=== PATIENT | female | born 1950 | race Caucasian/White ===

== ENCOUNTER 2017-03-04 13:59 | Outpatient (CLI) | payer OTHER | END 2017-03-04 14:00 | disposition home or self-care (01) | DX: G47.10 Hypersomnia, unspecified (principal); G47.8 Other sleep disorders; R06.83 Snoring ==

== ENCOUNTER 2017-04-06 19:32 | Outpatient (CLI) | payer OTHER | END 2017-04-06 19:33 | disposition home or self-care (01) | LOC: SC 19:32 | PROVIDERS: ATTEND Internal Medicine Pulmonary Disease | DX: G47.61 Periodic limb movement disorder (principal); R09.02 Hypoxemia | CPT/HCPCS: 95810 ==

== ENCOUNTER 2017-05-06 15:54 | Outpatient (CLI) | payer OTHER | END 2017-05-06 15:55 | disposition home or self-care (01) | DX: G47.61 Periodic limb movement disorder (principal); R09.02 Hypoxemia ==

== ENCOUNTER 2017-08-07 15:59 | Outpatient (CLI) | payer OTHER ==
[2017-08-07 13:34] LABS: BASOPHILS % (AUTO) 0.6 %; EOSINOPHILS # (AUTO) 0.1 10^3/uL (0.0-0.7); EOSINOPHILS % (AUTO) 2.1 %; HCT - HEMATOCRIT 39.2 % (37.0-47.0); HGB - HEMOGLOBIN 13.3 g/dL (12.0-16.0); LYMPHOCYTES # (AUTO) 1.5 10^3/uL (1.5-3.5); LYMPHOCYTES % (AUTO) 30.2 %; MEAN CORPUSCULAR HEMOGLOBIN 33.9 pg (27.0-31.0); MEAN CORPUSCULAR HGB CONC 33.9 g/dL (32.0-36.0); MEAN CORPUSCULAR VOLUME 99.9 fL (81.0-99.0); MEAN PLATELET VOLUME 9.1 fL (7.9-10.8); MONOCYTES # (AUTO) 0.4 10^3/uL (0.0-1.0); MONOCYTES % (AUTO) 7.9 %; NEUTROPHILS # (AUTO) 2.9 10^3/uL (1.5-6.6); NEUTROPHILS % (AUTO) 59.2 %; RED BLOOD COUNT 3.92 10^6/uL (4.20-5.40); UNCORRECTED WHITE BLOOD COUNT 4.8 x10^3/uL; WHITE BLOOD COUNT 4.8 x10^3/uL (4.8-10.8)
[2017-08-07 14:01] LABS: BUN - BLOOD UREA NITROGEN 7 mg/dL (6-20); CALCIUM 9.3 mg/dL (8.5-10.3); CARBON DIOXIDE - CO2 26 mmol/L (21-32); CHLORIDE 101 mmol/L (101-111); CREATININE 0.6 mg/dL (0.4-1.0); GFR - MDRD 100 (>89); GLUCOSE 376 mg/dL (70-100); POTASSIUM 4.3 mmol/L (3.5-5.0); SODIUM 133 mmol/L (135-145)
[2017-08-07 14:31] LABS: HEMOGLOBIN A1C 1.43 g/dL
== END 2017-08-07 16:00 | disposition home or self-care (01) ==
LOC: LAB.WCP 15:59
PROVIDERS: ATTEND Physician Assistant Medical
DX: E11.9 Type 2 diabetes mellitus without complications (principal); R09.02 Hypoxemia
CPT/HCPCS: 80048; 82043; 83036; 84443; 85025; 87798

== ENCOUNTER 2017-11-14 16:38 | Outpatient (CLI) | payer OTHER, MEDICARE | END 2017-11-14 16:39 | disposition critical access hospital (66) | LOC: EMS 16:38 | PROVIDERS: ATTEND Surgery | DX: R06.02 Shortness of breath (principal) | CPT/HCPCS: A0425; A0427 ==

== ENCOUNTER 2017-11-14 16:58 | Inpatient (IN) | payer OTHER, MEDICARE ==
--- NOTE | 2017-11-14 17:15 | ED Physician Documentation ---
PD HPI DYSPNEA - Stated complaint Stated Complaint: SOA - Chief complaint Chief Complaint: Resp - History obtained from History obtained from: Patient - History of Present Illness Timing - onset: Other (She says she has a history of asthma and potentially histoplasmosis, has seen a aircraft landing gear inspector in [place]. She also has chronic pedal edema, left greater than right. Today she went out and started to feel short of breath and the ambulance was summoned and noted her to be hypoxic with diminished breath sounds on the right which I guess is pre-existing per the patient. She has had a productive cough and wheezing for the last few days. No fevers.) Review of Systems Ten Systems: 10 systems reviewed and negative Constitutional: denies: Fever, Chills, Fatigue Cardiac: reports: Pedal edema. denies: Chest pain / pressure, Palpitations, Calf pain Respiratory: reports: Dyspnea, Cough GI: denies: Abdominal Pain PD PAST MEDICAL HISTORY - Past Medical History Past Medical History: Yes Cardiovascular: High cholesterol, Other Respiratory: Asthma Endocrine/Autoimmune: Type 2 diabetes GI: GERD, Cirrhosis : Incontinence Psych: Depression Musculoskeletal: Fibromyalgia - Present Medications Home Medications: Ambulatory Orders Medication Instructions Recorded Confirmed Albuterol Sulf [Ventolin Hfa 1 - 2 puffs INH Q4HR PRN 03/21/17 03/21/17 Inhaler] Budesonide/Formoterol Fumarate 2 puffs IH BID 03/21/17 03/21/17 [Symbicort 160-4.5 Mcg Inhaler] Calcium Carbonate 600 mg PO DAILY 03/21/17 03/21/17 DULoxetine [Cymbalta] 30 mg PO DAILY 03/21/17 03/21/17 Empagliflozin [Jardiance] 25 mg PO DAILY 03/21/17 03/21/17 Lactobacillus Acidophilus/Fos 1 each PO DAILY 03/21/17 03/21/17 [Acidophilus Probiotic Tablet] Lysine HCl 500 mg PO DAILY 03/21/17 03/21/17 Melatonin 3 mg PO QPM 03/21/17 03/21/17 Metformin HCl 1,000 mg PO BIDWM 03/21/17 03/21/17 Mometasone Furoate [Nasonex] 2 sprays NS DAILY 03/21/17 03/21/17 Mupirocin 22 gm TP BID 03/21/17 03/21/17 Omeprazole 20 mg PO DAILY 03/21/17 03/21/17 Potassium Chloride 10 meq PO BIDWM 03/21/17 03/21/17 Propranolol [Inderal] 60 mg PO BID 03/21/17 03/21/17 Spironolactone 50 mg PO DAILY 03/21/17 03/21/17 Vitamin B Complex 1 each PO DAILY 03/21/17 03/21/17 Cholecalciferol (Vitamin D3) 2,000 unit PO DAILY 04/22/17 04/22/17 [Vitamin D] Ibuprofen 400 mg PO BID 04/22/17 04/22/17 - Allergies Allergies/Adverse Reactions: Allergies Allergy/AdvReac Type Severity Reaction Status Date / Time cimetidine [From Tagamet] Allergy Unknown Verified 11/14/17 17:05 cimetidine HCl * Allergy Unknown Verified 11/14/17 17:05 [From Tagamet] erythromycin lactobionate * Allergy Unknown Verified 11/14/17 17:05 [From Erythrocin] fluticasone propionate * Allergy Unknown Verified 11/14/17 17:05 [From Flonase] levofloxacin [From Levaquin] Allergy Unknown Verified 11/14/17 17:05 piroxicam [From Feldene] Allergy Unknown Verified 11/14/17 17:05 Sulfa (Sulfonamide Allergy Unknown Verified 11/14/17 17:05 Antibiotics) ibuprofen [From Motrin] AdvReac Unknown Verified 11/14/17 17:05 - Social History Does the pt smoke?: No Smoking Status: Never smoker - Family History Family history: reports: Non contributory PD ED PE NORMAL - Vitals Vital signs reviewed: Yes (Pulse oximetry is low) - General General: Alert and oriented X 3, No acute distress - HEENT HEENT: PERRL, EOMI - Neck Neck: Supple, no meningeal sign, No bony TTP - Cardiac Cardiac: RRR, No murmur - Respiratory Respiratory: Other (Diminished on the right) - Abdomen Abdomen: Soft, Non tender - Back Back: No CVA TTP, No spinal TTP - Extremities Extremities: Other (Asymmetric pedal edema with left being larger than the right but she said it is no different than usual.) - Neuro Neuro: Alert and oriented X 3 - Psych Psych: Normal mood, Normal affect Results - Vitals Vitals: Vital Signs - 24 hr 11/14/17 11/14/1718 16:59 17:08 19:32 Temperature 37.2 C 37.2 C Heart Rate 106 H 91 Respiratory 22 24 Rate Blood Pressure 156/73 H 123/66 O2 Saturation 81 L 93 94 Oxygen O2 Source Nasal cannula Oxygen Flow Rate 3 - EKG (time done) 1736 Rate: Rate (enter#) (91) Rhythm: NSR [place]: Normal Intervals: Normal [place] QRS: Normal Ischemia: Normal ST segments Computer interpretation: Agree with computer - Labs Labs: Laboratory Tests 11/14/17 11/14/17 11/14/17 17:50 17:50 17:50 WBC 5.0 RBC 3.88 L Hgb 13.3 Hct 39.4 MCV 101.4 H MCH 34.1 H MCHC 33.7 RDW 14.5 Plt Count 67 L MPV 8.4 Neut # 3.2 Lymph # 1.4 L [place] # 0.3 Eos # 0.1 Baso # 0.0 Absolute Nucleated RBC 0.00 Nucleated RBC % 0.0 D-Dimer > 1050.0 H Sodium 135 Potassium 3.8 Chloride 99 L Carbon Dioxide 25 Anion Gap 11.0 BUN < 5 L Creatinine 0.5 Estimated GFR (MDRD) 123 Glucose 452 H Calcium 9.0 Total Bilirubin 2.1 H AST 46 H ALT 23 Alkaline Phosphatase 208 H Total Creatine Kinase 66 CK-MB (CK-2) Troponin I Total Protein 7.5 Albumin 2.9 L Globulin 4.6 H Albumin/Globulin Ratio 0.6 L Lipase 44 Urine Color Urine Clarity Urine pH Ur Specific [place] Urine Protein Urine Glucose (UA) Urine Ketones Urine Occult Blood Urine Nitrite Urine Bilirubin Urine Urobilinogen Ur Leukocyte Esterase Ur Microscopic Review 11/14/17 11/14/17 17:50 Unknown WBC RBC Hgb Hct MCV MCH MCHC RDW Plt Count MPV Neut # Lymph # [place] # Eos # Baso # Absolute Nucleated RBC Nucleated RBC % D-Dimer Sodium Potassium Chloride Carbon Dioxide Anion Gap BUN Creatinine Estimated GFR (MDRD) Glucose Calcium Total Bilirubin AST ALT Alkaline Phosphatase Total Creatine Kinase CK-MB (CK-2) 1.4 Troponin I < 0.04 Total Protein Albumin Globulin Albumin/Globulin Ratio Lipase Urine Color YELLOW Urine Clarity CLEAR Urine pH 7.0 Ur Specific [place] <=1.005 Urine Protein NEGATIVE Urine Glucose (UA) >=1000 H Urine Ketones NEGATIVE Urine Occult Blood NEGATIVE Urine Nitrite NEGATIVE Urine Bilirubin NEGATIVE Urine Urobilinogen 0.2 (NORMAL) Ur Leukocyte Esterase NEGATIVE Ur Microscopic Review NOT INDICATED - Rads (name of study) 2v chest Radiology: EMP read contemporaneously (R pleural effusion) CT PA Radiology: EMP read contemporaneously, See rad report (No PE, lg R pleural effusion, Mayrbe multilobar pna) PD MEDICAL DECISION MAKING - ED course Complexity details: reviewed old records (Transthoracic echocardiogram on the chart from November 2015 showing LVEF of 60-65%, stage II diastolic dysfunction , bilateral atrial dilation and borderline pulmonary hypertension with RVSP 36 mmHg. ) ED course: 67-year-old woman with acute dyspnea today, she has a large right pleural effusion of unclear etiology. Her d-dimer was high so this was followed by CT pulmonary angiogram showing no pulmonary embolism. Potential pneumonia versus atelectasis of multiple lobes and a right pleural effusion. She is persistently hypoxic and will be admitted for further evaluation and treatment. She will be cultured up and given Rocephin and doxycycline noting antibiotic allergies. Spoke with Dr. Turner for admission at 7:48 PM. Departure - Departure Disposition: 67 [facility] DC/Xfer Clinical Impression: Pleural effusion, Hypoxemia Pneumonia Qualifiers: Pneumonia type: due to unspecified organism Laterality: unspecified laterality Lung location: unspecified part of lung Qualified Code(s): J18.9 - Pneumonia, unspecified organism Condition: Serious
[2017-11-14 17:32] LABS: BILIRUBIN,URINE NEGATIVE (NEGATIVE); CLARITY,URINE CLEAR (CLEAR); GLUCOSE, URINE (UA) >=1000 mg/dL (NEGATIVE); KETONES,URINE (UA) NEGATIVE (NEGATIVE); LEUKOCYTE ESTERASE, URINE NEGATIVE (NEGATIVE); NITRITE,URINE NEGATIVE (NEGATIVE); OCCULT BLOOD,URINE NEGATIVE (NEGATIVE); PROTEIN,URINE NEGATIVE (NEGATIVE); UROBILINOGEN,URINE 0.2 (NORMAL) E.U./dL (NORMAL)
[2017-11-14] MEDS ORDERED: INSULIN REGULAR HUMAN 100 UNIT/1 ML 10 ML MDV IVP STA (17:45)
--- NOTE | 2017-11-14 17:47 | XRAY Report ---
EXAM: CHEST RADIOGRAPHY EXAM DATE: 11/14/2017 05:30 PM. CLINICAL HISTORY: Dyspnea. COMPARISON: None. TECHNIQUE: 2 views. FINDINGS: Lungs/Pleura: There is a density in the lower right chest consistent with a moderate right pleural ef fusion. No significant left pleural effusion. No consolidative densities seen. Mediastinum: Heart and mediastinal contours are unremarkable. Other: There is a lateral left fourth rib fracture. IMPRESSION: Moderate-sized right pleural effusion. [facility] Referring Provider Line: [phone] SITE ID: [id number]
--- NOTE | 2017-11-14 17:47 | XRAY Preliminary Report ---
Exam: XR CHEST 2 VIEW X-RAY IMPRESSION: Moderate-sized right pleural effusion. [facility] SITE ID: [id number]
[2017-11-14] MEDS ORDERED: IOPAMIDOL-300 100 ML VIAL ONE (17:49)
[2017-11-14 18:09] LABS: BASOPHILS % (AUTO) 0.4 %; EOSINOPHILS # (AUTO) 0.1 10^3/uL (0.0-0.7); HGB - HEMOGLOBIN 13.3 g/dL (12.0-16.0); LYMPHOCYTES # (AUTO) 1.4 10^3/uL (1.5-3.5); LYMPHOCYTES % (AUTO) 28.2 %; MEAN CORPUSCULAR HEMOGLOBIN 34.1 pg (27.0-31.0); MEAN CORPUSCULAR HGB CONC 33.7 g/dL (32.0-36.0); MEAN CORPUSCULAR VOLUME 101.4 fL (81.0-99.0); MEAN PLATELET VOLUME 8.4 fL (7.9-10.8); MONOCYTES # (AUTO) 0.3 10^3/uL (0.0-1.0); MONOCYTES % (AUTO) 6.3 %; NEUTROPHILS # (AUTO) 3.2 10^3/uL (1.5-6.6); NEUTROPHILS % (AUTO) 63.1 %; PLT - PLATELET COUNT 67 10^3/uL (130-450); RED BLOOD COUNT 3.88 10^6/uL (4.20-5.40); RED CELL DISTRIBUTION WIDTH 14.5 % (12.0-15.0)
[2017-11-14 18:19] LABS: TROPONIN I < 0.04 ng/mL (<0.49)
[2017-11-14 18:21] LABS: CREATINE KINASE MB 1.4 ng/mL (0.6-6.3)
[2017-11-14 18:24] LABS: ALBUMIN 2.9 g/dL (3.2-5.5); ALBUMIN/GLOBULIN RATIO 0.6 (1.0-2.2); ALKALINE PHOSPHATASE 208 IU/L (42-121); ALT ALANINE AMINOTRANSFERASE 23 IU/L (10-60); AST ASPARTATE AMINOTRANSFERASE 46 IU/L (10-42); BILIRUBIN,TOTAL 2.1 mg/dL (0.2-1.0); BUN - BLOOD UREA NITROGEN < 5 mg/dL (6-20); CARBON DIOXIDE - CO2 25 mmol/L (21-32); CHLORIDE 99 mmol/L (101-111); CK- CREATINE KINASE 66 IU/L (22-269); CREATININE 0.5 mg/dL (0.4-1.0); GFR - MDRD 123 (>89); GLUCOSE 452 mg/dL (70-100); LIPASE 44 U/L (22-51); SODIUM 135 mmol/L (135-145); TOTAL PROTEIN 7.5 g/dL (6.7-8.2)
[2017-11-14] MEDS ORDERED: IOPAMIDOL-300 100 ML VIAL IVP ONE (19:05)
--- NOTE | 2017-11-14 19:27 | CT Preliminary Report ---
Exam: CT CHEST ANGIO (PE) IMPRESSION: 1. Negative for acute pulmonary embolism. 2. New moderate-sized right pleural effusion. 3. Chronic liver disease and liver fibrosis with splenomegaly. 4. Patchy airspace disease in the medial left upper lobe is similar to previous. Differential diagnos is would include parenchymal postinflammatory scarring or fibrosis versus recurrent infection or mathematician research stefan infection. 5. Opacities of right middle and right lower lobe are most consistent with atelectasis. [facility] SITE ID: [id number]
--- NOTE | 2017-11-14 19:28 | CT Report ---
EXAM: CT ANGIOGRAM CHEST EXAM DATE: 11/14/2017 06:50 PM. CLINICAL HISTORY: Dyspnea. COMPARISON: Chest CT 12/22/2015. TECHNIQUE: Routine helical imaging was performed through the chest in the pulmonary arterial phase. I V Contrast: 80 cc Isovue 300 IV. Reconstructions: Coronal 3-D MIP reconstructions.Sagittal and grant l. In accordance with CT protocol optimization, one or more of the following dose reduction techniques w ere utilized for this exam: automated exposure control, adjustment of mA and/or KV based on patient s ize, or use of iterative reconstructive technique. FINDINGS: Pulmonary Arteries: Diagnostic quality: Adequate through the segmental arteries. Negative for pulmonary embolism to the s egmental level. Subsegmental vessels not well seen. The main pulmonary artery appears upper normal in size but unchanged. Lungs/Pleura: There is a moderate-sized right pleural effusion which is new since the previous examin ation. There is consolidation and volume loss in the right lower lobe. There is a densely calcified g ranuloma in the right lower lobe. There is consolidation and volume loss in the right middle lobe. Th ere is atelectasis in the lingula. There is a small area of consolidation and adjacent nodularity wit hin the medial left upper lobe. Mediastinum: The heart size is within normal limits. There is no pericardial effusion. No mediastinal adenopathy. There are calcified right hilar lymph nodes consistent with old granulomatous disease. Thoracic Aorta: No aneurysm or dissection. Upper Abdomen: There is a lobulated contour to the liver consistent with liver fibrosis. Spleen is en larged. Other: None. IMPRESSION: 1. Negative for acute pulmonary embolism. 2. New moderate-sized right pleural effusion. 3. Chronic liver disease and liver fibrosis with splenomegaly. 4. Patchy airspace disease in the medial left upper lobe is similar to previous. Differential diagnos is would include parenchymal postinflammatory scarring or fibrosis versus recurrent infection or shot coat tender stefan infection. 5. Opacities of right middle and right lower lobe are most consistent with atelectasis. [facility] Referring Provider Line: [phone] SITE ID: [id number]
[2017-11-14] MEDS ORDERED: cefTRIAXone 1 GM in SODIUM CHLORIDE 0.9% MINIBAG 100 ML IV STA (19:41)
[2017-11-14] MEDS ORDERED: DOXYCYCLINE INJ 100 MG in SODIUM CHLORIDE 0.9% MINIBAG 100 ML IV STA (19:42)
[2017-11-14] MEDS ORDERED: HYDROmorphone 1 MG/ML SYRINGE IVP PRN (20:38)
[2017-11-14] MEDS ORDERED: PROCHLORPERAZINE 10 MG/2 ML VIAL IVP PRN (20:38)
[2017-11-14] MEDS ORDERED: ZOLPIDEM 5 MG TABLET PO PRN (20:38)
[2017-11-14] MEDS: INSULIN ASPART 300 UNIT/3 ML PEN SUBQ SCH (22:51)
[2017-11-14] MEDS: PROPRANOLOL 40 MG TABLET PO SCH (22:52)
[2017-11-14] MEDS: SODIUM CHLORIDE FLUSH 0.9% 10 ML SYRINGE IVP SCH (22:54)
[2017-11-15] MEDS: ACETAMINOPHEN 325 MG TABLET PO PRN ×3 (02:20→22:00)
[2017-11-15 05:33] LABS: BASOPHILS # (AUTO) 0.2 10^3/uL (0.0-0.1); BASOPHILS % (AUTO) 3.7 %; EOSINOPHILS # (AUTO) 0.1 10^3/uL (0.0-0.7); EOSINOPHILS % (AUTO) 2.6 %; HGB - HEMOGLOBIN 13.1 g/dL (12.0-16.0); LYMPHOCYTES # (AUTO) 1.4 10^3/uL (1.5-3.5); LYMPHOCYTES % (AUTO) 25.4 %; MEAN CORPUSCULAR HEMOGLOBIN 33.9 pg (27.0-31.0); MEAN CORPUSCULAR HGB CONC 34.5 g/dL (32.0-36.0); MEAN PLATELET VOLUME 8.5 fL (7.9-10.8); MONOCYTES # (AUTO) 0.4 10^3/uL (0.0-1.0); MONOCYTES % (AUTO) 7.2 %; NEUTROPHILS # (AUTO) 3.4 10^3/uL (1.5-6.6); NEUTROPHILS % (AUTO) 61.1 %; PLT - PLATELET COUNT 72 10^3/uL (130-450); RED BLOOD COUNT 3.87 10^6/uL (4.20-5.40); RED CELL DISTRIBUTION WIDTH 13.3 % (12.0-15.0); WHITE BLOOD COUNT 5.6 x10^3/uL (4.8-10.8)
[2017-11-15 05:41] LABS: CALCIUM 8.5 mg/dL (8.5-10.3); CREATININE 0.4 mg/dL (0.4-1.0)
[2017-11-15 05:42] LABS: HB2 TOTAL 14.3 g/dL; HEMOGLOBIN A1C 1.48 g/dL; HEMOGLOBIN A1C % 11.6 % (4.6-6.2)
--- NOTE | 2017-11-15 06:14 | HISTORY & PHYSICAL EXAMINATION ---
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 The patient presents with complaints of shortness of breath that started about 18 hours before presenting to the emergency room. She normally takes an inhaler p.r.n. and had to start use it the previous night. She denied any PND or orthopnea. In the morning, when she was walking outdoors in very windy weather, she thought that her seasonal allergies were acting up, and she developed severe shortness of breath during this walk. With rest, it did not resolve, and therefore she presented to the emergency room. She received inhaler treatment and was started on IV antibiotics for findings on her chest x-ray, and feels significantly better already. She denies any fever. She has a dry cough with no sputum production. There is no angina, new leg edema, palpitations, or syncope. REVIEW OF SYSTEMS HEENT: The patient fell by stumbling as she was entering her house 3 months ago and broke half of her upper left portion of her teeth and is scheduled to see a dentist, but because of this her nutrition has changed to soft food. NECK: Denies trouble. CHEST: She has had prior pneumonias. She is seen by a adjustment supervisor in [place], who told her that she has histoplasmosis and that nothing can be done about it, and gave no treatment, and he saw a right-sided small pleural effusion and started her on diuretics. The patient has 2 nodules of the lungs that are being followed by imaging. CARDIAC: Denies. GASTROINTESTINAL: GERD and history of liver cirrhosis, nonalcoholic. GENITOURINARY: Urinary incontinence. PSYCHIATRIC: Depression. MUSCULOSKELETAL: Fibromyalgia; bilateral leg edema, left greater than right, with prior left schroeder cellulitis. NEUROLOGIC: Denies. FAMILY HISTORY: Positive for coronary artery disease in both parents and a brother. No diabetes in the family. SOCIAL HISTORY: She is a nonsmoker who never smoked, drinks no alcohol, uses no illicit drugs. She lives alone, is a . She has 2 grown children who live in [place]. 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 MEDICATIONS AT HOME 1. Ventolin inhaler. 2. Symbicort inhaler. 3. Cymbalta. 4. Jardiance. 5. Lactobacillus. 6. Calcium. 7. Lysine. 8. Melatonin. 9. Metformin 1000 p.o. b.i.d., but she only takes 1000 every night and forgets the morning dose routinely. 10. Nasonex. 11. Mupirocin. 12. Omeprazole. 13. Potassium. 14. Inderal 60 mg p.o. b.i.d. 15. Spironolactone 50 mg p.o. daily. 16. Vitamin B. 17. Vitamin D. 18. Ibuprofen 400 b.i.d. ALLERGIES 1. CIMETIDINE. 2. ERYTHROMYCIN. 3. FLONASE. 4. LEVAQUIN. 5. FELDENE. 6. SULFA. 7. MOTRIN, ALTHOUGH SHE TAKES MOTRIN. PHYSICAL EXAMINATION GENERAL: White female who is in no distress, supine in bed. VITAL SIGNS: Blood pressure 110/50, heart rate is in the 70s in sinus rhythm. She is HEENT: Reveals the broken teeth of the right/left upper area, moist mucosa. NECK: Shows no thyromegaly or lymphadenopathy. No JVD. She has a positive left-sided carotid bruit. CHEST: Clear with no wheezing or rales. HEART: Sounds have normal S1, S2 and a 2/6 systolic murmur at the lower left sternal border, which radiates up to the base. There is no gallop. ABDOMEN: Soft. Positive bowel sounds. Nontender. No organomegaly. EXTREMITIES: Two plus edema to the knees. Venous stasis changes over a left schroeder area that is approximately 11 cm long x 3 cm wide, where prior cellulitis occurred. NEUROLOGIC: Intact. LABORATORY DATA: Normal electrolytes, normal BUN and creatinine. AST 46, ALT 23, bilirubin 2.1. Troponin not detectable at less than 0.04, BNP 99. Albumin 2.9. Lipase normal. INR was not done. Her D-dimer was greater than 1050. White blood count 5 with a normal differential, hemoglobin 13.3, MCV 101, platelet count low at 67. Urine had no ketones and was basically negative. IMAGING: Chest x-ray: Normal cardiac size. Lateral left 4th rib fractured. Moderate sized right pleural effusion. CTA of the chest: No aortic aneurysm or dissection. No pulmonary embolism. Moderate sized right pleural effusion which is new since a prior CT, and there is right lower lobe consolidation, and consolidation of the medial left upper lobe. The liver has fibrosis. The spleen is enlarged. EKG: Normal sinus rhythm and poor R-wave progression, otherwise within normal limits. IMPRESSION/DIAGNOSES 1. Bilateral community-acquired pneumonia. 2. Right pleural effusion. 3. Asthma. 4. Diabetes, poorly controlled. 5. History of histoplasmosis. 6. History of liver cirrhosis, nonalcoholic. 7. Anemia with high MCV. 8. Heart murmur. 9. Carotid bruit. 10. Thrombocytopenia. PLAN: Begin the patient on antibiotics with IV ceftriaxone and doxycycline, and DuoNeb inhalers. Plan for a thoracentesis as she confirms that the size of the effusion is bigger than what her adjustment supervisor described it to be to her several months ago. I have already ordered for the fluid from the lungs to be sent for cytology, cell count, and for culture. Recheck a BNP and also check a flu antigen for A and B with this finding; however, clinically she does not appear to have the flu. Metformin needs to be held because she received IV dye load; therefore, a sliding scale insulin will be ordered, as well as a diabetic diet. Follow her electrolytes and glucose, and check an A1c. Because of the high MCV, we will order a B12 and folate, and follow her CBC. Obtain an echo to evaluate the murmur. Obtain carotid Doppler regarding the bruit on left. DEEP VENOUS THROMBOSIS PROPHYLAXIS: Lovenox. CODE STATUS: FULL CODE. ATTESTATION: The patient is expected to be discharged or transferred to another facility within 96 hours: Yes. TD: 11/15/2017 07:13 JADIEL
[2017-11-15] MEDS: SODIUM CHLORIDE FLUSH 0.9% 10 ML SYRINGE IVP SCH ×3 (06:51→21:52)
[2017-11-15] MEDS: PANTOPRAZOLE 40 MG TABLET PO SCH (06:51)
[2017-11-15] MEDS: IPRATROPIUM/ALBUTEROL 3 ML NEB INH SCH ×4 (07:07→22:00)
[2017-11-15] MEDS ORDERED: metFORMIN 500 MG TABLET PO SCH (08:00)
[2017-11-15] MEDS ORDERED: ENOXAPARIN 40 MG/0.4 ML SYRINGE SUBQ SCH (09:00)
[2017-11-15] MEDS ORDERED: MOMETASONE FUROATE NAS SCH (09:00)
[2017-11-15] MEDS ORDERED: NON FORMULARY MED (Omeprazole [Omeprazole] 20 MG) PO SCH (09:00)
[2017-11-15] MEDS ORDERED: IBUPROFEN 400 MG PO PRN (09:31)
[2017-11-15] MEDS ORDERED: ALBUTEROL NEB 2.5 MG/3 ML INH PRN (10:12)
[2017-11-15 10:31] LABS: INR 1.3 (0.8-1.2); PT - PROTHROMBIN TIME 14.3 secs (9.9-12.6)
[2017-11-15] MEDS ORDERED: cefTRIAXone 2 GM in SODIUM CHLORIDE 0.9% MINIBAG 100 ML IV SCH (11:00)
[2017-11-15] MEDS ORDERED: AZITHROMYCIN INJ 500 MG in SODIUM CHLORIDE 0.9% 250 ML IV SCH (12:00)
[2017-11-15] MEDS: INSULIN ASPART 300 UNIT/3 ML PEN SUBQ SCH ×3 (12:47→22:02)
[2017-11-15] MEDS: cefTRIAXone 2 GM in SODIUM CHLORIDE 0.9% MINIBAG 100 ML IV SCH (13:10)
[2017-11-15] MEDS: SODIUM CHLORIDE FLUSH 0.9% 10 ML SYRINGE IVP PRN (13:10)
[2017-11-15] MEDS: CALCIUM CARB (OYSTER SHELL) 500 MG TABLET PO SCH (13:10)
[2017-11-15] MEDS: PROPRANOLOL 40 MG TABLET PO SCH ×2 (13:11→21:52)
[2017-11-15] MEDS: DULoxetine 30 MG CAPSULE PO SCH (13:11)
[2017-11-15] MEDS: POTASSIUM CHLORIDE 10 MEQ CAPSULE PO SCH ×2 (13:12→15:59)
[2017-11-15] MEDS: SPIRONOLACTONE 25 MG TABLET PO SCH (13:12)
[2017-11-15 13:20] LABS: CC,BF RBC 1086 /mm^3
[2017-11-15] MEDS: POLYETHYLENE GLYCOL 3350 17 GM PACKET PO SCH (13:24)
[2017-11-15 14:27] LABS: BF COLOR YELLOW; BF SOURCE PLEURAL
[2017-11-15] MEDS: AZITHROMYCIN INJ 500 MG in SODIUM CHLORIDE 0.9% 250 ML IV SCH (14:27)
[2017-11-15] MEDS ORDERED: diphenhydrAMINE 25 MG CAPSULE PO PRN (15:38)
--- NOTE | 2017-11-15 15:56 | PROVIDER PROGRESS NOTE ---
Subjective - Prog Note Date Prog Note Date: 11/15/17 Prog Note Time: 15:53 - Subjective Pt reports feeling: Improved (Pt breathing easier at this time) Current Medications - Current Medications Current Medications: Tylenol, albuterol, azithromycin, calcium carbonate, ceftriaxone, vitamin D3, Benadryl,Cymbalta, glipizide, Dilaudid, NovoLog, melatonin, Protonix, polyethylene glycol,Potassium, Compazine, Inderal, Requip, spironolactone, sodium chloride, Ambien Objective - Vital Signs/Intake & Output Reviewed Vital Signs: Yes Vital Signs: Vital Signs x48h Temp Pulse Pulse Resp BP Pulse Ox 11/15/17 13:40 70 18 11/15/17 08:37 36.8 C 73 18 135/55 H 94 Intake & Output: Intake & Output 11/12/17 11/13/17 11/14/17 11/15/17 23:59 23:59 23:59 23:59 Intake Total 200 340 Balance 200 340 - Objective General Appearance: positive: No acute distress, Alert Eyes Bilateral: positive: Normal inspection, PERRL, EOMI ENT: positive: ENT inspection nml, Pharynx nml, No signs of dehydration Neck: positive: Nml inspection, Thyroid nml, No JVD, Trachea midline. negative : Thyromegaly Respiratory: positive: Chest non-tender, No respiratory distress, Breath sounds nml, Rales, Rhonchi Cardiovascular: positive: Regular rate & rhythm, No murmur, No gallop, Irregularly irregular, Extrasystoles. negative: Tachycardia Abdomen: positive: Non-tender, No organomegaly, Nml bowel sounds, No distention. negative: Tenderness Back: positive: Nml inspection. negative: CVA tenderness (R), CVA tenderness (L ) Skin: positive: Color nml, No rash, Warm, Dry. negative: Cyanosis Extremities: positive: Non-tender, Full ROM, Nml appearance, No pedal edema Neurologic/Psychiatric: positive: Oriented x3, CN's nml (2-12), Motor nml, Sensation nml, Mood/affect nml - Lab Results Fish Bones: 11/15/17 04:38 11/15/17 04:38 Other Labs: Lab Results x24hrs 11/15/17 11/15/17 11/15/17 Range/Units 13:00 10:10 04:38 WBC (4.8-10.8) x10^3/uL RBC (4.20-5.40) 10^6/uL Hgb (12.0-16.0) g/dL Hct (37.0-47.0) % MCV (81.0-99.0) fL MCH (27.0-31.0) pg MCHC (32.0-36.0) g/dL RDW (12.0-15.0) % Plt Count (130-450) 10^3/uL MPV (7.9-10.8) fL Neut # (1.5-6.6) 10^3/uL Lymph # (1.5-3.5) 10^3/uL Hooker # (0.0-1.0) 10^3/uL Eos # (0.0-0.7) 10^3/uL Baso # (0.0-0.1) 10^3/uL Absolute Nucleated RBC x10^3/uL Nucleated RBC % /100WBC PT 14.3 H (9.9-12.6) secs INR 1.3 H (0.8-1.2) APTT 33.7 H (24.9-33.3) secs Sodium 133 L (135-145) mmol/L Potassium 3.8 (3.5-5.0) mmol/L Chloride 103 (101-111) mmol/L Carbon Dioxide 24 (21-32) mmol/L Anion Gap 6.0 (6-13) BUN 5 L (6-20) mg/dL Creatinine 0.4 (0.4-1.0) mg/dL Estimated GFR (MDRD) 160 (>89) Glucose 341 H (70-100) mg/dL Glycated Hemoglobin (4.6-6.2) % Estim Average Glucose (70-100) Calcium 8.5 (8.5-10.3) mg/dL Vitamin B12 (180-914) pg/mL Folate (5.90 - >24.8) ng/mL Urine Color Urine Clarity (CLEAR) Urine pH (5.0-7.5) PH Ur Specific Beverly (1.002-1.030) Urine Protein (NEGATIVE) mg/dL Urine Glucose (UA) (NEGATIVE) mg/dL Urine Ketones (NEGATIVE) mg/dL Urine Occult Blood (NEGATIVE) Urine Nitrite (NEGATIVE) Urine Bilirubin (NEGATIVE) Urine Urobilinogen (NORMAL) E.U./dL Ur Leukocyte Esterase (NEGATIVE) Ur Microscopic Review Fluid Source PLEURAL Fluid Color YELLOW Fluid Clarity CLOUDY Fluid WBC 335 /mm^3 Fluid RBC 1086 /mm^3 Fluid Neutrophils % 2.0 % Fluid Lymphocytes % 41.0 Fluid Monocytes % 4.0 % Fluid Macrophages % 47.0 % Fld Mesothelial Cell % 6.0 % Influenza A (Rapid) (Negative) Influenza B (Rapid) (Negative) Influenza Types A,B Ag 11/15/17 11/15/17 11/15/17 Range/Units 04:38 04:38 04:38 WBC 5.6 (4.8-10.8) x10^3/uL RBC 3.87 L (4.20-5.40) 10^6/uL Hgb 13.1 (12.0-16.0) g/dL Hct 37.9 (37.0-47.0) % MCV 98.0 (81.0-99.0) fL MCH 33.9 H (27.0-31.0) pg MCHC 34.5 (32.0-36.0) g/dL RDW 13.3 (12.0-15.0) % Plt Count 72 L (130-450) 10^3/uL MPV 8.5 (7.9-10.8) fL Neut # 3.4 (1.5-6.6) 10^3/uL Lymph # 1.4 L (1.5-3.5) 10^3/uL Hooker # 0.4 (0.0-1.0) 10^3/uL Eos # 0.1 (0.0-0.7) 10^3/uL Baso # 0.2 H (0.0-0.1) 10^3/uL Absolute Nucleated RBC 0.01 x10^3/uL Nucleated RBC % 0.1 /100WBC PT (9.9-12.6) secs INR (0.8-1.2) APTT (24.9-33.3) secs Sodium (135-145) mmol/L Potassium (3.5-5.0) mmol/L Chloride (101-111) mmol/L Carbon Dioxide (21-32) mmol/L Anion Gap (6-13) BUN (6-20) mg/dL Creatinine (0.4-1.0) mg/dL Estimated GFR (MDRD) (>89) Glucose (70-100) mg/dL Glycated Hemoglobin 11.6 H (4.6-6.2) % Estim Average Glucose 286 H (70-100) Calcium (8.5-10.3) mg/dL Vitamin B12 1049 H (180-914) pg/mL Folate 17.00 (5.90 - >24.8) ng/mL Urine Color Urine Clarity (CLEAR) Urine pH (5.0-7.5) PH Ur Specific Beverly (1.002-1.030) Urine Protein (NEGATIVE) mg/dL Urine Glucose (UA) (NEGATIVE) mg/dL Urine Ketones (NEGATIVE) mg/dL Urine Occult Blood (NEGATIVE) Urine Nitrite (NEGATIVE) Urine Bilirubin (NEGATIVE) Urine Urobilinogen (NORMAL) E.U./dL Ur Leukocyte Esterase (NEGATIVE) Ur Microscopic Review Fluid Source Fluid Color Fluid Clarity Fluid WBC /mm^3 Fluid RBC /mm^3 Fluid Neutrophils % % Fluid Lymphocytes % Fluid Monocytes % % Fluid Macrophages % % Fld Mesothelial Cell % % Influenza A (Rapid) (Negative) Influenza B (Rapid) (Negative) Influenza Types A,B Ag 11/14/17 11/14/17 Range/Units Unknown 23:00 WBC (4.8-10.8) x10^3/uL RBC (4.20-5.40) 10^6/uL Hgb (12.0-16.0) g/dL Hct (37.0-47.0) % MCV (81.0-99.0) fL MCH (27.0-31.0) pg MCHC (32.0-36.0) g/dL RDW (12.0-15.0) % Plt Count (130-450) 10^3/uL MPV (7.9-10.8) fL Neut # (1.5-6.6) 10^3/uL Lymph # (1.5-3.5) 10^3/uL Hooker # (0.0-1.0) 10^3/uL Eos # (0.0-0.7) 10^3/uL Baso # (0.0-0.1) 10^3/uL Absolute Nucleated RBC x10^3/uL Nucleated RBC % /100WBC PT (9.9-12.6) secs INR (0.8-1.2) APTT (24.9-33.3) secs Sodium (135-145) mmol/L Potassium (3.5-5.0) mmol/L Chloride (101-111) mmol/L Carbon Dioxide (21-32) mmol/L Anion Gap (6-13) BUN (6-20) mg/dL Creatinine (0.4-1.0) mg/dL Estimated GFR (MDRD) (>89) Glucose (70-100) mg/dL Glycated Hemoglobin (4.6-6.2) % Estim Average Glucose (70-100) Calcium (8.5-10.3) mg/dL Vitamin B12 (180-914) pg/mL Folate (5.90 - >24.8) ng/mL Urine Color YELLOW Urine Clarity CLEAR (CLEAR) Urine pH 7.0 (5.0-7.5) PH Ur Specific Beverly <=1.005 (1.002-1.030) Urine Protein NEGATIVE (NEGATIVE) mg/dL Urine Glucose (UA) >=1000 H (NEGATIVE) mg/dL Urine Ketones NEGATIVE (NEGATIVE) mg/dL Urine Occult Blood NEGATIVE (NEGATIVE) Urine Nitrite NEGATIVE (NEGATIVE) Urine Bilirubin NEGATIVE (NEGATIVE) Urine Urobilinogen 0.2 (NORMAL) (NORMAL) E.U./dL Ur Leukocyte Esterase NEGATIVE (NEGATIVE) Ur Microscopic Review NOT INDICATED Fluid Source Fluid Color Fluid Clarity Fluid WBC /mm^3 Fluid RBC /mm^3 Fluid Neutrophils % % Fluid Lymphocytes % Fluid Monocytes % % Fluid Macrophages % % Fld Mesothelial Cell % % Influenza A (Rapid) Negative (Negative) Influenza B (Rapid) Negative (Negative) Influenza Types A,B Ag - - Diagnostic Imaging Diagnostic Imaging Results: positive: Final report reviewed Diagnostic Imaging Comments: EXAM: CHEST RADIOGRAPHY EXAM DATE: 11/14/2017 05:30 PM. CLINICAL HISTORY: Dyspnea. COMPARISON: None. TECHNIQUE: 2 views. FINDINGS: Lungs/Pleura: There is a density in the lower right chest consistent with a moderate right pleural effusion. No significant left pleural effusion. No consolidative densities seen. Mediastinum: Heart and mediastinal contours are unremarkable. Other: There is a lateral left fourth rib fracture. IMPRESSION: Moderate-sized right pleural effusion. EXAM: CT ANGIOGRAM CHEST EXAM DATE: 11/14/2017 06:50 PM. CLINICAL HISTORY: Dyspnea. COMPARISON: Chest CT 12/22/2015. TECHNIQUE: Routine helical imaging was performed through the chest in the pulmonary arterial phase. IV Contrast: 80 cc Isovue 300 IV. Reconstructions: Coronal 3-D MIP reconstructions.Sagittal and coronal. In accordance with CT protocol optimization, one or more of the following dose reduction techniques were utilized for this exam: automated exposure control, adjustment of mA and/or KV based on patient size, or use of iterative reconstructive technique. FINDINGS: Pulmonary Arteries: Diagnostic quality: Adequate through the segmental arteries. Negative for pulmonary embolism to the segmental level. Subsegmental vessels not well seen. The main pulmonary artery appears upper normal in size but unchanged. Lungs/Pleura: There is a moderate-sized right pleural effusion which is new since the previous examination. There is consolidation and volume loss in the right lower lobe. There is a densely calcified granuloma in the right lower lobe. There is consolidation and volume loss in the right middle lobe. There is atelectasis in the lingula. There is a small area of consolidation and adjacent nodularity within the medial left upper lobe. Mediastinum: The heart size is within normal limits. There is no pericardial effusion. No mediastinal adenopathy. There are calcified right hilar lymph nodes consistent with old granulomatous disease. Thoracic Aorta: No aneurysm or dissection. Upper Abdomen: There is a lobulated contour to the liver consistent with liver fibrosis. Spleen is enlarged. Other: None. IMPRESSION: 1. Negative for acute pulmonary embolism. 2. New moderate-sized right pleural effusion. 3. Chronic liver disease and liver fibrosis with splenomegaly. 4. Patchy airspace disease in the medial left upper lobe is similar to previous. Differential diagnosis would include parenchymal postinflammatory scarring or fibrosis versus recurrent infection or chronic infection. 5. Opacities of right middle and right lower lobe are most consistent with atelectasis. DATE OF SERVICE: ULTRASOUND-GUIDED THORACENTESIS: 11/15/2017 CLINICAL INDICATION: Right pleural effusion. FINDINGS: Following obtaining informed consent, a suitable site on the patient' s right posterior thorax was selected with ultrasound. The skin was prepped and draped in the usual sterile fashion. The skin and soft tissues were anesthetized with lidocaine. A Rgnn-Q-Aygyaeax catheter was inserted into the right pleural space, and approximately 2100 mL of fluid was removed without difficulty. The patient tolerated the procedure well. No immediate complications. Fluid was submitted to the lab for further evaluation as directed by the clinical service. IMPRESSION: SUCCESSFUL ULTRASOUND-GUIDED RIGHT THORACENTESIS. Assessment/Plan - Problem List (1) Pneumonia Impression: The patient is much more comfortable since we had the pleural effusion drained earlier today. She is breathing easily on 3 L of supplemental oxygen at this time. We will continue with the IV antibiotics, nebulizer treatments and supplemental oxygen. Qualifiers: Pneumonia type: due to unspecified organism Laterality: bilateral Lung location: unspecified part of lung Qualified Code(s): J18.9 - Pneumonia, unspecified organism (2) Pleural effusion Impression: 2100 mL drained today.Will obtain chest x-ray in 2 days to reassess. (3) Diabetes 1.5, managed as type 2 Impression: We will continue the patient on her Lantus and add a sliding scale for coverage (4) Asthma Impression: We will continue with the oxygen and nebulizer treatments as necessary. (5) Hx of cirrhosis Impression: We will continue to monitor- this is not an issue at this time.
--- NOTE | 2017-11-15 16:01 | Ultrasound Report ---
DATE OF SERVICE: ULTRASOUND-GUIDED THORACENTESIS: 11/15/2017 CLINICAL INDICATION: Right pleural effusion. FINDINGS: Following obtaining informed consent, a suitable site on the patient's right posterior thorax was selected with ultrasound. The skin was prepped and draped in the usual sterile fashion. The skin and soft tissues were anesthetized with lidocaine. A Mmzz-Q-Fuyrnxwd catheter was inserted into the right pleural space, and approximately 2100 mL of fluid was removed without difficulty. The patient tolerated the procedure well. No immediate complications. Fluid was submitted to the lab for further evaluation as directed by the clinical service. IMPRESSION: SUCCESSFUL ULTRASOUND-GUIDED RIGHT THORACENTESIS. TD: 11/15/2017 17:00
[2017-11-15] MEDS ORDERED: INSULIN ASPART 300 UNIT/3 ML PEN SUBQ SCH (17:00)
[2017-11-15] MEDS ORDERED: BUFFERED LIDOCAINE 10 ML SYRINGE IU ONE (18:08)
[2017-11-15] MEDS ORDERED: DULoxetine 30 MG CAPSULE PO SCH (21:00)
[2017-11-15] MEDS ORDERED: rOPINIRole 0.25 MG TABLET PO SCH (21:00)
[2017-11-15] MEDS ORDERED: NON FORMULARY MED (Melatonin [Melatonin] 3 MG) PO SCH (21:00)
[2017-11-16] MEDS: PANTOPRAZOLE 40 MG TABLET PO SCH (06:07)
[2017-11-16] MEDS: SODIUM CHLORIDE FLUSH 0.9% 10 ML SYRINGE IVP SCH (06:07)
[2017-11-16] MEDS: IPRATROPIUM/ALBUTEROL 3 ML NEB INH SCH ×2 (07:50→15:00)
[2017-11-16] MEDS ORDERED: glipiZIDE 5 MG TABLET PO SCH (08:00)
[2017-11-16] MEDS ORDERED: PANTOPRAZOLE 40 MG VIAL IVP SCH ×2 (09:00)
[2017-11-16] MEDS ORDERED: CHOLECALCIFEROL 1,000 UNIT TABLET PO SCH (09:00)
[2017-11-16] MEDS ORDERED: NON FORMULARY MED (Vitamin B Complex [Vitamin B Complex] 1 EACH) PO SCH (09:00)
[2017-11-16] MEDS ORDERED: PANTOPRAZOLE 40 MG VIAL IVP ONE (09:00)
[2017-11-16] MEDS ORDERED: FLUTICASONE NASAL SPRAY NAS SCH (09:00)
[2017-11-16] MEDS ORDERED: SODIUM CHLORIDE 0.9% 250 ML IV ONE (09:58)
[2017-11-16] MEDS: cefTRIAXone 2 GM in SODIUM CHLORIDE 0.9% MINIBAG 100 ML IV SCH (09:59)
[2017-11-16] MEDS: SODIUM CHLORIDE FLUSH 0.9% 10 ML SYRINGE IVP PRN (10:05)
[2017-11-16] MEDS: INSULIN ASPART 300 UNIT/3 ML PEN SUBQ SCH ×2 (10:08→11:48)
[2017-11-16] MEDS: POLYETHYLENE GLYCOL 3350 17 GM PACKET PO SCH (10:13)
[2017-11-16] MEDS: POTASSIUM CHLORIDE 10 MEQ CAPSULE PO SCH (10:15)
[2017-11-16] MEDS: DULoxetine 30 MG CAPSULE PO SCH (10:15)
[2017-11-16] MEDS: CALCIUM CARB (OYSTER SHELL) 500 MG TABLET PO SCH (10:16)
[2017-11-16] MEDS: PROPRANOLOL 40 MG TABLET PO SCH (10:16)
[2017-11-16] MEDS: SPIRONOLACTONE 25 MG TABLET PO SCH (10:16)
[2017-11-16] MEDS: ACETAMINOPHEN 325 MG TABLET PO PRN (10:53)
[2017-11-16] MEDS: AZITHROMYCIN INJ 500 MG in SODIUM CHLORIDE 0.9% 250 ML IV SCH (10:58)
--- NOTE | 2017-11-16 11:09 | Discharge Plan ---
Discharge Plan Disposition: 01 Home, Self Care Condition: Fair Prescriptions: Azithromycin [Zithromax] 250 mg PO 1-2XD #6 tablet Diet: Regular Activity Restrictions: Wt Bearing as Tolerated Shower Restrictions: No Driving Restrictions: No Weight Bearing: Full Weight No Smoking: If you smoke, Please STOP! Call for help. Follow-up with: Skye Randolph PA-C [Primary Care Provider] -
[2017-11-16 16:02] VITALS: BP 129/89
--- NOTE | 2017-11-16 16:07 | DISCHARGE SUMMARY ---
Discharge Summary Admit Date: 11/14/17 Discharge Date: 11/16/17 Discharging Provider: Caitlyn Snow DO Primary Care Provider: Debora Randolph Code Status: Attempt Resuscitation Condition at Discharge: Fair Discharge Disposition: Home, Self Care - DIAGNOSES Admission Diagnoses: 1. Bilateral community-acquired pneumonia 2. Right pleural effusion 3. Asthma 4. Diabetes, poorly controlled 5. history of histoplasmosis, cirrhosis, and a murmur. Discharge Diagnoses with Status of Each Condition: 1. Bilateral community-acquired pneumonia- Patient is discharged home on azithromycin. She is breathing much easier since her pleurocentesis. 2. Right pleural effusion - 2.1 L removed during a pleurocentesis. Patient will follow up with her primary care provider and a acquisitions assistant. 3. Asthma - Controlled. 4. Diabetes, poorly controlled- Patient did well on a sliding scale and is sent home on her previous home medication regimen. 5. history of histoplasmosis, cirrhosis, and a murmur- Will monitor. - HPI History of Present Illness: Ms. 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 The patient presented with complaints of shortness of breath that started about a teens prior 18 hours prior to presenting to the emergency department. She normally takes an inhaler as needed and had started to use that the previous night. She denies any paroxysmal next nocturnal dyspnea or orthopnea. In the morning when she was walking outdoors and very windy weather she thought her seasonal allergies were acting up and she developed short severe shortness of breath during the walk. After resting the shortness of breath did not resolve and she decided to come to the emergency room. She received inhaler treatment and was started on IV antibiotics for findings on her chest x-ray and feels significantly better almost immediately. She denies any fevers but she does admit to a dry cough without sputum production. There is no angina, new leg edema, palpitations, or syncopal episodes. - HOSPITAL COURSE Hospital Course: The patient was admitted to medical surgical bed and placed on IV antibiotics for her bilateral pneumonia.A Pleurocentesis was performed which removed 2.1 L of fluid and the patient immediately felt better. The next day she requested to be discharged home and was discharged home on oral azithromycin. - ALLERGIES Allergies/Adverse Reactions: Allergies Allergy/AdvReac Type Severity Reaction Status Date / Time cimetidine [From Tagamet] Allergy Unknown Verified 11/14/17 17:05 cimetidine HCl * Allergy Unknown Verified 11/14/17 17:05 [From Tagamet] erythromycin lactobionate * Allergy Unknown Verified 11/14/17 17:05 [From Erythrocin] fluticasone propionate * Allergy Unknown Verified 11/14/17 17:05 [From Flonase] levofloxacin [From Levaquin] Allergy Unknown Verified 11/14/17 17:05 piroxicam [From Feldene] Allergy Unknown Verified 11/14/17 17:05 Sulfa (Sulfonamide Allergy Unknown Verified 11/14/17 17:05 Antibiotics) egg AdvReac Nausea Verified 11/15/17 10:53 ibuprofen [From Motrin] AdvReac Unknown Verified 11/14/17 17:05 - MEDICATIONS Home Medications: Ambulatory Orders Medication Instructions Recorded Confirmed Albuterol Sulf [Ventolin Hfa 2 puffs INH Q4HR PRN 03/21/17 11/15/17 Inhaler] Calcium Carbonate 600 mg PO DAILY 03/21/17 11/15/17 DULoxetine [Cymbalta] 30 mg PO DAILY 03/21/17 11/15/17 Lactobacillus Acidophilus/Fos 1 each PO DAILY 03/21/17 11/15/17 [Acidophilus Probiotic Tablet] Lysine HCl 500 mg PO DAILY 03/21/17 11/15/17 Melatonin 3 mg PO QPM 03/21/17 11/15/17 Metformin HCl 1,000 mg PO BIDWM 03/21/17 11/15/17 Omeprazole 20 mg PO QDAC 03/21/17 11/15/17 Potassium Chloride 10 meq PO DAILYWM 03/21/17 11/15/17 Propranolol [Inderal] 60 mg PO BID 03/21/17 11/15/17 Spironolactone 50 mg PO BID 03/21/17 11/15/17 Vitamin B Complex 1 each PO DAILY 03/21/17 11/15/17 Cholecalciferol (Vitamin D3) 2,000 unit PO DAILY 04/22/17 11/15/17 [Vitamin D3] DULoxetine [Cymbalta] 60 mg PO QPM 11/15/17 11/15/17 Diclofenac Sodium [Voltaren] 2 - 4 gm TOP QID PRN 11/15/17 11/15/17 Fluticasone [Flonase] 2 sprays JAZMÍN DAILY 11/15/17 11/15/17 Insulin NPH Hum/Reg Insulin Hm 10 unit SUBQ BIDWM 11/15/17 11/15/17 [Humulin 70/30 Kwikpen] Ropinirole HCl 0.25 mg PO QPM 11/15/17 11/15/17 glipiZIDE [Glipizide] 5 mg PO DAILYWM 11/15/17 11/15/17 Azithromycin [Zithromax] 250 mg PO 1-2XD #6 tablet 11/16/17 - PHYSICAL EXAM AT DISCHARGE General Appearance: positive: No acute distress, Alert Eyes Bilateral: positive: Normal inspection, PERRL, EOMI, No lid inflammation, Conjunctivae nml ENT: positive: ENT inspection nml, Pharynx nml, No signs of dehydration. negative: Purulent nasal drainage, Oral lesions Neck: positive: Nml inspection, Thyroid nml, No JVD, Trachea midline. negative : Thyromegaly Respiratory: positive: Chest non-tender, No respiratory distress, Breath sounds nml. negative: Wheezes, Rales, Rhonchi Cardiovascular: positive: Regular rate & rhythm, No murmur, No gallop Peripheral Pulses: positive: 1+ Abdomen: positive: Non-tender, No organomegaly, Nml bowel sounds, No distention. negative: Tenderness Back: positive: Nml inspection. negative: CVA tenderness (R), CVA tenderness (L ) Skin: positive: Color nml, No rash, Warm, Dry. negative: Cyanosis Extremities: positive: Non-tender, Full ROM, Nml appearance, No pedal edema Neurologic/Psychiatric: positive: Oriented x3, CN's nml (2-12), Motor nml, Sensation nml, Mood/affect nml - LABS Result Diagrams: 11/15/17 04:38 11/15/17 04:38 - FOLLOW UP Follow Up: The patient will follow up with her primary care provider, Debora Randolph, and will follow up with a local acquisitions assistant. - TIME SPENT Time Spent in Discharge (Minutes): 45
--- NOTE | 2017-11-19 11:23 | Ultrasound Report ---
CAROTID DUPLEX: 11/15/2017 CLINICAL INDICATION: Left-sided bruit. TECHNIQUE: Real-time sonographic vascular imaging was performed by the graphic design intern through the carotid arteries utilizing both color-flow and Doppler spectral analysis. Multiple inside outside sales representative static images were saved for review. RIGHT Vessel PSV cm/sec EDV cm/sec ICA/CCA RSV Ratio Degree of Stenosis Plaque Estimate % RCCA Prox 113 -- -- RCCA Dist 115 16 -- RECA 101 -- -- RT BULB 90 15 0.78 GABE Prox 64 12 0.55 GABE Mid 83 19 0.72 GABE Dist 115 27 1.00 RVA 81 -- -- RVA flow direction: Antegrade LEFT Vessel PSV cm/sec EDV cm/sec ICA/CCA RSV Ratio Degree of Stenosis Plaque Estimate % LCCA Prox 94 -- LCCA Dist 95 17 LECA 134 -- LFT BULB 85 17 0.89 LICA Prox 107 13 1.12 LICA Mid 106 16 1.11 LICA Dist 111 2 1.16 LVA 78 -- LVA flow direction: Antegrade Velocity criteria are extrapolated from diameter data as defined by the Society of Radiologists in Ultrasound Consensus Conference Radiology 2003; 229; 340-346. Degree of Stenosis % ICA PSV cm/sec ICA/CCA RSV Ratio ICA EDV cm/sec Plaque Estimate % Normal < 125 < 40 < 2.0 None <50 < 125 <40 < 2.0 < 50 50-69 125-130 40-100 2.0-4.0 >/=50 >/=70 but less than near occlusion > 230 > 100 > 4.0 >/=50 Near occlusion High, low or undetectable Variable Variable Visible Total occlusion Undetectable Not applicable Not applicable No detectable lumen FINDINGS RIGHT: There is minimal plaquing in the right carotid bifurcation, without evidence of a focal hemodynamically significant stenosis. LEFT: There is minimal plaquing in the left carotid bifurcation, without evidence of a significant stenosis. The vertebral arteries demonstrate antegrade flow bilaterally. IMPRESSION: MINIMAL PLAQUING BILATERALLY, WITHOUT EVIDENCE OF A FOCAL HEMODYNAMICALLY SIGNIFICANT CAROTID STENOSIS. TD: 11/15/2017 16:06 MTDD
== END 2017-11-16 15:53 | disposition home or self-care (01) | DRG 186 ==
LOC: EDUNIT# → ED 16:58 → MS2 20:38
PROVIDERS: ADMIT Internal Medicine; ATTEND Hospitalist
PROC: 0W993ZZ Drainage of Right Pleural Cavity, Percutaneous Approach (ICD-10-PCS; principal; 2017-11-15)
DX: J90 Pleural effusion, not elsewhere classified (principal); J18.9 Pneumonia, unspecified organism; B39.2 Pulmonary histoplasmosis capsulati, unspecified; J45.909 Unspecified asthma, uncomplicated; E11.65 Type 2 diabetes mellitus with hyperglycemia; R01.1 Cardiac murmur, unspecified; R09.89 Other specified symptoms and signs involving the circulatory and respiratory systems; K21.9 Gastro-esophageal reflux disease without esophagitis; M79.7 Fibromyalgia; F32.9 Major depressive disorder, single episode, unspecified; K74.0 Hepatic fibrosis; R60.0 Localized edema; R32 Unspecified urinary incontinence; D53.9 Nutritional anemia, unspecified; D69.6 Thrombocytopenia, unspecified; Z87.01 Personal history of pneumonia (recurrent); Z79.899 Other long term (current) drug therapy; Z79.51 Long term (current) use of inhaled steroids; Z79.84 Long term (current) use of oral hypoglycemic drugs
CPT/HCPCS: 32555; 36415; 71046; 71275; 80048; 80053; 81001; 81003; 82550; 82553; 82607; 82746; 83036; 83605; 83690; 83735; 83880; 84484; 85025; 85379; 85610; 85730; 87040; 87070; 87205; 87275; 87276; 88108; 88305; 89051; 93005; 93306; 93880; 94640; 96365; 96367; 99284; 99285

== ENCOUNTER 2017-12-05 08:47 | Outpatient (CLI) | payer OTHER | END 2017-12-05 08:48 | disposition critical access hospital (66) | LOC: EMS 08:47 | PROVIDERS: ATTEND Surgery | DX: R53.1 Weakness (principal); R50.9 Fever, unspecified; M54.5 Low back pain; R30.9 Painful micturition, unspecified | CPT/HCPCS: A0425; A0427 ==

== ENCOUNTER 2017-12-05 09:08 | Inpatient (IN) | payer MEDICARE ==
[2017-12-05] MEDS ORDERED: SODIUM CHLORIDE 0.9% 1,000 ML IV ONE (09:27)
[2017-12-05] MEDS ORDERED: ACETAMINOPHEN 325 MG TABLET PO STA (09:27)
--- NOTE | 2017-12-05 09:30 | ED Physician Documentation ---
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, 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 - Present Medications Home Medications: Ambulatory Orders Medication Instructions Recorded Confirmed Albuterol Sulf [Ventolin Hfa 2 puffs INH Q4HR PRN 03/21/17 12/05/17 Inhaler] Calcium Carbonate 600 mg PO DAILY 03/21/17 12/05/17 DULoxetine [Cymbalta] 30 mg PO DAILY 03/21/17 12/05/17 Lactobacillus Acidophilus/Fos 1 each PO DAILY 03/21/17 12/05/17 [Acidophilus Probiotic Tablet] Lysine HCl 500 mg PO DAILY 03/21/17 12/05/17 Melatonin 3 mg PO QPM 03/21/17 12/05/17 Metformin HCl 1,000 mg PO BIDWM 03/21/17 12/05/17 Omeprazole 20 mg PO QDAC 03/21/17 12/05/17 Potassium Chloride 10 meq PO DAILYWM 03/21/17 12/05/17 Propranolol [Inderal] 60 mg PO BID 03/21/17 12/05/17 Spironolactone 50 mg PO BID 03/21/17 12/05/17 Vitamin B Complex 1 each PO DAILY 03/21/17 12/05/17 Cholecalciferol (Vitamin D3) 2,000 unit PO DAILY 04/22/17 12/05/17 [Vitamin D3] DULoxetine [Cymbalta] 60 mg PO QPM 11/15/17 12/05/17 Diclofenac Sodium [Voltaren] 2 - 4 gm TOP QID PRN 11/15/17 12/05/17 Fluticasone [Flonase] 2 sprays JAZMÍN DAILY 11/15/17 12/05/17 Insulin NPH Hum/Reg Insulin Hm 10 unit SUBQ BIDWM 11/15/17 12/05/17 [Humulin 70/30 Kwikpen] Ropinirole HCl 0.25 mg PO QPM 11/15/17 12/05/17 glipiZIDE [Glipizide] 5 mg PO DAILYWM 11/15/17 12/05/17 Furosemide [Lasix] 40 mg DAILY 12/05/17 12/05/17 - Allergies Allergies/Adverse Reactions: Allergies Allergy/AdvReac Type Severity Reaction Status Date / Time cimetidine [From Tagamet] Allergy Unknown Verified 12/05/17 09:18 cimetidine HCl * Allergy Unknown Verified 12/05/17 09:18 [From Tagamet] erythromycin lactobionate * Allergy Unknown Verified 12/05/17 09:18 [From Erythrocin] fluticasone propionate * Allergy Unknown Verified 12/05/17 09:18 [From Flonase] levofloxacin [From Levaquin] Allergy Unknown Verified 12/05/17 09:18 piroxicam [From Feldene] Allergy Unknown Verified 12/05/17 09:18 Sulfa (Sulfonamide Allergy Unknown Verified 12/05/17 09:18 Antibiotics) egg AdvReac Nausea Verified 12/05/17 09:18 ibuprofen [From Motrin] AdvReac Unknown Verified 12/05/17 09:18 - Social History Does the pt smoke?: No Smoking Status: Never smoker Does the pt drink ETOH?: No Does the pt have substance abuse?: No PD ED PE NORMAL - Vitals Vital signs reviewed: Yes (hypoxic, rpt temp = febrile) - General General: Alert and oriented X 3 - HEENT HEENT: No: Moist mucous membranes (very dry) - Neck Neck: Supple, no meningeal sign - Cardiac Cardiac: RRR - Respiratory Respiratory: No respiratory distress, Clear bilaterally - Abdomen Abdomen: Soft, Non tender - Derm Derm: No: Other (chroncic erythematous scaly skin to pretib region LLE) - Extremities Extremities: Other (leticia LE edema, non tender) - Neuro Neuro: Alert and oriented X 3 Results - Vitals Vitals: Vital Signs - 24 hr 12/05/17 12/05/17 12/05/17 09:09 09:20 10:00 Temperature 37 C 38.5 C H Heart Rate 81 78 Respiratory 20 20 Rate Blood Pressure 126/46 L 129/63 O2 Saturation 90 L 93 12/05/17 12/05/17 12/05/17 10:30 10:45 12:55 Temperature 38 C H 37.9 C H Heart Rate 74 80 Respiratory 20 20 Rate Blood Pressure 108/58 L 127/65 O2 Saturation 93 93 12/05/17 12/05/17 14:00 15:04 Temperature Heart Rate 76 71 Respiratory 20 16 Rate Blood Pressure 110/46 L 116/57 L O2 Saturation 93 Oxygen O2 Source Nasal cannula - EKG (time done) 1448 Rate: Rate (enter#) (71) Rhythm: NSR Intervals: Normal IA QRS: Normal Ischemia: Normal ST segments - Labs Labs: Laboratory Tests 12/05/17 12/05/17 12/05/17 09:48 09:48 09:48 WBC 8.2 RBC 3.94 L Hgb 13.5 Hct 38.9 MCV 98.7 MCH 34.2 H MCHC 34.7 RDW 14.3 Plt Count 68 L MPV 8.8 Neut # 6.0 Lymph # 1.5 [place] # 0.6 Eos # 0.0 Baso # 0.0 Absolute Nucleated RBC 0.01 Nucleated RBC % 0.1 D-Dimer 575.6 H Sodium 132 L Potassium 4.5 Chloride 98 L Carbon Dioxide 21 Anion Gap 13.0 BUN 13 Creatinine 0.7 Estimated GFR (MDRD) 84 L Glucose 229 H Lactic Acid Calcium 9.6 Total Bilirubin 2.8 H AST 48 H ALT 24 Alkaline Phosphatase 159 H Troponin I B-Natriuretic Peptide Total Protein 7.9 Albumin 3.1 L Globulin 4.8 H Albumin/Globulin Ratio 0.6 L Lipase 17 L Urine Color Urine Clarity Urine pH Ur Specific [place] Urine Protein Urine Glucose (UA) Urine Ketones Urine Occult Blood Urine Nitrite Urine Bilirubin Urine Urobilinogen Ur Leukocyte Esterase Urine RBC Urine WBC Ur Squamous Epith Cells Urine Bacteria Ur Microscopic Review Urine Culture Comments 12/05/17 12/05/17 12/05/17 09:48 09:48 09:48 WBC RBC Hgb Hct MCV MCH MCHC RDW Plt Count MPV Neut # Lymph # [place] # Eos # Baso # Absolute Nucleated RBC Nucleated RBC % D-Dimer Sodium Potassium Chloride Carbon Dioxide Anion Gap BUN Creatinine Estimated GFR (MDRD) Glucose Lactic Acid 2.1 Calcium Total Bilirubin AST ALT Alkaline Phosphatase Troponin I < 0.04 B-Natriuretic Peptide 226 H Total Protein Albumin Globulin Albumin/Globulin Ratio Lipase Urine Color Urine Clarity Urine pH Ur Specific [place] Urine Protein Urine Glucose (UA) Urine Ketones Urine Occult Blood Urine Nitrite Urine Bilirubin Urine Urobilinogen Ur Leukocyte Esterase Urine RBC Urine WBC Ur Squamous Epith Cells Urine Bacteria Ur Microscopic Review Urine Culture Comments 12/05/17 11:10 WBC RBC Hgb Hct MCV MCH MCHC RDW Plt Count MPV Neut # Lymph # [place] # Eos # Baso # Absolute Nucleated RBC Nucleated RBC % D-Dimer Sodium Potassium Chloride Carbon Dioxide Anion Gap BUN Creatinine Estimated GFR (MDRD) Glucose Lactic Acid Calcium Total Bilirubin AST ALT Alkaline Phosphatase Troponin I B-Natriuretic Peptide Total Protein Albumin Globulin Albumin/Globulin Ratio Lipase Urine Color DARK YELLOW Urine Clarity HAZY Urine pH 7.0 Ur Specific [place] 1.020 Urine Protein TRACE Urine Glucose (UA) 500 H Urine Ketones TRACE Urine Occult Blood LARGE H Urine Nitrite NEGATIVE Urine Bilirubin NEGATIVE Urine Urobilinogen 2 H Ur Leukocyte Esterase NEGATIVE Urine RBC TNTC H Urine WBC 0-3 Ur Squamous Epith Cells RARE Squamous Urine Bacteria Rare Ur Microscopic Review INDICATED Urine Culture Comments NOT INDICATED - Rads (name of study) CXR Radiology: See rad report (NACPD) CTPA Radiology: See rad report (no PE prior infiltrates improved, effusion improved, RML nodule rec fup imaging 12 m, cirrhotic liver) ruq sono Radiology: See rad report (nl CBD no retained stone etc) PD MEDICAL DECISION MAKING - ED course ED course: fever hypoxia and near syncope elev lactate but no fever and nl WBC UA + blood but not infection CXR prior pna and effsion improved CTPA neg for PE elev bili but imaging just shows cirrhosis and pt is s/p kojo leg erythema is chronic per pt still hypoxic, temp still about 100.4 after apap etiology unclear despite fairly extensive wup in ED perhaps she has a new developing pna and is too dry for it to show on imaging - but usually CT would identify that in any case feel she can't go home with fever and elevated lactate of unclear etiology, and new hypoxia of unclear etiology will admit spoke to hospitalist at 250 PM and she agrees to admit - observation Departure - Departure Disposition: ED Place in Observation Clinical Impression: Hypoxia, Near syncope Fever Qualifiers: Fever type: unspecified Qualified Code(s): R50.9 - Fever, unspecified Condition: Fair Comments: There is a nodule in your right lung that needs follow up imaging in 12 months - your PMD can order this
[2017-12-05 09:56] LABS: BASOPHILS % (AUTO) 0.3 %; HGB - HEMOGLOBIN 13.5 g/dL (12.0-16.0); LYMPHOCYTES # (AUTO) 1.5 10^3/uL (1.5-3.5); LYMPHOCYTES % (AUTO) 18.3 %; MEAN CORPUSCULAR HEMOGLOBIN 34.2 pg (27.0-31.0); MEAN CORPUSCULAR HGB CONC 34.7 g/dL (32.0-36.0); MEAN CORPUSCULAR VOLUME 98.7 fL (81.0-99.0); MEAN PLATELET VOLUME 8.8 fL (7.9-10.8); MONOCYTES # (AUTO) 0.6 10^3/uL (0.0-1.0); MONOCYTES % (AUTO) 7.8 %; NEUTROPHILS % (AUTO) 73.6 %; PLT - PLATELET COUNT 68 10^3/uL (130-450); RED BLOOD COUNT 3.94 10^6/uL (4.20-5.40); RED CELL DISTRIBUTION WIDTH 14.3 % (12.0-15.0); WHITE BLOOD COUNT 8.2 x10^3/uL (4.8-10.8)
[2017-12-05 10:09] LABS: ALBUMIN 3.1 g/dL (3.2-5.5); ALBUMIN/GLOBULIN RATIO 0.6 (1.0-2.2); BILIRUBIN,TOTAL 2.8 mg/dL (0.2-1.0); CALCIUM 9.6 mg/dL (8.5-10.3); CREATININE 0.7 mg/dL (0.4-1.0); TOTAL PROTEIN 7.9 g/dL (6.7-8.2)
--- NOTE | 2017-12-05 10:21 | XRAY Report ---
EXAM: CHEST RADIOGRAPHY EXAM DATE: 12/05/2017 09:58 AM. CLINICAL HISTORY: Fever hypoxia. COMPARISON: Chest x-ray 11/14/2017. TECHNIQUE: 1 view. FINDINGS: Lungs/Pleura: No focal consolidation evident. No pleural effusion. No pneumothorax. 1.4 cm densely ca lcified right lower lobe granuloma, projecting over right upper quadrant. Mediastinum: Atherosclerotic aortic calcifications. Other: None. IMPRESSION: No consolidation evident. [facility] Referring Provider Line: [phone] SITE ID: [id number]
[2017-12-05 11:29] LABS: GLUCOSE, URINE (UA) 500 mg/dL (NEGATIVE); KETONES,URINE (UA) TRACE mg/dL (NEGATIVE); LEUKOCYTE ESTERASE, URINE NEGATIVE (NEGATIVE); NITRITE,URINE NEGATIVE (NEGATIVE); OCCULT BLOOD,URINE LARGE (NEGATIVE); PROTEIN,URINE TRACE mg/dL (NEGATIVE); UROBILINOGEN,URINE 2 E.U./dL (NORMAL)
[2017-12-05 11:32] LABS: CLARITY,URINE HAZY (CLEAR)
[2017-12-05 11:38] LABS: BILIRUBIN,URINE NEGATIVE (NEGATIVE); ICTOTEST,URINE NEGATIVE
[2017-12-05] MEDS ORDERED: IOPAMIDOL-300 100 ML VIAL ONE (11:38)
[2017-12-05 11:41] LABS: BACTERIA,URINE Rare /HPF (None Seen); RBC,URINE TNTC /HPF (0-5); SQUAMOUS EPITHELIAL CELL,UR RARE Squamous (<= Few)
[2017-12-05] MEDS ORDERED: IOPAMIDOL-300 100 ML VIAL IVP ONE (12:17)
--- NOTE | 2017-12-05 12:36 | CT Report ---
EXAM: CT ANGIOGRAM CHEST EXAM DATE: 12/05/2017 11:59 AM. CLINICAL HISTORY: Near syncope and hypoxia elevated d dimer after inpatient stay. COMPARISON: 12/22/2015, 11/14/2017. TECHNIQUE: Routine helical imaging was performed through the chest in the pulmonary arterial phase. I V Contrast: 80 cc Isovue 300. Reconstructions: Coronal 3-D MIP reconstructions.Sagittal and coronal. In accordance with CT protocol optimization, one or more of the following dose reduction techniques w ere utilized for this exam: automated exposure control, adjustment of mA and/or KV based on patient s ize, or use of iterative reconstructive technique. FINDINGS: Pulmonary Arteries: Diagnostic quality: Adequate through the segmental arteries. No evidence for acute or chronic pulmona ry emboli. RV/LV is within normal limits. There is no interventricular septal bowing. There is no reflux of cont rast material in the IVC. Lungs/Pleura: 4 mm nodule right middle lobe series 5 image 74. There was infiltrate on prior CTs in t his region. Area of chronic scarring, bronchiectasis last upper lobe apical segment medially similar. Improved at electasis right middle lobe mild residual. Marked improvement right lower lobe atelectasis. Chronic l eft lingular atelectasis or scarring similar. Bibasilar atelectasis. Calcified granulomas. Trace righ t effusion Mediastinum: Normal. No cardiac enlargement or adenopathy. Thoracic Aorta: Unremarkable. Upper Abdomen: Cirrhotic appearing liver with calcification. Enlarged spleen with calcifications Other: None. IMPRESSION: 1. No pulmonary emboli. 2. Improved right middle lobe, right lower lobe areas of infiltrate or atelectasis. Trace right effus ion improved 3. 4 mm right middle lobe nodule can be followed up in 12 months per Fleischner recommendations. Not well seen previously due to infiltrate. 4. Cirrhotic appearing liver with splenomegaly [facility] Referring Provider Line: [phone] SITE ID: [id number]
[2017-12-05] MEDS ORDERED: ONDANSETRON 4 MG/2 ML VIAL IVP PRN (16:16)
[2017-12-05] MEDS ORDERED: ACETAMINOPHEN 325 MG TABLET PO PRN (16:16)
[2017-12-05] MEDS ORDERED: ALBUTEROL NEB 2.5 MG/3 ML INH PRN (16:26)
--- NOTE | 2017-12-05 16:35 | HISTORY & PHYSICAL EXAMINATION ---
Chief Complaint - Chief Complaint Chief Complaint: fever and shortness of breath History of Present Illness - Admitted From Admitted From:: ER - History Obtained From History obtained from: pt and family - History of Present Illness HPI Comment/Other: Ms. Dee is a 67-year-old female with a PMH significant for chronic LLE cellulitis, DM2, cardiac Murmur, Asthma, Pneumonia, Shortness of breath, GERD, Cirrhosis, urinary incontinence and frequency, chronic sinusitis, depression, osteoarthritis, fibromyalgia, chronic back pain, rosacea, who present ER for evaluation and treatment of fever and shortness of breath. Pt report at this morning when she was out for a walk, she became shortness of breath. She feel very weak. She report she had urinary incontinence with foul smelling. In ER she was found to be febrile and hypoxic as well. Pt denies chest pain, headache , abdominal pain, cough. No nausea, vomiting, diarrhea. CTA of chest reveal no PE, improved pneumonia from the last discharge. US of abdomen reveals cirrhotic appearance of the liver, no evidence of biliary obstruction. Pt' left LLE with chronic cellulitis became erythema, warm, tenderness. Pt is admitted for evaluation of fever and LLE acute on chronic cellulitis. 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, Oophrectomy - Family & Social History Living arrangement: At home Living Situation: With family - Substance History Use: Uses substance without health or social issues: NONE Abuse: Recurrent use of substance despite neg consequences: NONE Dependence: Experiences withdrawal or developed tolerances: NONE - POLST Patient has POLST: Yes POLST Status: DNR Meds/Allgy - Home Medications Home Medications: Ambulatory Orders Medication Instructions Recorded Confirmed Albuterol Sulf [Ventolin Hfa 2 puffs INH Q4HR PRN 03/21/17 12/05/17 Inhaler] Calcium Carbonate 600 mg PO DAILY 03/21/17 12/05/17 DULoxetine [Cymbalta] 30 mg PO DAILY 03/21/17 12/05/17 Lactobacillus Acidophilus/Fos 1 each PO DAILY 03/21/17 12/05/17 [Acidophilus Probiotic Tablet] Lysine HCl 500 mg PO DAILY 03/21/17 12/05/17 Melatonin 3 mg PO QPM 03/21/17 12/05/17 Metformin HCl 1,000 mg PO BIDWM 03/21/17 12/05/17 Omeprazole 20 mg PO QDAC 03/21/17 12/05/17 Potassium Chloride 10 meq PO DAILYWM 03/21/17 12/05/17 Propranolol [Inderal] 60 mg PO BID 03/21/17 12/05/17 Spironolactone 50 mg PO BID 03/21/17 12/05/17 Vitamin B Complex 1 each PO DAILY 03/21/17 12/05/17 Cholecalciferol (Vitamin D3) 2,000 unit PO DAILY 04/22/17 12/05/17 [Vitamin D3] DULoxetine [Cymbalta] 60 mg PO QPM 11/15/17 12/05/17 Diclofenac Sodium [Voltaren] 2 - 4 gm TOP QID PRN 11/15/17 12/05/17 Fluticasone [Flonase] 2 sprays JAZMÍN DAILY 11/15/17 12/05/17 Insulin NPH Hum/Reg Insulin Hm 10 unit SUBQ BIDWM 11/15/17 12/05/17 [Humulin 70/30 Kwikpen] Ropinirole HCl 0.25 mg PO QPM 11/15/17 12/05/17 glipiZIDE [Glipizide] 5 mg PO DAILYWM 11/15/17 12/05/17 Furosemide [Lasix] 40 mg DAILY 12/05/17 12/05/17 - Allergies Allergies/Adverse Reactions: Allergies Allergy/AdvReac Type Severity Reaction Status Date / Time cimetidine [From Tagamet] Allergy Unknown Verified 12/05/17 09:18 cimetidine HCl * Allergy Unknown Verified 12/05/17 09:18 [From Tagamet] erythromycin lactobionate * Allergy Unknown Verified 12/05/17 09:18 [From Erythrocin] fluticasone propionate * Allergy Unknown Verified 12/05/17 09:18 [From Flonase] levofloxacin [From Levaquin] Allergy Unknown Verified 12/05/17 09:18 piroxicam [From Feldene] Allergy Unknown Verified 12/05/17 09:18 Sulfa (Sulfonamide Allergy Unknown Verified 12/05/17 09:18 Antibiotics) egg AdvReac Nausea Verified 12/05/17 09:18 ibuprofen [From Motrin] AdvReac Unknown Verified 12/05/17 09:18 Review of Systems - Constitutional Constitutional: reports: Fatigue, Fever, Chills, Weakness. denies: Malaise, Poor appetite, Diaphoresis, Night sweats - Eyes Eyes: denies: Pain, Irritation, Amaurosis, Blurred vision, Spots in vision, Field loss, Vision loss, Dipolpia - Ears, Nose & Throat Ears, Nose & Throat: denies: Ear pain, Hearing loss, Hearing aids, Tinnitus, Vertigo, Nasal pain, Nasal discharge, Nosebleeds, Nasal congestion, Sore throat , Mouth lesions, Bleeding gums - Cardiovascular Cariovascular: denies: Irregular heart rate, Palpitations, Chest pain, Edema, Lightheadedness, Syncope, Exertional dyspnea, Decr. exercise tolerance - Respiratory Respiratory: denies: Cough, Sputum production, Wheezing, Snoring, Hemoptysis, Orthopnea, SOB at rest, SOB with exertion - Gastrointestinal Gastrointestinal: denies: Abdominal pain, Abdominal distention, Constipation, Diarrhea, Change in bowel habits, Rectal bleeding, Black stools, Bloody stools, Nausea, Vomiting, Bile emesis, Akhil blood emesis, Coffee grounds emesis - Genitourinary Genitourinary: reports: Frequency, Incontinence. denies: Dysuria, Urgency, Hematuria, Flank pain, Nocturia, Urethral discharge - Musculoskeletal Musculoskeletal: denies: Muscle pain, Back pain, Muscle aches, Stiffness, Limited range of motion, Muscle weakness, Gout, Joint pain - Integumentary Integumentary: reports: Rash. denies: Pruritis, Lesions, Dryness, Lumps, Acne, Pigment changes, Nail changes - Neurological Neurological: reports: General weakness. denies: Focal weakness, Headache, Dizziness, Numbness, Memory problems, Pre-existing deficit, Abnormal gait, Seizures, Incoordination, Slurred speech - Psychiatric Psychiatric: denies: Depression, Anxiety, Suicidal, Delusions, Hallucinations, Homicidal - Endocrine Endocrine: denies: Polyuria, Polydypsia, Polyphagia, Intolerance to cold - Hematologic/Lymphatic Hematologic/Lymphatic: reports: Recurrent infections. denies: Anemia, Bruising , Petechiae, Blood clots, Lymphadenopathy, Bleeding tendencies Exam - Vital Signs Reviewed Vital Signs: Yes Vital Signs: Vital Signs x48h Temp Pulse Resp BP Pulse Ox 12/05/17 15:04 71 16 116/57 L 93 12/05/17 14:00 76 20 110/46 L 12/05/17 12:55 37.9 C H 12/05/17 10:45 38 C H 80 20 127/65 93 12/05/17 10:30 74 20 108/58 L 93 12/05/17 10:00 78 20 129/63 93 12/05/17 09:20 38.5 C H 12/05/17 09:09 37 C 81 20 126/46 L 90 L - Physical Exam General Appearance: positive: No acute distress, Alert. negative: Lethargic Eyes Bilateral: positive: Normal inspection, PERRL, No lid inflammation, Conjunctivae nml ENT: positive: ENT inspection nml, Pharynx nml, No signs of dehydration. negative: Purulent nasal drainage, Pharyngeal erythema, Oral lesions Neck: positive: Nml inspection, Thyroid nml, No JVD, Trachea midline. negative : Thyromegaly, Lymphadenopathy (R), Lymphadenopathy (L), Stiff neck, Kernig's sign, Brudzinski's sign, Carotid bruit, Swelling/bruising, Tracheal deviation Respiratory: positive: Chest non-tender, No respiratory distress, Breath sounds nml. negative: Wheezes, Rales, Rhonchi Cardiovascular: positive: Regular rate & rhythm, Systolic murmur. negative: Irregularly irregular, Extrasystoles, Tachycardia, Bradycardia, JVD present Peripheral Pulses: positive: 2+ Abdomen: positive: Non-tender, No organomegaly, Nml bowel sounds, No distention. negative: Tenderness, Guarding, Rebound Back: positive: Nml inspection. negative: CVA tenderness (R), CVA tenderness (L ) Skin: positive: Color nml, No rash, Warm, Dry. negative: Cyanosis, Diaphoresis , Pallor Extremities: positive: Non-tender, Full ROM, Nml appearance. negative: Calf tenderness, Joint swelling, Manoj's sign/cords Neurologic/Psychiatric: positive: Oriented x3, Sensation nml, Mood/affect nml. negative: Sensory loss, Facial droop, Slurred/abnml speech, Depressed mood/ affect Conclusion/Plan - Problem List (1) Fever Conclusion/Plan: pt has fever 38.5 at ER. The infection appear from her leg, acute on chronic LLE cellulitis antibiotics: Zosyn and Vanco follow up blood culture Gentle IVF tele and vital monitor Qualifiers: Fever type: unspecified Qualified Code(s): R50.9 - Fever, unspecified (2) Cellulitis Conclusion/Plan: acute on chronic LLE cellulitis check US for R/O DVT start on Zosyn and Vancomycin follow up blood culture (3) Hyperglycemia Conclusion/Plan: not well controlled DM. Pt state her PCP just start her insulin to 12 units bid resume home regime insulin Slide scale ACHS hypoglycemia (4) DM2 (diabetes mellitus, type 2) Conclusion/Plan: not well controlled DM. Pt state her PCP just start her insulin to 12 units bid will check A1C resume home regime insulin Slide scale ACHS hypoglycemia (5) Hx of cirrhosis Conclusion/Plan: support, caution to IVF daily lab monitor vital monitor (6) Pleural effusion Conclusion/Plan: pt state she had hx of pleural effusion on last admission. But CTA on ER this time it is clear, no pleural effusion. closely monitor, vital monitor (7) Asthma Conclusion/Plan: hx of Asthma, stable resume home meds vital monitor (8) Pneumonia Conclusion/Plan: hx of Pneumonia, Discharge recent from pneumonia. CTA reveal improved vital monitor Qualifiers: Pneumonia type: due to unspecified organism Laterality: bilateral Lung location: unspecified part of lung Qualified Code(s): J18.9 - Pneumonia, unspecified organism (9) Thrombocytopenia Conclusion/Plan: It appear from pt's hx of Cirrhosis, today it is 68 hold blood thinner. support daily lab monitor (10) DVT prophylaxis Conclusion/Plan: SCD now (11) Do not intubate, cardiopulmonary resuscitation (CPR)-only code status Conclusion/Plan: pt clearly request DNR - Lab Results Fish Bones: 12/06/17 04:25 12/06/17 04:25 Core Measures - Anticipated LOS I expect patient to be DC'd or transferred within 96 hours.: Yes - DVT/VTE - Prophylaxis VTE/DVT Device ordered at admit?: Yes VTE/DVT Prophylaxis med ordered at admit?: No Not Ordered - Medical Reason: Contraindicated - Stroke - Rehab Assessment Rehab services assessment to be ordered?: No - AMI - Statin at Admit Aspirin Prescribed on Admit: No
[2017-12-05] MEDS ORDERED: SODIUM CHLORIDE 0.9% 1,000 ML IV SCH (17:00)
[2017-12-05] MEDS: INSULIN ASPART 300 UNIT/3 ML PEN SUBQ SCH ×2 (17:00→20:43)
[2017-12-05 17:10] LABS: HB2 TOTAL 13.3 g/dL; HEMOGLOBIN A1C 1.31 g/dL; HEMOGLOBIN A1C % 11.2 % (4.6-6.2)
[2017-12-05] MEDS ORDERED: PIPERACILLIN/TAZOBACTAM 3.375 GM in SODIUM CHLORIDE 0.9% MINIBAG 100 ML IV SCH (18:00)
--- NOTE | 2017-12-05 18:17 | Ultrasound Report ---
RIGHT UPPER QUADRANT ULTRASOUND: 12/05/2017 CLINICAL INDICATION: Fever, elevated bilirubin. TECHNIQUE: Real-time scanning was performed with customer contact representative static images obtained. FINDINGS: The liver measures 14 cm. Hepatic echogenicity is heterogeneous, with a nodular contour, compatible with cirrhosis. There is an 8 mm echogenic focus in the left lobe, likely representing a tiny hemangioma. Calcifications of old granulomatous disease are incidentally noted. No intrahepatic biliary dilatation is appreciated. The common bile duct measures 4 mm. The patient is status post cholecystectomy. The right kidney measures 12.9 cm, and demonstrates no hydronephrosis. No free fluid is present. IMPRESSION: CIRRHOTIC APPEARANCE OF THE LIVER. NO EVIDENCE OF BILIARY OBSTRUCTION. CHANGES OF CHOLECYSTECTOMY. TD: 12/05/2017 18:15
[2017-12-05] MEDS ORDERED: VANCOMYCIN 1.5 GM/NS 500 ML 1.5 GM/500 ML BAG IV SCH (19:00)
[2017-12-05] MEDS: PROPRANOLOL 40 MG TABLET PO SCH (20:38)
[2017-12-05] MEDS: DULoxetine 30 MG CAPSULE PO SCH (20:38)
[2017-12-05] MEDS: SPIRONOLACTONE 25 MG TABLET PO SCH (20:43)
[2017-12-05] MEDS: SODIUM CHLORIDE FLUSH 0.9% 10 ML SYRINGE IVP SCH (20:44)
[2017-12-05] MEDS: rOPINIRole 0.25 MG TABLET PO SCH (20:44)
[2017-12-05] MEDS: Melatonin [Melatonin] 3 MG PO SCH (20:47)
--- NOTE | 2017-12-05 21:06 | Ultrasound Report ---
EXAM: LEFT LOWER EXTREMITY VENOUS ULTRASOUND EXAM DATE: 12/05/2017 08:36 PM. CLINICAL HISTORY: Left leg swelling. COMPARISON: None. TECHNIQUE: Real-time sonographic vascular imaging was performed by the frame welder cargo utility trailers through the lower extremity utilizing both color-flow and Doppler spectral analysis. Multiple account development representative static lorie ges were saved for review. FINDINGS: Common Femoral Vein (CFV): Normal. CFV-GSV Junction: Normal. Profunda Femoral Vein (PFV): Normal. Femoral Vein (FV) Prox: Normal. Femoral Vein (FV) Mid: Normal. Femoral Vein (FV) Dist: Normal. Popliteal Vein: Normal. Posterior Tibial Veins: Limited visualization. Peroneal Veins: Limited visualization. Other: Subcutaneous edema in the lower leg. IMPRESSION: No evidence for deep venous thrombosis. [facility] Referring Provider Line: [phone] SITE ID: [id number]
[2017-12-06] MEDS: PIPERACILLIN/TAZOBACTAM 3.375 GM in SODIUM CHLORIDE 0.9% MINIBAG 100 ML IV SCH ×4 (01:24→21:33)
[2017-12-06 04:45] LABS: BASOPHILS % (AUTO) 0.6 %; EOSINOPHILS # (AUTO) 0.1 10^3/uL (0.0-0.7); EOSINOPHILS % (AUTO) 2.3 %; HGB - HEMOGLOBIN 12.6 g/dL (12.0-16.0); LYMPHOCYTES # (AUTO) 1.6 10^3/uL (1.5-3.5); LYMPHOCYTES % (AUTO) 32.7 %; MEAN CORPUSCULAR HEMOGLOBIN 34.3 pg (27.0-31.0); MEAN CORPUSCULAR HGB CONC 34.3 g/dL (32.0-36.0); MEAN CORPUSCULAR VOLUME 100.1 fL (81.0-99.0); MEAN PLATELET VOLUME 8.8 fL (7.9-10.8); MONOCYTES # (AUTO) 0.6 10^3/uL (0.0-1.0); MONOCYTES % (AUTO) 12.1 %; NEUTROPHILS # (AUTO) 2.6 10^3/uL (1.5-6.6); NEUTROPHILS % (AUTO) 52.3 %; PLT - PLATELET COUNT 54 10^3/uL (130-450); RED BLOOD COUNT 3.66 10^6/uL (4.20-5.40); RED CELL DISTRIBUTION WIDTH 14.8 % (12.0-15.0)
[2017-12-06 05:15] LABS: ALBUMIN 2.6 g/dL (3.2-5.5); ALBUMIN/GLOBULIN RATIO 0.6 (1.0-2.2); BILIRUBIN,TOTAL 2.1 mg/dL (0.2-1.0); CALCIUM 8.8 mg/dL (8.5-10.3); CREATININE 0.6 mg/dL (0.4-1.0); MAGNESIUM 1.6 mg/dL (1.7-2.8); TOTAL PROTEIN 6.7 g/dL (6.7-8.2)
[2017-12-06] MEDS: SODIUM CHLORIDE FLUSH 0.9% 10 ML SYRINGE IVP SCH ×3 (06:16→21:43)
[2017-12-06] MEDS: PANTOPRAZOLE 40 MG TABLET PO SCH (06:16)
[2017-12-06] MEDS ORDERED: MAGNESIUM OXIDE 400 MG TABLET PO SCH (08:00)
[2017-12-06] MEDS ORDERED: SACCHAROMYCES BOULARDII 250 MG CAPSULE PO SCH (08:00)
[2017-12-06] MEDS ORDERED: INSULIN 70/30 HUMAN 100 UNIT/1 ML 10 ML MDV SUBQ SCH (08:00)
[2017-12-06] MEDS: POTASSIUM CHLORIDE 10 MEQ CAPSULE PO SCH (08:26)
[2017-12-06] MEDS: glipiZIDE 5 MG TABLET PO SCH (08:26)
[2017-12-06] MEDS: INSULIN ASPART 300 UNIT/3 ML PEN SUBQ SCH ×4 (08:36→21:43)
[2017-12-06] MEDS: INSULIN 70/30 HUMAN 100 UNIT/1 ML 10 ML MDV SUBQ SCH ×2 (08:38→17:46)
[2017-12-06] MEDS ORDERED: ENOXAPARIN 40 MG/0.4 ML SYRINGE SUBQ SCH (09:00)
[2017-12-06] MEDS ORDERED: FLUTICASONE NASAL SPRAY NAS SCH (09:00)
[2017-12-06] MEDS ORDERED: CALCIUM CARB (OYSTER SHELL) 500 MG TABLET PO SCH ×2 (09:00→10:29)
[2017-12-06] MEDS: VANCOMYCIN 1.5 GM/NS 500 ML 1.5 GM/500 ML BAG IV SCH ×2 (09:35→21:50)
[2017-12-06] MEDS: SPIRONOLACTONE 25 MG TABLET PO SCH ×2 (09:40→21:42)
[2017-12-06] MEDS: FUROSEMIDE 20 MG TABLET PO SCH (09:41)
[2017-12-06] MEDS: CHOLECALCIFEROL 1,000 UNIT TABLET PO SCH (09:41)
[2017-12-06] MEDS: POLYETHYLENE GLYCOL 3350 17 GM PACKET PO SCH (09:42)
[2017-12-06] MEDS: DULoxetine 30 MG CAPSULE PO SCH ×2 (09:42→21:38)
[2017-12-06] MEDS: PROPRANOLOL 40 MG TABLET PO SCH ×2 (09:45→21:38)
[2017-12-06] MEDS: CALCIUM CARB (OYSTER SHELL) 500 MG TABLET PO SCH (12:16)
[2017-12-06] MEDS: SODIUM CHLORIDE FLUSH 0.9% 10 ML SYRINGE IVP PRN (14:32)
--- NOTE | 2017-12-06 16:12 | PROVIDER PROGRESS NOTE ---
Subjective - Prog Note Date Prog Note Date: 12/06/17 - Subjective Pt reports feeling: Improved Subjective: pt state she has dramatically improved, she feel much better. No fever, chill, chest pain, shortness of breath, headache. Current Medications - Current Medications Current Medications: Active Medications Acetaminophen (Tylenol) 650 mg PO Q4HR PRN PRN Reason: Pain 1 to 4 Last Admin: 12/06/17 01:29 Dose: 325 mg Albuterol () 2.5 mg INH Q4H PRN PRN Reason: Shortness of Air/Wheezing Calcium Carbonate/Glycine (Oysco-500) 500 mg PO DAILY [facility] Last Admin: 12/06/17 12:16 Dose: 500 mg Cholecalciferol (Vitamin D3) 2,000 unit PO DAILY [facility] Last Admin: 12/06/17 09:41 Dose: 2,000 unit Duloxetine HCl (Cymbalta) 30 mg PO DAILY [facility] Last Admin: 12/06/17 09:42 Dose: 30 mg Duloxetine HCl (Cymbalta) 60 mg PO QPM [facility] Last Admin: 12/05/17 20:38 Dose: 60 mg Furosemide (Lasix) 40 mg PO DAILY [facility] Last Admin: 12/06/17 09:41 Dose: 40 mg Glipizide (Glucotrol) 5 mg PO DAILYWM [facility] Last Admin: 12/06/17 08:26 Dose: 5 mg Piperacillin Sod/Tazobactam (Sod 3.375 gm/ Sodium Chloride) 100 mls @ 200 mls/ hr IV Q6H [facility] Last Infusion: 12/06/17 14:32 Dose: Infused Vancomycin/Sodium Chloride (Vanco/Sod Chloride 0.9%) 1.5 gm in 500 mls @ 250 mls/hr IV BID [facility] Last Infusion: 12/06/17 12:25 Dose: Infused Insulin Aspart (Novolog) 2 - 10 unit SUBQ 0800,1200,1700,2100 JASWANT PRN Reason: Protocol Last Admin: 12/06/17 12:17 Dose: 2 unit Insulin Human Isoph/Insulin Regular (Novolin) 12 unit SUBQ BIDWM [facility] Last Admin: 12/06/17 08:38 Dose: 12 unit Ondansetron HCl (Zofran Inj) 4 mg IVP Q6HR PRN PRN Reason: Nausea / Vomiting Pantoprazole Sodium (Protonix) 40 mg PO QDAC [facility] Last Admin: 12/06/17 06:16 Dose: 40 mg Melatonin [Melatonin (] 3 Mg) 1 each PO QPM [facility] Last Admin: 12/05/17 20:47 Dose: Not Given Vitamin B Complex 1 each PO DAILY [facility] Last Admin: 12/06/17 10:53 Dose: Not Given Polyethylene Glycol (Miralax) 17 gm PO DAILY [facility] Last Admin: 12/06/17 09:42 Dose: 17 gm Potassium Chloride (Micro-K) 10 meq PO DAILYWM [facility] Last Admin: 12/06/17 08:26 Dose: 10 meq Propranolol HCl (Inderal) 60 mg PO BID [facility] Last Admin: 12/06/17 09:45 Dose: Not Given Ropinirole HCl (Requip) 0.25 mg PO QPM [facility] Last Admin: 12/05/17 20:44 Dose: 0.25 mg Saccharomyces Boulardii (Florastor) 250 mg PO DAILYWM [facility] Sodium Chloride (Normal Saline Flush 0.9%) 10 ml IVP PRN PRN PRN Reason: NEEDED PER PROVIDER ORDERS Sodium Chloride (Normal Saline Flush 0.9%) 10 ml IVP Q8HR [facility] Last Admin: 12/06/17 12:24 Dose: 10 ml Spironolactone (Aldactone) 50 mg PO BID [facility] Last Admin: 12/06/17 09:40 Dose: 50 mg Albuterol Sulf [Ventolin Hfa Inhaler] 2 puffs INH Q4HR PRN 03/21/17 Calcium Carbonate 600 mg PO DAILY 03/21/17 DULoxetine [Cymbalta] 30 mg PO DAILY 03/21/17 Lactobacillus Acidophilus/Fos [Acidophilus Probiotic Tablet] 1 each PO DAILY Lysine HCl 500 mg PO DAILY 03/21/17 Melatonin 3 mg PO QPM 03/21/17 Metformin HCl 1,000 mg PO BIDWM 03/21/17 Omeprazole 20 mg PO QDAC 03/21/17 Potassium Chloride 10 meq PO DAILYWM 03/21/17 Propranolol [Inderal] 60 mg PO BID 03/21/17 Spironolactone 50 mg PO BID 03/21/17 Vitamin B Complex 1 each PO DAILY 03/21/17 Cholecalciferol (Vitamin D3) [Vitamin D3] 2,000 unit PO DAILY 04/22/17 DULoxetine [Cymbalta] 60 mg PO QPM 11/15/17 Diclofenac Sodium [Voltaren] 2 - 4 gm TOP QID PRN 11/15/17 Fluticasone [Flonase] 2 sprays JAZMÍN DAILY 11/15/17 Insulin NPH Hum/Reg Insulin Hm [Humulin 70/30 Kwikpen] 10 unit SUBQ BIDWM Ropinirole HCl 0.25 mg PO QPM 11/15/17 glipiZIDE [Glipizide] 5 mg PO DAILYWM 11/15/17 Furosemide [Lasix] 40 mg DAILY 12/05/17 Objective - Vital Signs/Intake & Output Reviewed Vital Signs: Yes Vital Signs: Vital Signs x48h Temp Pulse Resp BP Pulse Ox 12/06/17 12:03 37.1 C 64 22 114/94 H 93 12/06/17 10:42 68 22 116/45 L 95 Intake & Output: Intake & Output 12/03/17 12/04/17 12/05/17 12/06/17 23:59 23:59 23:59 23:59 Intake Total 207.093 2563.417 Output Total 600 1700 Balance 11.071 685.417 - Objective General Appearance: positive: No acute distress, Alert. negative: Lethargic Eyes Bilateral: positive: Normal inspection, PERRL, No lid inflammation, Conjunctivae nml ENT: positive: ENT inspection nml, Pharynx nml, No signs of dehydration. negative: Purulent nasal drainage, Pharyngeal erythema, Oral lesions Neck: positive: Nml inspection, Thyroid nml, No JVD, Trachea midline. negative : Thyromegaly, Lymphadenopathy (R), Lymphadenopathy (L), Stiff neck, Carotid bruit, Swelling/bruising, Tracheal deviation Respiratory: positive: Chest non-tender, No respiratory distress, Breath sounds nml. negative: Wheezes, Rales, Rhonchi Cardiovascular: positive: Regular rate & rhythm, Systolic murmur, Diastolic murmur. negative: Irregularly irregular, Extrasystoles, Tachycardia, Bradycardia Peripheral Pulses: 2+ Radial (R), 2+ Radial (L), 2+ Dorsalis pedis (R), 2+ Dorsalis pedis (L) Abdomen: positive: Non-tender, No organomegaly, Nml bowel sounds, No distention. negative: Tenderness, Guarding, Rebound Back: positive: Nml inspection. negative: CVA tenderness (R), CVA tenderness (L ) Skin: positive: Color nml, Warm, Dry, Skin rash. negative: Cyanosis, Diaphoresis, Pallor Extremities: positive: Non-tender, Full ROM, Nml appearance. negative: Calf tenderness, Joint swelling, Manoj's sign/cords Neurologic/Psychiatric: positive: Oriented x3, Sensation nml, Mood/affect nml. negative: Sensory loss, Facial droop, Slurred/abnml speech, Depressed mood/ affect - Lab Results Fish Bones: 12/06/17 04:25 12/06/17 04:25 Other Labs: Lab Results x24hrs 12/06/17 12/06/17 12/05/17 Range/Units 04:25 04:25 20:00 WBC 5.0 (4.8-10.8) x10^3/uL RBC 3.66 L (4.20-5.40) 10^6/uL Hgb 12.6 (12.0-16.0) g/dL Hct 36.7 L (37.0-47.0) % MCV 100.1 H (81.0-99.0) fL MCH 34.3 H (27.0-31.0) pg MCHC 34.3 (32.0-36.0) g/dL RDW 14.8 (12.0-15.0) % Plt Count 54 L (130-450) 10^3/uL MPV 8.8 (7.9-10.8) fL Neut # 2.6 (1.5-6.6) 10^3/uL Lymph # 1.6 (1.5-3.5) 10^3/uL Walker # 0.6 (0.0-1.0) 10^3/uL Eos # 0.1 (0.0-0.7) 10^3/uL Baso # 0.0 (0.0-0.1) 10^3/uL Absolute Nucleated RBC 0.00 x10^3/uL Nucleated RBC % 0.1 /100WBC Sodium 137 (135-145) mmol/L Potassium 4.0 (3.5-5.0) mmol/L Chloride 107 (101-111) mmol/L Carbon Dioxide 24 (21-32) mmol/L Anion Gap 6.0 (6-13) BUN 11 (6-20) mg/dL Creatinine 0.6 (0.4-1.0) mg/dL Estimated GFR (MDRD) 100 (>89) Glucose 256 H (70-100) mg/dL Glycated Hemoglobin (4.6-6.2) % Estim Average Glucose (70-100) Calcium 8.8 (8.5-10.3) mg/dL Magnesium 1.6 L (1.7-2.8) mg/dL Total Bilirubin 2.1 H (0.2-1.0) mg/dL AST 40 (10-42) IU/L ALT 22 (10-60) IU/L Alkaline Phosphatase 118 (42-121) IU/L Total Protein 6.7 (6.7-8.2) g/dL Albumin 2.6 L (3.2-5.5) g/dL Globulin 4.1 (2.1-4.2) g/dL Albumin/Globulin Ratio 0.6 L (1.0-2.2) Influenza A (Rapid) Negative (Negative) Influenza B (Rapid) Negative (Negative) Influenza Types A,B Ag - 12/05/17 Range/Units 16:41 WBC (4.8-10.8) x10^3/uL RBC (4.20-5.40) 10^6/uL Hgb (12.0-16.0) g/dL Hct (37.0-47.0) % MCV (81.0-99.0) fL MCH (27.0-31.0) pg MCHC (32.0-36.0) g/dL RDW (12.0-15.0) % Plt Count (130-450) 10^3/uL MPV (7.9-10.8) fL Neut # (1.5-6.6) 10^3/uL Lymph # (1.5-3.5) 10^3/uL Walker # (0.0-1.0) 10^3/uL Eos # (0.0-0.7) 10^3/uL Baso # (0.0-0.1) 10^3/uL Absolute Nucleated RBC x10^3/uL Nucleated RBC % /100WBC Sodium (135-145) mmol/L Potassium (3.5-5.0) mmol/L Chloride (101-111) mmol/L Carbon Dioxide (21-32) mmol/L Anion Gap (6-13) BUN (6-20) mg/dL Creatinine (0.4-1.0) mg/dL Estimated GFR (MDRD) (>89) Glucose (70-100) mg/dL Glycated Hemoglobin 11.2 H (4.6-6.2) % Estim Average Glucose 275 H (70-100) Calcium (8.5-10.3) mg/dL Magnesium (1.7-2.8) mg/dL Total Bilirubin (0.2-1.0) mg/dL AST (10-42) IU/L ALT (10-60) IU/L Alkaline Phosphatase (42-121) IU/L Total Protein (6.7-8.2) g/dL Albumin (3.2-5.5) g/dL Globulin (2.1-4.2) g/dL Albumin/Globulin Ratio (1.0-2.2) Influenza A (Rapid) (Negative) Influenza B (Rapid) (Negative) Influenza Types A,B Ag Assessment/Plan - Problem List (1) Fever Impression: (1) Fever Conclusion/Plan: resolved pt has fever 38.5 at ER. The infection appear from her leg, acute on chronic LLE cellulitis antibiotics: Zosyn and Vanco follow up blood culture Gentle IVF tele and vital monitor Qualifiers: Fever type: unspecified Qualified Code(s): R50.9 - Fever, unspecified (2) Cellulitis Conclusion/Plan: much improved. there is almost no erythema around, significantly reduced tenderness continue antibiotics follow up blood culture no DVT on lower extremity acute on chronic LLE cellulitis check US for R/O DVT start on Zosyn and Vancomycin follow up blood culture (3) Hyperglycemia Conclusion/Plan: A1C is 11.2. pt is not well controlled DM2 increase insulin to 12 unit bid from 10 unit bid slide scale to moderate and high hypoglycemia not well controlled DM. Pt state her PCP just start her insulin to 12 units bid resume home regime insulin Slide scale ACHS hypoglycemia (4) DM2 (diabetes mellitus, type 2) Conclusion/Plan: A1C is 11.2. pt is not well controlled DM2 increase insulin slide scale hypoglycemia not well controlled DM. Pt state her PCP just start her insulin to 12 units bid will check A1C resume home regime insulin Slide scale ACHS hypoglycemia (5) Hx of cirrhosis Conclusion/Plan: support, caution to IVF daily lab monitor vital monitor (6) Pleural effusion Conclusion/Plan: pt state she had hx of pleural effusion on last admission. But CTA on ER this time it is clear, no pleural effusion. closely monitor, vital monitor (7) Asthma Conclusion/Plan: hx of Asthma, stable resume home meds vital monitor (8) Pneumonia Conclusion/Plan: hx of Pneumonia, Discharge recent from pneumonia. CTA reveal improved vital monitor (9) Thrombocytopenia Conclusion/Plan: It appear from pt's hx of Cirrhosis, today it is 68 hold blood thinner. support daily lab monitor Qualifiers: Fever type: unspecified Qualified Code(s): R50.9 - Fever, unspecified (8) Pneumonia Qualifiers: Pneumonia type: due to unspecified organism Laterality: bilateral Lung location: unspecified part of lung Qualified Code(s): J18.9 - Pneumonia, unspecified organism
[2017-12-06] MEDS ORDERED: PNEUMOCOCCAL 13-VALENT CONJ 0.5 ML SYRINGE IM ONE (17:37)
[2017-12-06] MEDS ORDERED: MIN OIL/DIMETHICON/COCONUT OIL 92 GM TUBE TOP PRN (17:37)
[2017-12-06] MEDS: rOPINIRole 0.25 MG TABLET PO SCH (21:41)
[2017-12-06] MEDS: Melatonin [Melatonin] 3 MG PO SCH (21:44)
[2017-12-07] MEDS: PIPERACILLIN/TAZOBACTAM 3.375 GM in SODIUM CHLORIDE 0.9% MINIBAG 100 ML IV SCH ×4 (02:42→20:19)
[2017-12-07 05:07] LABS: BASOPHILS % (AUTO) 0.5 %; EOSINOPHILS # (AUTO) 0.2 10^3/uL (0.0-0.7); EOSINOPHILS % (AUTO) 4.1 %; HGB - HEMOGLOBIN 12.8 g/dL (12.0-16.0); LYMPHOCYTES # (AUTO) 1.5 10^3/uL (1.5-3.5); LYMPHOCYTES % (AUTO) 31.1 %; MEAN CORPUSCULAR HEMOGLOBIN 34.1 pg (27.0-31.0); MEAN CORPUSCULAR VOLUME 100.3 fL (81.0-99.0); MEAN PLATELET VOLUME 9.3 fL (7.9-10.8); MONOCYTES # (AUTO) 0.5 10^3/uL (0.0-1.0); MONOCYTES % (AUTO) 9.2 %; NEUTROPHILS # (AUTO) 2.7 10^3/uL (1.5-6.6); NEUTROPHILS % (AUTO) 55.1 %; PLT - PLATELET COUNT 57 10^3/uL (130-450); RED BLOOD COUNT 3.75 10^6/uL (4.20-5.40); RED CELL DISTRIBUTION WIDTH 14.7 % (12.0-15.0); WHITE BLOOD COUNT 4.9 x10^3/uL (4.8-10.8)
[2017-12-07 05:50] LABS: ALBUMIN 2.7 g/dL (3.2-5.5); ALBUMIN/GLOBULIN RATIO 0.7 (1.0-2.2); BILIRUBIN,TOTAL 1.6 mg/dL (0.2-1.0); CREATININE 0.6 mg/dL (0.4-1.0); TOTAL PROTEIN 6.8 g/dL (6.7-8.2)
[2017-12-07] MEDS: SODIUM CHLORIDE FLUSH 0.9% 10 ML SYRINGE IVP SCH ×3 (06:03→21:06)
[2017-12-07] MEDS: PANTOPRAZOLE 40 MG TABLET PO SCH (06:03)
[2017-12-07] MEDS: SACCHAROMYCES BOULARDII 250 MG CAPSULE PO SCH (08:04)
[2017-12-07] MEDS: POTASSIUM CHLORIDE 10 MEQ CAPSULE PO SCH (08:04)
[2017-12-07] MEDS: glipiZIDE 5 MG TABLET PO SCH (08:04)
[2017-12-07] MEDS: INSULIN 70/30 HUMAN 100 UNIT/1 ML 10 ML MDV SUBQ SCH (08:26)
[2017-12-07] MEDS: INSULIN ASPART 300 UNIT/3 ML PEN SUBQ SCH ×6 (08:26→21:02)
[2017-12-07] MEDS: SODIUM CHLORIDE FLUSH 0.9% 10 ML SYRINGE IVP PRN ×2 (08:53→14:44)
[2017-12-07 08:59] LABS: VANCOMYCIN,TROUGH 16.6 ug/mL (5.0-15.0)
[2017-12-07] MEDS: VANCOMYCIN 1.5 GM/NS 500 ML 1.5 GM/500 ML BAG IV SCH ×2 (09:40→21:05)
[2017-12-07] MEDS: POLYETHYLENE GLYCOL 3350 17 GM PACKET PO SCH (09:50)
[2017-12-07] MEDS: CHOLECALCIFEROL 1,000 UNIT TABLET PO SCH (09:51)
[2017-12-07] MEDS: SPIRONOLACTONE 25 MG TABLET PO SCH ×2 (09:53→20:27)
[2017-12-07] MEDS: FUROSEMIDE 20 MG TABLET PO SCH (09:53)
[2017-12-07] MEDS: PROPRANOLOL 40 MG TABLET PO SCH ×2 (09:53→20:28)
[2017-12-07] MEDS: CALCIUM CARB (OYSTER SHELL) 500 MG TABLET PO SCH (09:59)
[2017-12-07] MEDS: DULoxetine 30 MG CAPSULE PO SCH ×2 (12:26→20:28)
--- NOTE | 2017-12-07 13:40 | PROVIDER PROGRESS NOTE ---
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 Patient was encouraged to stay so further blood sugar control can be achieved, continued IV antibiotics and monitor labs. She denies SOB, chest pain , N/N or a new cough. She notes no pain from LLE and believes it is improving. Current Medications - Current Medications Current Medications: Active Medications Acetaminophen (Tylenol) 650 mg PO Q4HR PRN PRN Reason: Pain 1 to 4 Last Admin: 12/06/17 01:29 Dose: 325 mg Albuterol () 2.5 mg INH Q4H PRN PRN Reason: Shortness of Air/Wheezing Calcium Carbonate/Glycine (Oysco-500) 500 mg PO DAILY [facility] Last Admin: 12/07/17 09:59 Dose: 500 mg Cholecalciferol (Vitamin D3) 2,000 unit PO DAILY [facility] Last Admin: 12/07/17 09:51 Dose: 2,000 unit Duloxetine HCl (Cymbalta) 30 mg PO DAILY [facility] Last Admin: 12/07/17 12:26 Dose: 30 mg Duloxetine HCl (Cymbalta) 60 mg PO QPM [facility] Last Admin: 12/06/17 21:38 Dose: 60 mg Furosemide (Lasix) 40 mg PO DAILY [facility] Last Admin: 12/07/17 09:53 Dose: 40 mg Piperacillin Sod/Tazobactam (Sod 3.375 gm/ Sodium Chloride) 100 mls @ 200 mls/ hr IV Q6H [facility] Last Infusion: 12/07/17 08:53 Dose: Infused Vancomycin/Sodium Chloride (Vanco/Sod Chloride 0.9%) 1.5 gm in 500 mls @ 250 mls/hr IV BID [facility] Last Infusion: 12/07/17 11:40 Dose: Infused Insulin Aspart (Novolog) 2 - 10 unit SUBQ 0800,1200,1700,2100 JASWANT PRN Reason: Protocol Last Admin: 12/07/17 12:28 Dose: 4 unit Insulin Aspart (Novolog) 5 unit SUBQ TIDWM [facility] Insulin Glargine (Lantus Solostar) 16 unit SUBQ BID [facility] Mineral Oil (Cavilon) 1 applic TOP PRN PRN PRN Reason: Skin Care Last Admin: 12/06/17 18:38 Dose: 2 applic Ondansetron HCl (Zofran Inj) 4 mg IVP Q6HR PRN PRN Reason: Nausea / Vomiting Pantoprazole Sodium (Protonix) 40 mg PO QDAC [facility] Last Admin: 12/07/17 06:03 Dose: 40 mg Melatonin [Melatonin (] 3 Mg) 1 each PO QPM [facility] Last Admin: 12/06/17 21:44 Dose: Not Given Vitamin B Complex 1 each PO DAILY [facility] Last Admin: 12/07/17 09:58 Dose: 1 each Polyethylene Glycol (Miralax) 17 gm PO DAILY [facility] Last Admin: 12/07/17 09:50 Dose: 17 gm Potassium Chloride (Micro-K) 10 meq PO DAILYWM [facility] Last Admin: 12/07/17 08:04 Dose: 10 meq Propranolol HCl (Inderal) 60 mg PO BID [facility] Last Admin: 12/07/17 09:53 Dose: 60 mg Ropinirole HCl (Requip) 0.25 mg PO QPM [facility] Last Admin: 12/06/17 21:41 Dose: 0.25 mg Saccharomyces Boulardii (Florastor) 250 mg PO DAILYWM [facility] Last Admin: 12/07/17 08:04 Dose: 250 mg Sodium Chloride (Normal Saline Flush 0.9%) 10 ml IVP PRN PRN PRN Reason: NEEDED PER PROVIDER ORDERS Last Admin: 12/07/17 08:53 Dose: 10 ml Sodium Chloride (Normal Saline Flush 0.9%) 10 ml IVP Q8HR [facility] Last Admin: 12/07/17 06:03 Dose: 10 ml Spironolactone (Aldactone) 50 mg PO BID [facility] Last Admin: 12/07/17 09:53 Dose: 50 mg Albuterol Sulf [Ventolin Hfa Inhaler] 2 puffs INH Q4HR PRN 03/21/17 Calcium Carbonate 600 mg PO DAILY 03/21/17 DULoxetine [Cymbalta] 30 mg PO DAILY 03/21/17 Lactobacillus Acidophilus/Fos [Acidophilus Probiotic Tablet] 1 each PO DAILY Lysine HCl 500 mg PO DAILY 03/21/17 Melatonin 3 mg PO QPM 03/21/17 Metformin HCl 1,000 mg PO BIDWM 03/21/17 Omeprazole 20 mg PO QDAC 03/21/17 Potassium Chloride 10 meq PO DAILYWM 03/21/17 Propranolol [Inderal] 60 mg PO BID 03/21/17 Spironolactone 50 mg PO BID 03/21/17 Vitamin B Complex 1 each PO DAILY 03/21/17 Cholecalciferol (Vitamin D3) [Vitamin D3] 2,000 unit PO DAILY 04/22/17 DULoxetine [Cymbalta] 60 mg PO QPM 11/15/17 Diclofenac Sodium [Voltaren] 2 - 4 gm TOP QID PRN 11/15/17 Fluticasone [Flonase] 2 sprays JAZMÍN DAILY 11/15/17 Insulin NPH Hum/Reg Insulin Hm [Humulin 70/30 Kwikpen] 10 unit SUBQ BIDWM Ropinirole HCl 0.25 mg PO QPM 11/15/17 glipiZIDE [Glipizide] 5 mg PO DAILYWM 11/15/17 Furosemide [Lasix] 40 mg DAILY 12/05/17 Objective - Vital Signs/Intake & Output Reviewed Vital Signs: Yes Vital Signs: Vital Signs x48h Temp Pulse Resp BP Pulse Ox 12/07/17 12:00 36.9 C 16 123/54 L 97 12/07/17 08:00 36.7 C 64 20 129/61 96 Intake & Output: Intake & Output 12/04/17 12/05/17 12/06/17 12/07/17 23:59 23:59 23:59 23:59 Intake Total 635.928 0501.417 2040 Output Total 600 2100 Balance 11.071 0763.038 3518 - Objective General Appearance: positive: No acute distress, Alert Eyes Bilateral: positive: Normal inspection, PERRL ENT: positive: ENT inspection nml, Pharynx nml, Dry mucous membranes Neck: positive: Nml inspection, Thyroid nml, No JVD Respiratory: positive: Chest non-tender, No respiratory distress, Breath sounds nml Cardiovascular: positive: Regular rate & rhythm, No gallop, Systolic murmur, Decreased pulse(s) Peripheral Pulses: 1+ Dorsalis pedis (R), 1+ Dorsalis pedis (L), 2+ Radial (R), 2+ Radial (L) Abdomen: positive: Non-tender, No organomegaly, Nml bowel sounds, No distention Back: positive: Nml inspection Skin: positive: No rash, Warm, Dry Extremities: positive: Non-tender, Full ROM, Nml appearance, Pedal edema (LLE greater than RLE-chronic. Improved cellulitis.) Neurologic/Psychiatric: positive: Oriented x3, CN's nml (2-12), Motor nml, Sensation nml, Depressed mood/affect, Other (tearful.) Reflexes: Bicep (R): 2+, Bicep (L): 2+ - Lab Results Fish Bones: 12/07/17 04:03 12/07/17 04:03 Other Labs: Lab Results x24hrs 12/07/17 12/07/17 12/07/17 Range/Units 08:40 04:03 04:03 WBC 4.9 (4.8-10.8) x10^3/uL RBC 3.75 L (4.20-5.40) 10^6/uL Hgb 12.8 (12.0-16.0) g/dL Hct 37.6 (37.0-47.0) % MCV 100.3 H (81.0-99.0) fL MCH 34.1 H (27.0-31.0) pg MCHC 34.0 (32.0-36.0) g/dL RDW 14.7 (12.0-15.0) % Plt Count 57 L (130-450) 10^3/uL MPV 9.3 (7.9-10.8) fL Neut # 2.7 (1.5-6.6) 10^3/uL Lymph # 1.5 (1.5-3.5) 10^3/uL Larue # 0.5 (0.0-1.0) 10^3/uL Eos # 0.2 (0.0-0.7) 10^3/uL Baso # 0.0 (0.0-0.1) 10^3/uL Absolute Nucleated RBC 0.01 x10^3/uL Nucleated RBC % 0.2 /100WBC Sodium 140 (135-145) mmol/L Potassium 3.9 (3.5-5.0) mmol/L Chloride 105 (101-111) mmol/L Carbon Dioxide 25 (21-32) mmol/L Anion Gap 10.0 (6-13) BUN 7 (6-20) mg/dL Creatinine 0.6 (0.4-1.0) mg/dL Estimated GFR (MDRD) 100 (>89) Glucose 163 H (70-100) mg/dL Calcium 9.0 (8.5-10.3) mg/dL Total Bilirubin 1.6 H (0.2-1.0) mg/dL AST 49 H (10-42) IU/L ALT 22 (10-60) IU/L Alkaline Phosphatase 116 (42-121) IU/L Total Protein 6.8 (6.7-8.2) g/dL Albumin 2.7 L (3.2-5.5) g/dL Globulin 4.1 (2.1-4.2) g/dL Albumin/Globulin Ratio 0.7 L (1.0-2.2) Last Dose Date 12/07/17 Last Dose Time 01:02 Vancomycin Trough 16.6 H (5.0-15.0) ug/mL - Diagnostic Imaging Diagnostic Imaging Results: positive: Final report reviewed Assessment/Plan - Problem List (1) Cellulitis Impression: Patient presented with LLE cellulitis and treated with IV antibiotics. A complicating factor are uncontrolled blood sugars. Plan: Continue with IV antibiotics, then transition to PO at the time of discharge. Qualifiers: Site of cellulitis of extremity: lower extremity Laterality: left (2) DM2 (diabetes mellitus, type 2) Impression: Patient had an unfortunate HgA1C of >11. Early AM sugar today was 163. Patient 's metformin was held, but not Glipizide and patient remained on 70/30. Due to uncontrolled DM, diabetes medical management has changed to D/C all PO agents, add Lantus, and add scheduled aspart meal insulin with SSI. Plan: Continue to monitor blood sugars, keep things simple for long-term blood sugar control. Nutrition/diabetes education will be ordered. 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 Temp max on this admission was 38.5 C, which has been normal since then. Plan: Continue to monitor vital signs and watch for signs of infections. Qualifiers: Fever type: unspecified Qualified Code(s): R50.9 - Fever, unspecified (4) Hyperglycemia Impression: As stated earlier, HgA1C was over 11, and blood sugars remain elevated at 229, 256, and 163 this AM. Patient has had unfortunate recurrent infections, likely from uncontrolled blood sugars. Plan: Make adjustments to diabetes medications including adding Lantus scheduled. (5) Hx of cirrhosis Impression: Patient has a known history of this and LFTs were AST-49, ALT-22, and a biliruben is 1.6 down from 2.1. Patient does not exhibit signs of jaundice. Plan: Avoid hepatotoxins and plan to discontinue oral diabetic agents given this fact. Patient updated.
[2017-12-07] MEDS: NYSTATIN POWDER 15 GM TOP SCH ×2 (18:40→20:31)
[2017-12-07] MEDS: rOPINIRole 0.25 MG TABLET PO SCH (20:28)
[2017-12-07] MEDS: Melatonin [Melatonin] 3 MG PO SCH (20:29)
[2017-12-07] MEDS ORDERED: INSULIN GLARGINE 300 UNIT/3 ML PEN SUBQ SCH (21:00)
[2017-12-08] MEDS: PIPERACILLIN/TAZOBACTAM 3.375 GM in SODIUM CHLORIDE 0.9% MINIBAG 100 ML IV SCH ×2 (02:31→09:01)
[2017-12-08 04:30] LABS: BASOPHILS % (AUTO) 0.4 %; EOSINOPHILS # (AUTO) 0.2 10^3/uL (0.0-0.7); EOSINOPHILS % (AUTO) 4.2 %; HGB - HEMOGLOBIN 13.2 g/dL (12.0-16.0); LYMPHOCYTES # (AUTO) 1.7 10^3/uL (1.5-3.5); LYMPHOCYTES % (AUTO) 35.1 %; MEAN CORPUSCULAR HEMOGLOBIN 34.1 pg (27.0-31.0); MEAN CORPUSCULAR HGB CONC 34.3 g/dL (32.0-36.0); MEAN CORPUSCULAR VOLUME 99.6 fL (81.0-99.0); MEAN PLATELET VOLUME 8.6 fL (7.9-10.8); MONOCYTES # (AUTO) 0.4 10^3/uL (0.0-1.0); MONOCYTES % (AUTO) 8.4 %; NEUTROPHILS # (AUTO) 2.6 10^3/uL (1.5-6.6); NEUTROPHILS % (AUTO) 51.9 %; PLT - PLATELET COUNT 63 10^3/uL (130-450); RED BLOOD COUNT 3.87 10^6/uL (4.20-5.40); RED CELL DISTRIBUTION WIDTH 14.7 % (12.0-15.0); WHITE BLOOD COUNT 4.9 x10^3/uL (4.8-10.8)
[2017-12-08 04:52] LABS: ALBUMIN 2.5 g/dL (3.2-5.5); ALBUMIN/GLOBULIN RATIO 0.6 (1.0-2.2); BILIRUBIN,TOTAL 1.7 mg/dL (0.2-1.0); CALCIUM 9.2 mg/dL (8.5-10.3); CREATININE 0.5 mg/dL (0.4-1.0); TOTAL PROTEIN 6.9 g/dL (6.7-8.2)
[2017-12-08] MEDS: PANTOPRAZOLE 40 MG TABLET PO SCH (06:38)
[2017-12-08] MEDS: SODIUM CHLORIDE FLUSH 0.9% 10 ML SYRINGE IVP SCH ×2 (06:39→09:03)
--- NOTE | 2017-12-08 08:24 | Discharge Plan ---
Discharge Plan Disposition: Home, Self Care Condition: Good Prescriptions: Blood Sugar Diagnostic [Glucometer Strips] 1 each QID #3 strip Blood-Glucose Meter [Glucometer] 1 each QID #3 each Clindamycin HCl [Clindamycin 300MG CAP] 600 mg PO BID 10 Days #40 capsule Insulin Aspart [NovoLOG] 5 unit SUBQ TIDWM #1 pen Insulin Aspart [NovoLOG] 2 - 10 unit SUBQ 0800,1200,1700,2100 #1 pen Insulin Glargine [Lantus Solostar] 16 unit SUBQ BID #1 pen Insulin Glargine [Lantus Solostar] 18 unit SUBQ BID #1 pen Nystatin [Nystop] 1 applic TOP BID #1 bottle Pen Needle, Diabetic [Insulin Pen Needle] 1 each QID #1 dis.needle Diet: Diabetic Activity Restrictions: No Restrictions Shower Restrictions: No Driving Restrictions: No Weight Bearing: Full Weight Instruction Topics: Insulin Aspart injection, Insulin Glargine injection Additional Instructions or Follow Up instructions: There is a nodule in your right lung that needs follow up imaging in 12 months - your PCP can order this. Take all of your antibiotics for cellulitis. Keep track of your blood sugars, as this will help you be less susceptible to infection. A diabetic nurse educator would be ideal for you to be in contact with. She will give you tips on meal choices, and the best ways to manage your blood sugars. All of your oral diabetic medications have been discontinued as these were not helping you likely due to your liver cirrhosis. I have continued your Nystatin powder to help with the skin irritation that was noticed yesterday. Take all other medications as prescribed. No Smoking: If you smoke, Please STOP! Call for help. Follow-up with: Skye Randolph PA-C [Primary Care Provider] -
[2017-12-08] MEDS ORDERED: INSULIN GLARGINE 300 UNIT/3 ML PEN SUBQ SCH (08:28)
--- NOTE | 2017-12-08 08:28 | DISCHARGE SUMMARY ---
Discharge Summary Admit Date: 12/05/17 Discharge Date: 12/08/17 Discharging Provider: Debora Saba Primary Care Provider: Mariana Randolph Condition at Discharge: Good Discharge Disposition: 01 Home, Self Care - DIAGNOSES Admission Diagnoses: Fever (R50.9) Cellulitis (L03.90) DM2 (diabetes mellitus, type 2) (E11.9) Heart failure, unspecified (I50.9) Anxiety disorder, unspecified (F41.9) Discharge Diagnoses with Status of Each Condition: Cellulitis (L03.90) improved, continue antibiotics. DM2 (diabetes mellitus, type 2) (E11.9) chronic, medication changes at discharge. Hyperglycemia (R73.9) ongoing, stable. History of cirrhosis (Z87.19) chronic, stable, adjustments to home medications were made. Fever (R50.9) resolved. - HPI History of Present Illness: Barbi Dee is an obese 67-year-old white female with a past medical history of chronic LLE cellulitis, DM2, cardiac Murmur, Asthma, Pneumonia, Shortness of breath, GERD, liver Cirrhosis, urinary incontinence, urinary frequency, chronic sinusitis, depression, osteoarthritis, fibromyalgia, chronic back pain, and rosacea. She presented to the ED with a primary complaint of fevers and shortness of breath. Patient reports while she was out for a walk this morning , she became short of breath. She also felt very weak. She admits to recent foul smelling urine with urinary incontinence. Once in the ED she was found to be hypoxic and febrile. Patient denies chest pain, headache, abdominal pain, cough, nausea, vomiting, or diarrhea. A chest CTA was completed which was negative for PE, improved pneumonia from the last discharge, although a 4mm nodule was noted in the right middle lobe. An abdominal ultrasound showed a cirrhotic appearance of the liver, no evidence of biliary obstruction. Patient' s LLE has chronic edema appeared with increased redness, warm, and was tender. Patient will be admitted for evaluation of fever and LLE acute on chronic cellulitis. - HOSPITAL COURSE Hospital Course: The following problems/diagnoses were prevalent during this hospital stay: (1) Cellulitis- Patient presented with LLE cellulitis and treated with IV antibiotics. A complicating factor are uncontrolled blood sugars. Patient was continued on IV antibiotics, then transition to PO at the time of discharge. (2) DM2 (diabetes mellitus, type 2)- Patient had an unfortunate HgA1C of >11. Early AM sugar today was 163. Patient's metformin was held, but not Glipizide and patient remained on 70/30. Due to uncontrolled DM, diabetes medical management has changed to D/C all PO agents, add Lantus, and add scheduled aspart meal insulin with SSI. Patient's blood sugars were monitored and measures were taken to keep things simple for long-term blood sugar control. Nutrition/diabetes education will be ordered as this will help patient at home. (3) Fever- Patient notes that a family friend is a nurse who checked her temperature at home which was 103 F. Temp max on this admission was 38.5 C, which has been normal since then. Patient's vital signs were monitored and she was watched for signs of worsening infection. (4) Hyperglycemia- As stated earlier, HgA1C was over 11, and blood sugars remain elevated at 229, 256, and 163 this AM. Patient has had unfortunate recurrent infections, likely from uncontrolled blood sugars. Adjustments were made to get optimal control of blood sugars, including the addition of Lantus scheduled. (5) Hx of cirrhosis- Patient has a known history of this and LFTs were AST-49, ALT-22, and a biliruben is 1.6 down from 2.1. Patient does not exhibit signs of jaundice. Avoidance of hepatotoxins and all oral diabetic agents were discontinued given this fact. Patient updated. Disposition: Patient was discharged in stable condition, free of pain and not dependent of oxygen. She was informed of her RUL nodule that was found on CT scan while in the ED. Also informed to follow up in 12 months with a chest CT. 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 - ALLERGIES Allergies/Adverse Reactions: Allergies Allergy/AdvReac Type Severity Reaction Status Date / Time cimetidine [From Tagamet] Allergy Unknown Verified 12/05/17 09:18 cimetidine HCl * Allergy Unknown Verified 12/05/17 09:18 [From Tagamet] erythromycin lactobionate * Allergy Unknown Verified 12/05/17 09:18 [From Erythrocin] fluticasone propionate * Allergy Unknown Verified 12/05/17 09:18 [From Flonase] levofloxacin [From Levaquin] Allergy Unknown Verified 12/05/17 09:18 piroxicam [From Feldene] Allergy Unknown Verified 12/05/17 09:18 Sulfa (Sulfonamide Allergy Unknown Verified 12/05/17 09:18 Antibiotics) egg AdvReac Nausea Verified 12/05/17 09:18 ibuprofen [From Motrin] AdvReac Unknown Verified 12/05/17 09:18 - MEDICATIONS Home Medications: Ambulatory Orders Medication Instructions Recorded Confirmed Albuterol Sulf [Ventolin Hfa 2 puffs INH Q4HR PRN 03/21/17 12/05/17 Inhaler] Calcium Carbonate 600 mg PO DAILY 03/21/17 12/05/17 DULoxetine [Cymbalta] 30 mg PO DAILY 03/21/17 12/05/17 Lactobacillus Acidophilus/Fos 1 each PO DAILY 03/21/17 12/05/17 [Acidophilus Probiotic Tablet] Lysine HCl 500 mg PO DAILY 03/21/17 12/05/17 Melatonin 3 mg PO QPM 03/21/17 12/05/17 Omeprazole 20 mg PO QDAC 03/21/17 12/05/17 Potassium Chloride 10 meq PO DAILYWM 03/21/17 12/05/17 Propranolol [Inderal] 60 mg PO BID 03/21/17 12/05/17 Spironolactone 50 mg PO BID 03/21/17 12/05/17 Vitamin B Complex 1 each PO DAILY 03/21/17 12/05/17 Cholecalciferol (Vitamin D3) 2,000 unit PO DAILY 04/22/17 12/05/17 [Vitamin D3] DULoxetine [Cymbalta] 60 mg PO QPM 11/15/17 12/05/17 Diclofenac Sodium [Voltaren] 2 - 4 gm TOP QID PRN 11/15/17 12/05/17 Fluticasone [Flonase] 2 sprays JAZMÍN DAILY 11/15/17 12/05/17 Ropinirole HCl 0.25 mg PO QPM 11/15/17 12/05/17 Furosemide [Lasix] 40 mg DAILY 12/05/17 12/05/17 Blood Sugar Diagnostic [Glucometer 1 each QID #3 strip 12/08/17 Strips] Blood-Glucose Meter [Glucometer] 1 each QID #3 each 12/08/17 Clindamycin HCl [Clindamycin 300MG 600 mg PO BID 10 Days #40 capsule 12/08/17 CAP] Insulin Aspart [NovoLOG] 2 - 10 unit SUBQ 12/08/17 0800,1200,1700,2100 #1 pen Insulin Aspart [NovoLOG] 5 unit SUBQ TIDWM #1 pen 12/08/17 Insulin Glargine [Lantus Solostar] 16 unit SUBQ BID #1 pen 12/08/17 Insulin Glargine [Lantus Solostar] 18 unit SUBQ BID #1 pen 12/08/17 Nystatin [Nystop] 1 applic TOP BID #1 bottle 12/08/17 Pen Needle, Diabetic [Insulin Pen 1 each MC QID #1 dis.needle 12/08/17 Needle] - PHYSICAL EXAM AT DISCHARGE General Appearance: positive: No acute distress, Alert Eyes Bilateral: positive: Normal inspection, PERRL ENT: positive: ENT inspection nml, Pharynx nml, No signs of dehydration Neck: positive: Nml inspection, Thyroid nml, No JVD Respiratory: positive: Chest non-tender, No respiratory distress, Breath sounds nml Cardiovascular: positive: Regular rate & rhythm, Systolic murmur, Decreased pulse(s) Peripheral Pulses: positive: 1+ Abdomen: positive: Non-tender, No organomegaly, Nml bowel sounds, No distention , Other (rounded, soft) Back: positive: Nml inspection Skin: positive: No rash, Warm, Dry Extremities: positive: Non-tender, Full ROM, Nml appearance, Pedal edema (LLE greater than RLE.) Neurologic/Psychiatric: positive: Oriented x3, CN's nml (2-12), Motor nml, Sensation nml, Depressed mood/affect Reflexes: Bicep (R): 3+, Bicep (L): 3+ - LABS Result Diagrams: 12/08/17 04:05 12/08/17 04:05 - DIAGNOSTIC IMAGING Diagnostic Imaging Results: Final report reviewed Diagnostic Imaging Results Comments: Chest CTA: EXAM DATE: 12/05/2017 11:59 AM. CLINICAL HISTORY: Near syncope and hypoxia elevated d dimer after inpatient stay. COMPARISON: 12/22/2015, 11/14/2017. TECHNIQUE: Routine helical imaging was performed through the chest in the pulmonary arterial phase. IV Contrast: 80 cc Isovue 300. Reconstructions: Coronal 3-D MIP reconstructions.Sagittal and coronal. In accordance with CT protocol optimization, one or more of the following dose reduction techniques were utilized for this exam: automated exposure control, adjustment of mA and/or KV based on patient size, or use of iterative reconstructive technique. FINDINGS: Pulmonary Arteries: Diagnostic quality: Adequate through the segmental arteries. No evidence for acute or chronic pulmonary emboli. RV/LV is within normal limits. There is no interventricular septal bowing. There is no reflux of contrast material in the IVC. Lungs/Pleura: 4 mm nodule right middle lobe series 5 image 74. There was infiltrate on prior CTs in this region. Area of chronic scarring, bronchiectasis last upper lobe apical segment medially similar. Improved atelectasis right middle lobe mild residual. Marked improvement right lower lobe atelectasis. Chronic left lingular atelectasis or scarring similar. Bibasilar atelectasis. Calcified granulomas. Trace right effusion Mediastinum: Normal. No cardiac enlargement or adenopathy. Thoracic Aorta: Unremarkable. Upper Abdomen: Cirrhotic appearing liver with calcification. Enlarged spleen with calcifications Other: None. IMPRESSION: 1. No pulmonary emboli. 2. Improved right middle lobe, right lower lobe areas of infiltrate or atelectasis. Trace right effusion improved 3. 4 mm right middle lobe nodule can be followed up in 12 months per Fleischner recommendations. Not well seen previously due to infiltrate. 4. Cirrhotic appearing liver with splenomegaly EXAM: [id number] US/ABDLTD RIGHT UPPER QUADRANT ULTRASOUND: 12/05/2017 CLINICAL INDICATION: Fever, elevated bilirubin. TECHNIQUE: Real-time scanning was performed with workforce services representative static images obtained. FINDINGS: The liver measures 14 cm. Hepatic echogenicity is heterogeneous, with a nodular contour, compatible with cirrhosis. There is an 8 mm echogenic focus in the left lobe, likely representing a tiny hemangioma. Calcifications of old granulomatous disease are incidentally noted. No intrahepatic biliary dilatation is appreciated. The common bile duct measures 4 mm. The patient is status post cholecystectomy. The right kidney measures 12.9 cm, and demonstrates no hydronephrosis. No free fluid is present. IMPRESSION: CIRRHOTIC APPEARANCE OF THE LIVER. NO EVIDENCE OF BILIARY OBSTRUCTION. CHANGES OF CHOLECYSTECTOMY. EXAM: LEFT LOWER EXTREMITY VENOUS ULTRASOUND EXAM DATE: 12/05/2017 08:36 PM. CLINICAL HISTORY: Left leg swelling. COMPARISON: None. TECHNIQUE: Real-time sonographic vascular imaging was performed by the concrete form setter and finisher through the lower extremity utilizing both color-flow and Doppler spectral analysis. Multiple workforce services representative static images were saved for review. FINDINGS: Common Femoral Vein (CFV): Normal. CFV-GSV Junction: Normal. Profunda Femoral Vein (PFV): Normal. Femoral Vein (FV) Prox: Normal. Femoral Vein (FV) Mid: Normal. Femoral Vein (FV) Dist: Normal. Popliteal Vein: Normal. Posterior Tibial Veins: Limited visualization. Peroneal Veins: Limited visualization. Other: Subcutaneous edema in the lower leg. IMPRESSION: No evidence for deep venous thrombosis. EXAM: [id number] XR/[id number] EXAM: CHEST RADIOGRAPHY EXAM DATE: 12/05/2017 09:58 AM. CLINICAL HISTORY: Fever hypoxia. COMPARISON: Chest x-ray 11/14/2017. TECHNIQUE: 1 view. FINDINGS: Lungs/Pleura: No focal consolidation evident. No pleural effusion. No pneumothorax. 1.4 cm densely calcified right lower lobe granuloma, projecting over right upper quadrant. Mediastinum: Atherosclerotic aortic calcifications. Other: None. IMPRESSION: No consolidation evident. - FOLLOW UP Follow Up: Disposition: Home, Self Care Condition: Good Prescriptions: Blood Sugar Diagnostic [Glucometer Strips] 1 each QID #3 strip Blood-Glucose Meter [Glucometer] 1 each QID #3 each Clindamycin HCl [Clindamycin 300MG CAP] 600 mg PO BID 10 Days #40 capsule Insulin Aspart [NovoLOG] 5 unit SUBQ TIDWM #1 pen Insulin Aspart [NovoLOG] 2 - 10 unit SUBQ 0800,1200,1700,2100 #1 pen Insulin Glargine [Lantus Solostar] 16 unit SUBQ BID #1 pen Insulin Glargine [Lantus Solostar] 18 unit SUBQ BID #1 pen Nystatin [Nystop] 1 applic TOP BID #1 bottle Pen Needle, Diabetic [Insulin Pen Needle] 1 each QID #1 dis.needle Diet: Diabetic Activity Restrictions: No Restrictions Shower Restrictions: No Driving Restrictions: No Weight Bearing: Full Weight Instruction Topics: Insulin Aspart injection, Insulin Glargine injection Additional Instructions or Follow Up instructions: There is a nodule in your right lung that needs follow up imaging in 12 months - your PCP can order this. Take all of your antibiotics for cellulitis. Keep track of your blood sugars, as this will help you be less susceptible to infection. A diabetic nurse educator would be ideal for you to be in contact with. She will give you tips on meal choices, and the best ways to manage your blood sugars. All of your oral diabetic medications have been discontinued as these were not helping you likely due to your liver cirrhosis. I have continued your Nystatin powder to help with the skin irritation that was noticed yesterday. Take all other medications as prescribed. - TIME SPENT Time Spent in Discharge (Minutes): 45
[2017-12-08] MEDS: INSULIN ASPART 300 UNIT/3 ML PEN SUBQ SCH ×4 (08:52→12:11)
[2017-12-08] MEDS ORDERED: VANCOMYCIN INJ 1 GM, VANCOMYCIN INJ 500 MG in SODIUM CHLORIDE 0.9% 500 ML IV SCH (09:00)
[2017-12-08] MEDS: FUROSEMIDE 20 MG TABLET PO SCH (09:00)
[2017-12-08] MEDS: CALCIUM CARB (OYSTER SHELL) 500 MG TABLET PO SCH (09:00)
[2017-12-08] MEDS: PROPRANOLOL 40 MG TABLET PO SCH (09:00)
[2017-12-08] MEDS: SACCHAROMYCES BOULARDII 250 MG CAPSULE PO SCH (09:00)
[2017-12-08] MEDS: CHOLECALCIFEROL 1,000 UNIT TABLET PO SCH (09:00)
[2017-12-08] MEDS: SPIRONOLACTONE 25 MG TABLET PO SCH (09:01)
[2017-12-08] MEDS: POTASSIUM CHLORIDE 10 MEQ CAPSULE PO SCH (09:01)
[2017-12-08] MEDS: DULoxetine 30 MG CAPSULE PO SCH (09:07)
[2017-12-08] MEDS: NYSTATIN POWDER 15 GM TOP SCH (09:10)
[2017-12-08] MEDS: POLYETHYLENE GLYCOL 3350 17 GM PACKET PO SCH (09:18)
[2017-12-08 12:02] VITALS: BP 120/69
== END 2017-12-08 12:30 | disposition home or self-care (01) | DRG 603 ==
LOC: EDUNIT# → ED 09:08 → ICU 16:16
PROVIDERS: ADMIT Nurse Practitioner Gerontology; ATTEND Nurse Practitioner
DX: R09.02 Hypoxemia (principal); R55 Syncope and collapse; R50.9 Fever, unspecified; L03.116 Cellulitis of left lower limb; R30.0 Dysuria; R31.9 Hematuria, unspecified; E11.65 Type 2 diabetes mellitus with hyperglycemia; K74.60 Unspecified cirrhosis of liver; R91.1 Solitary pulmonary nodule; E11.9 Type 2 diabetes mellitus without complications; D69.6 Thrombocytopenia, unspecified; F32.9 Major depressive disorder, single episode, unspecified; E66.9 Obesity, unspecified; Z68.36 Body mass index [BMI] 36.0-36.9, adult; K21.9 Gastro-esophageal reflux disease without esophagitis; R32 Unspecified urinary incontinence; R35.0 Frequency of micturition; J45.909 Unspecified asthma, uncomplicated; J32.9 Chronic sinusitis, unspecified; L71.9 Rosacea, unspecified; M19.90 Unspecified osteoarthritis, unspecified site; M79.7 Fibromyalgia; G89.29 Other chronic pain; M54.9 Dorsalgia, unspecified; R01.1 Cardiac murmur, unspecified; Z66 Do not resuscitate; R60.9 Edema, unspecified; Z79.51 Long term (current) use of inhaled steroids; Z79.4 Long term (current) use of insulin; Z79.899 Other long term (current) drug therapy; Z87.01 Personal history of pneumonia (recurrent); Z90.49 Acquired absence of other specified parts of digestive tract
CPT/HCPCS: 36415; 71045; 71275; 76705; 80053; 81001; 81003; 83036; 83605; 83690; 83735; 83880; 84484; 85025; 85379; 87040; 87086; 87150; 87275; 87276; 90670; 93005; 96360; 96361; 99284

== ENCOUNTER 2018-02-24 08:00 | Outpatient (CLI) | payer MEDICARE, OTHER ==
[2018-02-24 13:23] LABS: BASOPHILS % (AUTO) 0.2 %; HGB - HEMOGLOBIN 13.7 g/dL (12.0-16.0); LYMPHOCYTES # (AUTO) 0.5 10^3/uL (1.5-3.5); LYMPHOCYTES % (AUTO) 4.6 %; MEAN CORPUSCULAR HEMOGLOBIN 33.7 pg (27.0-31.0); MEAN CORPUSCULAR HGB CONC 34.1 g/dL (32.0-36.0); MEAN CORPUSCULAR VOLUME 98.7 fL (81.0-99.0); MEAN PLATELET VOLUME 9.5 fL (7.9-10.8); MONOCYTES # (AUTO) 0.3 10^3/uL (0.0-1.0); MONOCYTES % (AUTO) 2.5 %; NEUTROPHILS # (AUTO) 11.1 10^3/uL (1.5-6.6); NEUTROPHILS % (AUTO) 92.7 %; PLT - PLATELET COUNT 76 10^3/uL (130-450); RED BLOOD COUNT 4.06 10^6/uL (4.20-5.40); RED CELL DISTRIBUTION WIDTH 15.1 % (12.0-15.0); WHITE BLOOD COUNT 11.9 x10^3/uL (4.8-10.8)
[2018-02-24 13:26] LABS: ALBUMIN 2.9 g/dL (3.2-5.5); ALBUMIN/GLOBULIN RATIO 0.7 (1.0-2.2); BILIRUBIN,TOTAL 3.8 mg/dL (0.2-1.0); CALCIUM 9.2 mg/dL (8.5-10.3); CREATININE 1.3 mg/dL (0.4-1.0)
== END 2018-02-24 08:01 | disposition home or self-care (01) ==
LOC: LAB.WCP 08:00
PROVIDERS: ATTEND Family Medicine
DX: R50.9 Fever, unspecified (principal); I95.9 Hypotension, unspecified; L03.116 Cellulitis of left lower limb
CPT/HCPCS: 36415; 80053; 85025; 87040

== ENCOUNTER 2018-02-24 12:53 | Outpatient (CLI) | payer OTHER | END 2018-02-24 12:54 | disposition critical access hospital (66) | LOC: EMS 12:53 | PROVIDERS: ATTEND Surgery | DX: R53.1 Weakness (principal); R42 Dizziness and giddiness; L03.116 Cellulitis of left lower limb; R03.1 Nonspecific low blood-pressure reading | CPT/HCPCS: A0425; A0427 ==

== ENCOUNTER 2018-02-24 13:16 | Inpatient (IN) | payer OTHER, MEDICARE ==
[2018-02-24] MEDS ORDERED: SODIUM CHLORIDE 0.9% 1,000 ML IV ONE ×4 (13:24→14:18)
--- NOTE | 2018-02-24 13:30 | ED Physician Documentation ---
History of Present Illness - Stated complaint Stated Complaint: LOW BP - Chief complaint Chief Complaint: General - History obtained from History obtained from: Patient, Family, EMS - History of Present Illness Timing: How many days ago (2-3) Pain level max: 0 Pain level now: 0 Improved by: remaining still Worsened by: standing up - Additonal information Additional information: Patient is a 67-year-old female, diabetic with a history of cardiomyopathy who presented to her doctor's office today with a complaint of not feeling well and lightheadedness. Found to be hypotensive. Was given IV fluids there but blood pressure did not improve much. They are concerned she was septic as she also had a left lower extremity cellulitis that is been ongoing for the past 8 years , but seems to be worsening again. She was sent here for evaluation. The patient has had no nausea or vomiting. Thinks he may have had fevers but is unsure. No coughing. No diarrhea. No abdominal pain. No headache. No altered mental status. Review of Systems Ten Systems: 10 systems reviewed and negative Constitutional: reports: Fever, Chills Ears: denies: Ear pain Nose: reports: Epistaxis (intermittent nose bleeds since sinus surgery 3 years ago). denies: Rhinorrhea / runny nose, Congestion Throat: reports: Sore throat (mild) Cardiac: denies: Chest pain / pressure, Palpitations Respiratory: denies: Cough, Wheezing GI: denies: Abdominal Pain, Nausea, Vomiting, Diarrhea Skin: denies: Rash Musculoskeletal: denies: Neck pain, Back pain Neurologic: denies: Focal weakness, Numbness, Headache PD PAST MEDICAL HISTORY - Past Medical History Cardiovascular: Murmur Respiratory: Asthma, Pneumonia, Shortness of breath, Other Neuro: None Endocrine/Autoimmune: Type 2 diabetes GI: GERD, Cirrhosis : Incontinence, Frequency HEENT: Chronic sinusitis Psych: Depression Musculoskeletal: Osteoarthritis, Fibromyalgia, Chronic back pain Derm: Rosacea, Other - Past Surgical History Past Surgical History: Yes General: 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: Hysterectomy, Oophrectomy - Present Medications Home Medications: Ambulatory Orders Medication Instructions Recorded Confirmed Albuterol Sulf [Ventolin Hfa 2 puffs INH Q4HR PRN 03/21/17 02/24/18 Inhaler] Calcium Carbonate [Calcium] 600 mg PO DAILY 03/21/17 02/24/18 DULoxetine [Cymbalta] 30 mg PO DAILY 03/21/17 02/24/18 Lactobacillus Acidophilus/Fos 1 each PO DAILY 03/21/17 02/24/18 [Acidophilus Probiotic Tablet] Lysine HCl 500 mg PO BID 03/21/17 02/24/18 Melatonin 3 mg PO QPM 03/21/17 02/24/18 Omeprazole 20 mg PO QDAC 03/21/17 02/24/18 Potassium Chloride 10 meq PO DAILYWM 03/21/17 02/24/18 Propranolol [Inderal] 60 mg PO BID 03/21/17 02/24/18 Spironolactone 50 mg PO BID 03/21/17 02/24/18 Vitamin B Complex 1 each PO DAILY 03/21/17 02/24/18 Cholecalciferol (Vitamin D3) 2,000 unit PO DAILY 04/22/17 02/24/18 [Vitamin D3] DULoxetine [Cymbalta] 60 mg PO QPM 11/15/17 02/24/18 Diclofenac Sodium [Voltaren] 2 - 4 gm TOP QID PRN 11/15/17 02/24/18 Fluticasone [Flonase] 2 sprays JAZMÍN DAILY 11/15/17 02/24/18 Ropinirole HCl 0.25 mg PO QPM 11/15/17 02/24/18 Furosemide [Lasix] 40 mg PO DAILY 12/05/17 02/24/18 Blood Sugar Diagnostic [Glucometer 1 each MC QID #3 strip 12/08/17 02/24/18 Strips] Blood-Glucose Meter [Glucometer] 1 each MC QID #3 each 12/08/17 02/24/18 Nystatin [Nystop] 1 applic TOP BID #1 bottle 12/08/17 02/24/18 Pen Needle, Diabetic [Insulin Pen 1 each MC QID #1 dis.needle 12/08/17 02/24/18 Needle] Glipizide 5 mg PO DAILY 02/24/18 02/24/18 Insulin NPH Hum/Reg Insulin Hm 10 units SUBQ BIDAC 02/24/18 02/24/18 [Humulin 70/30 Kwikpen] - Allergies Allergies/Adverse Reactions: Allergies Allergy/AdvReac Type Severity Reaction Status Date / Time cimetidine [From [facility]] Allergy Unknown Verified 12/05/17 09:18 cimetidine HCl * Allergy Unknown Verified 12/05/17 09:18 [From Tagamet] erythromycin lactobionate * Allergy Unknown Verified 12/05/17 09:18 [From Erythrocin] fluticasone propionate * Allergy Unknown Verified 12/05/17 09:18 [From Flonase] levofloxacin [From Levaquin] Allergy Unknown Verified 12/05/17 09:18 piroxicam [From Feldene] Allergy Unknown Verified 12/05/17 09:18 Sulfa (Sulfonamide Allergy Unknown Verified 12/05/17 09:18 Antibiotics) egg AdvReac Nausea Verified 12/05/17 09:18 ibuprofen [From Motrin] AdvReac Unknown Verified 12/05/17 09:18 - Social History Does the pt smoke?: No Smoking Status: Never smoker Does the pt drink ETOH?: No Does the pt have substance abuse?: No - POLST Patient has POLST: Yes POLST Status: DNR PD ED PE NORMAL - Vitals Vital signs reviewed: Yes - General General: Alert and oriented X 3, No acute distress - HEENT HEENT: Ears normal, Moist mucous membranes, Pharynx benign (mild dried blood in the posterior oropharynx) - Neck Neck: Supple, no meningeal sign - Cardiac Cardiac: RRR, Strong equal pulses - Respiratory Respiratory: No respiratory distress, Clear bilaterally - Abdomen Abdomen: Soft, Non tender, Non distended - Derm Derm: Warm and dry - Extremities Extremities: Other (LLE - swelling, erythema, warmth to the L leg from the knee to the toes.) - Neuro Neuro: Alert and oriented X 3 - Psych Psych: Normal mood, Normal affect Results - Vitals Vitals: Vital Signs - 24 hr 02/24/18 02/24/18 02/24/18 13:20 14:20 14:28 Temperature 36.8 C Heart Rate 75 73 73 Respiratory 14 22 Rate Blood Pressure 105/89 H 79/64 L 95/41 L O2 Saturation 93 94 02/24/18 02/24/18 02/24/18 14:46 15:00 15:30 Temperature Heart Rate 74 73 73 Respiratory Rate Blood Pressure 87/44 L 82/39 L 76/40 L O2 Saturation 02/24/18 16:00 Temperature Heart Rate 74 Respiratory Rate Blood Pressure 73/48 L O2 Saturation Oxygen O2 Source Room air - EKG (time done) 1333 Rate: Rate (enter#) (75) Rhythm: NSR [place]: Normal Intervals: Normal [place] QRS: Normal Ischemia: Normal ST segments - Labs Labs: Laboratory Tests 02/24/18 02/24/18 02/24/18 13:35 13:35 13:35 WBC 13.9 H RBC 3.69 L Hgb 12.4 Hct 36.7 L MCV 99.2 H MCH 33.7 H MCHC 33.9 RDW 15.4 H Plt Count 66 L MPV 8.8 Neut # 12.9 H Lymph # 0.6 L [place] # 0.4 Eos # 0.0 Baso # 0.0 Absolute Nucleated RBC 0.00 Nucleated RBC % 0.0 Sodium 132 L Potassium 4.2 Chloride 101 Carbon Dioxide 20 L Anion Gap 11.0 BUN 16 Creatinine 1.4 H Estimated GFR (MDRD) 38 L Glucose 209 H Lactic Acid Calcium 8.5 Magnesium Total Bilirubin 3.6 H AST 50 H ALT 20 Alkaline Phosphatase 114 Troponin I < 0.04 Total Protein 6.1 L Albumin 2.6 L Globulin 3.5 Albumin/Globulin Ratio 0.7 L Lipase 24 Urine Color Urine Clarity Urine pH Ur Specific [place] Urine Protein Urine Glucose (UA) Urine Ketones Urine Occult Blood Urine Nitrite Urine Bilirubin Urine Urobilinogen Ur Leukocyte Esterase Urine RBC Urine WBC Ur Squamous Epith Cells Amorphous Sediment Urine Bacteria Ur Microscopic Review Urine Culture Comments 02/24/18 02/24/18 02/24/18 13:35 13:35 14:31 WBC RBC Hgb Hct MCV MCH MCHC RDW Plt Count MPV Neut # Lymph # [place] # Eos # Baso # Absolute Nucleated RBC Nucleated RBC % Sodium Potassium Chloride Carbon Dioxide Anion Gap BUN Creatinine Estimated GFR (MDRD) Glucose Lactic Acid 5.3 H* Calcium Magnesium 1.2 L Total Bilirubin AST ALT Alkaline Phosphatase Troponin I Total Protein Albumin Globulin Albumin/Globulin Ratio Lipase Urine Color DARK YELLOW Urine Clarity CLEAR Urine pH 5.5 Ur Specific [place] >=1.030 H Urine Protein 30 H Urine Glucose (UA) 100 H Urine Ketones TRACE Urine Occult Blood MODERATE H Urine Nitrite POSITIVE H Urine Bilirubin NEGATIVE Urine Urobilinogen 2 H Ur Leukocyte Esterase NEGATIVE Urine RBC 0-5 Urine WBC 0-3 Ur Squamous Epith Cells FEW Squamous Amorphous Sediment Few Urine Bacteria Many H Ur Microscopic Review INDICATED Urine Culture Comments INDICATED - Rads (name of study) cxr Radiology: Prelim report reviewed, EMP read contemporaneously, See rad report ( There is cardiomegaly. There is diminished vascular clarity and likely small effusions. Findings could represent lung edema secondary to heart failure. 2. No evidence of lobar infiltrate or pneumothorax. ) post cvl cxr Radiology: Prelim report reviewed, EMP read contemporaneously, See rad report ( Right IJ line to the low SVC. No visible pneumothorax or other interval change. ) Procedures - Central Line Central Line Preparation: Consent Obtained, Time out completed, Ultrasound used , Sterile prep and drape Central line location: Right IJ Central line type: Triple lumen Central line aftercare: Chlorhexidine disc placed, Secured, Placement confirmed , No pneumothorax, No complications, Bundle checklist complete, Pt tolerated well PD MEDICAL DECISION MAKING - ED course Complexity details: reviewed old records, reviewed results, re-evaluated patient , considered differential, d/w patient, d/w family, d/w enterprise resource planning consultant ED course: Patient is a 67-year-old female who presents to the emergency department with severe sepsis. Lactate greater than 5. Persistent hypotension despite 4 L of fluid. Central line was placed and Levophed started. Blood cultures obtained and Vanco and Zosyn given. Presumably the sepsis is related to the urine infection as well as the cellulitis of the left lower extremity. I discussed the case with Dr. Levi, hospitalist who accepts to the ICU. This document was made in part using voice recognition software. While efforts are made to proofread this document, sound alike and grammatical errors may occur. - Critical Care Time(min): 60 Time Includes: Direct patient care, Review records, Reassess patient, Document care, Coordinate care, Medical consult Data interpretation: See progress note Procedures included in critical care time: See progress note Procedures excluded from critical care time: Central IV Departure - Departure Disposition: 67 [facility] DC/Xfer Clinical Impression: Sepsis Qualifiers: Sepsis type: sepsis due to unspecified organism Qualified Code(s): A41.9 - Sepsis, unspecified organism Cellulitis Qualifiers: Site of cellulitis: extremity Site of cellulitis of extremity: lower extremity Laterality: left Qualified Code(s): L03.116 - Cellulitis of left lower limb UTI (urinary tract infection) Qualifiers: Urinary tract infection type: acute cystitis Hematuria presence: without hematuria Qualified Code(s): N30.00 - Acute cystitis without hematuria Condition: Serious Discharge Date/Time: 02/24/18 18:34
[2018-02-24 13:42] LABS: BASOPHILS % (AUTO) 0.1 %; HGB - HEMOGLOBIN 12.4 g/dL (12.0-16.0); LYMPHOCYTES # (AUTO) 0.6 10^3/uL (1.5-3.5); LYMPHOCYTES % (AUTO) 4.2 %; MEAN CORPUSCULAR HEMOGLOBIN 33.7 pg (27.0-31.0); MEAN CORPUSCULAR HGB CONC 33.9 g/dL (32.0-36.0); MEAN CORPUSCULAR VOLUME 99.2 fL (81.0-99.0); MEAN PLATELET VOLUME 8.8 fL (7.9-10.8); MONOCYTES # (AUTO) 0.4 10^3/uL (0.0-1.0); MONOCYTES % (AUTO) 2.7 %; NEUTROPHILS # (AUTO) 12.9 10^3/uL (1.5-6.6); PLT - PLATELET COUNT 66 10^3/uL (130-450); RED BLOOD COUNT 3.69 10^6/uL (4.20-5.40); RED CELL DISTRIBUTION WIDTH 15.4 % (12.0-15.0); WHITE BLOOD COUNT 13.9 x10^3/uL (4.8-10.8)
[2018-02-24 14:10] LABS: ALBUMIN 2.6 g/dL (3.2-5.5); ALBUMIN/GLOBULIN RATIO 0.7 (1.0-2.2); BILIRUBIN,TOTAL 3.6 mg/dL (0.2-1.0); CALCIUM 8.5 mg/dL (8.5-10.3); CREATININE 1.4 mg/dL (0.4-1.0); TOTAL PROTEIN 6.1 g/dL (6.7-8.2)
[2018-02-24] MEDS ORDERED: VANCOMYCIN INJ 2 GM in SODIUM CHLORIDE 0.9% 500 ML IV STA (14:14)
[2018-02-24] MEDS ORDERED: PIPERACILLIN/TAZOBACTAM 4.5 GM in SODIUM CHLORIDE 0.9% MINIBAG 100 ML IV STA (14:14)
--- NOTE | 2018-02-24 14:31 | XRAY Report ---
EXAM: CHEST RADIOGRAPHY EXAM DATE: 02/24/2018 02:15 PM. CLINICAL HISTORY: Hypotension COMPARISON: 12/05/2017. TECHNIQUE: 1 view. FINDINGS: Lungs/Pleura: Lung volumes are somewhat low. No evidence of lobar consolidation. There is diminished vascular clarity. Costophrenic sulcus blunting is suspicious for small effusions. Stable calcified no dule within the lower right chest. Mediastinum: There is mild cardiomegaly. There is mild thoracic aortic calcification. Other: None. IMPRESSION: 1. There is cardiomegaly. There is diminished vascular clarity and likely small effusions. Findings c ould represent lung edema secondary to heart failure. 2. No evidence of lobar infiltrate or pneumothorax. [facility] Referring Provider Line: [phone] SITE ID: [id number]
[2018-02-24 14:50] LABS: GLUCOSE, URINE (UA) 100 mg/dL (NEGATIVE); KETONES,URINE (UA) TRACE mg/dL (NEGATIVE); LEUKOCYTE ESTERASE, URINE NEGATIVE (NEGATIVE); NITRITE,URINE POSITIVE (NEGATIVE); OCCULT BLOOD,URINE MODERATE (NEGATIVE); PH,URINE 5.5 PH (5.0-7.5); PROTEIN,URINE 30 mg/dL (NEGATIVE); UROBILINOGEN,URINE 2 E.U./dL (NORMAL)
[2018-02-24 14:51] LABS: CLARITY,URINE CLEAR (CLEAR)
[2018-02-24 14:56] LABS: BILIRUBIN,URINE NEGATIVE (NEGATIVE); ICTOTEST,URINE NEGATIVE
[2018-02-24 15:01] LABS: AMORPHOUS SEDIMENT,UR Few /LPF; BACTERIA,URINE Many /HPF (None Seen); RBC,URINE 0-5 /HPF (0-5); SQUAMOUS EPITHELIAL CELL,UR FEW Squamous (<= Few)
--- NOTE | 2018-02-24 16:31 | XRAY Preliminary Report ---
Exam: XR CHEST 1 VIEW X-RAY IMPRESSION: Right IJ line to the low SVC. No visible pneumothorax or other interval change. [facility] SITE ID: [id number]
--- NOTE | 2018-02-24 16:31 | XRAY Report ---
EXAM: CHEST RADIOGRAPHY EXAM DATE: 02/24/2018 04:02 PM. CLINICAL HISTORY: Central line placement. COMPARISON: Today at 1407. TECHNIQUE: 1 view. FINDINGS: Lungs/Pleura: Stable right base calcified granuloma, otherwise no focal opacities evident. Stable bob nting of the right costophrenic angle. No pneumothorax. Mediastinum: Large heart with venous congestion. Other: Right IJ line to the low SVC. IMPRESSION: Right IJ line to the low SVC. No visible pneumothorax or other interval change. [facility] Referring Provider Line: [phone] SITE ID: [id number]
[2018-02-24] MEDS ORDERED: PROCHLORPERAZINE 10 MG/2 ML VIAL IVP PRN (16:44)
[2018-02-24] MEDS ORDERED: ALBUTEROL NEB 2.5 MG/3 ML INH PRN (16:54)
[2018-02-24] MEDS: LACTATED RINGERS 1,000 ML IV SCH (18:18)
[2018-02-24] MEDS: INSULIN ASPART 300 UNIT/3 ML PEN SUBQ SCH ×2 (18:18→21:49)
[2018-02-24] MEDS ORDERED: INSULIN ASPART 300 UNIT/3 ML PEN SUBQ ONE (18:25)
[2018-02-24] MEDS: SODIUM CHLORIDE FLUSH 0.9% 10 ML SYRINGE IVP SCH ×2 (18:28→21:44)
--- NOTE | 2018-02-24 20:29 | ADVANCE CARE PLANNING NOTE ---
Advance Care Planning - Date/Time Date: 02/24/18 Time: 19:45 - Purpose of encounter Text: Met to confirm her wishes regarding Code Status. - Parties in attendance Parties in attendance: The patient and two female family members (daughters) and myself met in the patient's room. - Decisional capacity Decisional capacity of: The patient has full capacity to make decisions - Subjective/Patient's story Subjective/Patient's story: The patient has had recurrent cellulitis since a minor trauma to her left anterior schroeder 8 years ago. It has "never completely healed". She is admitted now with septic shock from leg cellulitis, presumably. We discussed how aggressive to be with her treatment. - Objective/Medical story Objective/Medical Story: The patient is an IDDM with obesity and recurrent leg cellulitis. The leg is cared for by her PCP. She has never seen a specialist, such as a surgeon, plastic surgeon or manager multicultural. When she was seen in the [facility] clinic here 8 years ago, they had "nothing to offer her". The leg has a 2 mm open, weeping wound at the mid anterior schroeder, and the left leg is warm, red, swollen from her knee to her toes and is very tender. She has required 5L of saline to treat a BP of 60/30. She is still hypotensive, BP is 80. She will be treated for shock, with iv fluids and pressor agents if needed. She will be fully cultured and started on broad-spectrum antibiotics. Her old Living Will, scanned into her electronic record, states that she wants no heroic measures such as resuscitation or Life Support. I explained to her and the daughters what CPR and ventilator support mean. She then decided and verbalized that she does want to be a Full Code, and wants to rescind the old request. She will sign a new POLST today. - Goals of Care Goals of care determinations: She wants to get better and return to her usual life, and she would prefer if she had the leg cellulitis treated once and for all. - Plan Plan: Medical management as planned above for treating her septic shock, presumably from the cellulitis source, more aggressive management of the skin and leg and rescind the old Living Will and sign a new POLST indicating she is a Full Attempt at Resuscitation. - Code Status Code Status: Attempt Resuscitation - Time Spent on Advance Care Planning Time spent on advance care plannin min
[2018-02-24] MEDS ORDERED: VANCOMYCIN PER PHARMACY 0.1 GM in SODIUM CHLORIDE 0.9% 250 ML IV SCH (21:00)
[2018-02-24] MEDS ORDERED: PIPERACILLIN/TAZOBACTAM 4.5 GM in SODIUM CHLORIDE 0.9% MINIBAG 100 ML IV SCH (21:00)
[2018-02-24] MEDS ORDERED: NYSTATIN POWDER 15 GM TOP SCH (21:00)
[2018-02-24] MEDS ORDERED: PROPRANOLOL 40 MG TABLET PO SCH (21:00)
[2018-02-24] MEDS ORDERED: IBUPROFEN 600 MG TABLET PO PRN (21:29)
[2018-02-24] MEDS ORDERED: TEMAZEPAM 15 MG CAPSULE PO PRN (21:30)
[2018-02-24] MEDS: DULoxetine 30 MG CAPSULE PO SCH (21:43)
[2018-02-24] MEDS: MAGNESIUM SULFATE 2 GRAM 2 GM/50 ML BAG IV SCH ×2 (21:43→23:22)
[2018-02-24] MEDS: PANTOPRAZOLE 40 MG VIAL IVP SCH (21:44)
[2018-02-24] MEDS: PIPERACILLIN/TAZOBACTAM 4.5 GM in SODIUM CHLORIDE 0.9% MINIBAG 100 ML IV SCH (21:45)
[2018-02-24] MEDS: rOPINIRole 0.25 MG TABLET PO SCH (22:08)
[2018-02-25] MEDS: LACTATED RINGERS 1,000 ML IV SCH ×3 (04:00→22:44)
[2018-02-25 04:37] LABS: BASOPHILS # (AUTO) 0.1 10^3/uL (0.0-0.1); BASOPHILS % (AUTO) 0.5 %; HGB - HEMOGLOBIN 12.8 g/dL (12.0-16.0); LYMPHOCYTES # (AUTO) 1.3 10^3/uL (1.5-3.5); LYMPHOCYTES % (AUTO) 4.9 %; MEAN CORPUSCULAR HEMOGLOBIN 32.4 pg (27.0-31.0); MEAN CORPUSCULAR HGB CONC 32.5 g/dL (32.0-36.0); MEAN CORPUSCULAR VOLUME 99.8 fL (81.0-99.0); MEAN PLATELET VOLUME 8.8 fL (7.9-10.8); MONOCYTES # (AUTO) 0.9 10^3/uL (0.0-1.0); MONOCYTES % (AUTO) 3.2 %; NEUTROPHILS % (AUTO) 91.4 %; PLT - PLATELET COUNT 94 10^3/uL (130-450); RED BLOOD COUNT 3.94 10^6/uL (4.20-5.40); RED CELL DISTRIBUTION WIDTH 15.5 % (12.0-15.0); WHITE BLOOD COUNT 27.4 x10^3/uL (4.8-10.8)
[2018-02-25] MEDS: PIPERACILLIN/TAZOBACTAM 4.5 GM in SODIUM CHLORIDE 0.9% MINIBAG 100 ML IV SCH ×2 (04:40→12:56)
[2018-02-25 04:48] LABS: CALCIUM 8.2 mg/dL (8.5-10.3)
[2018-02-25 05:07] LABS: HEMOGLOBIN A1C 1.29 g/dL; HEMOGLOBIN A1C % 10.6 % (4.6-6.2)
[2018-02-25 06:31] LABS: PLATELET ESTIMATE, MANUAL DECREASED (<130,000) (NORMAL); PLATELET MORPHOLOGY NORMAL APPEARANCE (NORMAL); RBC MORPHOLOGY (MULTIPLE) NORMAL APPEARANCE (NORMAL)
[2018-02-25] MEDS ORDERED: MAGNESIUM SULFATE 2 GRAM 50 ML IV SCH (07:00)
[2018-02-25] MEDS ORDERED: NON FORMULARY MED (Omeprazole [Omeprazole] 20 MG) PO SCH (07:00)
[2018-02-25 08:02] LABS: ALBUMIN 2.8 g/dL (3.2-5.5); PHOSPHORUS 2.8 mg/dL (2.5-4.6)
[2018-02-25] MEDS: INSULIN ASPART 300 UNIT/3 ML PEN SUBQ SCH ×5 (08:24→21:03)
[2018-02-25] MEDS: PANTOPRAZOLE 40 MG VIAL IVP SCH ×2 (08:38→21:03)
[2018-02-25] MEDS: SODIUM CHLORIDE FLUSH 0.9% 10 ML SYRINGE IVP PRN ×8 (08:38→21:03)
[2018-02-25] MEDS: SODIUM CHLORIDE FLUSH 0.9% 10 ML SYRINGE IVP SCH ×3 (08:39→21:03)
[2018-02-25] MEDS ORDERED: SODIUM CHLORIDE 0.9% 0 ML IV ONE (08:46)
[2018-02-25] MEDS: DULoxetine 30 MG CAPSULE PO SCH ×2 (08:55→21:03)
[2018-02-25] MEDS: POTASSIUM CHLORIDE 10 MEQ CAPSULE PO SCH (08:55)
[2018-02-25] MEDS: glipiZIDE 5 MG TABLET PO SCH (08:55)
[2018-02-25] MEDS: ACETAMINOPHEN 325 MG TABLET PO PRN ×2 (08:56→21:08)
[2018-02-25] MEDS ORDERED: FLUTICASONE NASAL SPRAY NAS SCH (09:00)
[2018-02-25] MEDS ORDERED: NON FORMULARY MED (Cholecalciferol (Vitamin D3) [Vitamin D3] 2,000 UNIT) PO SCH (09:00)
[2018-02-25] MEDS ORDERED: VANCOMYCIN INJ 1 GM, VANCOMYCIN INJ 500 MG in SODIUM CHLORIDE 0.9% 500 ML IV SCH (09:00)
[2018-02-25] MEDS ORDERED: NON FORMULARY MED (Vitamin B Complex [Vitamin B Complex] 1 EACH) PO SCH (09:00)
[2018-02-25] MEDS ORDERED: NON FORMULARY MED (Calcium Carbonate [Calcium] 600 MG) PO SCH (09:00)
--- NOTE | 2018-02-25 10:37 | HISTORY & PHYSICAL EXAMINATION ---
DATE OF SERVICE: 02/24/2018 Physician: Roslyn Wells MD HISTORY OF PRESENT ILLNESS: This is a 67-year-old, white female with history of diabetes on insulin, obesity, recurrent cellulitis of her left leg ever since a trauma to that leg 8 years ago. The patient awoke this morning with new redness and worsening swelling than her usual and worsening tenderness than the usual pain she has from the left knee down to her toes, and she presented to her doctor, where she was found to have a blood pressure of 60/30 and was started on fluids, and then sent to the emergency room here. Her blood pressure was still critically low here and she received 4 liters of saline which improved her systolic blood pressure to the 80 and 90 mmHg range. She received a right-sided IJ central venous catheter in the ER, and has been given a dose of Zosyn and vancomycin after blood cultures were done and she is now being admitted to the ICU for septic shock and management of her infection. PAST MEDICAL HISTORY: Obesity, diabetes on insulin, recurrent cellulitis of the left leg, history of nosebleeds since sinus surgery 3 years ago, history of chronic swelling of both legs, cholecystectomy, hysterectomy, oophorectomy, GERD, depression, fibromyalgia, chronic back pain, asthma, urinary incontinence. ALLERGIES 1. CIMETIDINE. 2. ERYTHROMYCIN. 3. FLONASE. 4. LEVAQUIN. 5. FELDENE. 6. SULFA ANTIBIOTICS. 7. EGGS. 8. MOTRIN. MEDICATIONS 1. Ventolin inhaler. 2. Calcium 600 mg daily. 3. Cymbalta 30 mg daily. 4. Acidophilus tablets 1 daily. 5. Lysine 500 mg b.i.d. 6. Melatonin 3 mg every night. 7. Omeprazole 20 mg daily. 8. Potassium chloride 10 mEq daily. 9. Inderal 60 mg p.o. b.i.d. p.r.n. unknown reason. 10. Vitamin B complex. 11. Vitamin D complex. 12. Cymbalta 60 mg every p.m. 13. Voltaren p.r.n. pain. 14. Flonase p.r.n. 15. Requip 0.25 mg p.o. every evening. 16. Lasix 40 mg p.o. daily. 17. Nystatin topically p.r.n. 18. Glipizide 5 mg p.o. daily. 19. Humulin insulin NPH, regular, 70/30 ten units subcutaneous b.i.d. REVIEW OF SYSTEMS: The patient did report fever and chills and a mild sore throat. She denied any cough, wheezing, sputum production, abdominal pain, nausea, vomiting or diarrhea. A comprehensive review of systems was performed, and the pertinent positives and negatives are listed here. FAMILY HISTORY: No inherited diseases. SOCIAL HISTORY: She never smoked, uses no alcohol or illicit drug use. PHYSICAL EXAMINATION GENERAL: Obese, white female supine in bed. She is in no distress, and she is mentating and speaking normally. VITAL SIGNS: Blood pressure 78/50, heart rate 80s-90s in sinus rhythm. HEENT: Reveals dry oral mucosa and poor dentition. NECK: No JVD in a supine position. No carotid bruits. There is a right IJ line taped in place. CHEST: Clear. HEART: Heart sounds normal. No audible murmur. ABDOMEN: Obese. Positive bowel sounds. I cannot rule out organomegaly. There is no ascites or fluid wave. EXTREMITIES: Show that the right lower extremity has trace edema from the knee down, and is warm and pink. The left leg is swollen with 3+ edema from the knee down, with redness from the knee down and tenderness. In the mid schroeder, there is a 1 to 2 mm open wound draining clear serous fluid. NEUROLOGIC: Grossly intact. LABORATORIES: Sodium 132, potassium 4.2, BUN 16, creatinine 1.4, glucose 209, lactic acid 5.3, magnesium 1.2, AST 50, ALT 20, lipase 24. White blood count 13.9 with a left shift, hemoglobin 12.4, platelet count low at 66. No INR was done. Urinalysis shows a pH of 5.5 , specific gravity of greater than 1.03 with high proteins, high glucose, trace ketones, moderate occult blood, positive nitrites, few squamous cells and many bacteria. CHEST X-RAY: Mild cardiomegaly, mild thoracic aortic calcification, small bilateral pleural effusions and no evidence of lobar infiltrate or pneumothorax after the CVP line was put in. ELECTROCARDIOGRAM: Sinus rhythm at a rate of 75 and within normal limits. IMPRESSION/DIAGNOSES 1. Septic shock with hypotension, elevated lactic acid level. 2. Cellulitis in a diabetic, recurrent of the left leg. 3. Urinary tract infection. 4. Diabetes, on insulin. PLAN: Admit the patient to the ICU on telemetry. I will have a discussion with the patient about her code wishes, as there is an old living will in the chart indicating no heroic measures or resuscitation. However, she is voicing that she does want aggressive measures, including possible CPR. This will be charted under a separate advanced care plan note. Fully culture the patient including the wound that is draining. Begin empiric IV antibiotics quickly and she has already received Zosyn and vancomycin in the emergency room, these will be continued and are chosen based on her antibiotic allergies plus coverage planned for gram-positive cocci from the wound, possibly gram-negative in a diabetic and suspected gram-negatives in a UTI. Continue with IV fluid resuscitation. Pressor agents may be needed if she continues to have a mean arterial pressure under 70. Cycle troponins to ensure that she has not had an TN causing the hypertension or secondary to hyperperfusion of her coronary arteries and myocardium. Follow lactic acid levels per septic shock protocol. Obtain an echo to evaluate LV and RV contractility, given the low blood pressure and the leg edema. Continue with a diabetic diet, sliding scale insulin coverage, and glucose checks. Hold her diuretics such as Lasix and spironolactone, and any other agents that could add to hypotension. These can be restarted as she improves and blood pressure rises. CODE STATUS: FULL CODE. DEEP VENOUS THROMBOSIS PROPHYLAXIS: Foot pumps. ATTESTATION: The patient is expected to be discharged or transferred to another facility within 96 hours: Yes. TD: 02/25/2018 10:37 JADIEL
[2018-02-25] MEDS ORDERED: MIN OIL/DIMETHICON/COCONUT OIL 92 GM TUBE TOP PRN (11:15)
[2018-02-25] MEDS: SACCHAROMYCES BOULARDII 250 MG CAPSULE PO SCH (13:17)
[2018-02-25] MEDS ORDERED: VANCOMYCIN INJ 1.5 GM in SODIUM CHLORIDE 0.9% 500 ML IV SCH (15:00)
[2018-02-25] MEDS ORDERED: AMPICILLIN/SULBACTAM 3 GM in SODIUM CHLORIDE 0.9% MINIBAG 100 ML IV SCH (15:00)
[2018-02-25] MEDS: INSULIN GLARGINE 300 UNIT/3 ML PEN SUBQ SCH ×2 (16:13→21:26)
--- NOTE | 2018-02-25 17:47 | PROVIDER PROGRESS NOTE ---
Assessment/Plan - Problem List (1) Septic shock Assessment/Plan: Patient presented with septic shock and is currently on norepinephrine 10 mics Source of patient's septic shock appears to be group A strep bacteremia which appears to be from left lower extremity cellulitis. The patient has received adequate fluid resuscitation and is on norepinephrine blood pressures seem to have stabilized but patient still requiring nor epi Lactic acid is slowly improving from 5.3 down to 2.9. WBC is worsened this morning from 13.9 up to 27.4. Patient is afebrile Patient's cellulitis persists but has not increased Patient is lethargic Plan: Continue broad-spectrum IV antibiotics with vancomycin and Zosyn until we get culture sensitivities IV fluids Wean pressors Monitor closely in the intensive care unit Trend lactate and CBC (2) Bacteremia due to Streptococcus Assessment/Plan: Patient's initial blood cultures growing beta-hemolytic strep group A which is likely source of septic shock. The likely source of the infection is left lower extremity cellulitis. Plan: Patient be continued on broad-spectrum IV antibiotics with vancomycin and Zosyn until susceptibilities return Continue IV fluids Repeat blood cultures Echocardiogram (3) Cellulitis Qualifiers: Site of cellulitis: extremity Site of cellulitis of extremity: lower extremity Laterality: left Qualified Code(s): L03.116 - Cellulitis of left lower limb Assessment/Plan: Patient has patient has recurrence of colitis of the left lower extremity. This time patient presents with septic shock and bacteremia with beta hemolytic group A strep. Likely source is the left lower extremity cellulitis. The patient has erythema, swelling, warmth of the left lower extremity. The cellulitis does not appear to have changed significantly over the last 24 hours. Plan: Continue IV antibiotics with vancomycin and Zosyn Continue IV fluids Continue to treat septic shock Continue to monitor left lower extremity for worsening cellulitis and need for possible CT of the left lower extremity (4) BARON (acute kidney injury) Assessment/Plan: Patient presented with acute kidney injury with creatinine that was elevated to 1.4. This is likely secondary to septic shock. Patient's creatinine seems to be improving with IV fluids and pressors. 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 Patient will be placed on sliding scale insulin and Lantus 12 units along with diabetic diet and blood glucose checks before meals at bedtime. Patient's hemoglobin A1c is 10.6 - Current Meds Current Meds: Current Medications Generic Name Dose Route Start Last Admin Trade Name Freq PRN Reason Stop Dose Admin Acetaminophen 650 mg 02/24/18 16:44 02/25/18 08:56 Tylenol PO 650 mg Q4HR PRN Administration Pain or Fever > 38C (100.4F) Duloxetine HCl 30 mg 02/25/18 09:00 02/25/18 08:55 Cymbalta PO 30 mg DAILY JASWANT Administration Duloxetine HCl 60 mg 02/24/18 21:00 02/24/18 21:43 Cymbalta PO 60 mg QPM JASWANT Administration Glipizide 5 mg 02/25/18 09:00 02/25/18 08:55 Glucotrol PO 5 mg DAILY JASWANT Administration Lactated Ringer's 1,000 mls @ 100 mls/hr 02/24/18 17:00 02/25/18 17:00 Lr IV 100 mls/hr .Q10H JASWANT Infusion Norepinephrine Bitartrate 8 mg 250 mls @ 15 mls/hr 02/25/18 17:00 02/25/18 17 :00 / Dextrose IV 8 mcg/min .[id number] JASWANT 15 mls/hr Protocol Titration 8 MCG/MIN Insulin Glargine 12 unit 02/25/18 16:00 02/25/18 16:13 Lantus Solostar SUBQ 12 unit QPM JASWANT Administration Mineral Oil 1 applic 02/25/18 11:15 02/25/18 12:55 Cavilon TOP 1 applic PRN PRN Administration Skin Care Pantoprazole Sodium 40 mg 02/24/18 21:00 02/25/18 08:38 Protonix IVP 40 mg BID JASWANT Administration Potassium Chloride 10 meq 02/25/18 08:00 02/25/18 08:55 Micro-K PO 10 meq DAILYWM JASWANT Administration Ropinirole HCl 0.25 mg 02/24/18 21:00 02/24/18 22:08 Requip PO 0.25 mg QPM JASWANT Administration Saccharomyces Boulardii 250 mg 02/25/18 13:00 02/25/18 13:17 Florastor PO 250 mg BIDWM JASWANT Administration Sodium Chloride 10 ml 02/24/18 17:00 02/25/18 08:39 Normal Saline Flush 0.9% IVP 20 ml 0100,0900,1700 JASWANT Administration Sodium Chloride 10 ml 02/24/18 16:44 02/25/18 16:12 Normal Saline Flush 0.9% IVP 10 ml PRN PRN Administration NEEDED PER PROVIDER ORDERS Temazepam 15 mg 02/24/18 21:30 02/25/18 00:34 Restoril PO 15 mg QPM PRN Administration Insomnia - Lab Result Fish Bone Diagrams: 02/25/18 04:26 02/25/18 04:26 - Diagnostic Imaging Results Diagnostic Imaging Results: Final report reviewed - Additional Planning Condition/Complexity: Critical My Orders: My Active Orders 02/25/18 11:15 Min Oil/Dimeth/Coconut Oil Crm [Cavilon] 1 applic TOP PRN PRN 02/25/18 13:00 Saccharomyces Boulardii [Florastor] 250 mg PO BIDWM 02/25/18 16:00 Insulin Glargine [Lantus Solostar] 12 unit SUBQ QPM 02/25/18 17:00 Dextrose 5% [D5w] 242 ml NORepinephrine [Levophed] 8 mg IV 8 mcg/min Insulin Aspart [NovoLOG] 2 - 10 unit SUBQ 0800,1200,1700,2100 02/25/18 20:00 Ampicillin/Sulbactam [Unasyn] 3 gm Sodium Chloride 0.9% Minibag [Normal Saline 0.9% Minibag] 100 ml IV Q6H 02/26/18 05:00 CBC W/O DIFF (HEMOGRAM) [HEME] DAILYLAB CMP, RFLX TO IONIZED CA IF [CHEM] DAILYLAB LACTIC ACID, VENOUS [CHEM] DAILYLAB MAGNESIUM [CHEM] DAILYLAB PHOSPHORUS [CHEM] DAILYLAB 02/27/18 05:00 CBC W/O DIFF (HEMOGRAM) [HEME] DAILYLAB CMP, RFLX TO IONIZED CA IF [CHEM] DAILYLAB MAGNESIUM [CHEM] DAILYLAB PHOSPHORUS [CHEM] DAILYLAB 02/28/18 05:00 CBC W/O DIFF (HEMOGRAM) [HEME] DAILYLAB CMP, RFLX TO IONIZED CA IF [CHEM] DAILYLAB MAGNESIUM [CHEM] DAILYLAB PHOSPHORUS [CHEM] DAILYLAB Plan Discussed with:: Patient, Family Time Spent: Greater than 60 minutes Subjective - Subjective Patient Reports: Other (patient is very drowsy. She denies pain in her left leg. She denies any fevers or chills.) Nursing Reports: No Complaints Objective Vital Signs: Vital Signs - 24 hr 02/24/18 02/24/18 02/24/18 17:51 18:10 18:15 Temperature 36.9 C Heart Rate [ 81 84 86 Monitoring electrodes] Respiratory 30 H 29 H Rate Blood Pressure 78/40 L 128/54 L 126/58 L [Left Brachial artery] O2 Saturation 96 99 02/24/18 02/24/18 02/24/18 18:31 18:53 19:00 Temperature Heart Rate [ 85 88 87 Monitoring electrodes] Respiratory 16 18 20 Rate Blood Pressure 112/59 L 110/45 L 105/45 L [Left Brachial artery] O2 Saturation 97 95 99 02/24/18 02/24/18 02/24/18 20:00 21:00 22:00 Temperature 36.6 C Heart Rate [ 76 78 82 Monitoring electrodes] Respiratory 24 25 H 21 Rate Blood Pressure 89/59 L 97/49 L 100/36 L [Left Brachial artery] O2 Saturation 97 98 97 02/24/18 02/24/18 02/24/18 23:00 23:26 23:30 Temperature Heart Rate [ 81 96 82 Monitoring electrodes] Respiratory 30 H 32 H 31 H Rate Blood Pressure 96/37 L 68/43 L 75/37 L [Left Brachial artery] O2 Saturation 97 96 96 02/24/18 02/24/18 02/24/18 23:35 23:40 23:45 Temperature Heart Rate [ 82 82 81 Monitoring electrodes] Respiratory 30 H 25 H 25 H Rate Blood Pressure 99/35 L 81/38 L 69/55 L [Left Brachial artery] O2 Saturation 95 96 95 02/24/18 02/24/18 02/25/18 23:50 23:55 00:00 Temperature 36.6 C Heart Rate [ 82 81 82 Monitoring electrodes] Respiratory 28 H 32 H 21 Rate Blood Pressure 85/35 L 104/44 L 132/50 H [Left Brachial artery] O2 Saturation 95 95 95 02/25/18 02/25/18 02/25/18 00:05 00:10 00:15 Temperature Heart Rate [ 80 84 86 Monitoring electrodes] Respiratory 23 25 H 28 H Rate Blood Pressure 154/113 H 121/44 L 128/42 L [Left Brachial artery] O2 Saturation 96 95 94 02/25/18 02/25/18 02/25/18 00:30 00:45 01:00 Temperature Heart Rate [ 83 84 88 Monitoring electrodes] Respiratory 30 H 25 H 34 H Rate Blood Pressure 114/58 L 99/57 L 110/50 L [Left Brachial artery] O2 Saturation 96 95 95 02/25/18 02/25/18 02/25/18 01:15 01:21 01:30 Temperature Heart Rate [ 89 87 85 Monitoring electrodes] Respiratory 34 H 31 H 36 H Rate Blood Pressure 77/65 L 116/72 133/47 H [Left Brachial artery] O2 Saturation 95 94 94 02/25/18 02/25/18 02/25/18 01:45 02:00 03:00 Temperature Heart Rate [ 82 86 84 Monitoring electrodes] Respiratory 34 H 33 H 28 H Rate Blood Pressure 118/94 H 141/54 H 149/44 H [Left Brachial artery] O2 Saturation 95 94 90 L 02/25/18 02/25/18 02/25/18 04:00 05:00 06:00 Temperature 36.6 C 36.6 C Heart Rate [ 82 83 86 Monitoring electrodes] Respiratory 32 H 30 H 32 H Rate Blood Pressure 142/52 H 142/52 H 145/50 H [Left Brachial artery] O2 Saturation 93 94 94 02/25/18 02/25/18 02/25/18 07:00 08:17 09:00 Temperature 37.4 C Heart Rate [ 85 83 88 Monitoring electrodes] Respiratory 31 H 29 H 25 H Rate Blood Pressure 156/55 H 149/55 H 123/42 L [Left Brachial artery] O2 Saturation 94 93 99 02/25/18 02/25/18 02/25/18 10:00 11:00 12:00 Temperature 36.6 C Heart Rate [ 86 85 84 Monitoring electrodes] Respiratory 30 H 27 H 24 Rate Blood Pressure 123/42 L 130/46 L 126/59 L [Left Brachial artery] O2 Saturation 94 95 94 02/25/18 02/25/18 02/25/18 13:00 14:00 15:00 Temperature Heart Rate [ 83 80 80 Monitoring electrodes] Respiratory 24 25 H 26 H Rate Blood Pressure 139/45 H 154/49 H 153/48 H [Left Brachial artery] O2 Saturation 95 95 94 02/25/18 02/25/18 02/25/18 16:00 16:32 17:31 Temperature Heart Rate [ 86 90 82 Monitoring electrodes] Respiratory 27 H 29 H 26 H Rate Blood Pressure 130/47 L 116/35 L 124/52 L [Left Brachial artery] O2 Saturation 94 95 96 Oxygen O2 Source Nasal cannula I&O (Last 24 Hrs): Intake and Output Totals x24h 02/23/18 02/24/18 02/25/18 23:59 23:59 23:59 Intake Total 2286.604 9466.729 Output Total 138 3957 Balance 1853.742 2371.729 General: Moderate distress (Tachypnic and ill appearing), Other (Very drowsy) HEENT: Atraumatic, PERRLA, EOMI, Other (Dry mucus membranes) Neck: Supple, No JVD, No thyromegaly, +2 carotid pulse wo bruit, No LAD Lymphatic: no adenopathy Neuro: Alert, Non Focal, CN 2-12 Grossly Intact, Oriented Times 3 Cardiovascular: Regular rate, Normal S1, Normal S2, No murmurs Respiratory: Chest non-tender, Breath sounds nml, Other (tachypnic) Abdomen: Normal bowel sounds, Soft, No tenderness, No hepatospenomegaly Extremities: Other (Left lower extremity is red, swollen, warm and tender with erythema all the way up to above her knee) Comments/Notes: As above - Results Results: Laboratory Results WBC 27.4 x10^3/uL (4.8-10.8) H 02/25/18 04:26 RBC 3.94 10^6/uL (4.20-5.40) L 02/25/18 04:26 Hgb 12.8 g/dL (12.0-16.0) 02/25/18 04:26 Hct 39.3 % (37.0-47.0) 02/25/18 04:26 MCV 99.8 fL (81.0-99.0) H 02/25/18 04:26 MCH 32.4 pg (27.0-31.0) H 02/25/18 04:26 MCHC 32.5 g/dL (32.0-36.0) 02/25/18 04:26 RDW 15.5 % (12.0-15.0) H 02/25/18 04:26 Plt Count 94 10^3/uL (130-450) L 02/25/18 04:26 MPV 8.8 fL (7.9-10.8) 02/25/18 04:26 Neut # 25.0 10^3/uL (1.5-6.6) H 02/25/18 04:26 Lymph # 1.3 10^3/uL (1.5-3.5) L 02/25/18 04:26 [place] # 0.9 10^3/uL (0.0-1.0) 02/25/18 04:26 Eos # 0.0 10^3/uL (0.0-0.7) 02/25/18 04:26 Baso # 0.1 10^3/uL (0.0-0.1) 02/25/18 04:26 Absolute Nucleated RBC 0.01 x10^3/uL 02/25/18 04: Nucleated RBC % 0.0 /100WBC 02/25/18 04:26 Manual Slide Review Indicated 02/25/18 04:26 Platelet Estimate DECREASED (<130,000) (NORMAL) 02/25/18 04:26 Platelet Morphology NORMAL APPEARANCE (NORMAL) 02/25/18 04:26 RBC Morph Micro Appear NORMAL APPEARANCE (NORMAL) 02/25/18 04:26 Sodium 134 mmol/L (135-145) L 02/25/18 04:26 Potassium 4.6 mmol/L (3.5-5.0) 02/25/18 04:26 Chloride 104 mmol/L (101-111) 02/25/18 04:26 Carbon Dioxide 18 mmol/L (21-32) L 02/25/18 04:26 Anion Gap 12.0 (6-13) 02/25/18 04:26 BUN 22 mg/dL (6-20) H 02/25/18 04:26 Creatinine 1.0 mg/dL (0.4-1.0) 02/25/18 04:26 Estimated GFR (MDRD) 55 (>89) L 02/25/18 04:26 Glucose 240 mg/dL (70-100) H 02/25/18 04:26 POC Whole Bld Glucose 239 mg/dL (70 - 100) H 02/25/18 16:52 Glycated Hemoglobin 10.6 % (4.6-6.2) H 02/25/18 04:26 Estim Average Glucose 258 (70-100) H 02/25/18 04:26 Lactic Acid 2.9 mmol/L (0.5-2.2) H 02/25/18 13:11 Calcium 8.2 mg/dL (8.5-10.3) L 02/25/18 04:26 Phosphorus 2.8 mg/dL (2.5-4.6) 02/25/18 04:26 Magnesium 2.1 mg/dL (1.7-2.8) 02/25/18 04:26 Total Bilirubin 3.6 mg/dL (0.2-1.0) H 02/24/18 13:35 AST 50 IU/L (10-42) H 02/24/18 13:35 ALT 20 IU/L (10-60) 02/24/18 13:35 Alkaline Phosphatase 114 IU/L (42-121) 02/24/18 13:35 Troponin I < 0.04 ng/mL (<0.49) 02/25/18 04:26 Total Protein 6.1 g/dL (6.7-8.2) L 02/24/18 13:35 Albumin 2.8 g/dL (3.2-5.5) L 02/25/18 04:26 Globulin 3.5 g/dL (2.1-4.2) 02/24/18 13:35 Albumin/Globulin Ratio 0.7 (1.0-2.2) L 02/24/18 13:35 Lipase 24 U/L (22-51) 02/24/18 13:35 Urine Color DARK YELLOW 02/24/18 14:31 Urine Clarity CLEAR (CLEAR) 02/24/18 14:31 Urine pH 5.5 PH (5.0-7.5) 02/24/18 14:31 Ur Specific Fif[place] >=1.030 (1.002-1.030) H 02/24/18 14:31 Urine Protein 30 mg/dL (NEGATIVE) H 02/24/18 14:31 Urine Glucose (UA) 100 mg/dL (NEGATIVE) H 02/24/18 14:31 Urine Ketones TRACE mg/dL (NEGATIVE) 02/24/18 14:31 Urine Occult Blood MODERATE (NEGATIVE) H 02/24/18 14:31 Urine Nitrite POSITIVE (NEGATIVE) H 02/24/18 14:31 Urine Bilirubin NEGATIVE (NEGATIVE) 02/24/18 14:31 Urine Urobilinogen 2 E.U./dL (NORMAL) H 02/24/18 14:31 Ur Leukocyte Esterase NEGATIVE (NEGATIVE) 02/24/18 14:31 Urine RBC 0-5 /HPF (0-5) 02/24/18 14:31 Urine WBC 0-3 /HPF (0-5) 02/24/18 14:31 Ur Squamous Epith Cells FEW Squamous (<= Few) 02/24/18 14:31 Amorphous Sediment Few /LPF 02/24/18 14:31 Urine Bacteria Many /HPF (None Seen) H 02/24/18 14:31 Ur Microscopic Review INDICATED 02/24/18 14:31 Urine Culture Comments INDICATED 02/24/18 14:31 - Procedures Procedures: Procedures DRAINAGE OF RIGHT PLEURAL CAVITY, PERCUTANEOUS APPROACH (11/14/17)
[2018-02-25] MEDS ORDERED: SODIUM CHLORIDE 0.9% 500 ML IV PRN (18:17)
[2018-02-25] MEDS: AMPICILLIN/SULBACTAM 3 GM in SODIUM CHLORIDE 0.9% MINIBAG 100 ML IV SCH (20:02)
[2018-02-25] MEDS: rOPINIRole 0.25 MG TABLET PO SCH (21:03)
[2018-02-26] MEDS: SODIUM CHLORIDE FLUSH 0.9% 10 ML SYRINGE IVP PRN ×5 (01:23→15:38)
[2018-02-26] MEDS: SODIUM CHLORIDE FLUSH 0.9% 10 ML SYRINGE IVP SCH ×5 (01:23→20:59)
[2018-02-26] MEDS: METOPROLOL 5 MG/5 ML VIAL IVP PRN (01:24)
[2018-02-26] MEDS: ENOXAPARIN 40 MG/0.4 ML SYRINGE SUBQ SCH ×2 (01:24→08:08)
[2018-02-26 01:28] LABS: CALCIUM 8.4 mg/dL (8.5-10.3); CREATININE 0.7 mg/dL (0.4-1.0)
[2018-02-26] MEDS: AMPICILLIN/SULBACTAM 3 GM in SODIUM CHLORIDE 0.9% MINIBAG 100 ML IV SCH ×4 (01:59→20:10)
[2018-02-26] MEDS: POTASSIUM CHLOR 20 MEQ/100 ML 20 MEQ/100 ML BAG IV SCH ×2 (03:13→04:23)
--- NOTE | 2018-02-26 03:29 | PROVIDER PROGRESS NOTE ---
Supervisor Braiding Note - Supervisor Braiding Note Supervisor Braiding Note: 02/26/2018 2:30 AM I was asked to see the patient by her our and because of new-onset atrial fibrillation. The patient has no history of previous suture from. She denies any chest pain, palpitations, shortness of breath. She is upset. She says that she is upset and not happy because of a conversation she does have with her sister. In reviewing her medical record through [facility] the following was verified. She had an echo 07/15/2007 for a murmur found on incidental exam. Ejection fraction was 70-75% without regional wall motion abnormality. She had mild concentric left ventricular hypertrophy, mild left atrial enlargement, grade 1 diastolic dysfunction. All this was compatible with hypertensive heart disease. She did not have valvular heart disease. In 08/03/2009 a followup echo was done. She now had grade 2 diastolic dysfunction but no change from previous echo. She develop severe sinus infection and is going to have sinus surgery in 2016. A preoperative EKG showed worsening atrial enlargement. And as such an echocardiogram done 12/06/2015. That echo showed her to have severely dilated bilateral atria. Her ejection fraction was 60-65%. And she was developing pulmonary hypertension. Cardiology evaluation done to [facility] cardiology showed a have sinus rhythm. The worsening left atrial size. The television camera operator was wondering about obstructive sleep apnea in this woman who is obese. And he noted that she was at risk for developing A. fib. She underwent a stress test January 2016. The stress test showed reversible small defect in the mid anterior wall muscle at be breast artifact. No angiogram is recommended. She underwent an uneventful sinus surgery. It was not until February 2017 that she was eventually seen for a sleep study. The sleep study done March 2017. She had severe restless leg syndrome but did not have sleep apnea. Her apnea hypotony index was 0.7. She did have some nighttime hypoxia were oxygen could be used. Selected Entries 02/26/18 01:30 Temperature 37.2 C Selected Entries 02/26/18 02/26/18 02:00 02:15 Heart Rate [ 115 H 117 H Monitoring electrodes] Respiratory 28 H 28 H Rate Blood Pressure 133/76 H 139/62 H [Left Brachial artery] she is asleep, snoring when I walk in. wakens easily. EKG shows afib with a rate of 106. Again, denies cp, sob. neck without JVD lungs clear, no increased respiratory effort. comfortable abd benign feet without edema. A/P new onset afib in woman with dilated left atrium hx. This is expected especially in context of this admission for sepsis. In ICU. ON levophed. She is relatively asymptomatic. PE is low on my differential without change in oxygen requirement and no chest pain. Check troponin. EKG already checked. Check for electrolyte change Check lactic acid and CBC to make sure sepsis is not worsening. Treat with lopressor IV prn. She was on propranolol in the outpt setting for tremors (started 2011) and has not been on it here. Although DVT prophylaxis was considered on admit ordered, none started. Start lovenox. ECHO already ordered for this am to see if has valve changed of endocarditis. greater than 30 minutes spent in evaluating change in status and treatment.
[2018-02-26 05:52] LABS: HGB - HEMOGLOBIN 12.4 g/dL (12.0-16.0); MEAN CORPUSCULAR HGB CONC 32.5 g/dL (32.0-36.0); MEAN CORPUSCULAR VOLUME 98.6 fL (81.0-99.0); MEAN PLATELET VOLUME 8.8 fL (7.9-10.8); RED BLOOD COUNT 3.86 10^6/uL (4.20-5.40); RED CELL DISTRIBUTION WIDTH 15.7 % (12.0-15.0); WHITE BLOOD COUNT 19.6 x10^3/uL (4.8-10.8)
[2018-02-26 06:06] LABS: ALBUMIN 2.4 g/dL (3.2-5.5); ALBUMIN/GLOBULIN RATIO 0.6 (1.0-2.2); ALKALINE PHOSPHATASE 97 IU/L (42-121); ALT ALANINE AMINOTRANSFERASE 19 IU/L (10-60); AST ASPARTATE AMINOTRANSFERASE 36 IU/L (10-42); BILIRUBIN,TOTAL 2.7 mg/dL (0.2-1.0); BUN - BLOOD UREA NITROGEN 12 mg/dL (6-20); CALCIUM 8.5 mg/dL (8.5-10.3); CARBON DIOXIDE - CO2 24 mmol/L (21-32); CHLORIDE 109 mmol/L (101-111); CREATININE 0.6 mg/dL (0.4-1.0); GFR - MDRD 100 (>89); GLUCOSE 183 mg/dL (70-100); PHOSPHORUS 1.5 mg/dL (2.5-4.6); SODIUM 138 mmol/L (135-145); TOTAL PROTEIN 6.1 g/dL (6.7-8.2)
[2018-02-26] MEDS ORDERED: POTASSIUM PHOSPHATE 21 MMOL in SODIUM CHLORIDE 0.9% 250 ML IV ONE (06:38)
[2018-02-26] MEDS: ACETAMINOPHEN 325 MG TABLET PO PRN ×2 (08:19→15:38)
[2018-02-26] MEDS: LACTATED RINGERS 1,000 ML IV SCH ×4 (08:22→22:53)
[2018-02-26] MEDS: INSULIN ASPART 300 UNIT/3 ML PEN SUBQ SCH ×4 (08:23→21:05)
[2018-02-26] MEDS: glipiZIDE 5 MG TABLET PO SCH (08:54)
[2018-02-26] MEDS: POTASSIUM CHLORIDE 10 MEQ CAPSULE PO SCH (08:54)
[2018-02-26] MEDS: DULoxetine 30 MG CAPSULE PO SCH ×2 (08:54→20:59)
[2018-02-26] MEDS: PANTOPRAZOLE 40 MG VIAL IVP SCH ×2 (08:54→20:58)
[2018-02-26] MEDS: SACCHAROMYCES BOULARDII 250 MG CAPSULE PO SCH ×2 (08:54→16:59)
[2018-02-26] MEDS ORDERED: SODIUM CHLORIDE 0.9% 1,000 ML IV ONE (09:23)
[2018-02-26] MEDS ORDERED: POTASSIUM PHOSPHATE 21 MMOL in SODIUM CHLORIDE 0.9% 250 ML IV SCH (10:00)
--- NOTE | 2018-02-26 16:42 | PROVIDER PROGRESS NOTE ---
Assessment/Plan - Problem List (1) Septic shock Assessment/Plan: Patient presented with septic shock and is currently on norepinephrine 8 mics Source of patient's septic shock appears to be group A strep bacteremia which appears to be from left lower extremity cellulitis. The patient has received adequate fluid resuscitation and is on norepinephrine blood pressures seem to have stabilized but patient still requiring nor epi Lactic acid improved to normal. WBC is improving down to 19.6 Patient is afebrile Patient's cellulitis persists but has not increased Patient more alert Plan: Change IV abx to Unasyn to cover group a strep and staph aureus grown on blood cx and wound cx IV fluids Wean pressors Monitor closely in the intensive care unit CBC (2) Bacteremia due to Streptococcus Assessment/Plan: Patient's initial blood cultures growing beta-hemolytic strep group A which is likely source of septic shock. The likely source of the infection is left lower extremity cellulitis. Plan: IV unasyn Continue IV fluids Repeat blood cultures pending Echocardiogram shows no vegetation (3) Cellulitis Qualifiers: Site of cellulitis: extremity Site of cellulitis of extremity: lower extremity Laterality: left Qualified Code(s): L03.116 - Cellulitis of left lower limb Assessment/Plan: Patient has patient has recurrence of colitis of the left lower extremity. This time patient presents with septic shock and bacteremia with beta hemolytic group A strep. Likely source is the left lower extremity cellulitis. The patient has erythema, swelling, warmth of the left lower extremity. The cellulitis does not appear to have changed significantly over the last 24 hours. Plan: Placed on IV unasyn for cx growing strep and staph Continue IV fluids Continue to treat septic shock Continue to monitor left lower extremity for worsening cellulitis and need for possible CT of the left lower extremity (4) Atrial Fibrillation: Assessment/Plan: New onset last night patients HR has been in the 120s-130s overnight Placed on IV BB prn This am patient given IVF and went back to NSR on tele and confirmed by EKG Echo unchanged from previous with normal EF, LVH and no wall motion abnormalities TSH and trop negative CHADS2 score of 2 will consider anticoagulation prior to discharge will need follow up with cardiology (5) BARON (acute kidney injury) Assessment/Plan: Resolved (6) DM2 (diabetes mellitus, type 2) Qualifiers: 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 Patient placed on sliding scale insulin and Lantus 12 unit along with glipizide , diabetic diet and blood glucose checks before meals at bedtime. Patient's hemoglobin A1c is 10.6 BG elevated will continue to titrate lantus - Current Meds Current Meds: Current Medications Generic Name Dose Route Start Last Admin Trade Name Freq PRN Reason Stop Dose Admin Acetaminophen 650 mg 02/24/18 16:44 02/26/18 15:38 Tylenol PO 650 mg Q4HR PRN Administration Pain or Fever > 38C (100.4F) Duloxetine HCl 30 mg 02/25/18 09:00 02/26/18 08:54 Cymbalta PO 30 mg DAILY JASWANT Administration Duloxetine HCl 60 mg 02/24/18 21:00 02/25/18 21:03 Cymbalta PO 60 mg QPM JASWANT Administration Enoxaparin Sodium 40 mg 02/26/18 01:00 02/26/18 08:08 Lovenox SUBQ Not Given DAILY JASWANT Glipizide 5 mg 02/25/18 09:00 02/26/18 08:54 Glucotrol PO 5 mg DAILY JASWANT Administration Heparin Sodium (Beef Lung) 30 - 50 unit 02/25/18 18:17 02/26/18 15:39 IVP 30 unit PRN PRN Administration Central Line Protocol (<24 hr) Ampicillin Sodium/Sulbactam 100 mls @ 200 mls/hr 02/25/18 20:00 02/26/18 15: 21 Sodium 3 gm/ Sodium Chloride IV Infused Q6H JASWANT Infusion Norepinephrine Bitartrate 8 mg 250 mls @ 15 mls/hr 02/25/18 17:00 02/26/18 15 :31 / Dextrose IV 4 mcg/min .[id number] JASWANT 7.5 mls/hr Protocol Titration 8 MCG/MIN Lactated Ringer's 1,000 mls @ 150 mls/hr 02/26/18 09:23 02/26/18 15:44 Lr IV 150 mls/hr .Q6H40M JASWANT Administration Insulin Aspart 2 - 10 unit 02/25/18 17:00 02/26/18 12:06 Novolog SUBQ 6 unit 0800,1200,1700,2100 JASWANT Administration Protocol Insulin Glargine 12 unit 02/25/18 16:00 02/25/18 21:26 Lantus Solostar SUBQ Not Given QPM JASWANT Metoprolol Tartrate 5 mg 02/26/18 00:56 02/26/18 01:24 Lopressor Inj IVP 5 mg Q6H PRN Administration HR>100 for more than 5 min Mineral Oil 1 applic 02/25/18 11:15 02/25/18 12:55 Cavilon TOP 1 applic PRN PRN Administration Skin Care Pantoprazole Sodium 40 mg 02/24/18 21:00 02/26/18 08:54 Protonix IVP 40 mg BID JASWANT Administration (Melatonin [ 1 each 02/25/18 21:00 02/25/18 21:05 Melatonin] 3 Mg) Tab PO Not Given QPM JASWANT Potassium Chloride 10 meq 02/25/18 08:00 02/26/18 08:54 Micro-K PO 10 meq DAILYWM JASWANT Administration Ropinirole HCl 0.25 mg 02/24/18 21:00 02/25/18 21:03 Requip PO 0.25 mg QPM JASWANT Administration Saccharomyces Boulardii 250 mg 02/25/18 13:00 02/26/18 08:54 Florastor PO 250 mg BIDWM JASWANT Administration Sodium Chloride 10 ml 02/24/18 17:00 02/26/18 08:21 Normal Saline Flush 0.9% IVP 10 ml 0100,0900,1700 JASWANT Administration Sodium Chloride 10 ml 02/24/18 16:44 02/26/18 15:38 Normal Saline Flush 0.9% IVP 10 ml PRN PRN Administration NEEDED PER PROVIDER ORDERS Temazepam 15 mg 02/24/18 21:30 02/25/18 00:34 Restoril PO 15 mg QPM PRN Administration Insomnia - Lab Result Fish Bone Diagrams: 02/26/18 05:50 02/26/18 05:50 - EKG Results EKG Interpreted Independently: Yes EKG Findings: Atrial fibrillation now NSR - Diagnostic Imaging Results Diagnostic Imaging Results: Final report reviewed - Additional Planning Condition/Complexity: Critical My Orders: My Active Orders 02/25/18 16:00 Insulin Glargine [Lantus Solostar] 12 unit SUBQ QPM 02/25/18 17:00 Dextrose 5% [D5w] 242 ml NORepinephrine [Levophed] 8 mg IV 8 mcg/min Insulin Aspart [NovoLOG] 2 - 10 unit SUBQ 0800,1200,1700,2100 02/25/18 18:00 CULTURE, BLOOD #1 [RM] Routine 02/25/18 18:16 CULTURE, BLOOD #2 [RM] Routine 02/25/18 18:17 Heparin Flush 30 - 50 unit IVP PRN PRN Sodium Chloride 0.9% [Normal Saline 0.9%] 500 ml IV 20 mls/hr 02/25/18 20:00 Ampicillin/Sulbactam [Unasyn] 3 gm Sodium Chloride 0.9% Minibag [Normal Saline 0.9% Minibag] 100 ml IV Q6H 02/26/18 08:00 Echo Transthoracic Complete [ECHO] Routine 02/26/18 09:23 Lactated Ringers [Lr] 1,000 ml IV 150 mls/hr 02/27/18 05:00 CBC W/O DIFF (HEMOGRAM) [HEME] DAILYLAB CMP, RFLX TO IONIZED CA IF [CHEM] DAILYLAB MAGNESIUM [CHEM] DAILYLAB PHOSPHORUS [CHEM] DAILYLAB 02/28/18 05:00 CBC W/O DIFF (HEMOGRAM) [HEME] DAILYLAB CMP, RFLX TO IONIZED CA IF [CHEM] DAILYLAB MAGNESIUM [CHEM] DAILYLAB PHOSPHORUS [CHEM] DAILYLAB Plan Discussed with:: Patient, Family Time Spent: Greater than 60 minutes Subjective - Subjective Patient Reports: Other (Patient feels better as she is more alert. She is fatigued. Swelling in her Left lower extremity is worse. She denies any fevers or chills.) Nursing Reports: No Complaints Objective Vital Signs: Vital Signs - 24 hr 02/25/18 02/25/18 02/25/18 16:00 16:32 17:31 Temperature Heart Rate Heart Rate [ 86 90 82 Monitoring electrodes] Respiratory 27 H 29 H 26 H Rate Blood Pressure Blood Pressure 130/47 L 116/35 L 124/52 L [Left Brachial artery] O2 Saturation 94 95 96 02/25/18 02/25/18 02/25/18 18:00 19:00 20:00 Temperature 37.2 C Heart Rate Heart Rate [ 86 88 86 Monitoring electrodes] Respiratory 28 H 29 H 29 H Rate Blood Pressure Blood Pressure 108/42 L 139/55 H 146/66 H [Left Brachial artery] O2 Saturation 95 94 93 02/25/18 02/25/18 02/25/18 21:00 22:00 23:11 Temperature Heart Rate Heart Rate [ 91 94 96 Monitoring electrodes] Respiratory 31 H 32 H 21 Rate Blood Pressure Blood Pressure 138/49 H 130/55 L 129/57 L [Left Brachial artery] O2 Saturation 93 94 94 02/26/18 02/26/18 02/26/18 00:00 01:00 01:24 Temperature Heart Rate Heart Rate [ 131 H 121 H Monitoring electrodes] Respiratory 22 30 H Rate Blood Pressure 137/70 H Blood Pressure 103/80 137/70 H [Left Brachial artery] O2 Saturation 94 94 02/26/18 02/26/18 02/26/18 01:30 01:35 01:45 Temperature 37.2 C Heart Rate Heart Rate [ 119 H 111 H 113 H Monitoring electrodes] Respiratory 26 H 28 H 28 H Rate Blood Pressure Blood Pressure 132/63 H 128/63 134/67 H [Left Brachial artery] O2 Saturation 94 94 02/26/18 02/26/18 02/26/18 01:46 01:54 02:00 Temperature Heart Rate 113 H Heart Rate [ 115 H Monitoring electrodes] Respiratory 28 H 28 H Rate Blood Pressure 128/63 Blood Pressure 133/76 H [Left Brachial artery] O2 Saturation 94 02/26/18 02/26/18 02/26/18 02:15 02:55 03:00 Temperature Heart Rate Heart Rate [ 117 H 114 H 114 H Monitoring electrodes] Respiratory 28 H 26 H 26 H Rate Blood Pressure Blood Pressure 139/62 H 144/70 H 134/64 H [Left Brachial artery] O2 Saturation 93 94 93 02/26/18 02/26/18 02/26/18 03:15 03:50 04:00 Temperature 36.9 C Heart Rate Heart Rate [ 119 H 122 H 119 H Monitoring electrodes] Respiratory 26 H 27 H 26 H Rate Blood Pressure Blood Pressure 133/61 H 139/40 H 112/49 L [Left Brachial artery] O2 Saturation 94 93 93 02/26/18 02/26/18 02/26/18 05:00 06:00 07:01 Temperature 37.0 C Heart Rate Heart Rate [ 118 H 121 H 124 H Monitoring electrodes] Respiratory 27 H 26 H 25 H Rate Blood Pressure Blood Pressure 110/55 L 94/68 87/46 L [Left Brachial artery] O2 Saturation 95 92 93 02/26/18 02/26/18 02/26/18 07:09 08:00 09:00 Temperature 36.7 C Heart Rate Heart Rate [ 96 110 H 142 H Monitoring electrodes] Respiratory 28 H 31 H 21 Rate Blood Pressure Blood Pressure 125/60 127/80 123/63 [Left Brachial artery] O2 Saturation 95 95 96 02/26/18 02/26/18 02/26/18 10:00 10:09 10:30 Temperature Heart Rate 91 Heart Rate [ 90 95 92 Monitoring electrodes] Respiratory 23 25 H 24 Rate Blood Pressure Blood Pressure 135/59 H 115/52 L 91/73 [Left Brachial artery] O2 Saturation 94 94 96 02/26/18 02/26/18 02/26/18 10:50 11:00 11:15 Temperature Heart Rate Heart Rate [ 88 86 84 Monitoring electrodes] Respiratory 25 H 27 H 28 H Rate Blood Pressure Blood Pressure 116/51 L 136/54 H 125/51 L [Left Brachial artery] O2 Saturation 95 96 96 02/26/18 02/26/18 02/26/18 11:30 11:50 12:00 Temperature 37.0 C Heart Rate Heart Rate [ 86 86 86 Monitoring electrodes] Respiratory 18 26 H 31 H Rate Blood Pressure Blood Pressure 87/75 L 132/46 H 133/64 H [Left Brachial artery] O2 Saturation 96 96 96 02/26/18 02/26/18 02/26/18 12:15 12:30 12:45 Temperature Heart Rate Heart Rate [ 87 88 92 Monitoring electrodes] Respiratory 24 23 23 Rate Blood Pressure Blood Pressure 132/46 H 132/48 H 137/49 H [Left Brachial artery] O2 Saturation 96 97 95 02/26/18 02/26/18 02/26/18 13:00 13:15 13:30 Temperature 36.7 C Heart Rate Heart Rate [ 91 90 91 Monitoring electrodes] Respiratory 25 H 29 H 31 H Rate Blood Pressure Blood Pressure 125/48 L 130/56 L 123/53 L [Left Brachial artery] O2 Saturation 96 96 97 02/26/18 02/26/18 02/26/18 13:40 14:00 14:15 Temperature Heart Rate Heart Rate [ 100 90 90 Monitoring electrodes] Respiratory 20 20 Rate Blood Pressure Blood Pressure 135/60 H 143/64 H 134/51 H [Left Brachial artery] O2 Saturation 96 96 02/26/18 02/26/18 02/26/18 14:30 14:53 15:00 Temperature Heart Rate Heart Rate [ 89 88 90 Monitoring electrodes] Respiratory 16 26 H 24 Rate Blood Pressure Blood Pressure 100/58 L 121/57 L 126/44 L [Left Brachial artery] O2 Saturation 97 98 97 02/26/18 02/26/18 15:15 15:30 Temperature Heart Rate Heart Rate [ 87 88 Monitoring electrodes] Respiratory 20 19 Rate Blood Pressure Blood Pressure 115/51 L 125/48 L [Left Brachial artery] O2 Saturation 97 97 Oxygen O2 Source Nasal cannula I&O (Last 24 Hrs): Intake and Output Totals x24h 02/24/18 02/25/18 02/26/18 23:59 23:59 23:59 Intake Total 8082.026 9335.520 5337.909 Output Total 138 5242 3105 Balance 5904.296 2457.520 2232.909 General: Alert, Oriented x3, Cooperative, Mild distress (tachypnic) HEENT: Atraumatic, PERRLA, EOMI, Other (Dry mucus membranes) Neck: Supple, No JVD, No thyromegaly, +2 carotid pulse wo bruit, No LAD Lymphatic: no adenopathy Neuro: Alert, Non Focal, CN 2-12 Grossly Intact, Oriented Times 3 Cardiovascular: Other (Irregular, tachycardic, murmur) Respiratory: Chest non-tender, No respiratory distress, Breath sounds nml Abdomen: Normal bowel sounds, Soft, No tenderness, No hepatospenomegaly Extremities: Other (Left lower extremity, warm, swollen, red, tender up to the knee.) Comments/Notes: Left lower extremity cellulitis - Results Results: Laboratory Results WBC 19.6 x10^3/uL (4.8-10.8) H 02/26/18 05:50 RBC 3.86 10^6/uL (4.20-5.40) L 02/26/18 05:50 Hgb 12.4 g/dL (12.0-16.0) 02/26/18 05:50 Hct 38.0 % (37.0-47.0) 02/26/18 05:50 MCV 98.6 fL (81.0-99.0) 02/26/18 05:50 MCH 32.0 pg (27.0-31.0) H 02/26/18 05:50 MCHC 32.5 g/dL (32.0-36.0) 02/26/18 05:50 RDW 15.7 % (12.0-15.0) H 02/26/18 05:50 Plt Count 80 10^3/uL (130-450) L 02/26/18 05:50 MPV 8.8 fL (7.9-10.8) 02/26/18 05:50 Neut # 25.0 10^3/uL (1.5-6.6) H 02/25/18 04:26 Lymph # 1.3 10^3/uL (1.5-3.5) L 02/25/18 04:26 [place] # 0.9 10^3/uL (0.0-1.0) 02/25/18 04:26 Eos # 0.0 10^3/uL (0.0-0.7) 02/25/18 04:26 Baso # 0.1 10^3/uL (0.0-0.1) 02/25/18 04:26 Absolute Nucleated RBC 0.01 x10^3/uL 02/25/18 04:26 Nucleated RBC % 0.0 /100WBC 02/25/18 04:26 Manual Slide Review Indicated 02/25/18 04:26 Platelet Estimate DECREASED (<130,000) (NORMAL) 02/25/18 04:26 Platelet Morphology NORMAL APPEARANCE (NORMAL) 02/25/18 04:26 RBC Morph Micro Appear NORMAL APPEARANCE (NORMAL) 02/25/18 04:26 Sodium 138 mmol/L (135-145) 02/26/18 05:50 Potassium 4.2 mmol/L (3.5-5.0) 02/26/18 05:50 Chloride 109 mmol/L (101-111) 02/26/18 05:50 Carbon Dioxide 24 mmol/L (21-32) 02/26/18 05:50 Anion Gap 5.0 (6-13) L 02/26/18 05:50 BUN 12 mg/dL (6-20) 02/26/18 05:50 Creatinine 0.6 mg/dL (0.4-1.0) 02/26/18 05:50 Estimated GFR (MDRD) 100 (>89) 02/26/18 05:50 Glucose 183 mg/dL (70-100) H 02/26/18 05:50 POC Whole Bld Glucose 255 mg/dL (70 - 100) H 02/26/18 11:28 Glycated Hemoglobin 10.6 % (4.6-6.2) H 02/25/18 04:26 Estim Average Glucose 258 (70-100) H 02/25/18 04:26 Lactic Acid 1.8 mmol/L (0.5-2.2) 02/26/18 05:50 Calcium 8.5 mg/dL (8.5-10.3) 02/26/18 05:50 Ionized Calcium NO 02/26/18 05:50 Phosphorus 1.5 mg/dL (2.5-4.6) L 02/26/18 05:50 Magnesium 2.0 mg/dL (1.7-2.8) 02/26/18 05:50 Total Bilirubin 2.7 mg/dL (0.2-1.0) H 02/26/18 05:50 AST 36 IU/L (10-42) 02/26/18 05:50 ALT 19 IU/L (10-60) 02/26/18 05:50 Alkaline Phosphatase 97 IU/L (42-121) 02/26/18 05:50 Troponin I < 0.04 ng/mL (<0.49) 02/26/18 01:10 Total Protein 6.1 g/dL (6.7-8.2) L 02/26/18 05:50 Albumin 2.4 g/dL (3.2-5.5) L 02/26/18 05:50 Globulin 3.7 g/dL (2.1-4.2) 02/26/18 05:50 Albumin/Globulin Ratio 0.6 (1.0-2.2) L 02/26/18 05:50 Lipase 24 U/L (22-51) 02/24/18 13:35 TSH 4.97 uIU/mL (0.34-5.60) 02/26/18 05:50 Urine Color DARK YELLOW 02/24/18 14:31 Urine Clarity CLEAR (CLEAR) 02/24/18 14:31 Urine pH 5.5 PH (5.0-7.5) 02/24/18 14:31 Ur Specific [place] >=1.030 (1.002-1.030) H 02/24/18 14:31 Urine Protein 30 mg/dL (NEGATIVE) H 02/24/18 14:31 Urine Glucose (UA) 100 mg/dL (NEGATIVE) H 02/24/18 14:31 Urine Ketones TRACE mg/dL (NEGATIVE) 02/24/18 14:31 Urine Occult Blood MODERATE (NEGATIVE) H 02/24/18 14:31 Urine Nitrite POSITIVE (NEGATIVE) H 02/24/18 14:31 Urine Bilirubin NEGATIVE (NEGATIVE) 02/24/18 14:31 Urine Urobilinogen 2 E.U./dL (NORMAL) H 02/24/18 14:31 Ur Leukocyte Esterase NEGATIVE (NEGATIVE) 02/24/18 14:31 Urine RBC 0-5 /HPF (0-5) 02/24/18 14:31 Urine WBC 0-3 /HPF (0-5) 02/24/18 14:31 Ur Squamous Epith Cells FEW Squamous (<= Few) 02/24/18 14:31 Amorphous Sediment Few /LPF 02/24/18 14:31 Urine Bacteria Many /HPF (None Seen) H 02/24/18 14:31 Ur Microscopic Review INDICATED 02/24/18 14:31 Urine Culture Comments INDICATED 02/24/18 14:31 - Procedures Procedures: Procedures DRAINAGE OF RIGHT PLEURAL CAVITY, PERCUTANEOUS APPROACH (11/14/17)
[2018-02-26] MEDS: rOPINIRole 0.25 MG TABLET PO SCH (20:59)
[2018-02-26] MEDS: INSULIN GLARGINE 300 UNIT/3 ML PEN SUBQ SCH (21:05)
[2018-02-27] MEDS: AMPICILLIN/SULBACTAM 3 GM in SODIUM CHLORIDE 0.9% MINIBAG 100 ML IV SCH ×4 (01:46→20:22)
--- NOTE | 2018-02-27 03:05 | Ultrasound Preliminary Report ---
Exam: US DUPLEX EXT VEINS LEFT IMPRESSION: No left leg DVT seen. [facility] SITE ID: [id number]
--- NOTE | 2018-02-27 03:06 | Ultrasound Report ---
EXAM: LEFT LOWER EXTREMITY VENOUS ULTRASOUND EXAM DATE: 02/27/2018 02:44 AM. CLINICAL HISTORY: Swelling and pain. COMPARISON: 12/05/2017. TECHNIQUE: Real-time sonographic vascular imaging was performed by the filling operator through the lower extremity utilizing both color-flow and Doppler spectral analysis. Multiple customer engagement representative static lorie ges were saved for review. FINDINGS: Common Femoral Vein (CFV): Normal. CFV-GSV Junction: Normal. Profunda Femoral Vein (PFV): Normal. Femoral Vein (FV) Prox: Normal. Femoral Vein (FV) Mid: Normal. Femoral Vein (FV) Dist: Not well-visualized but no definite thrombus. Popliteal Vein: Normal. Posterior Tibial Veins: Not well visualized but no definite thrombus. Peroneal Veins: Normal. Other: Subcutaneous edema. IMPRESSION: No left leg DVT seen. [facility] Referring Provider Line: [phone] SITE ID: [id number]
[2018-02-27] MEDS: SODIUM CHLORIDE FLUSH 0.9% 10 ML SYRINGE IVP PRN ×2 (04:20→11:27)
[2018-02-27 04:37] LABS: HGB - HEMOGLOBIN 11.2 g/dL (12.0-16.0); MEAN CORPUSCULAR HEMOGLOBIN 32.6 pg (27.0-31.0); MEAN CORPUSCULAR HGB CONC 33.2 g/dL (32.0-36.0); MEAN CORPUSCULAR VOLUME 98.2 fL (81.0-99.0); MEAN PLATELET VOLUME 8.7 fL (7.9-10.8); RED BLOOD COUNT 3.43 10^6/uL (4.20-5.40); RED CELL DISTRIBUTION WIDTH 16.1 % (12.0-15.0); WHITE BLOOD COUNT 10.7 x10^3/uL (4.8-10.8)
[2018-02-27 04:54] LABS: ALBUMIN 2.1 g/dL (3.2-5.5); ALBUMIN/GLOBULIN RATIO 0.6 (1.0-2.2); ALKALINE PHOSPHATASE 94 IU/L (42-121); ALT ALANINE AMINOTRANSFERASE 18 IU/L (10-60); AST ASPARTATE AMINOTRANSFERASE 33 IU/L (10-42); BILIRUBIN,TOTAL 1.9 mg/dL (0.2-1.0); BUN - BLOOD UREA NITROGEN 8 mg/dL (6-20); CARBON DIOXIDE - CO2 23 mmol/L (21-32); CHLORIDE 105 mmol/L (101-111); CREATININE 0.5 mg/dL (0.4-1.0); GFR - MDRD 123 (>89); GLUCOSE 101 mg/dL (70-100); MAGNESIUM 1.5 mg/dL (1.7-2.8); PHOSPHORUS 2.5 mg/dL (2.5-4.6); SODIUM 135 mmol/L (135-145); TOTAL PROTEIN 5.7 g/dL (6.7-8.2)
[2018-02-27 05:08] LABS: VBG PH 7.404 (7.31-7.41)
[2018-02-27] MEDS ORDERED: MAGNESIUM SULFATE 2 GRAM 2 GM/50 ML BAG IV ONE (05:16)
[2018-02-27] MEDS: LACTATED RINGERS 1,000 ML IV SCH ×3 (06:03→20:23)
[2018-02-27] MEDS: ACETAMINOPHEN 325 MG TABLET PO PRN (06:04)
[2018-02-27] MEDS: METOPROLOL 5 MG/5 ML VIAL IVP PRN (07:35)
[2018-02-27] MEDS: INSULIN ASPART 300 UNIT/3 ML PEN SUBQ SCH ×5 (08:31→21:10)
[2018-02-27] MEDS: glipiZIDE 5 MG TABLET PO SCH (08:38)
[2018-02-27] MEDS: POTASSIUM CHLORIDE 10 MEQ CAPSULE PO SCH (08:38)
[2018-02-27] MEDS: PANTOPRAZOLE 40 MG VIAL IVP SCH ×2 (08:39→21:11)
[2018-02-27] MEDS: DULoxetine 30 MG CAPSULE PO SCH ×2 (08:39→21:11)
[2018-02-27] MEDS: SACCHAROMYCES BOULARDII 250 MG CAPSULE PO SCH ×2 (08:40→16:06)
[2018-02-27] MEDS: SODIUM CHLORIDE FLUSH 0.9% 10 ML SYRINGE IVP SCH ×2 (08:40→16:07)
[2018-02-27] MEDS: ENOXAPARIN 40 MG/0.4 ML SYRINGE SUBQ SCH (08:40)
[2018-02-27] MEDS ORDERED: METOPROLOL 5 MG/5 ML VIAL IVP STA ×3 (11:07→14:08)
[2018-02-27] MEDS: METOPROLOL SUCCINATE 25 MG TABLET PO SCH (11:25)
[2018-02-27] MEDS ORDERED: DIGOXIN 500 MCG/2 ML AMP IVP STA (15:51)
--- NOTE | 2018-02-27 17:02 | PROVIDER PROGRESS NOTE ---
Assessment/Plan - Problem List (1) Septic shock Assessment/Plan: Patient presented with septic shock Source of patient's septic shock appears to be group A strep bacteremia which appears to be from left lower extremity cellulitis. Lactic acid improved to normal. Patient off levphed since last night and maintaining her BP WBC is improving down to 10.7 this am Patient is afebrile Patient's cellulitis improving Continue IV Unasyn to cover group a strep and staph aureus grown on blood cx and wound cx Resolved (2) Bacteremia due to Streptococcus Assessment/Plan: Patient's initial blood cultures growing beta-hemolytic strep group A which is likely source of septic shock. The likely source of the infection is left lower extremity cellulitis. Plan: IV unasyn patients cx show patient is susceptible to cipro but patient had allergy in past to levaquin which she states was upset stomach. 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 This time patient presents with septic shock and bacteremia with beta hemolytic group A strep. Likely source is the left lower extremity cellulitis. The patient has erythema, swelling, warmth of the left lower extremity. The cellulitis does not appear to have changed significantly over the last 24 hours. Plan: IV unasyn patients cx show patient is susceptible to cipro but patient had allergy in past to levaquin which she states was upset stomach. Since cipro has the same bioavailability PO and IV would like to switch patient to PO cipro tomorrow and monitor for side effects if none then she could take PO cipro for 14 days to complete treatment for bacteremia Continue IV fluids Cellulitis is improving (4) Atrial Fibrillation with RVR: Assessment/Plan: HR in 120-130s Started Po metoprolol this am Needed several doses of IV lopressor during day and BP becoming low normal therefore will load with digoxin Tele Echo unchanged from previous with normal EF, LVH and no wall motion abnormalities TSH and trop negative CHADS2 score of 2 will consider anticoagulation prior to discharge will need follow up with cardiology (5) BARON (acute kidney injury) Assessment/Plan: Resolved (6) DM2 (diabetes mellitus, type 2) Qualifiers: Diabetes mellitus snf insulin use: unspecified terminal makeup operator insulin use status 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 Patient placed on sliding scale insulin and Lantus 12 unit along with glipizide , diabetic diet and blood glucose checks before meals at bedtime. Patient's hemoglobin A1c is 10.6 BG improved today (7) Hypomagnesemia Assessment/Plan: Mg is 1.5 replace - Current Meds Current Meds: Current Medications Generic Name Dose Route Start Last Admin Trade Name Freq PRN Reason Stop Dose Admin Acetaminophen 650 mg 02/24/18 16:44 02/27/18 06:04 Tylenol PO 650 mg Q4HR PRN Administration Pain or Fever > 38C (100.4F) Duloxetine HCl 30 mg 02/25/18 09:00 02/27/18 08:39 Cymbalta PO 30 mg DAILY JASWANT Administration Duloxetine HCl 60 mg 02/24/18 21:00 02/26/18 20:59 Cymbalta PO 60 mg QPM JASWANT Administration Enoxaparin Sodium 40 mg 02/26/18 01:00 02/27/18 08:40 Lovenox SUBQ 40 mg DAILY JASWANT Administration Glipizide 5 mg 02/25/18 09:00 02/27/18 08:38 Glucotrol PO 5 mg DAILY JASWANT Administration Heparin Sodium (Beef Lung) 30 - 50 unit 02/25/18 18:17 02/27/18 04:20 IVP 50 unit PRN PRN Administration Central Line Protocol (<24 hr) Ampicillin Sodium/Sulbactam 100 mls @ 200 mls/hr 02/25/18 20:00 02/27/18 14: 04 Sodium 3 gm/ Sodium Chloride IV Infused Q6H JASWANT Infusion Lactated Ringer's 1,000 mls @ 150 mls/hr 02/26/18 09:23 02/27/18 13:35 Lr IV 150 mls/hr .Q6H40M JASWANT Administration Insulin Aspart 2 - 10 unit 02/25/18 17:00 02/27/18 12:13 Novolog SUBQ Not Given 0800,1200,1700,2100 [facility] Protocol Insulin Glargine 12 unit 02/25/18 16:00 02/26/18 21:05 Lantus Solostar SUBQ 12 unit QPM JASWANT Administration Metoprolol Succinate 25 mg 02/27/18 12:00 02/27/18 11:25 Toprol Xl PO 25 mg DAILY JASWANT Administration Metoprolol Tartrate 5 mg 02/26/18 00:56 02/27/18 07:35 Lopressor Inj IVP 5 mg Q6H PRN Administration HR>100 for more than 5 min Mineral Oil 1 applic 02/25/18 11:15 02/25/18 12:55 Cavilon TOP 1 applic PRN PRN Administration Skin Care Pantoprazole Sodium 40 mg 02/24/18 21:00 02/27/18 08:39 Protonix IVP 40 mg BID JASWANT Administration (Melatonin [ 1 each 02/25/18 21:00 02/26/18 22:07 Melatonin] 3 Mg) Tab PO Not Given QPM JASWANT Potassium Chloride 10 meq 02/25/18 08:00 02/27/18 08:38 Micro-K PO 10 meq DAILYWM JASWANT Administration Ropinirole HCl 0.25 mg 02/24/18 21:00 02/26/18 20:59 Requip PO 0.25 mg QPM JASWANT Administration Saccharomyces Boulardii 250 mg 02/25/18 13:00 02/27/18 16:06 Florastor PO 250 mg BIDWM JASWANT Administration Sodium Chloride 10 ml 02/24/18 17:00 02/27/18 16:07 Normal Saline Flush 0.9% IVP 30 ml 0100,0900,1700 JASWANT Administration Sodium Chloride 10 ml 02/24/18 16:44 02/27/18 11:27 Normal Saline Flush 0.9% IVP 10 ml PRN PRN Administration NEEDED PER PROVIDER ORDERS Temazepam 15 mg 02/24/18 21:30 02/25/18 00:34 Restoril PO 15 mg QPM PRN Administration Insomnia - Lab Result Lab results reviewed: Yes Fish Bone Diagrams: 02/27/18 04:21 02/27/18 04:21 - Additional Planning Condition/Complexity: Improved My Orders: My Active Orders 02/27/18 12:00 Metoprolol Succinate [Toprol Xl] 25 mg PO DAILY 02/27/18 22:00 Digoxin Inj [Lanoxin Inj] 250 mcg IVP Q6H 02/28/18 05:00 CBC W/O DIFF (HEMOGRAM) [HEME] DAILYLAB CMP, RFLX TO IONIZED CA IF [CHEM] DAILYLAB DIGOXIN [CHEM] DAILYLAB MAGNESIUM [CHEM] DAILYLAB PHOSPHORUS [CHEM] DAILYLAB 02/28/18 08:00 Digoxin [Lanoxin] 125 mcg PO DAILY 03/01/18 05:00 CBC W/O DIFF (HEMOGRAM) [HEME] DAILYLAB CMP, RFLX TO IONIZED CA IF [CHEM] DAILYLAB DIGOXIN [CHEM] DAILYLAB MAGNESIUM [CHEM] DAILYLAB PHOSPHORUS [CHEM] DAILYLAB 03/02/18 05:00 DIGOXIN [CHEM] DAILYLAB Plan Discussed with:: Patient, Family Time Spent: 31-60 minutes Subjective - Subjective Patient Reports: Feeling Better, Resting Comfortably, Other (Redness and swelling of leg is better. She has been in A fib with rvr all day but is not symptomatic from it.) Nursing Reports: No Complaints Objective Vital Signs: Vital Signs - 24 hr 02/26/18 02/26/18 02/26/18 16:45 17:00 17:15 Temperature Heart Rate Heart Rate [ 92 92 Monitoring electrodes] Respiratory 22 23 25 H Rate Blood Pressure Blood Pressure 120/52 L 114/42 L 115/48 L [Left Brachial artery] Blood Pressure [Right Brachial artery] O2 Saturation 95 94 94 02/26/18 02/26/18 02/26/18 17:30 17:46 18:00 Temperature Heart Rate Heart Rate [ 96 97 98 Monitoring electrodes] Respiratory 27 H 29 H 22 Rate Blood Pressure Blood Pressure [Left Brachial artery] Blood Pressure 108/45 L 109/50 L 112/46 L [Right Brachial artery] O2 Saturation 93 89 L 95 02/26/18 02/26/18 02/26/18 18:30 19:00 20:00 Temperature Heart Rate Heart Rate [ 97 95 99 Monitoring electrodes] Respiratory 30 H 28 H 23 Rate Blood Pressure Blood Pressure [Left Brachial artery] Blood Pressure 111/48 L 107/51 L 125/50 L [Right Brachial artery] O2 Saturation 96 95 96 02/26/18 02/26/18 02/26/18 21:30 22:00 23:00 Temperature 36.8 C Heart Rate Heart Rate [ 97 92 95 Monitoring electrodes] Respiratory 20 28 H 28 H Rate Blood Pressure Blood Pressure [Left Brachial artery] Blood Pressure 117/56 L 126/45 L 113/50 L [Right Brachial artery] O2 Saturation 97 96 97 02/27/18 02/27/18 02/27/18 00:00 01:00 02:00 Temperature 36.2 C L Heart Rate Heart Rate [ 95 99 93 Monitoring electrodes] Respiratory 28 H 30 H 29 H Rate Blood Pressure Blood Pressure [Left Brachial artery] Blood Pressure 115/50 L 110/50 L 108/84 H [Right Brachial artery] O2 Saturation 97 95 92 02/27/18 02/27/18 02/27/18 03:00 04:00 04:37 Temperature 36.2 C L Heart Rate Heart Rate [ 94 97 98 Monitoring electrodes] Respiratory 30 H 30 H 25 H Rate Blood Pressure Blood Pressure [Left Brachial artery] Blood Pressure 101/43 L 103/36 L 109/50 L [Right Brachial artery] O2 Saturation 94 94 95 02/27/18 02/27/18 02/27/18 05:00 06:16 06:59 Temperature Heart Rate Heart Rate [ 100 97 95 Monitoring electrodes] Respiratory 30 H 31 H 29 H Rate Blood Pressure Blood Pressure 102/55 L [Left Brachial artery] Blood Pressure 124/45 L 111/57 L [Right Brachial artery] O2 Saturation 94 95 93 02/27/18 02/27/18 02/27/18 07:30 07:35 08:05 Temperature 37.1 C Heart Rate Heart Rate [ 143 H Monitoring electrodes] Respiratory 22 Rate Blood Pressure 118/53 L 104/69 Blood Pressure 118/53 L [Left Brachial artery] Blood Pressure [Right Brachial artery] O2 Saturation 95 02/27/18 02/27/18 02/27/18 08:56 10:00 11:00 Temperature Heart Rate Heart Rate [ 140 H 125 H 139 H Monitoring electrodes] Respiratory 21 29 H 20 Rate Blood Pressure Blood Pressure 104/69 132/109 H 122/89 H [Left Brachial artery] Blood Pressure [Right Brachial artery] O2 Saturation 96 96 96 02/27/18 02/27/18 02/27/18 11:25 11:33 12:00 Temperature 36.9 C Heart Rate Heart Rate [ 115 H 123 H Monitoring electrodes] Respiratory 22 Rate Blood Pressure 122/89 H Blood Pressure 104/42 L [Left Brachial artery] Blood Pressure [Right Brachial artery] O2 Saturation 93 02/27/18 02/27/18 02/27/18 12:42 13:00 14:00 Temperature Heart Rate Heart Rate [ 125 H 118 H Monitoring electrodes] Respiratory 25 H 25 H Rate Blood Pressure 104/42 L Blood Pressure 110/77 99/57 L [Left Brachial artery] Blood Pressure [Right Brachial artery] O2 Saturation 93 94 02/27/18 02/27/18 02/27/18 14:16 15:00 15:06 Temperature Heart Rate Heart Rate [ 120 H Monitoring electrodes] Respiratory Rate Blood Pressure 99/57 L Blood Pressure 74/65 L 82/55 L [Left Brachial artery] Blood Pressure [Right Brachial artery] O2 Saturation 02/27/18 02/27/18 16:00 16:03 Temperature Heart Rate 125 H Heart Rate [ 124 H Monitoring electrodes] Respiratory 22 Rate Blood Pressure Blood Pressure 101/64 [Left Brachial artery] Blood Pressure [Right Brachial artery] O2 Saturation 96 Oxygen O2 Source Nasal cannula I&O (Last 24 Hrs): Intake and Output Totals x24h 02/25/18 02/26/18 02/27/18 23:59 23:59 23:59 Intake Total 8235.520 7098.219 3710 Output Total 5242 4000 3425 Balance 2993.520 3098.219 285 General: Alert, Oriented x3, Cooperative, No acute distress HEENT: Atraumatic, PERRLA, EOMI, Mucous membr. moist/pink Neck: Supple, No JVD, No thyromegaly, +2 carotid pulse wo bruit, No LAD Lymphatic: no adenopathy Neuro: Alert, Non Focal, CN 2-12 Grossly Intact, Oriented Times 3 Cardiovascular: Other (Irregular and tachycardic) Respiratory: Chest non-tender, No respiratory distress, Breath sounds nml Abdomen: Normal bowel sounds, Soft, No tenderness, No hepatospenomegaly, No masses Extremities: No clubbing, No cyanosis, Other (Left Lower extremity with erythema , and swelling both are improving today) Comments/Notes: Left lower extremity erythema is improving - Results Results: Laboratory Results WBC 10.7 x10^3/uL (4.8-10.8) 02/27/18 04:21 RBC 3.43 10^6/uL (4.20-5.40) L 02/27/18 04:21 Hgb 11.2 g/dL (12.0-16.0) L 02/27/18 04:21 Hct 33.7 % (37.0-47.0) L 02/27/18 04:21 MCV 98.2 fL (81.0-99.0) 02/27/18 04:21 MCH 32.6 pg (27.0-31.0) H 02/27/18 04:21 MCHC 33.2 g/dL (32.0-36.0) 02/27/18 04:21 RDW 16.1 % (12.0-15.0) H 02/27/18 04:21 Plt Count 59 10^3/uL (130-450) L 02/27/18 04:21 MPV 8.7 fL (7.9-10.8) 02/27/18 04:21 Neut # 25.0 10^3/uL (1.5-6.6) H 02/25/18 04:26 Lymph # 1.3 10^3/uL (1.5-3.5) L 02/25/18 04:26 [place] # 0.9 10^3/uL (0.0-1.0) 02/25/18 04:26 Eos # 0.0 10^3/uL (0.0-0.7) 02/25/18 04:26 Baso # 0.1 10^3/uL (0.0-0.1) 02/25/18 04:26 Absolute Nucleated RBC 0.01 x10^3/uL 02/25/18 04: Nucleated RBC % 0.0 /100WBC 02/25/18 04:26 Manual Slide Review Indicated 02/25/18 04:26 Platelet Estimate DECREASED (<130,000) (NORMAL) 02/25/18 04: Platelet Morphology NORMAL APPEARANCE (NORMAL) 02/25/18 04: RBC Morph Micro Appear NORMAL APPEARANCE (NORMAL) 02/25/18 04: VBG pH 7.404 (7.31-7.41) 02/27/18 04:21 Ionized Calcium 1.13 mmol/L (1.15-1.33) L 02/27/18 04:21 Sodium 135 mmol/L (135-145) 02/27/18 04:21 Potassium 3.5 mmol/L (3.5-5.0) 02/27/18 04:21 Chloride 105 mmol/L (101-111) 02/27/18 04:21 Carbon Dioxide 23 mmol/L (21-32) 02/27/18 04:21 Anion Gap 7.0 (6-13) 02/27/18 04:21 BUN 8 mg/dL (6-20) 02/27/18 04:21 Creatinine 0.5 mg/dL (0.4-1.0) 02/27/18 04:21 Estimated GFR (MDRD) 123 (>89) 02/27/18 04:21 Glucose 101 mg/dL (70-100) H 02/27/18 04:21 POC Whole Bld Glucose 151 mg/dL (70 - 100) H 02/27/18 16:33 Glycated Hemoglobin 10.6 % (4.6-6.2) H 02/25/18 04:26 Estim Average Glucose 258 (70-100) H 02/25/18 04:26 Lactic Acid 1.8 mmol/L (0.5-2.2) 02/26/18 05:50 Calcium 8.0 mg/dL (8.5-10.3) L 02/27/18 04:21 Ionized Calcium YES 02/27/18 04:21 Phosphorus 2.5 mg/dL (2.5-4.6) 02/27/18 04:21 Magnesium 1.5 mg/dL (1.7-2.8) L 02/27/18 04:21 Total Bilirubin 1.9 mg/dL (0.2-1.0) H 02/27/18 04:21 AST 33 IU/L (10-42) 02/27/18 04:21 ALT 18 IU/L (10-60) 02/27/18 04:21 Alkaline Phosphatase 94 IU/L (42-121) 02/27/18 04:21 Troponin I < 0.04 ng/mL (<0.49) 02/26/18 01:10 Total Protein 5.7 g/dL (6.7-8.2) L 02/27/18 04:21 Albumin 2.1 g/dL (3.2-5.5) L 02/27/18 04:21 Globulin 3.6 g/dL (2.1-4.2) 02/27/18 04:21 Albumin/Globulin Ratio 0.6 (1.0-2.2) L 02/27/18 04:21 Lipase 24 U/L (22-51) 02/24/18 13:35 TSH 4.97 uIU/mL (0.34-5.60) 02/26/18 05:50 Urine Color DARK YELLOW 02/24/18 14:31 Urine Clarity CLEAR (CLEAR) 02/24/18 14:31 Urine pH 5.5 PH (5.0-7.5) 02/24/18 14:31 Ur Specific [place] >=1.030 (1.002-1.030) H 02/24/18 14:31 Urine Protein 30 mg/dL (NEGATIVE) H 02/24/18 14:31 Urine Glucose (UA) 100 mg/dL (NEGATIVE) H 02/24/18 14:31 Urine Ketones TRACE mg/dL (NEGATIVE) 02/24/18 14:31 Urine Occult Blood MODERATE (NEGATIVE) H 02/24/18 14:31 Urine Nitrite POSITIVE (NEGATIVE) H 02/24/18 14:31 Urine Bilirubin NEGATIVE (NEGATIVE) 02/24/18 14:31 Urine Urobilinogen 2 E.U./dL (NORMAL) H 02/24/18 14:31 Ur Leukocyte Esterase NEGATIVE (NEGATIVE) 02/24/18 14:31 Urine RBC 0-5 /HPF (0-5) 02/24/18 14:31 Urine WBC 0-3 /HPF (0-5) 02/24/18 14:31 Ur Squamous Epith Cells FEW Squamous (<= Few) 02/24/18 14:31 Amorphous Sediment Few /LPF 02/24/18 14:31 Urine Bacteria Many /HPF (None Seen) H 02/24/18 14:31 Ur Microscopic Review INDICATED 02/24/18 14:31 Urine Culture Comments INDICATED 02/24/18 14:31 - Procedures Procedures: Procedures DRAINAGE OF RIGHT PLEURAL CAVITY, PERCUTANEOUS APPROACH (11/14/17)
[2018-02-27] MEDS: INSULIN GLARGINE 300 UNIT/3 ML PEN SUBQ SCH (21:09)
[2018-02-27] MEDS: rOPINIRole 0.25 MG TABLET PO SCH (21:11)
[2018-02-27] MEDS: DIGOXIN 500 MCG/2 ML AMP IVP SCH (22:30)
[2018-02-28] MEDS: AMPICILLIN/SULBACTAM 3 GM in SODIUM CHLORIDE 0.9% MINIBAG 100 ML IV SCH (02:31)
[2018-02-28] MEDS: SODIUM CHLORIDE FLUSH 0.9% 10 ML SYRINGE IVP SCH ×3 (02:37→15:58)
[2018-02-28] MEDS: LACTATED RINGERS 1,000 ML IV SCH (04:10)
[2018-02-28] MEDS: DIGOXIN 500 MCG/2 ML AMP IVP SCH (05:15)
[2018-02-28] MEDS: SODIUM CHLORIDE FLUSH 0.9% 10 ML SYRINGE IVP PRN ×2 (05:27→07:56)
[2018-02-28 05:58] LABS: HGB - HEMOGLOBIN 12.3 g/dL (12.0-16.0); MEAN CORPUSCULAR HEMOGLOBIN 32.7 pg (27.0-31.0); MEAN CORPUSCULAR HGB CONC 33.1 g/dL (32.0-36.0); MEAN CORPUSCULAR VOLUME 98.9 fL (81.0-99.0); MEAN PLATELET VOLUME 8.8 fL (7.9-10.8); RED BLOOD COUNT 3.75 10^6/uL (4.20-5.40); RED CELL DISTRIBUTION WIDTH 15.8 % (12.0-15.0); WHITE BLOOD COUNT 8.6 x10^3/uL (4.8-10.8)
[2018-02-28 06:05] LABS: ALBUMIN 2.3 g/dL (3.2-5.5); ALBUMIN/GLOBULIN RATIO 0.6 (1.0-2.2); ALKALINE PHOSPHATASE 111 IU/L (42-121); ALT ALANINE AMINOTRANSFERASE 19 IU/L (10-60); AST ASPARTATE AMINOTRANSFERASE 37 IU/L (10-42); BILIRUBIN,TOTAL 2.3 mg/dL (0.2-1.0); BUN - BLOOD UREA NITROGEN 7 mg/dL (6-20); CARBON DIOXIDE - CO2 26 mmol/L (21-32); CHLORIDE 104 mmol/L (101-111); CREATININE 0.6 mg/dL (0.4-1.0); GFR - MDRD 100 (>89); GLUCOSE 103 mg/dL (70-100); MAGNESIUM 1.8 mg/dL (1.7-2.8); PHOSPHORUS 2.8 mg/dL (2.5-4.6); SODIUM 136 mmol/L (135-145); TOTAL PROTEIN 6.2 g/dL (6.7-8.2)
[2018-02-28 06:24] LABS: VBG PH 7.376 (7.31-7.41)
[2018-02-28 08:29] LABS: DIGOXIN 1.1 ng/mL
[2018-02-28] MEDS: CIPROFLOXACIN 250 MG TABLET PO SCH ×3 (08:49→20:52)
[2018-02-28] MEDS: WARFARIN 5 MG TABLET PO SCH (08:50)
[2018-02-28] MEDS: DIGOXIN 125 MCG TABLET PO SCH ×2 (08:50→14:09)
[2018-02-28] MEDS: DULoxetine 30 MG CAPSULE PO SCH ×2 (08:50→20:52)
[2018-02-28] MEDS: POTASSIUM CHLORIDE 10 MEQ CAPSULE PO SCH (08:50)
[2018-02-28] MEDS: glipiZIDE 5 MG TABLET PO SCH (08:51)
[2018-02-28] MEDS: ENOXAPARIN 40 MG/0.4 ML SYRINGE SUBQ SCH (08:51)
[2018-02-28] MEDS: METOPROLOL SUCCINATE 25 MG TABLET PO SCH (08:51)
[2018-02-28] MEDS ORDERED: PETROLATUM WHITE 5 GM PACKET TOP PRN (08:52)
[2018-02-28] MEDS: INSULIN ASPART 300 UNIT/3 ML PEN SUBQ SCH ×4 (08:55→20:56)
[2018-02-28] MEDS: SACCHAROMYCES BOULARDII 250 MG CAPSULE PO SCH ×2 (08:55→17:54)
[2018-02-28] MEDS: ACETAMINOPHEN 325 MG TABLET PO PRN ×2 (09:58→20:49)
[2018-02-28] MEDS ORDERED: FUROSEMIDE 40 MG/4 ML VIAL IVP STA (15:06)
--- NOTE | 2018-02-28 15:28 | PROVIDER PROGRESS NOTE ---
Assessment/Plan - Problem List (1) Septic shock Assessment/Plan: Patient presented with septic shock Source of patient's septic shock appears to be group A strep bacteremia which appears to be from left lower extremity cellulitis. Lactic acid improved to normal. Patient off levphed since last night and maintaining her BP WBC resolved Patient is afebrile Patient's cellulitis improving Change IV Unasyn to cipro PO which covers group a strep and staph aureus grown on blood cx and wound cx Resolved (2) Bacteremia due to Streptococcus Assessment/Plan: Patient's initial blood cultures growing beta-hemolytic strep group A which is likely source of septic shock. The likely source of the infection is left lower extremity cellulitis. Plan: Pateint was on IV unasyn but cx showed patient is susceptible to cipro but patient had allergy in past to levaquin which she states was upset stomach. 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 This time patient presents with septic shock and bacteremia with beta hemolytic group A strep. Likely source is the left lower extremity cellulitis. The patient has erythema, swelling, warmth of the left lower extremity. Cellulitis is improving Plan: Pateint was on IV unasyn but cx showed patient is susceptible to cipro but patient had allergy in past to levaquin which she states was upset stomach. Since cipro has the same bioavailability PO and IV will switch patient to PO cipro today and monitor for side effects if none then she could take PO cipro for 14 days to complete treatment for bacteremia Stop IVFs Cellulitis is improving (4) Atrial Fibrillation with RVR: Assessment/Plan: HR controlled this morning after a fib RVR most of the day yesterday Back in sinus rhythm On PO metoprolol and digoxin Tele Echo unchanged from previous with normal EF, LVH and no wall motion abnormalities TSH and trop negative CHADS2 score of 2 will start patient on coumadin today (5) BARON (acute kidney injury) Assessment/Plan: Resolved (6) DM2 (diabetes mellitus, type 2) Qualifiers: Diabetes mellitus longterm insulin use: unspecified inclusion intern insulin use status 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 Patient placed on sliding scale insulin and Lantus 12 unit along with glipizide , diabetic diet and blood glucose checks before meals at bedtime. Patient's hemoglobin A1c is 10.6 BG stable (7) Hypoxia Assessment/Plan: Patient remains hypoxic Unable to wean off O2 Possible secondary to fluid overload vs pneumonia vs atlectasis Plan: CXR IV lasix Stop IVFs IS - Current Meds Current Meds: Current Medications Generic Name Dose Route Start Last Admin Trade Name Freq PRN Reason Stop Dose Admin Acetaminophen 650 mg 02/24/18 16:44 02/28/18 09:58 Tylenol PO 650 mg Q4HR PRN Administration Pain or Fever > 38C (100.4F) Ciprofloxacin 750 mg 02/28/18 08:00 02/28/18 14:09 Cipro PO Not Given BID JASWANT Digoxin 125 mcg 02/28/18 08:00 02/28/18 14:09 Lanoxin PO Not Given DAILY JASWANT Duloxetine HCl 30 mg 02/25/18 09:00 02/28/18 08:50 Cymbalta PO 30 mg DAILY JASWANT Administration Duloxetine HCl 60 mg 02/24/18 21:00 02/27/18 21:11 Cymbalta PO 60 mg QPM JASWANT Administration Enoxaparin Sodium 40 mg 02/26/18 01:00 02/28/18 08:51 Lovenox SUBQ 40 mg DAILY JASWANT Administration Glipizide 5 mg 02/25/18 09:00 02/28/18 08:51 Glucotrol PO 5 mg DAILY JASWANT Administration Heparin Sodium (Beef Lung) 30 - 50 unit 02/25/18 18:17 02/28/18 05:29 IVP 50 unit PRN PRN Administration Central Line Protocol (<24 hr) Insulin Aspart 2 - 10 unit 02/25/18 17:00 02/28/18 12:51 Novolog SUBQ Not Given 0800,1200,1700,2100 JASWANT Protocol Insulin Glargine 12 unit 02/25/18 16:00 05/03/18 21:09 Lantus Solostar SUBQ 12 unit QPM JASWANT Administration Metoprolol Succinate 25 mg 02/27/18 12:00 02/28/18 08:51 Toprol Xl PO 25 mg DAILY JASWANT Administration Metoprolol Tartrate 5 mg 02/26/18 00:56 02/27/18 07:35 Lopressor Inj IVP 5 mg Q6H PRN Administration HR>100 for more than 5 min Mineral Oil 1 applic 02/25/18 11:15 02/25/18 12:55 Cavilon TOP 1 applic PRN PRN Administration Skin Care (Melatonin [ 1 each 02/25/18 21:00 02/27/18 22:31 Melatonin] 3 Mg) Tab PO Not Given QPM JASWANT Petrolatum 5 gm 02/28/18 08:52 02/28/18 10:25 Vaseline TOP 5 gm PRN PRN Administration Dry Lips Potassium Chloride 10 meq 02/25/18 08:00 02/28/18 08:50 Micro-K PO 10 meq DAILYWM JASWANT Administration Ropinirole HCl 0.25 mg 02/24/18 21:00 02/27/18 21:11 Requip PO 0.25 mg QPM JASWANT Administration Saccharomyces Boulardii 250 mg 02/25/18 13:00 02/28/18 08:55 Florastor PO 250 mg BIDWM JASWANT Administration Sodium Chloride 10 ml 02/24/18 17:00 02/28/18 13:11 Normal Saline Flush 0.9% IVP 10 ml 0100,0900,1700 JASWANT Administration Sodium Chloride 10 ml 02/24/18 16:44 02/28/18 07:56 Normal Saline Flush 0.9% IVP 30 ml PRN PRN Administration NEEDED PER PROVIDER ORDERS Temazepam 15 mg 02/24/18 21:30 02/25/18 00:34 Restoril PO 15 mg QPM PRN Administration Insomnia Warfarin Sodium 5 mg 02/28/18 08:00 02/28/18 08:50 Coumadin PO 5 mg DAILY JASWANT Administration - Lab Result Lab results reviewed: Yes Fish Bone Diagrams: 02/28/18 05:25 02/28/18 05:25 - Diagnostic Imaging Results Diagnostic Imaging Results: Final report reviewed - Additional Planning Condition/Complexity: Improved My Orders: My Active Orders 02/28/18 07:49 Vital Signs [RC] Q4HR 02/28/18 07:55 Telemetry (24 Hour) [RC] Q4HR 02/28/18 08:00 Ciprofloxacin [Cipro] 750 mg PO BID Digoxin [Lanoxin] 125 mcg PO DAILY Warfarin [Coumadin] 5 mg PO DAILY 02/28/18 08:52 Petrolatum White [Vaseline] 5 gm TOP PRN PRN 02/28/18 12:42 Incentive Spirometry - RT [RC] .TID 02/28/18 13:00 Chest 1 View X-Ray [XR] Routine 02/28/18 15:06 FUROSEMIDE INJ 40mg VIAL [LASIX INJ 40 mg VIAL] 40 mg IVP ONCE STA 03/01/18 05:00 CBC W/O DIFF (HEMOGRAM) [HEME] DAILYLAB CMP, RFLX TO IONIZED CA IF [CHEM] DAILYLAB DIGOXIN [CHEM] DAILYLAB MAGNESIUM [CHEM] DAILYLAB PHOSPHORUS [CHEM] DAILYLAB 03/01/18 07:00 Pantoprazole [Protonix] 40 mg PO QDAC 03/02/18 05:00 DIGOXIN [CHEM] DAILYLAB Plan Discussed with:: Patient Time Spent: 31-60 minutes Subjective - Subjective Patient Reports: Feeling Better, Shortness of Breath (Mild), Other (Left lower extremity cellulitis is improving, she feels stronger and was able to ambulate without assistance.) Nursing Reports: No Complaints Objective Vital Signs: Vital Signs - 24 hr 02/27/18 02/27/18 02/27/18 16:00 16:03 17:00 Temperature Heart Rate 125 H Heart Rate [ 124 H 109 H Monitoring electrodes] Respiratory 22 21 Rate Blood Pressure 101/64 120/102 H [Left Brachial artery] O2 Saturation 96 94 02/27/18 02/27/18 02/27/18 18:00 19:00 20:00 Temperature 37 C Heart Rate Heart Rate [ 83 85 86 Monitoring electrodes] Respiratory 24 25 H 20 Rate Blood Pressure 107/53 L 107/53 L 117/41 L [Left Brachial artery] O2 Saturation 97 96 99 02/27/18 02/27/18 02/27/18 21:00 22:00 22:30 Temperature Heart Rate 87 Heart Rate [ 85 87 Monitoring electrodes] Respiratory 19 23 Rate Blood Pressure 98/69 95/58 L [Left Brachial artery] O2 Saturation 96 97 02/27/18 02/28/18 02/28/18 23:00 00:00 01:00 Temperature 36.7 C Heart Rate Heart Rate [ 85 83 86 Monitoring electrodes] Respiratory 24 28 H 24 Rate Blood Pressure 118/41 L 97/35 L 73/58 L [Left Brachial artery] O2 Saturation 96 95 90 L 02/28/18 02/28/18 02/28/18 02:00 03:00 04:00 Temperature Heart Rate Heart Rate [ 87 85 86 Monitoring electrodes] Respiratory 27 H 28 H 29 H Rate Blood Pressure 92/43 L 104/43 L 116/45 L [Left Brachial artery] O2 Saturation 93 95 96 02/28/18 02/28/18 02/28/18 05:00 05:15 06:00 Temperature Heart Rate 88 Heart Rate [ 87 87 Monitoring electrodes] Respiratory 28 H 19 Rate Blood Pressure 129/68 128/38 L [Left Brachial artery] O2 Saturation 95 89 L 02/28/18 02/28/18 02/28/18 07:00 07:51 11:46 Temperature Heart Rate 83 Heart Rate [ 84 84 Monitoring electrodes] Respiratory 27 H 22 24 Rate Blood Pressure 109/55 L 136/49 H [Left Brachial artery] O2 Saturation 98 97 02/28/18 12:00 Temperature 36.7 C Heart Rate Heart Rate [ 82 Monitoring electrodes] Respiratory 24 Rate Blood Pressure 124/56 L [Left Brachial artery] O2 Saturation 96 Oxygen O2 Source Nasal cannula I&O (Last 24 Hrs): Intake and Output Totals x24h 02/26/18 02/27/18 02/28/18 23:59 23:59 23:59 Intake Total 7098.219 5702.5 2239.5 Output Total 4000 3425 350 Balance 3098.219 2277.5 1889.5 General: Alert, Oriented x3, Cooperative, No acute distress HEENT: Atraumatic, PERRLA, EOMI, Mucous membr. moist/pink Neck: Supple, No JVD, No thyromegaly, +2 carotid pulse wo bruit, No LAD Lymphatic: no adenopathy Neuro: Alert, Non Focal, CN 2-12 Grossly Intact, Oriented Times 3 Cardiovascular: Regular rate, Normal S1, Normal S2 Respiratory: Chest non-tender, Rales (Bilateral bases) Abdomen: Normal bowel sounds, Soft, No tenderness, No hepatospenomegaly Extremities: No clubbing, No cyanosis, Normal pulses, Other (Erythema, swelling , warmth and tenderness, swelling and erythema is improved) Skin: No breakdown Comments/Notes: Cellulitis as above improving - Results Results: Laboratory Results WBC 8.6 x10^3/uL (4.8-10.8) 02/28/18 05:25 RBC 3.75 10^6/uL (4.20-5.40) L 02/28/18 05:25 Hgb 12.3 g/dL (12.0-16.0) 02/28/18 05:25 Hct 37.1 % (37.0-47.0) 02/28/18 05:25 MCV 98.9 fL (81.0-99.0) 02/28/18 05:25 MCH 32.7 pg (27.0-31.0) H 02/28/18 05:25 MCHC 33.1 g/dL (32.0-36.0) 02/28/18 05:25 RDW 15.8 % (12.0-15.0) H 02/28/18 05:25 Plt Count 71 10^3/uL (130-450) L 02/28/18 05:25 MPV 8.8 fL (7.9-10.8) 02/28/18 05:25 Neut # 25.0 10^3/uL (1.5-6.6) H 02/25/18 04:26 Lymph # 1.3 10^3/uL (1.5-3.5) L 02/25/18 04:26 [place] # 0.9 10^3/uL (0.0-1.0) 02/25/18 04:26 Eos # 0.0 10^3/uL (0.0-0.7) 02/25/18 04:26 Baso # 0.1 10^3/uL (0.0-0.1) 02/25/18 04:26 Absolute Nucleated RBC 0.01 x10^3/uL 02/25/18 04:26 Nucleated RBC % 0.0 /100WBC 02/25/18 04:26 Manual Slide Review Indicated 02/25/18 04:26 Platelet Estimate DECREASED (<130,000) (NORMAL) 02/25/18 04:26 Platelet Morphology NORMAL APPEARANCE (NORMAL) 02/25/18 04:26 RBC Morph Micro Appear NORMAL APPEARANCE (NORMAL) 02/25/18 04:26 VBG pH 7.376 (7.31-7.41) 02/28/18 05:25 Ionized Calcium 1.11 mmol/L (1.15-1.33) L 02/28/18 05:25 Sodium 136 mmol/L (135-145) 02/28/18 05:25 Potassium 3.7 mmol/L (3.5-5.0) 02/28/18 05:25 Chloride 104 mmol/L (101-111) 02/28/18 05:25 Carbon Dioxide 26 mmol/L (21-32) 02/28/18 05:25 Anion Gap 6.0 (6-13) 02/28/18 05:25 BUN 7 mg/dL (6-20) 02/28/18 05:25 Creatinine 0.6 mg/dL (0.4-1.0) 02/28/18 05:25 Estimated GFR (MDRD) 100 (>89) 02/28/18 05:25 Glucose 103 mg/dL (70-100) H 02/28/18 05:25 POC Whole Bld Glucose 136 mg/dL (70 - 100) H 02/28/18 11:48 Glycated Hemoglobin 10.6 % (4.6-6.2) H 02/25/18 04:26 Estim Average Glucose 258 (70-100) H 02/25/18 04:26 Lactic Acid 1.8 mmol/L (0.5-2.2) 02/26/18 05:50 Calcium 8.0 mg/dL (8.5-10.3) L 02/28/18 05:25 Ionized Calcium YES 02/28/18 05:25 Phosphorus 2.8 mg/dL (2.5-4.6) 02/28/18 05:25 Magnesium 1.8 mg/dL (1.7-2.8) 02/28/18 05:25 Total Bilirubin 2.3 mg/dL (0.2-1.0) H 02/28/18 05:25 AST 37 IU/L (10-42) 02/28/18 05:25 ALT 19 IU/L (10-60) 02/28/18 05:25 Alkaline Phosphatase 111 IU/L (42-121) 02/28/18 05:25 Troponin I < 0.04 ng/mL (<0.49) 02/26/18 01:10 Total Protein 6.2 g/dL (6.7-8.2) L 02/28/18 05:25 Albumin 2.3 g/dL (3.2-5.5) L 02/28/18 05:25 Globulin 3.9 g/dL (2.1-4.2) 02/28/18 05:25 Albumin/Globulin Ratio 0.6 (1.0-2.2) L 02/28/18 05:25 Lipase 24 U/L (22-51) 02/24/18 13:35 TSH 4.97 uIU/mL (0.34-5.60) 02/26/18 05:50 Urine Color DARK YELLOW 02/24/18 14:31 Urine Clarity CLEAR (CLEAR) 02/24/18 14:31 Urine pH 5.5 PH (5.0-7.5) 02/24/18 14:31 Ur Specific [place] >=1.030 (1.002-1.030) H 02/24/18 14:31 Urine Protein 30 mg/dL (NEGATIVE) H 02/24/18 14:31 Urine Glucose (UA) 100 mg/dL (NEGATIVE) H 02/24/18 14:31 Urine Ketones TRACE mg/dL (NEGATIVE) 02/24/18 14:31 Urine Occult Blood MODERATE (NEGATIVE) H 02/24/18 14:31 Urine Nitrite POSITIVE (NEGATIVE) H 02/24/18 14:31 Urine Bilirubin NEGATIVE (NEGATIVE) 02/24/18 14:31 Urine Urobilinogen 2 E.U./dL (NORMAL) H 02/24/18 14:31 Ur Leukocyte Esterase NEGATIVE (NEGATIVE) 02/24/18 14:31 Urine RBC 0-5 /HPF (0-5) 02/24/18 14:31 Urine WBC 0-3 /HPF (0-5) 02/24/18 14:31 Ur Squamous Epith Cells FEW Squamous (<= Few) 02/24/18 14:31 Amorphous Sediment Few /LPF 02/24/18 14:31 Urine Bacteria Many /HPF (None Seen) H 02/24/18 14:31 Ur Microscopic Review INDICATED 02/24/18 14:31 Urine Culture Comments INDICATED 02/24/18 14:31 Last Dose Date 02-28-18 02/28/18 07:50 Last Dose Time 05:15 02/28/18 07:50 Digoxin 1.1 ng/mL 02/28/18 07:50 - Procedures Procedures: Procedures DRAINAGE OF RIGHT PLEURAL CAVITY, PERCUTANEOUS APPROACH (11/14/17) ABX Reporting Has patient been on IV antibiotics over the past 48 hours?: Yes
--- NOTE | 2018-02-28 17:40 | XRAY Report ---
FRONTAL CHEST: 02/28/2018 CLINICAL INDICATION: Hypoxia. COMPARISON: 02/24/2018 FINDINGS: Frontal view of the chest demonstrates interval development of a large right effusion, with associated compressive atelectasis. The left lung remains clear. No pneumothorax is seen. IMPRESSION: LARGE RIGHT EFFUSION, NEW FROM PREVIOUS. TD: 02/28/2018 17:39
[2018-02-28] MEDS: rOPINIRole 0.25 MG TABLET PO SCH (20:51)
[2018-02-28] MEDS: INSULIN GLARGINE 300 UNIT/3 ML PEN SUBQ SCH (20:54)
[2018-03-01 05:21] LABS: INR 1.3 (0.8-1.2); PT - PROTHROMBIN TIME 14.5 secs (9.9-12.6)
[2018-03-01 05:23] LABS: BASOPHILS % (AUTO) 0.7 %; EOSINOPHILS % (AUTO) 3.8 %; HGB - HEMOGLOBIN 11.8 g/dL (12.0-16.0); LYMPHOCYTES % (AUTO) 21.8 %; MEAN CORPUSCULAR HEMOGLOBIN 32.7 pg (27.0-31.0); MEAN CORPUSCULAR HGB CONC 32.9 g/dL (32.0-36.0); MEAN CORPUSCULAR VOLUME 99.2 fL (81.0-99.0); MEAN PLATELET VOLUME 9.4 fL (7.9-10.8); MONOCYTES % (AUTO) 13.5 %; NEUTROPHILS % (AUTO) 60.2 %; PLT - PLATELET COUNT 61 10^3/uL (130-450); RED BLOOD COUNT 3.62 10^6/uL (4.20-5.40); RED CELL DISTRIBUTION WIDTH 16.1 % (12.0-15.0); WHITE BLOOD COUNT 6.3 x10^3/uL (4.8-10.8)
[2018-03-01 05:24] LABS: ALBUMIN 2.2 g/dL (3.2-5.5); ALBUMIN/GLOBULIN RATIO 0.5 (1.0-2.2); ALKALINE PHOSPHATASE 113 IU/L (42-121); ALT ALANINE AMINOTRANSFERASE 17 IU/L (10-60); AST ASPARTATE AMINOTRANSFERASE 34 IU/L (10-42); BILIRUBIN,TOTAL 1.7 mg/dL (0.2-1.0); BUN - BLOOD UREA NITROGEN 6 mg/dL (6-20); CALCIUM 8.3 mg/dL (8.5-10.3); CARBON DIOXIDE - CO2 26 mmol/L (21-32); CHLORIDE 105 mmol/L (101-111); CREATININE 0.5 mg/dL (0.4-1.0); GFR - MDRD 123 (>89); GLUCOSE 157 mg/dL (70-100); SODIUM 137 mmol/L (135-145); TOTAL PROTEIN 6.3 g/dL (6.7-8.2)
[2018-03-01 05:26] LABS: ABNORMAL LYMPHS % (MANUAL) 0 %
[2018-03-01 05:30] LABS: DIGOXIN 0.5 ng/mL; MAGNESIUM 1.6 mg/dL (1.7-2.8); PHOSPHORUS 2.9 mg/dL (2.5-4.6)
[2018-03-01 05:48] LABS: VBG PH 7.402 (7.31-7.41)
[2018-03-01 05:52] LABS: BAND NEUTROPHILS % (MANUAL) 4 %; EOSINOPHILS # (MANUAL) 0.1 10^3/uL (0-0.7); LYMPHOCYTES # (MANUAL) 0.9 10^3/uL (1.5-3.5); LYMPHOCYTES % (MANUAL) 6 %; MONOCYTES # (MANUAL) 0.9 10^3/uL (0.0-1.0); NEUTROPHILS # (MANUAL) 4.3 10^3/uL (1.5-6.6); NEUTROPHILS % (MANUAL) 65 %
[2018-03-01 05:53] LABS: DIFFERENTIAL COMMENT MANUAL DIFFERENTIAL; PLATELET ESTIMATE, MANUAL DECREASED (<130,000) (NORMAL); PLATELET MORPHOLOGY NORMAL APPEARANCE (NORMAL); RBC MORPHOLOGY (MULTIPLE) 1+ POLYCHROMASIA (NORMAL)
[2018-03-01] MEDS: PANTOPRAZOLE 40 MG TABLET PO SCH (06:53)
[2018-03-01] MEDS: SODIUM CHLORIDE FLUSH 0.9% 10 ML SYRINGE IVP SCH ×3 (06:54→17:04)
[2018-03-01] MEDS: INSULIN ASPART 300 UNIT/3 ML PEN SUBQ SCH ×4 (07:58→21:06)
[2018-03-01] MEDS ORDERED: FUROSEMIDE 40 MG/4 ML VIAL IVP STA (08:01)
[2018-03-01] MEDS: SACCHAROMYCES BOULARDII 250 MG CAPSULE PO SCH ×2 (08:30→17:05)
[2018-03-01] MEDS: POTASSIUM CHLORIDE 10 MEQ CAPSULE PO SCH (08:30)
[2018-03-01] MEDS: glipiZIDE 5 MG TABLET PO SCH (08:31)
[2018-03-01] MEDS: DIGOXIN 125 MCG TABLET PO SCH (08:31)
[2018-03-01] MEDS: CIPROFLOXACIN 250 MG TABLET PO SCH ×2 (08:31→21:00)
[2018-03-01] MEDS: DULoxetine 30 MG CAPSULE PO SCH ×2 (08:31→21:02)
[2018-03-01] MEDS: METOPROLOL SUCCINATE 25 MG TABLET PO SCH (08:32)
[2018-03-01] MEDS: WARFARIN 5 MG TABLET PO SCH (08:32)
--- NOTE | 2018-03-01 19:08 | PROVIDER PROGRESS NOTE ---
Assessment/Plan - Problem List (1) Pleural effusion, right Assessment/Plan: We were unable to wean the patient off of oxygen Therefore a chest x-ray was ordered yesterday which revealed a right pleural effusion. Patient states that she has had right pleural effusion in the past and underwent a thoracentesis. The patient did undergo cytology on the pleural fluid in October 2017 which revealed mixed inflammatory cells with histocyte predominance but was negative for malignant cells. The patient had 2100 mL was removed at that time. The patient appears to have reaccumulation of the right pleural effusion This may be secondary to fluid overload as the patient presented with septic shock and was given large amount of fluid resuscitation For now the patient will be given IV Lasix We will repeat the x-ray tomorrow morning If the patient has persistence of large right pleural effusion then we will need to consider a repeat thoracentesis for therapeutic purposes Currently the patient remains hypoxic requiring 2 L of oxygen The cause of the pleural effusion does not appear to be infectious likely it is from fluid overload but may also have to do with the patient's cirrhosis (2) Septic shock Assessment/Plan: Resolved (3) Bacteremia due to Streptococcus Assessment/Plan: Patient's initial blood cultures growing beta-hemolytic strep group A which is likely source of septic shock. The likely source of the infection is left lower extremity cellulitis. Plan: Pateint was on IV unasyn but cx showed patient is susceptible to cipro but patient had allergy in past to levaquin which she states was upset stomach. 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 This time patient presents with septic shock and bacteremia with beta hemolytic group A strep. Likely source is the left lower extremity cellulitis. The patient has erythema, swelling, warmth of the left lower extremity. Cellulitis is improving Plan: Pateint was on IV unasyn but cx showed patient is susceptible to cipro but patient had allergy in past to levaquin which she states was upset stomach. Since cipro has the same bioavailability PO and IV will switched patient to PO cipro she is tolerating well and will continue PO cipro for 14 days to complete treatment for bacteremia Cellulitis is improving slowly will likely need wound care at discharge (5) Atrial Fibrillation with RVR: Assessment/Plan: HR controlled this morning after a fib RVR most of the day yesterday Back in sinus rhythm On PO metoprolol and digoxin Tele Echo unchanged from previous with normal EF, LVH and no wall motion abnormalities TSH and trop negative CHADS2 score of 2 will started patient on coumadin Monitor INR (6) BARON (acute kidney injury) Assessment/Plan: Resolved (7) DM2 (diabetes mellitus, type 2) Qualifiers: Diabetes mellitus alf insulin use: unspecified alf insulin use status 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 Patient placed on sliding scale insulin and Lantus 12 unit along with glipizide , diabetic diet and blood glucose checks before meals at bedtime. Patient's hemoglobin A1c is 10.6 BG stable - Current Meds Current Meds: Current Medications Generic Name Dose Route Start Last Admin Trade Name Freq PRN Reason Stop Dose Admin Acetaminophen 650 mg 02/24/18 16:44 02/28/18 20:49 Tylenol PO 650 mg Q4HR PRN Administration Pain or Fever > 38C (100.4F) Ciprofloxacin 750 mg 02/28/18 08:00 03/01/18 08:31 Cipro PO 750 mg BID JASWANT Administration Digoxin 125 mcg 02/28/18 08:00 03/01/18 08:31 Lanoxin PO 125 mcg DAILY JASWANT Administration Duloxetine HCl 30 mg 02/25/18 09:00 03/01/18 08:31 Cymbalta PO 30 mg DAILY JASWANT Administration Duloxetine HCl 60 mg 02/24/18 21:00 02/28/18 20:52 Cymbalta PO 60 mg QPM JASWANT Administration Glipizide 5 mg 02/25/18 09:00 03/01/18 08:31 Glucotrol PO 5 mg DAILY JASWANT Administration Heparin Sodium (Beef Lung) 30 - 50 unit 02/25/18 18:17 02/28/18 05:29 IVP 50 unit PRN PRN Administration Central Line Protocol (<24 hr) Insulin Aspart 2 - 10 unit 02/25/18 17:00 03/01/18 17:03 Novolog SUBQ 2 unit 0800,1200,1700,2100 JASWANT Administration Protocol Insulin Glargine 12 unit 02/25/18 16:00 02/28/18 20:54 Lantus Solostar SUBQ 12 unit QPM JASWANT Administration Metoprolol Succinate 25 mg 02/27/18 12:00 03/01/18 08:32 Toprol Xl PO 25 mg DAILY JASWANT Administration Metoprolol Tartrate 5 mg 02/26/18 00:56 02/27/18 07:35 Lopressor Inj IVP 5 mg Q6H PRN Administration HR>100 for more than 5 min Mineral Oil 1 applic 02/25/18 11:15 02/25/18 12:55 Cavilon TOP 1 applic PRN PRN Administration Skin Care Pantoprazole Sodium 40 mg 03/01/18 07:00 03/01/18 06:53 Protonix PO 40 mg QDAC JASWANT Administration (Melatonin [ 1 each 02/25/18 21:00 02/28/18 21:58 Melatonin] 3 Mg) Tab PO Not Given QPM JASWANT Petrolatum 5 gm 02/28/18 08:52 02/28/18 10:25 Vaseline TOP 5 gm PRN PRN Administration Dry Lips Potassium Chloride 10 meq 02/25/18 08:00 03/01/18 08:30 Micro-K PO 10 meq DAILYWM JASWANT Administration Ropinirole HCl 0.25 mg 02/24/18 21:00 02/28/18 20:51 Requip PO 0.25 mg QPM JASWANT Administration Saccharomyces Boulardii 250 mg 02/25/18 13:00 03/01/18 17:05 Florastor PO 250 mg BIDWM JASWANT Administration Sodium Chloride 10 ml 02/24/18 17:00 03/01/18 17:04 Normal Saline Flush 0.9% IVP 10 ml 0100,0900,1700 JASWANT Administration Sodium Chloride 10 ml 02/24/18 16:44 02/28/18 07:56 Normal Saline Flush 0.9% IVP 30 ml PRN PRN Administration NEEDED PER PROVIDER ORDERS Temazepam 15 mg 02/24/18 21:30 02/25/18 00:34 Restoril PO 15 mg QPM PRN Administration Insomnia Warfarin Sodium 5 mg 02/28/18 08:00 03/01/18 08:32 Coumadin PO 5 mg DAILY JASWANT Administration - Lab Result Lab results reviewed: Yes Fish Bone Diagrams: 03/01/18 04:35 03/01/18 04:35 - Diagnostic Imaging Results Diagnostic Imaging Results: Final report reviewed - Additional Planning Condition/Complexity: Guarded My Orders: My Active Orders 03/01/18 07:00 Pantoprazole [Protonix] 40 mg PO QDAC 03/01/18 19:04 Fluid Restriction [RC] ONCE 03/02/18 05:00 CBC - COMP BLD CT W/AUTO DIFF [HEME] DAILYLAB CMP, RFLX TO IONIZED CA IF [CHEM] DAILYLAB DIGOXIN [CHEM] DAILYLAB MAGNESIUM [CHEM] DAILYLAB PHOSPHORUS [CHEM] DAILYLAB 03/02/18 09:00 Chest 1 View X-Ray [XR] DAILY Plan Discussed with:: Patient, Family Time Spent: 31-60 minutes Subjective - Subjective Patient Reports: Fatigue, Shortness of Breath (With minimal exertion), Other ( Patient still weak but able to ambulate with little assistance. She continues to have swelling in her left lower extremity. With erythema.) Nursing Reports: No Complaints Objective Vital Signs: Vital Signs - 24 hr 02/28/18 03/01/18 03/01/18 23:49 05:00 09:00 Temperature 36.9 C 36.9 C 37.2 C Heart Rate [ 90 67 97 Monitoring electrodes] Respiratory 24 20 21 Rate Blood Pressure 144/74 H 131/43 H 129/65 [Left Brachial artery] O2 Saturation 92 93 95 03/01/18 03/01/18 15:37 18:00 Temperature 37.2 C 37.1 C Heart Rate [ 97 86 Monitoring electrodes] Respiratory 26 H 26 H Rate Blood Pressure 125/50 L 143/62 H [Left Brachial artery] O2 Saturation 92 95 Oxygen O2 Source Nasal cannula I&O (Last 24 Hrs): Intake and Output Totals x24h 02/27/18 02/28/18 03/01/18 23:59 23:59 23:59 Intake Total 5702.5 2729.5 1800 Output Total 3425 3325 4075 Balance 2277.5 -595.5 -2275 General: Alert, Oriented x3, Cooperative, Mild distress (respiratory) HEENT: Atraumatic, PERRLA, EOMI, Mucous membr. moist/pink Neck: Supple, No JVD, No thyromegaly, +2 carotid pulse wo bruit, No LAD Lymphatic: no adenopathy Neuro: Alert, Non Focal, CN 2-12 Grossly Intact, Oriented Times 3 Cardiovascular: No murmurs, Other (Irregularly, irregular) Respiratory: Chest non-tender, Rales (Bilaterally long term up the lung) Abdomen: Normal bowel sounds, Soft, No tenderness, No hepatospenomegaly Extremities: No clubbing, No cyanosis, Other (Left lower extremity with erythema , swelling, tenderness and warmth consistent with cellulitis mildly improved) Comments/Notes: Cellulitis as above mildly improved - Results Results: Laboratory Results WBC 6.3 x10^3/uL (4.8-10.8) 03/01/18 04:35 RBC 3.62 10^6/uL (4.20-5.40) L 03/01/18 04:35 Hgb 11.8 g/dL (12.0-16.0) L 03/01/18 04:35 Hct 35.9 % (37.0-47.0) L 03/01/18 04:35 MCV 99.2 fL (81.0-99.0) H 03/01/18 04:35 MCH 32.7 pg (27.0-31.0) H 03/01/18 04:35 MCHC 32.9 g/dL (32.0-36.0) 03/01/18 04:35 RDW 16.1 % (12.0-15.0) H 03/01/18 04:35 Plt Count 61 10^3/uL (130-450) L 03/01/18 04:35 MPV 9.4 fL (7.9-10.8) 03/01/18 04:35 Neut # Not Reportable 03/01/18 04:35 Lymph # Not Reportable 03/01/18 04:35 Clay # Not Reportable 03/01/18 04:35 Eos # Not Reportable 03/01/18 04:35 Baso # Not Reportable 03/01/18 04:35 Absolute Nucleated RBC Not Reportable 03/01/18 04:35 Total Counted 100 03/01/18 04:35 Band Neuts % (Manual) 4 % (0-10) 03/01/18 04:35 Reactive Lymphs % (Man) 9 % 03/01/18 04:35 Abnorm Lymph % (Manual) 0 % 03/01/18 04:35 Nucleated RBC % Not Reportable 03/01/18 04:35 Neutrophils # (Manual) 4.3 10^3/uL (1.5-6.6) 03/01/18 04:35 Lymphocytes # (Manual) 0.9 10^3/uL (1.5-3.5) L 03/01/18 04:35 Monocytes # (Manual) 0.9 10^3/uL (0.0-1.0) 03/01/18 04:35 Eosinophils # (Manual) 0.1 10^3/uL (0-0.7) 03/01/18 04:35 Basophils # (Manual) 0.0 10^3/uL (0-0.1) 03/01/18 04:35 Differential Comment MANUAL DIFFERENTIAL 03/01/18 04:35 Manual Slide Review Indicated 02/25/18 04:26 Platelet Estimate DECREASED (<130,000) (NORMAL) 03/01/18 04:35 Platelet Morphology NORMAL APPEARANCE (NORMAL) 03/01/18 04:35 RBC Morph Micro Appear 1+ POLYCHROMASIA (NORMAL) 03/01/18 04:35 PT 14.5 secs (9.9-12.6) H 03/01/18 04:35 INR 1.3 (0.8-1.2) H 03/01/18 04:35 VBG pH 7.402 (7.31-7.41) 03/01/18 04:35 Ionized Calcium 1.11 mmol/L (1.15-1.33) L 03/01/18 04:35 Sodium 137 mmol/L (135-145) 03/01/18 04:35 Potassium 3.5 mmol/L (3.5-5.0) 03/01/18 04:35 Chloride 105 mmol/L (101-111) 03/01/18 04:35 Carbon Dioxide 26 mmol/L (21-32) 03/01/18 04:35 Anion Gap 6.0 (6-13) 03/01/18 04:35 BUN 6 mg/dL (6-20) 03/01/18 04:35 Creatinine 0.5 mg/dL (0.4-1.0) 03/01/18 04:35 Estimated GFR (MDRD) 123 (>89) 03/01/18 04:35 Glucose 157 mg/dL (70-100) H 03/01/18 04:35 POC Whole Bld Glucose 150 mg/dL (70 - 100) H 03/01/18 16:43 Glycated Hemoglobin 10.6 % (4.6-6.2) H 02/25/18 04:26 Estim Average Glucose 258 (70-100) H 02/25/18 04:26 Lactic Acid 1.8 mmol/L (0.5-2.2) 02/26/18 05:50 Calcium 8.3 mg/dL (8.5-10.3) L 03/01/18 04:35 Ionized Calcium YES 03/01/18 04:35 Phosphorus 2.9 mg/dL (2.5-4.6) 03/01/18 04:35 Magnesium 1.6 mg/dL (1.7-2.8) L 03/01/18 04:35 Total Bilirubin 1.7 mg/dL (0.2-1.0) H 03/01/18 04:35 AST 34 IU/L (10-42) 03/01/18 04:35 ALT 17 IU/L (10-60) 03/01/18 04:35 Alkaline Phosphatase 113 IU/L (42-121) 03/01/18 04:35 Troponin I < 0.04 ng/mL (<0.49) 02/26/18 01:10 Total Protein 6.3 g/dL (6.7-8.2) L 03/01/18 04:35 Albumin 2.2 g/dL (3.2-5.5) L 03/01/18 04:35 Globulin 4.1 g/dL (2.1-4.2) 03/01/18 04:35 Albumin/Globulin Ratio 0.5 (1.0-2.2) L 03/01/18 04:35 Lipase 24 U/L (22-51) 02/24/18 13:35 TSH 4.97 uIU/mL (0.34-5.60) 02/26/18 05:50 Urine Color DARK YELLOW 02/24/18 14:31 Urine Clarity CLEAR (CLEAR) 02/24/18 14:31 Urine pH 5.5 PH (5.0-7.5) 02/24/18 14:31 Ur Specific [place] >=1.030 (1.002-1.030) H 02/24/18 14:31 Urine Protein 30 mg/dL (NEGATIVE) H 02/24/18 14:31 Urine Glucose (UA) 100 mg/dL (NEGATIVE) H 02/24/18 14:31 Urine Ketones TRACE mg/dL (NEGATIVE) 02/24/18 14:31 Urine Occult Blood MODERATE (NEGATIVE) H 02/24/18 14:31 Urine Nitrite POSITIVE (NEGATIVE) H 02/24/18 14:31 Urine Bilirubin NEGATIVE (NEGATIVE) 02/24/18 14:31 Urine Urobilinogen 2 E.U./dL (NORMAL) H 02/24/18 14:31 Ur Leukocyte Esterase NEGATIVE (NEGATIVE) 02/24/18 14:31 Urine RBC 0-5 /HPF (0-5) 02/24/18 14:31 Urine WBC 0-3 /HPF (0-5) 02/24/18 14:31 Ur Squamous Epith Cells FEW Squamous (<= Few) 02/24/18 14:31 Amorphous Sediment Few /LPF 02/24/18 14:31 Urine Bacteria Many /HPF (None Seen) H 02/24/18 14:31 Ur Microscopic Review INDICATED 02/24/18 14:31 Urine Culture Comments INDICATED 02/24/18 14:31 Last Dose Date 03/01/18 03/01/18 04:35 Last Dose Time 0900 03/01/18 04:35 Digoxin 0.5 ng/mL 03/01/18 04:35 - Procedures Procedures: Procedures DRAINAGE OF RIGHT PLEURAL CAVITY, PERCUTANEOUS APPROACH (11/14/17) ABX Reporting Has patient been on IV antibiotics over the past 48 hours?: No
[2018-03-01] MEDS: rOPINIRole 0.25 MG TABLET PO SCH (21:00)
[2018-03-01] MEDS: INSULIN GLARGINE 300 UNIT/3 ML PEN SUBQ SCH (21:06)
[2018-03-02] MEDS: SODIUM CHLORIDE FLUSH 0.9% 10 ML SYRINGE IVP SCH ×3 (01:45→15:52)
[2018-03-02 05:20] LABS: BASOPHILS % (AUTO) 0.4 %; EOSINOPHILS # (AUTO) 0.2 10^3/uL (0.0-0.7); EOSINOPHILS % (AUTO) 2.7 %; HGB - HEMOGLOBIN 11.6 g/dL (12.0-16.0); LYMPHOCYTES # (AUTO) 1.6 10^3/uL (1.5-3.5); LYMPHOCYTES % (AUTO) 22.7 %; MEAN CORPUSCULAR HEMOGLOBIN 32.7 pg (27.0-31.0); MEAN CORPUSCULAR HGB CONC 33.1 g/dL (32.0-36.0); MEAN CORPUSCULAR VOLUME 98.6 fL (81.0-99.0); MEAN PLATELET VOLUME 8.6 fL (7.9-10.8); MONOCYTES # (AUTO) 0.7 10^3/uL (0.0-1.0); MONOCYTES % (AUTO) 10.1 %; NEUTROPHILS # (AUTO) 4.4 10^3/uL (1.5-6.6); NEUTROPHILS % (AUTO) 64.1 %; PLT - PLATELET COUNT 64 10^3/uL (130-450); RED BLOOD COUNT 3.55 10^6/uL (4.20-5.40); RED CELL DISTRIBUTION WIDTH 15.7 % (12.0-15.0); WHITE BLOOD COUNT 6.9 x10^3/uL (4.8-10.8)
[2018-03-02 05:36] LABS: ALBUMIN 2.1 g/dL (3.2-5.5); ALBUMIN/GLOBULIN RATIO 0.5 (1.0-2.2); ALKALINE PHOSPHATASE 114 IU/L (42-121); ALT ALANINE AMINOTRANSFERASE 17 IU/L (10-60); AST ASPARTATE AMINOTRANSFERASE 32 IU/L (10-42); BILIRUBIN,TOTAL 1.9 mg/dL (0.2-1.0); BUN - BLOOD UREA NITROGEN 5 mg/dL (6-20); CALCIUM 8.1 mg/dL (8.5-10.3); CARBON DIOXIDE - CO2 27 mmol/L (21-32); CHLORIDE 101 mmol/L (101-111); CREATININE 0.5 mg/dL (0.4-1.0); GFR - MDRD 123 (>89); GLUCOSE 125 mg/dL (70-100); SODIUM 136 mmol/L (135-145)
[2018-03-02 05:39] LABS: DIGOXIN 0.3 ng/mL; MAGNESIUM 1.6 mg/dL (1.7-2.8); PHOSPHORUS 2.7 mg/dL (2.5-4.6)
[2018-03-02 05:48] LABS: VBG PH 7.447 (7.31-7.41)
[2018-03-02] MEDS ORDERED: POTASSIUM CHLORIDE 20 MEQ TABLET PO ONE (07:13)
[2018-03-02] MEDS: PANTOPRAZOLE 40 MG TABLET PO SCH (08:27)
[2018-03-02] MEDS: INSULIN ASPART 300 UNIT/3 ML PEN SUBQ SCH ×4 (08:27→21:27)
[2018-03-02] MEDS: glipiZIDE 5 MG TABLET PO SCH (08:28)
[2018-03-02] MEDS: DIGOXIN 125 MCG TABLET PO SCH (08:28)
[2018-03-02] MEDS: METOPROLOL SUCCINATE 25 MG TABLET PO SCH (08:28)
[2018-03-02] MEDS: WARFARIN 5 MG TABLET PO SCH (08:29)
[2018-03-02] MEDS: DULoxetine 30 MG CAPSULE PO SCH ×2 (08:29→21:21)
[2018-03-02] MEDS: SACCHAROMYCES BOULARDII 250 MG CAPSULE PO SCH ×2 (08:29→15:52)
[2018-03-02] MEDS: POTASSIUM CHLORIDE 10 MEQ CAPSULE PO SCH (08:29)
[2018-03-02] MEDS: CIPROFLOXACIN 250 MG TABLET PO SCH ×2 (08:29→21:20)
--- NOTE | 2018-03-02 10:07 | XRAY Report ---
EXAM: CHEST RADIOGRAPHY ONE VIEW EXAM DATE: 03/02/2018. CLINICAL HISTORY: Re-evaluate right pleural effusion. COMPARISON: 02/28/2018 at 1306. TECHNIQUE: AP upright portable chest at 0948. FINDINGS: Lungs/Pleura: Large right pleural effusion is slightly larger than on the prior examination. No left pleural effusion. The left lung is clear. Normal vasculature. No pneumothorax. Mediastinum: The visualized cardiac and mediastinal contours are normal. Bones: No acute abnormality evident. IMPRESSION: Large right pleural effusion is slightly larger than on 02/28/2018. No other new abnormal ity. [facility] Referring Provider Line: [phone] SITE ID: [id number]
[2018-03-02] MEDS: MAGNESIUM OXIDE 400 MG TABLET PO SCH (12:24)
--- NOTE | 2018-03-02 17:59 | PROVIDER PROGRESS NOTE ---
Assessment/Plan - Problem List (1) Pleural effusion, right Assessment/Plan: We were unable to wean the patient off of oxygen Therefore a chest x-ray was ordered which revealed a right pleural effusion. Patient states that she has had right pleural effusion in the past and underwent a thoracentesis. The patient did undergo cytology on the pleural fluid in October 2017 which revealed mixed inflammatory cells with histocyte predominance but was negative for malignant cells. The patient had 2100 mL was removed at that time. The patient appears to have reaccumulation of the right pleural effusion This may be secondary to fluid overload as the patient presented with septic shock and was given large amount of fluid resuscitation Patient given IV lasix with good output but CXR today shows worsening pleural effusion Will order IR guided thoracentesis for tomorrow to do therapeutic removal of pleural fluid Currently the patient remains hypoxic requiring 2 L of oxygen The cause of the pleural effusion does not appear to be infectious likely it is from fluid overload but may also have to do with the patient's cirrhosis (2) Septic shock Assessment/Plan: Resolved (3) Bacteremia due to Streptococcus Assessment/Plan: Patient's initial blood cultures growing beta-hemolytic strep group A which is likely source of septic shock. The likely source of the infection is left lower extremity cellulitis. Plan: Pateint was on IV unasyn but cx showed patient is susceptible to cipro but patient had allergy in past to levaquin which she states was upset stomach. 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 This time patient presents with septic shock and bacteremia with beta hemolytic group A strep. Likely source is the left lower extremity cellulitis. The patient has erythema, swelling, warmth of the left lower extremity. Cellulitis is improving Plan: Pateint was on IV unasyn but cx showed patient is susceptible to cipro but patient had allergy in past to levaquin which she states was upset stomach. Since cipro has the same bioavailability PO and IV will switched patient to PO cipro she is tolerating well and will continue PO cipro for 14 days to complete treatment for bacteremia Cellulitis is improving slowly will likely need wound care at discharge (5) Atrial Fibrillation with RVR: Assessment/Plan: HR controlled this morning after a fib RVR most of the day yesterday Back in sinus rhythm On PO metoprolol and digoxin Tele Echo unchanged from previous with normal EF, LVH and no wall motion abnormalities TSH and trop negative CHADS2 score of 2 will started patient on coumadin Monitor INR (6) BARON (acute kidney injury) Assessment/Plan: Resolved (7) DM2 (diabetes mellitus, type 2) Qualifiers: Diabetes 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 Patient placed on sliding scale insulin and Lantus 12 unit along with glipizide , diabetic diet and blood glucose checks before meals at bedtime. Patient's hemoglobin A1c is 10.6 BG stable - Current Meds Current Meds: Current Medications Generic Name Dose Route Start Last Admin Trade Name Freq PRN Reason Stop Dose Admin Acetaminophen 650 mg 02/24/18 16:44 02/28/18 20:49 Tylenol PO 650 mg Q4HR PRN Administration Pain or Fever > 38C (100.4F) Ciprofloxacin 750 mg 02/28/18 08:00 03/02/18 08:29 Cipro PO 750 mg BID JASWANT Administration Digoxin 125 mcg 02/28/18 08:00 03/02/18 08:28 Lanoxin PO 125 mcg DAILY JASWANT Administration Duloxetine HCl 30 mg 02/25/18 09:00 03/02/18 08:29 Cymbalta PO 30 mg DAILY JASWANT Administration Duloxetine HCl 60 mg 02/24/18 21:00 03/01/18 21:02 Cymbalta PO 60 mg QPM JASWANT Administration Glipizide 5 mg 02/25/18 09:00 03/02/18 08:28 Glucotrol PO 5 mg DAILY JASWANT Administration Heparin Sodium (Beef Lung) 30 - 50 unit 02/25/18 18:17 02/28/18 05:29 IVP 50 unit PRN PRN Administration Central Line Protocol (<24 hr) Insulin Aspart 2 - 10 unit 02/25/18 17:00 03/02/18 16:31 Novolog SUBQ 4 unit 0800,1200,1700,2100 JASWANT Administration Protocol Insulin Glargine 12 unit 02/25/18 16:00 03/01/18 21:06 Lantus Solostar SUBQ 12 unit QPM JASWANT Administration Magnesium Oxide 400 mg 03/02/18 12:00 03/02/18 12:24 Mag Ox PO 400 mg 1200 JASWANT Administration Metoprolol Succinate 25 mg 02/27/18 12:00 03/02/18 08:28 Toprol Xl PO 25 mg DAILY JASWANT Administration Metoprolol Tartrate 5 mg 02/26/18 00:56 02/27/18 07:35 Lopressor Inj IVP 5 mg Q6H PRN Administration HR>100 for more than 5 min Mineral Oil 1 applic 02/25/18 11:15 02/25/18 12:55 Cavilon TOP 1 applic PRN PRN Administration Skin Care Pantoprazole Sodium 40 mg 03/01/18 07:00 03/02/18 08:27 Protonix PO 40 mg QDAC JASWANT Administration (Melatonin [ 1 each 02/25/18 21:00 03/01/18 21:34 Melatonin] 3 Mg) Tab PO Not Given QPM JASWANT Petrolatum 5 gm 02/28/18 08:52 02/28/18 10:25 Vaseline TOP 5 gm PRN PRN Administration Dry Lips Ropinirole HCl 0.25 mg 02/24/18 21:00 03/01/18 21:00 Requip PO 0.25 mg QPM JASWANT Administration Saccharomyces Boulardii 250 mg 02/25/18 13:00 03/02/18 15:52 Florastor PO 250 mg BIDWM JASWANT Administration Sodium Chloride 10 ml 02/24/18 17:00 03/02/18 15:52 Normal Saline Flush 0.9% IVP 10 ml 0100,0900,1700 JASWANT Administration Sodium Chloride 10 ml 02/24/18 16:44 02/28/18 07:56 Normal Saline Flush 0.9% IVP 30 ml PRN PRN Administration NEEDED PER PROVIDER ORDERS Temazepam 15 mg 02/24/18 21:30 02/25/18 00:34 Restoril PO 15 mg QPM PRN Administration Insomnia Warfarin Sodium 5 mg 02/28/18 08:00 03/02/18 08:29 Coumadin PO 5 mg DAILY JASWANT Administration - Lab Result Lab results reviewed: Yes Fish Bone Diagrams: 03/02/18 04:40 03/02/18 04:40 - Diagnostic Imaging Results Diagnostic Imaging Results: Final report reviewed - Additional Planning Condition/Complexity: Guarded My Orders: My Active Orders 03/01/18 19:04 Fluid Restriction [RC] ONCE 03/02/18 12:00 Magnesium Oxide [Mag Ox] 400 mg PO 1200 03/03/18 08:00 Thoracentesis Puncture [US] Routine CELL COUNT, BF [BF] Routine CUL, ANAEROBIC (QUEST) [REFLAB] Routine Potassium Chloride [K-Dur] 40 meq PO DAILYWM Plan Discussed with:: Patient Time Spent: 31-60 minutes Subjective - Subjective Patient Reports: Resting Comfortably, Shortness of Breath (Improved), Other ( She feels weak, continues to have redness and swelling of the left lower extremity.) Nursing Reports: No Complaints Objective Vital Signs: Vital Signs - 24 hr 03/01/18 03/01/18 03/02/18 18:00 21:00 01:05 Temperature 37.1 C 37.0 C 36.9 C Heart Rate [ Brachial] Heart Rate [ 86 92 93 Monitoring electrodes] Respiratory 26 H 28 H 24 Rate Blood Pressure 143/62 H 125/44 L 124/40 L [Left Brachial artery] Blood Pressure [Right Brachial artery] O2 Saturation 95 92 92 03/02/18 03/02/18 03/02/18 05:00 09:43 11:36 Temperature 36.9 C Heart Rate [ Brachial] Heart Rate [ 86 88 83 Monitoring electrodes] Respiratory 25 H 25 H 24 Rate Blood Pressure 137/52 H [Left Brachial artery] Blood Pressure [Right Brachial artery] O2 Saturation 3 L 98 98 03/02/18 03/02/18 13:00 15:38 Temperature 97.0 C H 37.1 C Heart Rate [ 82 Brachial] Heart Rate [ 83 Monitoring electrodes] Respiratory 17 24 Rate Blood Pressure [Left Brachial artery] Blood Pressure 137/45 H 137/46 H [Right Brachial artery] O2 Saturation 96 94 Oxygen O2 Source Nasal cannula I&O (Last 24 Hrs): Intake and Output Totals x24h 02/28/18 03/01/18 03/02/18 23:59 23:59 23:59 Intake Total 2729.5 1850 630 Output Total 3325 4725 550 Balance -595.5 -2875 80 General: Alert, Oriented x3, Cooperative, No acute distress HEENT: Atraumatic, PERRLA, EOMI Neck: Supple, No JVD, No thyromegaly, +2 carotid pulse wo bruit, No LAD Lymphatic: no adenopathy Neuro: Alert, CN 2-12 Grossly Intact, Oriented Times 3 Cardiovascular: No murmurs, Other (Irregularly irregular) Respiratory: Chest non-tender, Rales (Right lung throughout) Extremities: No clubbing, No cyanosis, Other (Left lower extremity with continued redness, swelling and drainage from leg.) Comments/Notes: Redness and swelling of left lower extremity only mildly improved - Results Results: Laboratory Results WBC 6.9 x10^3/uL (4.8-10.8) 03/02/18 04:40 RBC 3.55 10^6/uL (4.20-5.40) L 03/02/18 04:40 Hgb 11.6 g/dL (12.0-16.0) L 03/02/18 04:40 Hct 35.0 % (37.0-47.0) L 03/02/18 04:40 MCV 98.6 fL (81.0-99.0) 03/02/18 04:40 MCH 32.7 pg (27.0-31.0) H 03/02/18 04:40 MCHC 33.1 g/dL (32.0-36.0) 03/02/18 04:40 RDW 15.7 % (12.0-15.0) H 03/02/18 04:40 Plt Count 64 10^3/uL (130-450) L 03/02/18 04:40 MPV 8.6 fL (7.9-10.8) 03/02/18 04:40 Neut # 4.4 10^3/uL (1.5-6.6) 03/02/18 04:40 Lymph # 1.6 10^3/uL (1.5-3.5) 03/02/18 04:40 Bailey # 0.7 10^3/uL (0.0-1.0) 03/02/18 04:40 Eos # 0.2 10^3/uL (0.0-0.7) 03/02/18 04:40 Baso # 0.0 10^3/uL (0.0-0.1) 03/02/18 04:40 Absolute Nucleated RBC 0.00 x10^3/uL 03/02/18 04:40 Total Counted 100 03/01/18 04:35 Band Neuts % (Manual) 4 % (0-10) 03/01/18 04:35 Reactive Lymphs % (Man) 9 % 03/01/18 04:35 Abnorm Lymph % (Manual) 0 % 03/01/18 04:35 Nucleated RBC % 0.0 /100WBC 03/02/18 04:40 Neutrophils # (Manual) 4.3 10^3/uL (1.5-6.6) 03/01/18 04:35 Lymphocytes # (Manual) 0.9 10^3/uL (1.5-3.5) L 03/01/18 04:35 Monocytes # (Manual) 0.9 10^3/uL (0.0-1.0) 03/01/18 04:35 Eosinophils # (Manual) 0.1 10^3/uL (0-0.7) 03/01/18 04:35 Basophils # (Manual) 0.0 10^3/uL (0-0.1) 03/01/18 04:35 Differential Comment MANUAL DIFFERENTIAL 03/01/18 04:35 Manual Slide Review Indicated 02/25/18 04:26 Platelet Estimate DECREASED (<130,000) (NORMAL) 03/01/18 04:35 Platelet Morphology NORMAL APPEARANCE (NORMAL) 03/01/18 04:35 RBC Morph Micro Appear 1+ POLYCHROMASIA (NORMAL) 03/01/18 04:35 PT 14.5 secs (9.9-12.6) H 03/01/18 04:35 INR 1.3 (0.8-1.2) H 03/01/18 04:35 VBG pH 7.447 (7.31-7.41) H 03/02/18 04:40 Ionized Calcium 1.10 mmol/L (1.15-1.33) L 03/02/18 04:40 Sodium 136 mmol/L (135-145) 03/02/18 04:40 Potassium 3.2 mmol/L (3.5-5.0) L 03/02/18 04:40 Chloride 101 mmol/L (101-111) 03/02/18 04:40 Carbon Dioxide 27 mmol/L (21-32) 03/02/18 04:40 Anion Gap 8.0 (6-13) 03/02/18 04:40 BUN 5 mg/dL (6-20) L 03/02/18 04:40 Creatinine 0.5 mg/dL (0.4-1.0) 03/02/18 04:40 Estimated GFR (MDRD) 123 (>89) 03/02/18 04:40 Glucose 125 mg/dL (70-100) H 03/02/18 04:40 POC Whole Bld Glucose 179 mg/dL (70 - 100) H 03/02/18 11:24 Glycated Hemoglobin 10.6 % (4.6-6.2) H 02/25/18 04:26 Estim Average Glucose 258 (70-100) H 02/25/18 04:26 Lactic Acid 1.8 mmol/L (0.5-2.2) 02/26/18 05:50 Calcium 8.1 mg/dL (8.5-10.3) L 03/02/18 04:40 Ionized Calcium YES 03/02/18 04:40 Phosphorus 2.7 mg/dL (2.5-4.6) 03/02/18 04:40 Magnesium 1.6 mg/dL (1.7-2.8) L 03/02/18 04:40 Total Bilirubin 1.9 mg/dL (0.2-1.0) H 03/02/18 04:40 AST 32 IU/L (10-42) 03/02/18 04:40 ALT 17 IU/L (10-60) 03/02/18 04:40 Alkaline Phosphatase 114 IU/L (42-121) 03/02/18 04:40 Troponin I < 0.04 ng/mL (<0.49) 02/26/18 01:10 Total Protein 6.0 g/dL (6.7-8.2) L 03/02/18 04:40 Albumin 2.1 g/dL (3.2-5.5) L 03/02/18 04:40 Globulin 3.9 g/dL (2.1-4.2) 03/02/18 04:40 Albumin/Globulin Ratio 0.5 (1.0-2.2) L 03/02/18 04:40 Lipase 24 U/L (22-51) 02/24/18 13:35 TSH 4.97 uIU/mL (0.34-5.60) 02/26/18 05:50 Urine Color DARK YELLOW 02/24/18 14:31 Urine Clarity CLEAR (CLEAR) 02/24/18 14:31 Urine pH 5.5 PH (5.0-7.5) 02/24/18 14:31 Ur Specific [place] >=1.030 (1.002-1.030) H 02/24/18 14:31 Urine Protein 30 mg/dL (NEGATIVE) H 02/24/18 14:31 Urine Glucose (UA) 100 mg/dL (NEGATIVE) H 02/24/18 14:31 Urine Ketones TRACE mg/dL (NEGATIVE) 02/24/18 14:31 Urine Occult Blood MODERATE (NEGATIVE) H 02/24/18 14:31 Urine Nitrite POSITIVE (NEGATIVE) H 02/24/18 14:31 Urine Bilirubin NEGATIVE (NEGATIVE) 02/24/18 14:31 Urine Urobilinogen 2 E.U./dL (NORMAL) H 02/24/18 14:31 Ur Leukocyte Esterase NEGATIVE (NEGATIVE) 02/24/18 14:31 Urine RBC 0-5 /HPF (0-5) 02/24/18 14:31 Urine WBC 0-3 /HPF (0-5) 02/24/18 14:31 Ur Squamous Epith Cells FEW Squamous (<= Few) 02/24/18 14:31 Amorphous Sediment Few /LPF 02/24/18 14:31 Urine Bacteria Many /HPF (None Seen) H 02/24/18 14:31 Ur Microscopic Review INDICATED 02/24/18 14:31 Urine Culture Comments INDICATED 02/24/18 14:31 Last Dose Date 03/02/18 03/02/18 04:40 Last Dose Time 0830 03/02/18 04:40 Digoxin 0.3 ng/mL 03/02/18 04:40 - Procedures Procedures: Procedures DRAINAGE OF RIGHT PLEURAL CAVITY, PERCUTANEOUS APPROACH (11/14/17) ABX Reporting Has patient been on IV antibiotics over the past 48 hours?: No
[2018-03-02] MEDS: rOPINIRole 0.25 MG TABLET PO SCH (21:21)
[2018-03-02] MEDS: INSULIN GLARGINE 300 UNIT/3 ML PEN SUBQ SCH (21:26)
[2018-03-03] MEDS: SODIUM CHLORIDE FLUSH 0.9% 10 ML SYRINGE IVP SCH ×3 (00:16→17:14)
[2018-03-03] MEDS: PANTOPRAZOLE 40 MG TABLET PO SCH (07:04)
[2018-03-03 07:41] LABS: INR 2.1 (0.8-1.2); PT - PROTHROMBIN TIME 22.9 secs (9.9-12.6)
[2018-03-03 07:45] LABS: BASOPHILS % (AUTO) 0.4 %; EOSINOPHILS # (AUTO) 0.2 10^3/uL (0.0-0.7); EOSINOPHILS % (AUTO) 2.4 %; HGB - HEMOGLOBIN 12.1 g/dL (12.0-16.0); LYMPHOCYTES # (AUTO) 1.5 10^3/uL (1.5-3.5); LYMPHOCYTES % (AUTO) 19.8 %; MEAN CORPUSCULAR HEMOGLOBIN 33.7 pg (27.0-31.0); MEAN CORPUSCULAR HGB CONC 34.1 g/dL (32.0-36.0); MEAN CORPUSCULAR VOLUME 98.7 fL (81.0-99.0); MEAN PLATELET VOLUME 8.8 fL (7.9-10.8); MONOCYTES # (AUTO) 0.6 10^3/uL (0.0-1.0); NEUTROPHILS # (AUTO) 5.3 10^3/uL (1.5-6.6); NEUTROPHILS % (AUTO) 69.4 %; PLT - PLATELET COUNT 73 10^3/uL (130-450); RED CELL DISTRIBUTION WIDTH 15.6 % (12.0-15.0); WHITE BLOOD COUNT 7.6 x10^3/uL (4.8-10.8)
[2018-03-03] MEDS ORDERED: POTASSIUM CHLORIDE 20 MEQ TABLET PO SCH (08:00)
[2018-03-03 08:16] LABS: ALBUMIN 2.1 g/dL (3.2-5.5); ALBUMIN/GLOBULIN RATIO 0.5 (1.0-2.2); ALKALINE PHOSPHATASE 112 IU/L (42-121); ALT ALANINE AMINOTRANSFERASE 15 IU/L (10-60); AST ASPARTATE AMINOTRANSFERASE 33 IU/L (10-42); BILIRUBIN,TOTAL 1.8 mg/dL (0.2-1.0); BUN - BLOOD UREA NITROGEN 5 mg/dL (6-20); CALCIUM 8.3 mg/dL (8.5-10.3); CARBON DIOXIDE - CO2 28 mmol/L (21-32); CHLORIDE 103 mmol/L (101-111); CREATININE 0.5 mg/dL (0.4-1.0); GFR - MDRD 123 (>89); GLUCOSE 92 mg/dL (70-100); MAGNESIUM 1.5 mg/dL (1.7-2.8); PHOSPHORUS 2.7 mg/dL (2.5-4.6); SODIUM 137 mmol/L (135-145); TOTAL PROTEIN 6.3 g/dL (6.7-8.2)
[2018-03-03] MEDS: ACETAMINOPHEN 325 MG TABLET PO PRN ×2 (08:16→14:17)
[2018-03-03 08:17] LABS: VBG PH 7.415 (7.31-7.41)
[2018-03-03] MEDS: INSULIN ASPART 300 UNIT/3 ML PEN SUBQ SCH ×3 (08:17→16:50)
[2018-03-03] MEDS: DULoxetine 30 MG CAPSULE PO SCH (08:18)
[2018-03-03] MEDS: DIGOXIN 125 MCG TABLET PO SCH (08:18)
[2018-03-03] MEDS: SACCHAROMYCES BOULARDII 250 MG CAPSULE PO SCH ×2 (08:18→17:14)
[2018-03-03] MEDS: glipiZIDE 5 MG TABLET PO SCH (08:18)
[2018-03-03] MEDS: CIPROFLOXACIN 250 MG TABLET PO SCH (08:18)
[2018-03-03] MEDS: METOPROLOL SUCCINATE 25 MG TABLET PO SCH (08:19)
[2018-03-03] MEDS ORDERED: POLYETHYLENE GLYCOL 3350 17 GM PACKET PO SCH (09:00)
[2018-03-03] MEDS: MAGNESIUM OXIDE 400 MG TABLET PO SCH (13:05)
[2018-03-03 13:51] LABS: INR 1.8 (0.8-1.2); PT - PROTHROMBIN TIME 20.1 secs (9.9-12.6)
[2018-03-03] MEDS ORDERED: PHYTONADIONE 10 MG/ML AMP PO SCH (14:34)
[2018-03-03] MEDS ORDERED: CHERRY SYRUP 10 ML UDC PO SCH (14:34)
--- NOTE | 2018-03-03 15:47 | PROVIDER PROGRESS NOTE ---
Assessment/Plan - Problem List (1) Pleural effusion, right Assessment/Plan: We were unable to wean the patient off of oxygen Therefore a chest x-ray was ordered which revealed a right pleural effusion. Patient states that she has had right pleural effusion in the past and underwent a thoracentesis. The patient did undergo cytology on the pleural fluid in October 2017 which revealed mixed inflammatory cells with histocyte predominance but was negative for malignant cells. The patient had 2100 mL was removed at that time. The patient appears to have reaccumulation of the right pleural effusion This may be secondary to fluid overload as the patient presented with septic shock and was given large amount of fluid resuscitation Patient given IV lasix with good output but CXR shows worsening pleural effusion IR guided thoracentesis today will give FFPs this am as INR is 2.1 and thoracentesis this afternoon Send pleural fluid for cell count and diff, LDH and Protein Currently the patient remains hypoxic requiring 2 L of oxygen The cause of the pleural effusion does not appear to be infectious likely it is from fluid overload but may also have to do with the patient's cirrhosis Patient will be monitored overnight and we will repeat CXR in the am Wean O2 after thoracentesis (2) Septic shock Assessment/Plan: Resolved (3) Bacteremia due to Streptococcus Assessment/Plan: Patient's initial blood cultures growing beta-hemolytic strep group A which is likely source of septic shock. The likely source of the infection is left lower extremity cellulitis. Plan: Pateint was on IV unasyn but cx showed patient is susceptible to cipro but patient had allergy in past to levaquin which she states was upset stomach. 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 This time patient presents with septic shock and bacteremia with beta hemolytic group A strep. Likely source is the left lower extremity cellulitis. The patient has erythema, swelling, warmth of the left lower extremity. Cellulitis is improving Plan: Pateint was on IV unasyn but cx showed patient is susceptible to cipro but patient had allergy in past to levaquin which she states was upset stomach. Since cipro has the same bioavailability PO and IV will switched patient to PO cipro she is tolerating well and will continue PO cipro for 14 days to complete treatment for bacteremia Cellulitis is improving but needs home health wound care which has been ordered Day 4 of 14 of cipro (5) Atrial Fibrillation with RVR: Assessment/Plan: Resolved Back in sinus rhythm On PO metoprolol and digoxin Tele Echo unchanged from previous with normal EF, LVH and no wall motion abnormalities TSH and trop negative CHADS2 score of 2 started patient on coumadin but held today for thoracentesis will restart tomorrow Monitor INR (6) BARON (acute kidney injury) Assessment/Plan: Resolved (7) DM2 (diabetes mellitus, type 2) Qualifiers: Diabetes mellitus assistant terminal manager insulin use: unspecified assistant terminal manager insulin use status 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 Patient placed on sliding scale insulin and Lantus 12 unit along with glipizide , diabetic diet and blood glucose checks before meals at bedtime. Patient's hemoglobin A1c is 10.6 BG stable - Current Meds Current Meds: Current Medications Generic Name Dose Route Start Last Admin Trade Name Freq PRN Reason Stop Dose Admin Acetaminophen 650 mg 02/24/18 16:44 03/03/18 14:17 Tylenol PO 650 mg Q4HR PRN Administration Pain or Fever > 38C (100.4F) Ciprofloxacin 750 mg 02/28/18 08:00 03/03/18 08:18 Cipro PO 750 mg BID JASWANT Administration Digoxin 125 mcg 02/28/18 08:00 03/03/18 08:18 Lanoxin PO 125 mcg DAILY JASWANT Administration Duloxetine HCl 30 mg 02/25/18 09:00 03/03/18 08:18 Cymbalta PO 30 mg DAILY JASWANT Administration Duloxetine HCl 60 mg 02/24/18 21:00 03/02/18 21:21 Cymbalta PO 60 mg QPM JASWANT Administration Glipizide 5 mg 02/25/18 09:00 03/03/18 08:18 Glucotrol PO 5 mg DAILY JASWANT Administration Heparin Sodium (Beef Lung) 30 - 50 unit 02/25/18 18:17 02/28/18 05:29 IVP 50 unit PRN PRN Administration Central Line Protocol (<24 hr) Insulin Aspart 2 - 10 unit 02/25/18 17:00 03/03/18 13:03 Novolog SUBQ 2 unit 0800,1200,1700,2100 JASWANT Administration Protocol Insulin Glargine 12 unit 02/25/18 16:00 03/02/18 21:26 Lantus Solostar SUBQ 12 unit QPM JASWANT Administration Magnesium Oxide 400 mg 03/02/18 12:00 03/03/18 13:05 Mag Ox PO 400 mg 1200 JASWANT Administration Metoprolol Succinate 25 mg 02/27/18 12:00 03/03/18 08:19 Toprol Xl PO 25 mg DAILY JASWANT Administration Metoprolol Tartrate 5 mg 02/26/18 00:56 02/27/18 07:35 Lopressor Inj IVP 5 mg Q6H PRN Administration HR>100 for more than 5 min Mineral Oil 1 applic 02/25/18 11:15 02/25/18 12:55 Cavilon TOP 1 applic PRN PRN Administration Skin Care Pantoprazole Sodium 40 mg 03/01/18 07:00 03/03/18 07:04 Protonix PO 40 mg QDAC JASWANT Administration (Melatonin [ 1 each 02/25/18 21:00 03/02/18 21:21 Melatonin] 3 Mg) Tab PO Not Given QPM JASWANT Petrolatum 5 gm 02/28/18 08:52 02/28/18 10:25 Vaseline TOP 5 gm PRN PRN Administration Dry Lips Polyethylene Glycol 17 gm 03/03/18 09:00 03/03/18 13:03 Miralax PO 17 gm DAILY JASWANT Administration Potassium Chloride 40 meq 03/03/18 08:00 03/03/18 08:18 K-Dur PO 40 meq DAILYWM JASWANT Administration Ropinirole HCl 0.25 mg 02/24/18 21:00 03/02/18 21:21 Requip PO 0.25 mg QPM JASWANT Administration Saccharomyces Boulardii 250 mg 02/25/18 13:00 03/03/18 08:18 Florastor PO 250 mg BIDWM JASWANT Administration Sodium Chloride 10 ml 02/24/18 17:00 03/03/18 08:19 Normal Saline Flush 0.9% IVP 10 ml 0100,0900,1700 JASWANT Administration Sodium Chloride 10 ml 02/24/18 16:44 02/28/18 07:56 Normal Saline Flush 0.9% IVP 30 ml PRN PRN Administration NEEDED PER PROVIDER ORDERS Temazepam 15 mg 02/24/18 21:30 02/25/18 00:34 Restoril PO 15 mg QPM PRN Administration Insomnia - Lab Result Lab results reviewed: Yes Fish Bone Diagrams: 03/03/18 07:25 03/03/18 07:25 - EKG Results EKG Interpreted Independently: Yes - Diagnostic Imaging Results Diagnostic Imaging Results: Final report reviewed - Additional Planning Condition/Complexity: Improved My Orders: My Active Orders 03/03/18 Home Health Referral [CONS] Routine 03/03/18 07:57 FRESH FROZEN PLASMA Stat TYPE AND SCREEN Stat 03/03/18 08:00 Thoracentesis Puncture [US] Routine CELL COUNT, BF [BF] Routine CUL, ANAEROBIC (QUEST) [REFLAB] Routine Potassium Chloride [K-Dur] 40 meq PO DAILYWM 03/03/18 09:00 Polyethylene Glycol 3350 [Miralax] 17 gm PO DAILY 03/03/18 Lunch Carb-controlled Diet [DIET] 03/04/18 09:00 Chest 1 View X-Ray [XR] DAILY 03/04/18 14:00 Warfarin [Coumadin] 5 mg PO QDWARFARIN Plan Discussed with:: Patient Time Spent: 31-60 minutes Subjective - Subjective Patient Reports: Feeling Better, Resting Comfortably, Other (Continues to have pain and swelling of left leg but it is improved.) Nursing Reports: No Complaints Objective Vital Signs: Vital Signs - 24 hr 03/02/18 03/02/18 03/03/18 15:38 20:20 01:00 Temperature 37.1 C 37.4 C 37.2 C Heart Rate Heart Rate [ 82 87 93 Brachial] Respiratory 24 24 16 Rate Blood Pressure Blood Pressure 137/46 H 124/41 L 144/62 H [Right Brachial artery] O2 Saturation 94 92 92 03/03/18 03/03/18 03/03/18 05:00 08:13 11:10 Temperature 37.0 C 36.8 C Heart Rate 81 Heart Rate [ 86 89 Brachial] Respiratory 16 18 26 H Rate Blood Pressure Blood Pressure 135/56 H 127/44 L [Right Brachial artery] O2 Saturation 93 93 03/03/18 03/03/18 03/03/18 11:23 11:43 12:00 Temperature 37.0 C 36.9 C Heart Rate 81 82 Heart Rate [ 81 Brachial] Respiratory 18 20 20 Rate Blood Pressure 132/55 H 136/53 H Blood Pressure 135/65 H [Right Brachial artery] O2 Saturation 94 03/03/18 03/03/18 03/03/18 12:42 12:55 13:20 Temperature 37.1 C 36.8 C Heart Rate 76 81 20 L Heart Rate [ Brachial] Respiratory 18 18 84 H Rate Blood Pressure 136/53 H 134/55 H 126/76 Blood Pressure [Right Brachial artery] O2 Saturation Oxygen O2 Source Nasal cannula I&O (Last 24 Hrs): Intake and Output Totals x24h 03/01/18 03/02/18 03/03/18 23:59 23:59 23:59 Intake Total 1850 1116 680 Output Total 4725 550 Balance -4825 566 680 General: Alert, Oriented x3, Cooperative, No acute distress, Other (Obese) HEENT: Atraumatic, PERRLA, EOMI, Mucous membr. moist/pink Neck: Supple, No JVD, No thyromegaly, +2 carotid pulse wo bruit, No LAD Lymphatic: no adenopathy Neuro: Alert, Non Focal, CN 2-12 Grossly Intact, Oriented Times 3 Cardiovascular: No murmurs, Other (Irregularly irregular) Respiratory: Chest non-tender, No respiratory distress, Rales (Bases bilateral) Abdomen: Normal bowel sounds, Soft, No tenderness, No hepatospenomegaly Extremities: No clubbing, No cyanosis, Normal pulses, Other (Left lower extremity cellulitis is improving slowly, redness is less but leg still very swollen, intensity of redness has improved) Comments/Notes: Cellulitis of left leg as above. - Results Results: Laboratory Results WBC 7.6 x10^3/uL (4.8-10.8) 03/03/18 07:25 RBC 3.60 10^6/uL (4.20-5.40) L 03/03/18 07:25 Hgb 12.1 g/dL (12.0-16.0) 03/03/18 07:25 Hct 35.5 % (37.0-47.0) L 03/03/18 07:25 MCV 98.7 fL (81.0-99.0) 03/03/18 07:25 MCH 33.7 pg (27.0-31.0) H 03/03/18 07:25 MCHC 34.1 g/dL (32.0-36.0) 03/03/18 07:25 RDW 15.6 % (12.0-15.0) H 03/03/18 07:25 Plt Count 73 10^3/uL (130-450) L 03/03/18 07:25 MPV 8.8 fL (7.9-10.8) 03/03/18 07:25 Neut # 5.3 10^3/uL (1.5-6.6) 03/03/18 07:25 Lymph # 1.5 10^3/uL (1.5-3.5) 03/03/18 07:25 [place] # 0.6 10^3/uL (0.0-1.0) 03/03/18 07:25 Eos # 0.2 10^3/uL (0.0-0.7) 03/03/18 07:25 Baso # 0.0 10^3/uL (0.0-0.1) 03/03/18 07:25 Absolute Nucleated RBC 0.00 x10^3/uL 03/03/18 07:25 Total Counted 100 03/01/18 04:35 Band Neuts % (Manual) 4 % (0-10) 03/01/18 04:35 Reactive Lymphs % (Man) 9 % 03/01/18 04:35 Abnorm Lymph % (Manual) 0 % 03/01/18 04:35 Nucleated RBC % 0.1 /100WBC 03/03/18 07:25 Neutrophils # (Manual) 4.3 10^3/uL (1.5-6.6) 03/01/18 04:35 Lymphocytes # (Manual) 0.9 10^3/uL (1.5-3.5) L 03/01/18 04:35 Monocytes # (Manual) 0.9 10^3/uL (0.0-1.0) 03/01/18 04:35 Eosinophils # (Manual) 0.1 10^3/uL (0-0.7) 03/01/18 04:35 Basophils # (Manual) 0.0 10^3/uL (0-0.1) 03/01/18 04:35 Differential Comment MANUAL DIFFERENTIAL 03/01/18 04:35 Manual Slide Review Indicated 02/25/18 04:26 Platelet Estimate DECREASED (<130,000) (NORMAL) 03/01/18 04:35 Platelet Morphology NORMAL APPEARANCE (NORMAL) 03/01/18 04:35 RBC Morph Micro Appear 1+ POLYCHROMASIA (NORMAL) 03/01/18 04:35 PT 20.1 secs (9.9-12.6) H 03/03/18 13:41 INR 1.8 (0.8-1.2) H 03/03/18 13:41 VBG pH 7.415 (7.31-7.41) H 03/03/18 07:25 Ionized Calcium 1.11 mmol/L (1.15-1.33) L 03/03/18 07:25 Sodium 137 mmol/L (135-145) 03/03/18 07:25 Potassium 3.8 mmol/L (3.5-5.0) 03/03/18 07:25 Chloride 103 mmol/L (101-111) 03/03/18 07:25 Carbon Dioxide 28 mmol/L (21-32) 03/03/18 07:25 Anion Gap 6.0 (6-13) 03/03/18 07:25 BUN 5 mg/dL (6-20) L 03/03/18 07:25 Creatinine 0.5 mg/dL (0.4-1.0) 03/03/18 07:25 Estimated GFR (MDRD) 123 (>89) 03/03/18 07:25 Glucose 92 mg/dL (70-100) 03/03/18 07:25 POC Whole Bld Glucose 179 mg/dL (70 - 100) H 03/02/18 11:24 Glycated Hemoglobin 10.6 % (4.6-6.2) H 02/25/18 04:26 Estim Average Glucose 258 (70-100) H 02/25/18 04:26 Lactic Acid 1.8 mmol/L (0.5-2.2) 02/26/18 05:50 Calcium 8.3 mg/dL (8.5-10.3) L 03/03/18 07:25 Ionized Calcium YES 03/03/18 07:25 Phosphorus 2.7 mg/dL (2.5-4.6) 03/03/18 07:25 Magnesium 1.5 mg/dL (1.7-2.8) L 03/03/18 07:25 Total Bilirubin 1.8 mg/dL (0.2-1.0) H 03/03/18 07:25 AST 33 IU/L (10-42) 03/03/18 07:25 ALT 15 IU/L (10-60) 03/03/18 07:25 Alkaline Phosphatase 112 IU/L (42-121) 03/03/18 07:25 Troponin I < 0.04 ng/mL (<0.49) 02/26/18 01:10 Total Protein 6.3 g/dL (6.7-8.2) L 03/03/18 07:25 Albumin 2.1 g/dL (3.2-5.5) L 03/03/18 07:25 Globulin 4.2 g/dL (2.1-4.2) 03/03/18 07:25 Albumin/Globulin Ratio 0.5 (1.0-2.2) L 03/03/18 07:25 Lipase 24 U/L (22-51) 02/24/18 13:35 TSH 4.97 uIU/mL (0.34-5.60) 02/26/18 05:50 Urine Color DARK YELLOW 02/24/18 14:31 Urine Clarity CLEAR (CLEAR) 02/24/18 14:31 Urine pH 5.5 PH (5.0-7.5) 02/24/18 14:31 Ur Specific [place] >=1.030 (1.002-1.030) H 02/24/18 14:31 Urine Protein 30 mg/dL (NEGATIVE) H 02/24/18 14:31 Urine Glucose (UA) 100 mg/dL (NEGATIVE) H 02/24/18 14:31 Urine Ketones TRACE mg/dL (NEGATIVE) 02/24/18 14:31 Urine Occult Blood MODERATE (NEGATIVE) H 02/24/18 14:31 Urine Nitrite POSITIVE (NEGATIVE) H 02/24/18 14:31 Urine Bilirubin NEGATIVE (NEGATIVE) 02/24/18 14:31 Urine Urobilinogen 2 E.U./dL (NORMAL) H 02/24/18 14:31 Ur Leukocyte Esterase NEGATIVE (NEGATIVE) 02/24/18 14:31 Urine RBC 0-5 /HPF (0-5) 02/24/18 14:31 Urine WBC 0-3 /HPF (0-5) 02/24/18 14:31 Ur Squamous Epith Cells FEW Squamous (<= Few) 02/24/18 14:31 Amorphous Sediment Few /LPF 02/24/18 14:31 Urine Bacteria Many /HPF (None Seen) H 02/24/18 14:31 Ur Microscopic Review INDICATED 02/24/18 14:31 Urine Culture Comments INDICATED 02/24/18 14:31 Last Dose Date 03/02/18 03/02/18 04:40 Last Dose Time 0830 03/02/18 04:40 Digoxin 0.3 ng/mL 03/02/18 04:40 Blood Type O POSITIVE 03/03/18 07:57 Blood Type Recheck O POSITIVE 03/03/18 07:25 Antibody Screen NEGATIVE 03/03/18 07:57 - Procedures Procedures: Procedures DRAINAGE OF RIGHT PLEURAL CAVITY, PERCUTANEOUS APPROACH (11/14/17) ABX Reporting Has patient been on IV antibiotics over the past 48 hours?: No
[2018-03-03] MEDS ORDERED: BUFFERED LIDOCAINE 10 ML SYRINGE IU ONE (15:51)
--- NOTE | 2018-03-03 17:19 | Ultrasound Report ---
ULTRASOUND-GUIDED THORACENTESIS: 03/03/2018 CLINICAL INDICATION: Right pleural effusion. FINDINGS: Following obtaining informed consent, a suitable site on the patient's right posterior thorax was selected with ultrasound. The skin was prepped and draped in the usual sterile fashion. The skin and soft tissues were anesthetized with buffered lidocaine. A safe T [id number] catheter was inserted into the right pleural space, and approximately 1500 mL of fluid was removed without difficulty. The patient tolerated the procedure well. No immediate complications. Fluid was submitted to the lab for further evaluation as directed by the clinical service. IMPRESSION: SUCCESSFUL ULTRASOUND-GUIDED RIGHT THORACENTESIS. TD: 03/03/2018 17:18
[2018-03-03 18:22] VITALS: BP 112/64
--- NOTE | 2018-03-03 18:28 | Discharge Plan ---
Discharge Plan Disposition: Home, Self Care Condition: Good Prescriptions: Ciprofloxacin [Cipro] 750 mg PO BID #60 tablet Digoxin [Lanoxin] 125 mcg PO DAILY #30 tablet Metoprolol Succinate [Toprol Xl] 25 mg PO DAILY #30 tablet Warfarin [Coumadin] 5 mg PO QDWARFARIN #30 tablet Diet: Diabetic Activity Restrictions: Activity as Tolerated Shower Restrictions: No Driving Restrictions: No Assistance Devices: Walker Weight Bearing: Full Weight Instruction Topics: Infec Wound Recognize Tx, Cellulitis Ch, Sepsis Ch, Sepsis Additional Instructions or Follow Up instructions: You were admitted to our hospital with septic shock. You were found to have infection on your leg called cellulitis. It caused bacteria to get into your bloodstream and you had bacteremia which led to the septic shock. You were treated for a number of days with IV antibiotics and had significant improvement. He will now continue on oral antibiotics with ciprofloxacin for 10 more days to complete treatment. You were also found to be in an irregular rhythm while you were hospitalized called atrial fibrillation. For atrial fibrillation you will need to be taking 2 new medications 1 called metoprolol and 1 call digoxin these will keep your heart rate controlled. You also need to start on a blood thinner to prevent strokes called Coumadin. You should not start Coumadin for 2 more days as you just had a thoracentesis so please wait till Saturday to start the Coumadin. You need to follow-up with your primary care physician to check your blood levels of Coumadin and make sure that your blood is appropriately thinned. While you were here you also developed a right pleural effusion this is the second time you have had a pleural effusion in the last 6 months. You did undergo a thoracentesis today please watch for any worsening difficulty breathing or chest pain if you experience symptoms like this please return to the emergency department. He will continue on your medications for your chronic medical problems like diabetes, cirrhosis of your liver and high blood pressure. You will be seen by our home health nurse for wound care. You should be called to set that up. Follow-Up Care: Home Health - RN No Smoking: If you smoke, Please STOP! Call for help. Follow-up with: Skye Randolph PA-C [Primary Care Provider] -
--- NOTE | 2018-03-03 18:36 | DISCHARGE SUMMARY ---
Discharge Summary Admit Date: 02/24/18 Discharge Date: 03/03/18 Discharging Provider: Rashad Martines MD Primary Care Provider: Skye Randolph PA-C Code Status: Attempt Resuscitation Condition at Discharge: Good Discharge Disposition: 01 Home, Self Care - DIAGNOSES Admission Diagnoses: 1. Septic shock with hypotension, elevated lactic acid level 2. Cellulitis in a diabetic, recurrent of the left leg 3. Urinary tract infection 4. Diabetes, on insulin Discharge Diagnoses with Status of Each Condition: 1. Pleural effusion, right: Stable 2. Septic shock: Resolved 3. Bacteremia due to Streptococcus: Improving 4. Cellulitis of left lower limb: Improving 5. Atrial fibrillation with rapid ventricular rate: Stable 6. Acute kidney injury: Resolved 7. Diabetes mellitus, type II: Stable - HPI History of Present Illness: Patient is a 67-year-old female with a past medical history significant for diabetes on insulin, obesity, recurrent cellulitis of her left lower extremity and cirrhosis of the liver due to unknown etiology who presented to the emergency department after she noticed new redness and worsening swelling of her left lower extremity with worsening tenderness and pain from her left knee down to her toes. She initially went to her primary care physician who noted that her blood pressure was 60/30 and started her on fluid and sent her to the emergency department. The patient's blood pressure was critically low and she was given 4 L of IV fluid in the emergency department when her systolic blood pressure only remained in the 80-90 range she had a central line placed and was started on a pressor for septic shock. The patient was also given IV vancomycin and Zosyn and blood cultures were sent. The patient was admitted to the intensive care unit for septic shock secondary to left lower extremity cellulitis. - HOSPITAL COURSE Hospital Course: (1) Pleural effusion, right Assessment/Plan: We were unable to wean the patient off of oxygen Therefore a chest x-ray was ordered which revealed a right pleural effusion. Patient states that she has had right pleural effusion in the past and underwent a thoracentesis. The patient did undergo cytology on the pleural fluid in October 2017 which revealed mixed inflammatory cells with histocyte predominance but was negative for malignant cells. The patient had 2100 mL was removed at that time. The patient appears to have reaccumulation of the right pleural effusion This may be secondary to fluid overload as the patient presented with septic shock and was given large amount of fluid resuscitation Patient given IV lasix with good output but CXR shows worsening pleural effusion Patient underwent thoracentesis with removal of 1500 mL's of fluid After the thoracentesis patient had significant improvement and was saturating well on room air Patient was discharged home and will follow up with her primary care physician for repeat chest x-ray if she does develop worsening shortness of breath (2) Septic shock Assessment/Plan: Patient presented with septic shock and on presentation had a leukocytosis of 27.4 with a lactic acid of 5.3. Patient was treated with norepinephrine, IV fluids, broad-spectrum IV antibiotics and improved over the next several days and was able to be weaned off of Levophed. Resolved (3) Bacteremia due to Streptococcus Assessment/Plan: Patient's initial blood cultures growing beta-hemolytic strep group A which is likely source of septic shock. The likely source of the infection is left lower extremity cellulitis. Pateint was on IV unasyn but cx showed patient is susceptible to cipro but patient had allergy in past to levaquin which she states was upset stomach. Since cipro has the same bioavailability PO and IV will switched patient to PO cipro she is tolerating well and will continue PO cipro for 14 days to complete treatment for bacteremia Repeat blood cultures negative Echocardiogram showed no vegetation Day 4 of 14 of cipro Discharged home with ciprofloxacin for 10 additional days to complete a course for bacteremia (4) Cellulitis Qualifiers: Site of cellulitis: extremity Site of cellulitis of extremity: lower extremity Laterality: left Qualified Code(s): L03.116 - Cellulitis of left lower limb Assessment/Plan: Patient has patient has recurrence of colitis of the left lower extremity. This time patient presents with septic shock and bacteremia with beta hemolytic group A strep. Likely source is the left lower extremity cellulitis. The patient has erythema, swelling, warmth of the left lower extremity. Cellulitis is improving Plan: Pateint was on IV unasyn but cx showed patient is susceptible to cipro but patient had allergy in past to levaquin which she states was upset stomach. Since cipro has the same bioavailability PO and IV will switched patient to PO cipro she is tolerating well and will continue PO cipro for 14 days to complete treatment for bacteremia Cellulitis is improving but needs home health wound care which has been ordered Day 4 of 14 of cipro Discharged home with ciprofloxacin for 10 additional days to complete a course for bacteremia (5) Atrial Fibrillation with RVR: Assessment/Plan: Resolved Back in sinus rhythm On PO metoprolol and digoxin Tele Echo unchanged from previous with normal EF, LVH and no wall motion abnormalities TSH and trop negative CHADS2 score of 2 started patient on coumadin but held today for thoracentesis will restart At home on Saturday Patient will need to follow-up with her primary care physician to monitor her INR and to titrate the dose of Coumadin Patient prescribed oral metoprolol and digoxin at discharge (6) BARON (acute kidney injury) Assessment/Plan: With secondary to the septic shock patient's creatinine peaked at 1.4 and resolved down to 0.5 Resolved (7) DM2 (diabetes mellitus, type 2) Qualifiers: 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 Patient placed on sliding scale insulin and Lantus 12 unit along with glipizide , diabetic diet and blood glucose checks before meals at bedtime. Patient's hemoglobin A1c is 10.6 BG stable Continued on home regimen at discharge - ALLERGIES Allergies/Adverse Reactions: Allergies Allergy/AdvReac Type Severity Reaction Status Date / Time cimetidine [From Tagamet] Allergy Unknown Verified 12/05/17 09:18 cimetidine HCl * Allergy Unknown Verified 12/05/17 09:18 [From Tagamet] erythromycin lactobionate * Allergy Unknown Verified 12/05/17 09:18 [From Erythrocin] fluticasone propionate * Allergy Unknown Verified 12/05/17 09:18 [From Flonase] levofloxacin [From Levaquin] Allergy Unknown Verified 12/05/17 09:18 piroxicam [From Feldene] Allergy Unknown Verified 12/05/17 09:18 Sulfa (Sulfonamide Allergy Unknown Verified 12/05/17 09:18 Antibiotics) egg AdvReac Nausea Verified 12/05/17 09:18 ibuprofen [From Motrin] AdvReac Unknown Verified 12/05/17 09:18 - MEDICATIONS Home Medications: Ambulatory Orders Medication Instructions Recorded Confirmed Albuterol Sulf [Ventolin Hfa 2 puffs INH Q4HR PRN 03/21/17 02/24/18 Inhaler] Calcium Carbonate [Calcium] 600 mg PO DAILY 03/21/17 02/24/18 DULoxetine [Cymbalta] 30 mg PO DAILY 03/21/17 02/24/18 Lactobacillus Acidophilus/Fos 1 each PO DAILY 03/21/17 02/24/18 [Acidophilus Probiotic Tablet] Lysine HCl 500 mg PO BID 03/21/17 02/24/18 Melatonin 3 mg PO QPM 03/21/17 02/24/18 Omeprazole 20 mg PO QDAC 03/21/17 02/24/18 Potassium Chloride 10 meq PO DAILYWM 03/21/17 02/24/18 Spironolactone 50 mg PO BID 03/21/17 02/24/18 Vitamin B Complex 1 each PO DAILY 03/21/17 02/24/18 Cholecalciferol (Vitamin D3) 2,000 unit PO DAILY 04/22/17 02/24/18 [Vitamin D3] DULoxetine [Cymbalta] 60 mg PO QPM 11/15/17 02/24/18 Diclofenac Sodium [Voltaren] 2 - 4 gm TOP QID PRN 11/15/17 02/24/18 Fluticasone [Flonase] 2 sprays JAZMÍN DAILY 11/15/17 02/24/18 Ropinirole HCl 0.25 mg PO QPM 11/15/17 02/24/18 Furosemide [Lasix] 40 mg PO DAILY 12/05/17 02/24/18 Blood Sugar Diagnostic [Glucometer 1 each QID #3 strip 12/08/17 02/24/18 Strips] Blood-Glucose Meter [Glucometer] 1 each QID #3 each 12/08/17 02/24/18 Nystatin [Nystop] 1 applic TOP BID #1 bottle 12/08/17 02/24/18 Pen Needle, Diabetic [Insulin Pen 1 each QID #1 dis.needle 12/08/17 02/24/18 Needle] Glipizide 5 mg PO DAILY 02/24/18 02/24/18 Insulin NPH Hum/Reg Insulin Hm 10 units SUBQ BIDAC 02/24/18 02/24/18 [Humulin 70/30 Kwikpen] Ciprofloxacin [Cipro] 750 mg PO BID #60 tablet 03/03/18 Digoxin [Lanoxin] 125 mcg PO DAILY #30 tablet 03/03/18 Metoprolol Succinate [Toprol Xl] 25 mg PO DAILY #30 tablet 03/03/18 Warfarin [Coumadin] 5 mg PO QDWARFARIN #30 tablet 03/03/18 - PHYSICAL EXAM AT DISCHARGE General Appearance: positive: No acute distress, Alert, Other (Obese) Eyes Bilateral: positive: Normal inspection, PERRL, EOMI, No lid inflammation, Conjunctivae nml, No scleral icterus ENT: positive: ENT inspection nml, Pharynx nml, No signs of dehydration. negative: Purulent nasal drainage, Pharyngeal erythema, Oral lesions Neck: positive: Nml inspection, Thyroid nml, No JVD, Trachea midline. negative : Thyromegaly, Lymphadenopathy (R), Lymphadenopathy (L), Stiff neck, Carotid bruit, Tracheal deviation Respiratory: positive: Chest non-tender, No respiratory distress, Rales (Bases, improved) Cardiovascular: positive: No murmur, No gallop, Irregularly irregular Peripheral Pulses: positive: 2+ Abdomen: positive: Non-tender, No organomegaly, Nml bowel sounds, No distention. negative: Guarding, Rebound, Hepatomegaly Back: positive: Nml inspection. negative: CVA tenderness (R), CVA tenderness (L ) Skin: positive: Other (Left lower extremity cellulitis with erythema nearly up to her knee. The erythema is less in intensity, her leg is less warmth and swelling is improved however she does still have swelling compared to her right lower extremity.) Extremities: positive: Non-tender, Full ROM, Other (Bilateral lower extremity edema worse on the left with above-mentioned cellulitis) Neurologic/Psychiatric: positive: Oriented x3, CN's nml (2-12), Motor nml, Sensation nml, Mood/affect nml - LABS Result Diagrams: 03/03/18 07:25 03/03/18 07:25 Other Lab Results: Laboratory Results WBC 7.6 x10^3/uL (4.8-10.8) 03/03/18 07:25 RBC 3.60 10^6/uL (4.20-5.40) L 03/03/18 07:25 Hgb 12.1 g/dL (12.0-16.0) 03/03/18 07:25 Hct 35.5 % (37.0-47.0) L 03/03/18 07:25 MCV 98.7 fL (81.0-99.0) 03/03/18 07:25 MCH 33.7 pg (27.0-31.0) H 03/03/18 07:25 MCHC 34.1 g/dL (32.0-36.0) 03/03/18 07:25 RDW 15.6 % (12.0-15.0) H 03/03/18 07:25 Plt Count 73 10^3/uL (130-450) L 03/03/18 07:25 MPV 8.8 fL (7.9-10.8) 03/03/18 07:25 Neut # 5.3 10^3/uL (1.5-6.6) 03/03/18 07:25 Lymph # 1.5 10^3/uL (1.5-3.5) 03/03/18 07:25 [place] # 0.6 10^3/uL (0.0-1.0) 03/03/18 07:25 Eos # 0.2 10^3/uL (0.0-0.7) 03/03/18 07:25 Baso # 0.0 10^3/uL (0.0-0.1) 03/03/18 07:25 Absolute Nucleated RBC 0.00 x10^3/uL 03/03/18 07:25 Total Counted 100 03/01/18 04:35 Band Neuts % (Manual) 4 % (0-10) 03/01/18 04:35 Reactive Lymphs % (Man) 9 % 03/01/18 04:35 Abnorm Lymph % (Manual) 0 % 03/01/18 04:35 Nucleated RBC % 0.1 /100WBC 03/03/18 07:25 Neutrophils # (Manual) 4.3 10^3/uL (1.5-6.6) 03/01/18 04:35 Lymphocytes # (Manual) 0.9 10^3/uL (1.5-3.5) L 03/01/18 04:35 Monocytes # (Manual) 0.9 10^3/uL (0.0-1.0) 03/01/18 04:35 Eosinophils # (Manual) 0.1 10^3/uL (0-0.7) 03/01/18 04:35 Basophils # (Manual) 0.0 10^3/uL (0-0.1) 03/01/18 04:35 Differential Comment MANUAL DIFFERENTIAL 03/01/18 04:35 Manual Slide Review Indicated 02/25/18 04:26 Platelet Estimate DECREASED (<130,000) (NORMAL) 03/01/18 04:35 Platelet Morphology NORMAL APPEARANCE (NORMAL) 03/01/18 04:35 RBC Morph Micro Appear 1+ POLYCHROMASIA (NORMAL) 03/01/18 04:35 PT 20.1 secs (9.9-12.6) H 03/03/18 13:41 INR 1.8 (0.8-1.2) H 03/03/18 13:41 VBG pH 7.415 (7.31-7.41) H 03/03/18 07:25 Ionized Calcium 1.11 mmol/L (1.15-1.33) L 03/03/18 07:25 Sodium 137 mmol/L (135-145) 03/03/18 07:25 Potassium 3.8 mmol/L (3.5-5.0) 03/03/18 07:25 Chloride 103 mmol/L (101-111) 03/03/18 07:25 Carbon Dioxide 28 mmol/L (21-32) 03/03/18 07:25 Anion Gap 6.0 (6-13) 03/03/18 07:25 BUN 5 mg/dL (6-20) L 03/03/18 07:25 Creatinine 0.5 mg/dL (0.4-1.0) 03/03/18 07:25 Estimated GFR (MDRD) 123 (>89) 03/03/18 07:25 Glucose 92 mg/dL (70-100) 03/03/18 07:25 POC Whole Bld Glucose 179 mg/dL (70 - 100) H 03/02/18 11:24 Glycated Hemoglobin 10.6 % (4.6-6.2) H 02/25/18 04:26 Estim Average Glucose 258 (70-100) H 02/25/18 04:26 Lactic Acid 1.8 mmol/L (0.5-2.2) 02/26/18 05:50 Calcium 8.3 mg/dL (8.5-10.3) L 03/03/18 07:25 Ionized Calcium YES 03/03/18 07:25 Phosphorus 2.7 mg/dL (2.5-4.6) 03/03/18 07:25 Magnesium 1.5 mg/dL (1.7-2.8) L 03/03/18 07:25 Total Bilirubin 1.8 mg/dL (0.2-1.0) H 03/03/18 07:25 AST 33 IU/L (10-42) 03/03/18 07:25 ALT 15 IU/L (10-60) 03/03/18 07:25 Alkaline Phosphatase 112 IU/L (42-121) 03/03/18 07:25 Troponin I < 0.04 ng/mL (<0.49) 02/26/18 01:10 Total Protein 6.3 g/dL (6.7-8.2) L 03/03/18 07:25 Albumin 2.1 g/dL (3.2-5.5) L 03/03/18 07:25 Globulin 4.2 g/dL (2.1-4.2) 03/03/18 07:25 Albumin/Globulin Ratio 0.5 (1.0-2.2) L 03/03/18 07:25 Lipase 24 U/L (22-51) 02/24/18 13:35 TSH 4.97 uIU/mL (0.34-5.60) 02/26/18 05:50 Urine Color DARK YELLOW 02/24/18 14:31 Urine Clarity CLEAR (CLEAR) 02/24/18 14:31 Urine pH 5.5 PH (5.0-7.5) 02/24/18 14:31 Ur Specific [place] >=1.030 (1.002-1.030) H 02/24/18 14:31 Urine Protein 30 mg/dL (NEGATIVE) H 02/24/18 14:31 Urine Glucose (UA) 100 mg/dL (NEGATIVE) H 02/24/18 14:31 Urine Ketones TRACE mg/dL (NEGATIVE) 02/24/18 14:31 Urine Occult Blood MODERATE (NEGATIVE) H 02/24/18 14:31 Urine Nitrite POSITIVE (NEGATIVE) H 02/24/18 14:31 Urine Bilirubin NEGATIVE (NEGATIVE) 02/24/18 14:31 Urine Urobilinogen 2 E.U./dL (NORMAL) H 02/24/18 14:31 Ur Leukocyte Esterase NEGATIVE (NEGATIVE) 02/24/18 14:31 Urine RBC 0-5 /HPF (0-5) 02/24/18 14:31 Urine WBC 0-3 /HPF (0-5) 02/24/18 14:31 Ur Squamous Epith Cells FEW Squamous (<= Few) 02/24/18 14:31 Amorphous Sediment Few /LPF 02/24/18 14:31 Urine Bacteria Many /HPF (None Seen) H 02/24/18 14:31 Ur Microscopic Review INDICATED 02/24/18 14:31 Urine Culture Comments INDICATED 02/24/18 14:31 Last Dose Date 03/02/18 03/02/18 04:40 Last Dose Time 82903/02/18 04:40 Digoxin 0.3 ng/mL 03/02/18 04:40 Blood Type O POSITIVE 03/03/18 07:57 Blood Type Recheck O POSITIVE 03/03/18 07:25 Antibody Screen NEGATIVE 03/03/18 07:57 - DIAGNOSTIC IMAGING Diagnostic Imaging Results: Final report reviewed Diagnostic Imaging Results Comments: Chest x-ray 02/24/2018 impression: 1. There is cardiomegaly. There is diminished vascular clarity and likely small effusion. Findings could represent lung edema secondary to heart failure. 2. No evidence of lobar infiltrate or pneumothorax Venous duplex left lower extremity Impression: No left leg DVT seen Chest x-ray 02/28/2018 Impression: Large right effusion, new from previous Chest x-ray 03/02/2018 Impression: Large right pleural effusion is slightly larger than on 02/28/2018. No other new abnormality Thoracentesis/paracentesis ultrasound Impression successful ultrasound-guided right thoracentesis. 1500 mL of fluid was removed without difficulty. Echocardiogram Impression: 1. Moderate concentric left ventricular hypertrophy with normal systolic function EF 70%. The left atrium is normal in size 2. Moderate pulmonary hypertension, pulmonary artery systolic pressure is 56 mmHg Right ventricle is normal in size and function 3. Mildly sclerotic aortic valve and mild mitral annular calcification with normal valve function 4. Increased velocities throughout consistent with increased cardiac output. Rapid atrial fibrillation appears to be present throughout. - FOLLOW UP Follow Up: Patient will follow up with her primary care physician regarding her atrial fibrillation and will need to have her INR checked and Coumadin titrated. She may also consider starting her on a newer anticoagulation agent such as Xarelto. The patient will complete 14 days of treatment with ciprofloxacin for her bacteremia and cellulitis. The patient will be seen by wound care for her left lower extremity cellulitis and wounds. - TIME SPENT Time Spent in Discharge (Minutes): 55
[2018-03-03 20:16] LABS: CC,BF RBC 6212 /mm^3
[2018-03-03 20:17] LABS: BF COLOR STRAW; BF SOURCE PLEURAL
[2018-03-04] MEDS ORDERED: WARFARIN 5 MG TABLET PO SCH (14:00)
== END 2018-03-03 19:20 | disposition hospice, home (50) | DRG 871 ==
LOC: EDUNIT# → ED 13:16 → ICU 16:44 → MS2 03-02 13:01
PROVIDERS: ADMIT Internal Medicine; ATTEND Internal Medicine
PROC: 0W993ZZ Drainage of Right Pleural Cavity, Percutaneous Approach (ICD-10-PCS; principal; 2018-03-03)
PROC: 30233K1 Transfusion of Nonautologous Frozen Plasma into Peripheral Vein, Percutaneous Approach (ICD-10-PCS; 2018-03-03)
DX: A40.0 Sepsis due to streptococcus, group A (principal); R65.21 Severe sepsis with septic shock; L03.116 Cellulitis of left lower limb; N17.9 Acute kidney failure, unspecified; Z68.41 Body mass index [BMI] 40.0-44.9, adult; J90 Pleural effusion, not elsewhere classified; N39.0 Urinary tract infection, site not specified; E66.9 Obesity, unspecified; E11.610 Type 2 diabetes mellitus with diabetic neuropathic arthropathy; I48.91 Unspecified atrial fibrillation; I11.9 Hypertensive heart disease without heart failure; E83.42 Hypomagnesemia; B95.61 Methicillin susceptible Staphylococcus aureus infection as the cause of diseases classified elsewhere; K21.9 Gastro-esophageal reflux disease without esophagitis; F32.9 Major depressive disorder, single episode, unspecified; M79.7 Fibromyalgia; G89.29 Other chronic pain; M54.9 Dorsalgia, unspecified; J45.909 Unspecified asthma, uncomplicated; R32 Unspecified urinary incontinence; T14.90XS Injury, unspecified, sequela; Z79.899 Other long term (current) drug therapy; Z79.4 Long term (current) use of insulin; Z79.01 Long term (current) use of anticoagulants; R50.9 Fever, unspecified; I95.9 Hypotension, unspecified
CPT/HCPCS: 32555; 36415; 51701; 51702; 71045; 80048; 80053; 80162; 81001; 81003; 81599; 82040; 82330; 83036; 83605; 83615; 83690; 83735; 84100; 84157; 84443; 84484; 85025; 85610; 86850; 86900; 86901; 87040; 87070; 87075; 87077; 87086; 87150; 87205; 89051; 93005; 93306; 96365; 96367; 99284; 99291

== ENCOUNTER 2018-06-10 11:08 | Outpatient (CLI) | payer SELFPAY | END 2018-06-10 11:09 | disposition critical access hospital (66) | LOC: EMS 11:08 | PROVIDERS: ATTEND Surgery | DX: R06.02 Shortness of breath (principal); R53.1 Weakness; R41.0 Disorientation, unspecified; R11.0 Nausea | CPT/HCPCS: A0425; A0427; A0999 ==

== ENCOUNTER 2018-06-10 11:30 | Inpatient (IN) | payer MEDICARE, OTHER ==
[2018-06-10] MEDS ORDERED: SODIUM CHLORIDE 0.9% 1,000 ML IV ONE (12:09)
--- NOTE | 2018-06-10 12:13 | ED Physician Documentation ---
PD HPI DYSPNEA - Stated complaint Stated Complaint: SOA - Chief complaint Chief Complaint: Resp - History obtained from History obtained from: Patient, EMS - History of Present Illness Timing - onset: How many days ago (5) Timing - onset during: Rest Timing - duration: Days (5) Timing - details: Gradual onset, Still present Inciting event(s): Other Improved by: O2, Rest Worsened by: Exertion, Laying flat, Coughing Associated symptoms: Cough, Wheezing, Bilateral edema Similar symptoms before: Diagnosis (cellulitis and septic shock) Recently seen: Admitted - Additional information Additional information: 67-year-old female with a history of type 2 diabetes and chronic cellulitis has had a recent admission for septic shock with staph bacteremia secondary to the cellulitis and she has been home about 6 weeks. She has been off of antibiotics about 6 weeks. She is now developed symptoms over the past 5 days of fever lassitude and weakness. She has developed some dyspnea on exertion and feels dehydrated. She is drinking a lot of fluids and has dry mucous membranes. Review of Systems Constitutional: reports: Fever, Chills, Myalgias, Fatigue Eyes: denies: Decreased vision Ears: denies: Ear pain Nose: denies: Rhinorrhea / runny nose, Congestion Throat: denies: Sore throat Cardiac: denies: Chest pain / pressure, Palpitations Respiratory: reports: Dyspnea, Cough GI: reports: Nausea. denies: Abdominal Pain, Vomiting : reports: Frequency. denies: Dysuria Skin: denies: Rash Musculoskeletal: reports: Extremity pain, Extremity swelling. denies: Neck pain , Back pain Neurologic: reports: Generalized weakness. 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 - Present Medications Home Medications: Ambulatory Orders Medication Instructions Recorded Confirmed Albuterol Sulf [Ventolin Hfa 2 puffs INH Q4HR PRN 03/21/17 02/24/18 Inhaler] Calcium Carbonate [Calcium] 600 mg PO DAILY 03/21/17 02/24/18 DULoxetine [Cymbalta] 30 mg PO DAILY 03/21/17 02/24/18 Lactobacillus Acidophilus/Fos 1 each PO DAILY 03/21/17 02/24/18 [Acidophilus Probiotic Tablet] Lysine HCl 500 mg PO BID 03/21/17 02/24/18 Melatonin 3 mg PO QPM 03/21/17 02/24/18 Omeprazole 20 mg PO QDAC 03/21/17 02/24/18 Potassium Chloride 10 meq PO DAILYWM 03/21/17 02/24/18 Spironolactone 50 mg PO BID 03/21/17 02/24/18 Vitamin B Complex 1 each PO DAILY 03/21/17 02/24/18 Cholecalciferol (Vitamin D3) 2,000 unit PO DAILY 04/22/17 02/24/18 [Vitamin D3] DULoxetine [Cymbalta] 60 mg PO QPM 11/15/17 02/24/18 Ropinirole HCl 0.25 mg PO QPM 11/15/17 02/24/18 Furosemide [Lasix] 40 mg PO DAILY 12/05/17 02/24/18 Blood Sugar Diagnostic [Glucometer 1 each MC QID #3 strip 12/08/17 02/24/18 Strips] Blood-Glucose Meter [Glucometer] 1 each MC QID #3 each 12/08/17 02/24/18 Nystatin [Nystop] 1 applic TOP BID #1 bottle 12/08/17 02/24/18 Pen Needle, Diabetic [Insulin Pen 1 each MC QID #1 dis.needle 12/08/17 02/24/18 Needle] Glipizide 5 mg PO DAILY 02/24/18 02/24/18 Insulin NPH Hum/Reg Insulin Hm 15 units SUBQ BIDAC 02/24/18 02/24/18 [Humulin 70/30 Kwikpen] Metoprolol Succinate [Toprol Xl] 25 mg PO DAILY #30 tablet 03/03/18 - Allergies Allergies/Adverse Reactions: Allergies Allergy/AdvReac Type Severity Reaction Status Date / Time cimetidine [From Tagamet] Allergy Unknown Verified 06/10/18 11:39 cimetidine HCl * Allergy Unknown Verified 06/10/18 11:39 [From Tagamet] erythromycin lactobionate * Allergy Unknown Verified 06/10/18 11:39 [From Erythrocin] fluticasone propionate * Allergy Unknown Verified 06/10/18 11:39 [From Flonase] levofloxacin [From Levaquin] Allergy Unknown Verified 06/10/18 11:39 piroxicam [From Feldene] Allergy Unknown Verified 06/10/18 11:39 Sulfa (Sulfonamide Allergy Unknown Verified 06/10/18 11:39 Antibiotics) egg AdvReac Nausea Verified 06/10/18 11:39 ibuprofen [From Motrin] AdvReac Unknown Verified 06/10/18 11:39 - Social History Does the pt smoke?: No Smoking Status: Never smoker Does the pt drink ETOH?: No Does the pt have substance abuse?: No - POLST Patient has POLST: Yes POLST Status: DNR PD ED PE NORMAL - Vitals Vital signs reviewed: Yes (febrile tachy and hypertensive) - General General: Alert and oriented X 3, Well developed/nourished, Other (panting and with dry mucous membranes) - HEENT HEENT: Atraumatic, PERRL, EOMI, Other (parched mucous membranes ) - Neck Neck: Supple, no meningeal sign, No bony TTP - Cardiac Cardiac: Other (tachy regular and with 2/6 holosystolic murmer at LSB radiating up the chest. 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, No motor deficit, No sensory deficit, Normal speech Eye Opening: Spontaneous Motor: Obeys Commands Verbal: Oriented GCS Score: 15 - Psych Psych: Normal mood, Normal affect Results - Vitals Vitals: Vital Signs - 24 hr 06/10/18 06/10/18 06/10/18 11:30 11:49 12:24 Temperature 38.4 C H Heart Rate 108 H 108 H 110 H Respiratory 20 30 H 21 Rate Blood Pressure 140/48 H 151/42 H 152/54 H O2 Saturation 94 93 94 06/10/18 06/10/18 06/10/18 12:30 13:00 13:26 Temperature Heart Rate 109 H 110 H 108 H Respiratory 35 H 28 H Rate Blood Pressure 141/65 H 148/56 H 148/56 H O2 Saturation 94 92 93 Oxygen O2 Source Nasal cannula Oxygen Flow Rate 4 - EKG (time done) 1140 Rate: Rate (enter#) (108) Rhythm: LAE [place]: LAD Compare to prior EKG: Changed from prior EKG (SPT 02-24-18 rate had increased) Computer interpretation: Agree with computer - Labs Labs: Laboratory Tests 06/10/18 06/10/18 06/10/18 12:15 12:15 12:15 WBC 19.2 H RBC 3.42 L Hgb 11.6 L Hct 34.1 L MCV 99.8 H MCH 33.9 H MCHC 33.9 RDW 14.1 Plt Count 86 L MPV 9.4 Neut # (Auto) 16.2 H Lymph # (Auto) 2.1 [place] # (Auto) 0.8 Eos # (Auto) 0.0 Baso # (Auto) 0.1 Absolute Nucleated RBC 0.00 Nucleated RBC % 0.0 Sodium 131 L Potassium 4.2 Chloride 99 L Carbon Dioxide 21 Anion Gap 11.0 BUN 12 Creatinine 0.6 Estimated GFR (MDRD) 100 Glucose 320 H Lactic Acid Calcium 9.2 Total Bilirubin 3.7 H AST 54 H ALT 26 Alkaline Phosphatase 139 H Troponin I 0.04 Total Protein 7.6 Albumin 2.9 L Globulin 4.7 H Albumin/Globulin Ratio 0.6 L Lipase 43 Urine Color Urine Clarity Urine pH Ur Specific [place] Urine Protein Urine Glucose (UA) Urine Ketones Urine Occult Blood Urine Nitrite Urine Bilirubin Urine Urobilinogen Ur Leukocyte Esterase Urine RBC Urine WBC Ur Squamous Epith Cells Urine Bacteria Ur Microscopic Review Urine Culture Comments 06/10/18 06/10/18 12:15 12:41 WBC RBC Hgb Hct MCV MCH MCHC RDW Plt Count MPV Neut # (Auto) Lymph # (Auto) [place] # (Auto) Eos # (Auto) Baso # (Auto) Absolute Nucleated RBC Nucleated RBC % Sodium Potassium Chloride Carbon Dioxide Anion Gap BUN Creatinine Estimated GFR (MDRD) Glucose Lactic Acid 2.8 H Calcium Total Bilirubin AST ALT Alkaline Phosphatase Troponin I Total Protein Albumin Globulin Albumin/Globulin Ratio Lipase Urine Color DARK YELLOW Urine Clarity HAZY Urine pH 6.0 Ur Specific [place] 1.025 Urine Protein TRACE Urine Glucose (UA) >=1000 H Urine Ketones TRACE Urine Occult Blood NEGATIVE Urine Nitrite NEGATIVE Urine Bilirubin SMALL H Urine Urobilinogen 2 H Ur Leukocyte Esterase NEGATIVE Urine RBC 0-5 Urine WBC 0-3 Ur Squamous Epith Cells FEW Squamous Urine Bacteria Few Ur Microscopic Review INDICATED Urine Culture Comments NOT INDICATED - Rads (name of study) 2 view chest Radiology: Prelim report reviewed (Impression: Persistent opacification of the right hemithorax.), EMP read indepedently, See rad report Procedures - IVC sono (time) 1205 Bedside IVC sono: IVC measures (cm) (0.77), IVC collapsed c insp (cm) (complete) , Significant dehydration (est > 2 liter deficit) PD MEDICAL DECISION MAKING - ED course Complexity details: reviewed old records, reviewed results, re-evaluated patient , considered differential, d/w patient ED course: 67-year-old female with a history of sepsis chronic cellulitis diabetes and a pleural effusion has come back to the emergency department today with fever and dyspnea and fatigue. She is significantly dehydrated on arrival to the department and she does have hypertension with wide pulse pressure. She does appear to have active infection on the left calf and a pleural effusion. IV is begun antibiotic is begun a meyers is placed. - Sepsis Event Current Stage of Sepsis: Sepsis Possible source of Sepsis: Skin/soft tissue Vital Signs: Vital Signs - 24 hr 06/10/18 06/10/18 06/10/18 11:30 11:49 12:24 Temperature 38.4 C H Heart Rate 108 H 108 H 110 H Respiratory 20 30 H 21 Rate Blood Pressure 140/48 H 151/42 H 152/54 H O2 Saturation 94 93 94 06/10/18 06/10/18 06/10/18 12:30 13:00 13:26 Temperature Heart Rate 109 H 110 H 108 H Respiratory 35 H 28 H Rate Blood Pressure 141/65 H 148/56 H 148/56 H O2 Saturation 94 92 93 Oxygen O2 Source Nasal cannula Oxygen Flow Rate 4 Mental/Cognitive Status: Alert/Oriented X3, Normal for patient Respiratory exam: Decreased breath sounds Cardiovascular exam: RRR, Murmur Skin Exam: Pallor Capillary refill: Less than 2 seconds Peripheral Pulse Strength: 2+ Slightly Diminished Peripheral Pulse Location: Radial Date exam was performed: 06/10/18 Time exam was performed: 11:40 Departure - Departure Disposition: 67 [facility] DC/Xfer Clinical Impression: Pleural effusion, right Cellulitis Qualifiers: Site of cellulitis: extremity Site of cellulitis of extremity: lower extremity Laterality: left Qualified Code(s): L03.116 - Cellulitis of left lower limb Sepsis Qualifiers: Sepsis type: sepsis due to unspecified organism Qualified Code(s): A41.9 - Sepsis, unspecified organism Condition: Serious
[2018-06-10 12:24] LABS: BASOPHILS # (AUTO) 0.1 10^3/uL (0.0-0.1); BASOPHILS % (AUTO) 0.7 %; HGB - HEMOGLOBIN 11.6 g/dL (12.0-16.0); LYMPHOCYTES # (AUTO) 2.1 10^3/uL (1.5-3.5); LYMPHOCYTES % (AUTO) 10.9 %; MEAN CORPUSCULAR HEMOGLOBIN 33.9 pg (27.0-31.0); MEAN CORPUSCULAR HGB CONC 33.9 g/dL (32.0-36.0); MEAN CORPUSCULAR VOLUME 99.8 fL (81.0-99.0); MEAN PLATELET VOLUME 9.4 fL (7.9-10.8); MONOCYTES # (AUTO) 0.8 10^3/uL (0.0-1.0); NEUTROPHILS # (AUTO) 16.2 10^3/uL (1.5-6.6); NEUTROPHILS % (AUTO) 84.4 %; PLT - PLATELET COUNT 86 10^3/uL (130-450); RED BLOOD COUNT 3.42 10^6/uL (4.20-5.40); RED CELL DISTRIBUTION WIDTH 14.1 % (12.0-15.0); WHITE BLOOD COUNT 19.2 x10^3/uL (4.8-10.8)
[2018-06-10] MEDS ORDERED: VANCOMYCIN INJ 1 GM in SODIUM CHLORIDE 0.9% 500 ML IV STA (12:26)
[2018-06-10] MEDS ORDERED: ACETAMINOPHEN 325 MG TABLET PO STA (12:27)
[2018-06-10 12:36] LABS: ALBUMIN 2.9 g/dL (3.2-5.5); ALBUMIN/GLOBULIN RATIO 0.6 (1.0-2.2); BILIRUBIN,TOTAL 3.7 mg/dL (0.2-1.0); CALCIUM 9.2 mg/dL (8.5-10.3); CREATININE 0.6 mg/dL (0.4-1.0); TOTAL PROTEIN 7.6 g/dL (6.7-8.2)
[2018-06-10 12:51] LABS: GLUCOSE, URINE (UA) >=1000 mg/dL (NEGATIVE); KETONES,URINE (UA) TRACE mg/dL (NEGATIVE); LEUKOCYTE ESTERASE, URINE NEGATIVE (NEGATIVE); NITRITE,URINE NEGATIVE (NEGATIVE); OCCULT BLOOD,URINE NEGATIVE (NEGATIVE); PROTEIN,URINE TRACE mg/dL (NEGATIVE); UROBILINOGEN,URINE 2 E.U./dL (NORMAL)
[2018-06-10 13:02] LABS: CLARITY,URINE HAZY (CLEAR)
[2018-06-10 13:09] LABS: BACTERIA,URINE Few /HPF (None Seen); ICTOTEST,URINE POSITIVE; RBC,URINE 0-5 /HPF (0-5); SQUAMOUS EPITHELIAL CELL,UR FEW Squamous (<= Few)
[2018-06-10 13:10] LABS: BILIRUBIN,URINE SMALL (NEGATIVE)
--- NOTE | 2018-06-10 13:49 | XRAY Report ---
Procedure Date: 06/10/2018 Accession Number: [id number] / [id number] Procedure: XR - Chest 2 View X-Ray CPT Code: 71656 FULL RESULT: EXAM: CHEST RADIOGRAPHY EXAM DATE: 06/10/2018 01:00 PM. CLINICAL HISTORY: Dyspnea. COMPARISON: CHEST 1 VIEW 03/02/2018 9:48 AM. TECHNIQUE: 2 views. FINDINGS: Persistent opacification of the right hemithorax due to a combination of consolidation and pleural effusion, somewhat decreased in volume compared to prior. Visualized portions of the cardiomediastinal silhouette are suggestive of borderline cardiomegaly. There is no pneumothorax. IMPRESSION: Persistent opacification of the right hemithorax. RADIA
[2018-06-10] MEDS ORDERED: TEMAZEPAM 15 MG CAPSULE PO PRN (16:24)
[2018-06-10] MEDS ORDERED: ACETAMINOPHEN 325 MG TABLET PO PRN (16:24)
[2018-06-10] MEDS ORDERED: SODIUM CHLORIDE FLUSH 0.9% 10 ML SYRINGE IVP PRN (16:24)
[2018-06-10] MEDS ORDERED: ONDANSETRON 4 MG/2 ML VIAL IVP PRN (16:24)
[2018-06-10 16:57] LABS: INR 1.4 (0.8-1.2); PT - PROTHROMBIN TIME 15.5 secs (9.9-12.6)
[2018-06-10 16:57] LABS: DIGOXIN < 0.2 ng/mL
[2018-06-10] MEDS ORDERED: INSULIN ASPART 300 UNIT/3 ML PEN SUBQ SCH (17:00)
[2018-06-10 17:20] LABS: HB2 TOTAL 11.9 g/dL; HEMOGLOBIN A1C 0.89 g/dL
[2018-06-10] MEDS: SACCHAROMYCES BOULARDII 250 MG CAPSULE PO SCH (18:02)
[2018-06-10] MEDS: SODIUM CHLORIDE FLUSH 0.9% 10 ML SYRINGE IVP SCH (18:03)
[2018-06-10] MEDS: SODIUM CHLORIDE 0.9% 1,000 ML IV SCH (18:03)
[2018-06-10] MEDS ORDERED: MAGNESIUM SULFATE 2 GRAM 2 GM/50 ML BAG IV ONE (19:30)
[2018-06-10] MEDS ORDERED: VANCOMYCIN PER PHARMACY 100 GM in SODIUM CHLORIDE 0.9% 250 ML IV SCH (20:00)
[2018-06-10] MEDS: PIPERACILLIN/TAZOBACTAM 3.375 GM in SODIUM CHLORIDE 0.9% MINIBAG 100 ML IV SCH (20:51)
[2018-06-10] MEDS: rOPINIRole 0.25 MG TABLET PO SCH (20:52)
[2018-06-10] MEDS: DULoxetine 30 MG CAPSULE PO SCH (20:52)
[2018-06-10] MEDS: NON FORMULARY MED (Melatonin [Melatonin] 3 MG) PO SCH (20:58)
[2018-06-10] MEDS: INSULIN ASPART 300 UNIT/3 ML PEN SUBQ SCH (20:58)
--- NOTE | 2018-06-10 21:23 | HISTORY & PHYSICAL EXAMINATION ---
DATE OF SERVICE: 06/10/2018 Physician: Roslyn Wells MD HISTORY OF PRESENT ILLNESS: This is a 67-year-old white female with a history of diabetes, chronic left leg cellulitis after an injury 8 years ago, recent admission here 2 months ago for septic shock with Gram-positive bacteremia and cellulitis of the left leg was the source. The patient has finished her course of antibiotics and adamantly states that she took everything and has been off antibiotics for 6 weeks. Three days ago, she started to feel achy and this morning she spiked a temperature of 102 and on repeat 103, therefore she presented to the emergency room. She noticed also that the left area where the cellulitis was is warmer and more red than just several days ago. She also describes mid abdominal, pain "when she leans forward", but no cramps, nausea, vomiting or diarrhea. She is now being admitted for severe sepsis, recurrent cellulitis and hyperglycemia. PAST MEDICAL HISTORY: Diabetes on insulin, chronic left leg cellulitis, recent septic shock admission with bacteremia, cellulitis was the source, history of pleural effusion on the right requiring thoracentesis in October of this year and 2 months ago with no malignant cells found. ALLERGIES 1. CIMETIDINE. 2. ERYTHROMYCIN. 3. FLONASE. 4. LEVAQUIN. 5. FELDENE. 6. SULFA ANTIBIOTICS. 7. EGGS. 8. MOTRIN. MEDICATIONS 1. Metformin 1000 mg b.i.d. 2. Digoxin 125 mcg daily. 3. Melatonin 3 mg every evening. 4. Lactobacillus every day. 5. Vitamin D3 2000 units daily. 6. Calcium 600 mg daily. 7. Albuterol p.r.n. 8. Toprol-XL 25 mg daily. 9. Lysine 500 mg b.i.d. 10. 70/30 Humulin 15 units subcutaneous every morning. 11. Cymbalta 30 mg in the morning, 60 mg in the evening. 12. Glipizide 5 mg daily. 13. Lasix 40 mg daily. 14. Spironolactone 50 mg b.i.d. 15. Potassium 10 mEq daily. 16. Omeprazole 20 mg daily. 17. Vitamin B daily. 18. Ropinirole 0.25 mg every p.m. REVIEW OF SYSTEMS: A comprehensive review of systems was performed and the pertinent positives are in the HPI, the rest are negative. FAMILY HISTORY: No inherited diseases. SOCIAL HISTORY: She is a nonsmoker who never smoked, uses no alcohol or illicit drugs. PHYSICAL EXAMINATION GENERAL: Elderly white female sitting in a chair. She is in no distress. VITAL SIGNS: Blood pressure 140/60. Pulse is 98 but was tachycardic at 110 in the emergency room in sinus rhythm. Respiratory rate was 29 and is now 18. O2 saturation on 4 liters is 92%. Temperature here was 37.9 C. HEENT: Moist oral mucosa and otherwise unremarkable except poor dentition. NECK: Without JVD in a vertical position. CHEST: Diminished breath sounds at both bases. No wheezes or rales. HEART: Heart sounds are normal. ABDOMEN: Soft, obese, decreased bowel sounds, nontender. EXTREMITIES: The right leg appears normal. The left leg has redness and venous stasis changes and warmth from the mid schroeder down to the ankle anteriorly and laterally. NEUROLOGIC: Intact. LABORATORY DATA: Sodium 131, potassium 4.2, BUN 12, creatinine 0.6, A1c 9.0, lactic acid 2.8, bilirubin 3.7, AST 54, ALT 26, lipase 43. INR 1.4. Serum ketones negative. White blood count 19.2 with a left shift, hemoglobin 11.6, MCV 99, platelet count low at 86. Urinalysis showed pH of 6, trace protein, high glucose, trace ketones, negative nitrite, negative leukocyte esterase and few bacteria. Chest x-ray showed a recurrence of a right pleural effusion. EKG: Sinus tachycardia at a rate of 108, left atrial enlargement and poor R- wave progression. IMPRESSION/DIAGNOSES 1. Severe sepsis with elevation of lactic acid, and tachycardia, fever, hyperglycemia. The source is likely again a recurrence of cellulitis. 2. Acute on chronic left leg cellulitis. 3. Diabetes with poor control. 4. Recurrent pleural effusion. 5. Hyperbilirubinemia and vague mid-abdominal pain. 6. Thrombocytopenia, chronic, per records. PLAN: Admit the patient to Med/Surg inpatient on telemetry. Begin IV fluids. Hold her Lasix and Spironolactone. Hold her oral antihyperglycemic agents and start the patient on sliding scale insulin, diabetic diet, continue the long- acting insulin, fingerstick glucoses and hypoglycemia protocol. Fully culture the patient, urine and blood, and then continue with the antibiotics started in the ER, Vancomycin and Zosyn. Add Florastor. Repeat thoracentesis, ultrasound- guided. Follow her lactic acid level as per sepsis protocol. Obtain an ultrasound of the abdomen, especially right upper quadrant. Follow her CBC daily. CODE STATUS: FULL CODE. DEEP VENOUS THROMBOSIS PROPHYLAXIS: Lovenox. ATTESTATION: The patient is expected to be discharged or transferred to another facility within 96 hours: Yes. TD: 06/10/2018 18:18 JADIEL
[2018-06-10] MEDS ORDERED: VANCOMYCIN INJ 1 GM in SODIUM CHLORIDE 0.9% 250 ML IV SCH (23:00)
[2018-06-11] MEDS: LINEZOLID 600 MG/300 ML 600 MG/300 ML BAG IV SCH ×3 (00:02→23:00)
[2018-06-11] MEDS: SODIUM CHLORIDE FLUSH 0.9% 10 ML SYRINGE IVP SCH ×3 (01:11→17:05)
[2018-06-11] MEDS: ALBUTEROL NEB 2.5 MG/3 ML INH PRN ×2 (01:45→20:58)
[2018-06-11] MEDS: PIPERACILLIN/TAZOBACTAM 3.375 GM in SODIUM CHLORIDE 0.9% MINIBAG 100 ML IV SCH ×4 (02:04→20:04)
[2018-06-11 04:51] LABS: BASOPHILS % (AUTO) 0.2 %; EOSINOPHILS % (AUTO) 0.4 %; HGB - HEMOGLOBIN 10.9 g/dL (12.0-16.0); LYMPHOCYTES # (AUTO) 1.3 10^3/uL (1.5-3.5); LYMPHOCYTES % (AUTO) 12.5 %; MEAN CORPUSCULAR HEMOGLOBIN 34.1 pg (27.0-31.0); MEAN CORPUSCULAR HGB CONC 34.1 g/dL (32.0-36.0); MEAN PLATELET VOLUME 9.2 fL (7.9-10.8); MONOCYTES # (AUTO) 0.7 10^3/uL (0.0-1.0); MONOCYTES % (AUTO) 7.1 %; NEUTROPHILS # (AUTO) 8.1 10^3/uL (1.5-6.6); NEUTROPHILS % (AUTO) 79.8 %; PLT - PLATELET COUNT 66 10^3/uL (130-450); RED CELL DISTRIBUTION WIDTH 14.7 % (12.0-15.0); WHITE BLOOD COUNT 10.2 x10^3/uL (4.8-10.8)
[2018-06-11 05:06] LABS: ALBUMIN 2.6 g/dL (3.2-5.5); ALBUMIN/GLOBULIN RATIO 0.6 (1.0-2.2); BILIRUBIN,TOTAL 2.7 mg/dL (0.2-1.0); CALCIUM 8.7 mg/dL (8.5-10.3); CREATININE 0.6 mg/dL (0.4-1.0); MAGNESIUM 1.8 mg/dL (1.7-2.8); TOTAL PROTEIN 6.7 g/dL (6.7-8.2)
[2018-06-11] MEDS: PANTOPRAZOLE 40 MG TABLET PO SCH (06:42)
[2018-06-11] MEDS: SODIUM CHLORIDE 0.9% 1,000 ML IV SCH ×3 (08:14→19:14)
[2018-06-11] MEDS: CHOLECALCIFEROL 1,000 UNIT TABLET PO SCH (08:18)
[2018-06-11] MEDS: DULoxetine 30 MG CAPSULE PO SCH ×2 (08:18→20:50)
[2018-06-11] MEDS: CALCIUM CARB (OYSTER SHELL) 500 MG TABLET PO SCH (08:18)
[2018-06-11] MEDS: SACCHAROMYCES BOULARDII 250 MG CAPSULE PO SCH ×2 (08:18→18:46)
[2018-06-11] MEDS: FAMOTIDINE 20 MG TABLET PO SCH (08:18)
[2018-06-11] MEDS: POLYETHYLENE GLYCOL 3350 17 GM PACKET PO SCH (08:19)
[2018-06-11] MEDS: NON FORMULARY MED (Vitamin B Complex [Vitamin B Complex] 1 EACH) PO SCH (08:19)
[2018-06-11] MEDS: METOPROLOL SUCCINATE 25 MG TABLET PO SCH (08:21)
[2018-06-11] MEDS: ENOXAPARIN 40 MG/0.4 ML SYRINGE SUBQ SCH ×2 (08:26→09:59)
[2018-06-11] MEDS: INSULIN ASPART 300 UNIT/3 ML PEN SUBQ SCH ×4 (08:26→20:50)
--- NOTE | 2018-06-11 08:58 | PROVIDER PROGRESS NOTE ---
Assessment/Plan - Problem List (1) Severe sepsis Assessment/Plan: Lactic acid worsened overnight to 3.0. Antibiotics were changed overnight. L.A. has improved this am. Cellulitis is presumably the cause, but blood cultures are neg so far. Pt on antibiotics to cover skin donny. Will also evaluate for cholecystitis, given her elevated bili and vague mid- abdominal pain note on ROS at admission. Also, the pleural fluid will be sent for culture. (2) Paroxysmal A-fib Assessment/Plan: Pt had a self limited and asymptomatic run of Afib over night last night. She had Afib with RVR during the last admission when in septic shock, Dig and Coumadin were started and she was discharged on these. She presented now off Coumadin, possibly due to having a thoracentesis. Troponins and an Echo done then were normal. Will check a Dig level. Her CHADS score now = 2 (HTN and DM), therefore an anticoagulant is desirable for stroke prophylaxis, over a daily ASA. Will assess for bleeding Hx and bleeding risk and discuss restarting anticoagulation with Pt. A NOAC would be more handy, but her cost may be excessive since she lost her [employer] health Insurance recently and only has Medicare. (3) Pleural effusion, right Assessment/Plan: A diagnostic thoracentesis with US guidance is planned for today. Will evaluate for exudate or transudate, culture for bacteria and send for cytology. (4) Cellulitis of left leg without foot Assessment/Plan: Antibiotics were broadened last night, since lactic acid was going up. Today L.A. is normal Continue present antibiotics. I will reach out to ID specialists at to discuss her case and for further recommendations regarding length and type of treatment. The patient was updated regarding the plan. 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 - Current Meds Current Meds: Current Medications Generic Name Dose Route Start Last Admin Trade Name Freq PRN Reason Stop Dose Admin Acetaminophen 650 mg 06/10/18 16:24 06/11/18 04:08 Tylenol PO 650 mg Q4HR PRN Administration Pain or Fever > 38C (100.4F) Albuterol 2.5 mg 06/10/18 16:30 06/11/18 01:45 INH 2.5 mg Q4HR PRN Administration Shortness of Air/Wheezing Calcium Carbonate/Glycine 500 mg 06/11/18 09:00 06/11/18 08:18 Oysco-500 PO 500 mg DAILY JASWANT Administration Cholecalciferol 2,000 unit 06/11/18 09:00 06/11/18 08:18 Vitamin D3 PO 2,000 unit DAILY JASWANT Administration Duloxetine HCl 30 mg 06/11/18 09:00 06/11/18 08:18 Cymbalta PO 30 mg DAILY JASWANT Administration Duloxetine HCl 60 mg 06/10/18 21:00 06/10/18 20:52 Cymbalta PO 60 mg QPM JASWANT Administration Enoxaparin Sodium 40 mg 06/11/18 09:00 06/11/18 08:26 Lovenox SUBQ 40 mg DAILY JASWANT Administration Famotidine 20 mg 06/11/18 09:00 06/11/18 08:18 Pepcid PO 20 mg DAILY JASWANT Administration Sodium Chloride 1,000 mls @ 125 mls/hr 06/10/18 17:00 06/11/18 08:15 Normal Saline 0.9% IV 125 mls/hr .Q8H JASWANT Administration Piperacillin Sod/Tazobactam 100 mls @ 200 mls/hr 06/10/18 20:00 06/11/18 08: 19 Sod 3.375 gm/ Sodium Chloride IV 200 mls/hr Q6H JASWANT Administration Linezolid 600 mg in 300 mls @ 300 mls/hr 06/10/18 23:00 06/11/18 01:57 Zyvox 600 Mg/300 Ml IV Infused Q12H JASWANT Infusion Insulin Aspart 2 - 10 unit 06/10/18 21:00 06/11/18 08:26 Novolog SUBQ 4 unit 0800,1200,1700,2100 JASWANT Administration Protocol Metoprolol Succinate 25 mg 06/11/18 09:00 06/11/18 08:21 Toprol Xl PO 25 mg DAILY JASWANT Administration Non-Formulary Medication 3 mg 06/10/18 21:00 06/10/18 20:58 Melatonin [Melatonin] PO Not Given QPM ON LICENSE OF [facility] Non-Formulary Medication 1 each 06/11/18 09:00 06/11/18 08:19 Vitamin B Complex [Vitamin B Complex] PO Not Given DAILY ON LICENSE OF [facility] Pantoprazole Sodium 40 mg 06/11/18 07:00 06/11/18 06:42 Protonix PO 40 mg QDAC JASWANT Administration Polyethylene Glycol 17 gm 06/11/18 09:00 06/11/18 08:19 Miralax PO 17 gm DAILY JASWANT Administration Ropinirole HCl 0.25 mg 06/10/18 21:00 06/10/18 20:52 Requip PO 0.25 mg QPM JASWANT Administration Saccharomyces Boulardii 250 mg 06/10/18 17:00 06/11/18 08:18 Florastor PO 250 mg BIDWM JASWANT Administration Sodium Chloride 10 ml 06/10/18 17:00 06/11/18 08:15 Normal Saline Flush 0.9% IVP 10 ml 0100,0900,1700 JASWANT Administration - Lab Result Fish Bone Diagrams: 06/11/18 04:25 06/11/18 04:25 - Additional Planning My Orders: My Active Orders 06/10/18 16:30 Albuterol 2.5 mg INH Q4HR PRN 06/10/18 16:33 Thoracentesis Puncture [US] Routine 06/10/18 16:35 Blood Glucose Checks - Eating [RC] 0800,1200,1700,2100 Initiate Hypoglycemia Protocol [RC] .protocol 06/10/18 17:00 Saccharomyces Boulardii [Florastor] 250 mg PO BIDWM 06/10/18 20:00 Piperacillin/Tazobactam [Zosyn] 3.375 gm Sodium Chloride 0.9% Minibag [Normal Saline 0.9% Minibag] 100 ml IV Q6H 06/10/18 21:00 DULoxetine [Cymbalta] 60 mg PO QPM Insulin Aspart [NovoLOG] 2 - 10 unit SUBQ 0800,1200,1700,2100 Melatonin [Melatonin] 3 mg PO QPM rOPINIRole [Requip] 0.25 mg PO QPM 06/10/18 22:48 Nebulizer/MDI Tx. [RC] .Q4PRN 06/11/18 07:00 Pantoprazole [Protonix] 40 mg PO QDAC 06/11/18 08:49 Abdomen Limited [US] Routine 06/11/18 09:00 Calcium Carb (Oyster Shell) [Oysco-500] 500 mg PO DAILY Cholecalciferol [Vitamin D3] 2,000 unit PO DAILY DULoxetine [Cymbalta] 30 mg PO DAILY Metoprolol Succinate [Toprol Xl] 25 mg PO DAILY Vitamin B Complex [Vitamin B Complex] 1 each PO DAILY 06/12/18 05:00 CBC - COMP BLD CT W/AUTO DIFF [HEME] DAILYLAB CMP [COMPREHENSIVE METABOLIC PANEL] [CHEM] DAILYLAB MAGNESIUM [CHEM] DAILYLAB 06/13/18 05:00 CBC - COMP BLD CT W/AUTO DIFF [HEME] DAILYLAB CMP [COMPREHENSIVE METABOLIC PANEL] [CHEM] DAILYLAB MAGNESIUM [CHEM] DAILYLAB Subjective - Subjective Patient Reports: Feeling Better, Resting Comfortably Nursing Reports: Other (Leg redness and swelling have decreased.) Objective Vital Signs: Vital Signs - 24 hr 06/10/18 06/10/18 06/10/18 16:42 16:59 17:09 Temperature 37.2 C Heart Rate 99 97 98 Heart Rate [ Brachial] Respiratory 29 H 27 H 26 H Rate Blood Pressure 136/51 H 136/51 H 140/61 H Blood Pressure [Right Brachial artery] Blood Pressure [Right Radial artery] O2 Saturation 92 93 92 06/10/18 06/10/18 06/10/18 18:27 19:36 20:30 Temperature 36.9 C 37 C 37.4 C Heart Rate Heart Rate [ 94 89 Brachial] Respiratory 16 20 Rate Blood Pressure Blood Pressure 137/68 H [Right Brachial artery] Blood Pressure 141/48 H [Right Radial artery] O2 Saturation 95 94 06/10/18 06/10/18 06/11/18 23:23 23:53 01:45 Temperature 37.5 C Heart Rate 89 97 Heart Rate [ 98 Brachial] Respiratory 20 18 18 Rate Blood Pressure Blood Pressure [Right Brachial artery] Blood Pressure 140/89 H [Right Radial artery] O2 Saturation 92 06/11/18 06/11/18 04:04 07:47 Temperature 37.6 C H 37.2 C Heart Rate Heart Rate [ 95 106 H Brachial] Respiratory 19 20 Rate Blood Pressure Blood Pressure [Right Brachial artery] Blood Pressure 139/48 H 132/61 H [Right Radial artery] O2 Saturation 93 92 Oxygen O2 Source Nasal cannula I&O (Last 24 Hrs): Intake and Output Totals x24h 06/09/18 06/10/18 06/11/18 23:59 23:59 23:59 Intake Total 8585.727 3943.583 Output Total 630 100 Balance 815.445 6316.583 General: Alert, Oriented x3 HEENT: Mucous membr. moist/pink Neck: Supple, No JVD Neuro: Non Focal Cardiovascular: Regular rate, No murmurs Respiratory: Other (Diminished BS.) Abdomen: Soft, No tenderness Extremities: Other (Left lateral schroeder less red-purple and less swollen.) - Results Results: Laboratory Results WBC 10.2 x10^3/uL (4.8-10.8) 06/11/18 04:25 RBC 3.20 10^6/uL (4.20-5.40) L 06/11/18 04:25 Hgb 10.9 g/dL (12.0-16.0) L 06/11/18 04:25 Hct 32.0 % (37.0-47.0) L 06/11/18 04:25 MCV 100.0 fL (81.0-99.0) H 06/11/18 04:25 MCH 34.1 pg (27.0-31.0) H 06/11/18 04:25 MCHC 34.1 g/dL (32.0-36.0) 06/11/18 04:25 RDW 14.7 % (12.0-15.0) 06/11/18 04:25 Plt Count 66 10^3/uL (130-450) L 06/11/18 04:25 MPV 9.2 fL (7.9-10.8) 06/11/18 04:25 Neut # (Auto) 8.1 10^3/uL (1.5-6.6) H 06/11/18 04:25 Lymph # (Auto) 1.3 10^3/uL (1.5-3.5) L 06/11/18 04:25 [place] # (Auto) 0.7 10^3/uL (0.0-1.0) 06/11/18 04:25 Eos # (Auto) 0.0 10^3/uL (0.0-0.7) 06/11/18 04:25 Baso # (Auto) 0.0 10^3/uL (0.0-0.1) 06/11/18 04:25 Absolute Nucleated RBC 0.00 x10^3/uL 06/11/18 04:25 Nucleated RBC % 0.0 /100WBC 06/11/18 04:25 PT 15.5 secs (9.9-12.6) H 06/10/18 16:45 INR 1.4 (0.8-1.2) H 06/10/18 16:45 Sodium 135 mmol/L (135-145) 06/11/18 04:25 Potassium 3.3 mmol/L (3.5-5.0) L 06/11/18 04:25 Chloride 106 mmol/L (101-111) 06/11/18 04:25 Carbon Dioxide 22 mmol/L (21-32) 06/11/18 04:25 Anion Gap 7.0 (6-13) 06/11/18 04:25 BUN 12 mg/dL (6-20) 06/11/18 04:25 Creatinine 0.6 mg/dL (0.4-1.0) 06/11/18 04:25 Estimated GFR (MDRD) 100 (>89) 06/11/18 04:25 Glucose 228 mg/dL (70-100) H 06/11/18 04:25 Glycated Hemoglobin 9.0 % (4.6-6.2) H 06/10/18 12:15 Estim Average Glucose 212 (70-100) H 06/10/18 12:15 Lactic Acid 1.7 mmol/L (0.5-2.2) 06/11/18 03:50 Calcium 8.7 mg/dL (8.5-10.3) 06/11/18 04:25 Magnesium 1.8 mg/dL (1.7-2.8) 06/11/18 04:25 Total Bilirubin 2.7 mg/dL (0.2-1.0) H 06/11/18 04:25 AST 45 IU/L (10-42) H 06/11/18 04:25 ALT 22 IU/L (10-60) 06/11/18 04:25 Alkaline Phosphatase 107 IU/L (42-121) 06/11/18 04:25 Troponin I 0.04 ng/mL (<0.49) 06/10/18 12:15 Total Protein 6.7 g/dL (6.7-8.2) 06/11/18 04:25 Albumin 2.6 g/dL (3.2-5.5) L 06/11/18 04:25 Globulin 4.1 g/dL (2.1-4.2) 06/11/18 04:25 Albumin/Globulin Ratio 0.6 (1.0-2.2) L 06/11/18 04:25 Lipase 43 U/L (22-51) 06/10/18 12:15 Urine Color DARK YELLOW 06/10/18 12:41 Urine Clarity HAZY (CLEAR) 06/10/18 12:41 Urine pH 6.0 PH (5.0-7.5) 06/10/18 12:41 Ur Specific [place] 1.025 (1.002-1.030) 06/10/18 12:41 Urine Protein TRACE mg/dL (NEGATIVE) 06/10/18 12:41 Urine Glucose (UA) >=1000 mg/dL (NEGATIVE) H 06/10/18 12:41 Urine Ketones TRACE mg/dL (NEGATIVE) 06/10/18 12:41 Urine Occult Blood NEGATIVE (NEGATIVE) 06/10/18 12:41 Urine Nitrite NEGATIVE (NEGATIVE) 06/10/18 12:41 Urine Bilirubin SMALL (NEGATIVE) H 06/10/18 12:41 Urine Urobilinogen 2 E.U./dL (NORMAL) H 06/10/18 12:41 Ur Leukocyte Esterase NEGATIVE (NEGATIVE) 06/10/18 12:41 Urine RBC 0-5 /HPF (0-5) 06/10/18 12:41 Urine WBC 0-3 /HPF (0-5) 06/10/18 12:41 Ur Squamous Epith Cells FEW Squamous (<= Few) 06/10/18 12:41 Urine Bacteria Few /HPF (None Seen) 06/10/18 12:41 Ur Microscopic Review INDICATED 06/10/18 12:41 Urine Culture Comments NOT INDICATED 06/10/18 12:41 Last Dose Date UNKNOWN 06/10/18 12:15 Last Dose Time UNKNOWN 06/10/18 12:15 Digoxin < 0.2 ng/mL 06/10/18 12:15 Serum Ketones NEGATIVE (NEGATIVE) 06/10/18 12:15 - Procedures Procedures: Procedures DRAINAGE OF RIGHT PLEURAL CAVITY, PERCUTANEOUS APPROACH (02/24/18) TRANSFUSE NONAUT FROZEN PLASMA IN PERIPH VEIN, PERC (02/24/18)
[2018-06-11] MEDS ORDERED: VANCOMYCIN INJ 1.75 GM in SODIUM CHLORIDE 0.9% 500 ML IV SCH (11:00)
[2018-06-11 11:58] LABS: DIGOXIN < 0.2 ng/mL
[2018-06-11] MEDS: DIGOXIN 125 MCG TABLET PO SCH (12:00)
[2018-06-11] MEDS ORDERED: ZINC OXIDE 20% OINT 28.35 GM TUBE TOP PRN (17:19)
[2018-06-11] MEDS ORDERED: BUFFERED LIDOCAINE 10 ML SYRINGE IU ONE (17:54)
--- NOTE | 2018-06-11 20:17 | Ultrasound Report ---
Procedure Date: 06/11/2018 Accession Number: [id number] / [id number] Procedure: US - Abdomen Limited CPT Code: FULL RESULT: EXAM: ABDOMEN ULTRASOUND LIMITED, RUQ EXAM DATE: 06/11/2018 07:17 PM. CLINICAL HISTORY: Elevated bilirubin. Mid-abdominal pain. COMPARISON: ABDOMEN LIMITED 12/05/2017 12:44 AM. TECHNIQUE: Real-time scanning was performed with static images obtained. FINDINGS: Liver: Normal in size. Heterogeneous echotexture. Stable lower left lobe echogenic focus is 0.8 x 0.7 x 0.7 cm. 13.6 cm. Main portal vein flow: Hepatopetal. Gallbladder: Surgically absent. Biliary System: CBD measures 5 mm. No intrahepatic or extrahepatic ductal dilatation. Other: The visualized pancreas and right kidney are unremarkable. No free fluid. Right pleural effusion noted.. IMPRESSION: 1. Cholecystectomy, with no dilated ducts. 2. Stable heterogeneous hepatic echotexture with left lobe echogenic focus compatible with a hemangioma. RADIA
[2018-06-11] MEDS: rOPINIRole 0.25 MG TABLET PO SCH (20:49)
[2018-06-11] MEDS: NON FORMULARY MED (Melatonin [Melatonin] 3 MG) PO SCH (20:51)
[2018-06-11] MEDS ORDERED: PSEUDOEPHEDRINE 30 MG TABLET PO PRN (22:34)
[2018-06-12] MEDS: SODIUM CHLORIDE FLUSH 0.9% 10 ML SYRINGE IVP SCH ×3 (01:11→16:14)
[2018-06-12] MEDS: PIPERACILLIN/TAZOBACTAM 3.375 GM in SODIUM CHLORIDE 0.9% MINIBAG 100 ML IV SCH ×4 (01:56→19:09)
[2018-06-12] MEDS: SODIUM CHLORIDE 0.9% 1,000 ML IV SCH ×3 (04:54→16:13)
[2018-06-12 05:12] LABS: ALBUMIN 2.4 g/dL (3.2-5.5); ALBUMIN/GLOBULIN RATIO 0.6 (1.0-2.2); BILIRUBIN,TOTAL 1.7 mg/dL (0.2-1.0); CALCIUM 8.3 mg/dL (8.5-10.3); CREATININE 0.6 mg/dL (0.4-1.0); MAGNESIUM 1.6 mg/dL (1.7-2.8); TOTAL PROTEIN 6.2 g/dL (6.7-8.2)
[2018-06-12 05:19] LABS: BASOPHILS % (AUTO) 0.6 %; EOSINOPHILS # (AUTO) 0.2 10^3/uL (0.0-0.7); EOSINOPHILS % (AUTO) 3.2 %; HGB - HEMOGLOBIN 11.2 g/dL (12.0-16.0); LYMPHOCYTES # (AUTO) 1.6 10^3/uL (1.5-3.5); LYMPHOCYTES % (AUTO) 26.2 %; MEAN CORPUSCULAR HEMOGLOBIN 33.9 pg (27.0-31.0); MEAN CORPUSCULAR HGB CONC 33.9 g/dL (32.0-36.0); MEAN CORPUSCULAR VOLUME 100.1 fL (81.0-99.0); MEAN PLATELET VOLUME 9.4 fL (7.9-10.8); MONOCYTES # (AUTO) 0.6 10^3/uL (0.0-1.0); MONOCYTES % (AUTO) 10.3 %; NEUTROPHILS # (AUTO) 3.6 10^3/uL (1.5-6.6); NEUTROPHILS % (AUTO) 59.7 %; PLT - PLATELET COUNT 60 10^3/uL (130-450); RED BLOOD COUNT 3.29 10^6/uL (4.20-5.40); RED CELL DISTRIBUTION WIDTH 14.6 % (12.0-15.0); WHITE BLOOD COUNT 5.9 x10^3/uL (4.8-10.8)
[2018-06-12] MEDS: PANTOPRAZOLE 40 MG TABLET PO SCH (06:14)
[2018-06-12] MEDS: ENOXAPARIN 40 MG/0.4 ML SYRINGE SUBQ SCH (06:18)
--- NOTE | 2018-06-12 07:55 | Ultrasound Report ---
Procedure Date: 06/11/2018 Accession Number: [id number] / [id number] Procedure: US - Thoracentesis Puncture CPT Code: FULL RESULT: EXAM: ULTRASOUND GUIDED THORACENTESIS EXAM DATE: 06/11/2018 04:29 PM. CLINICAL HISTORY: SOB, recurrent pleural effusion. COMPARISON: None. TECHNIQUE: Real-time and static images were obtained. FINDINGS: Ultrasound guidance was provided for a right-sided thoracentesis. Written informed consent was obtained. The patient was brought to the ultrasound procedure and seated in the upright position. Following preliminary ultrasound images confirming a posterior intercostal approach the back was sterilely prepped and draped in the usual fashion. Local anesthesia was obtained with lidocaine 1%. A small skin jamee was made. Following this, a Dksj-A-Kfnykhin needle catheter combination was placed into the pleural effusion under live ultrasound guidance carefully avoiding lung and heart. A total of approximately 1200 mL were removed. A sample was sent to pathology. The catheter was removed and a sterile occlusive dressing was applied. The patient appeared to tolerate the procedure well. IMPRESSION: Ultrasound-guided right thoracentesis. RADIA
[2018-06-12] MEDS: NON FORMULARY MED (Vitamin B Complex [Vitamin B Complex] 1 EACH) PO SCH (08:20)
[2018-06-12] MEDS: DIGOXIN 125 MCG TABLET PO SCH (08:32)
[2018-06-12] MEDS: CALCIUM CARB (OYSTER SHELL) 500 MG TABLET PO SCH (08:32)
[2018-06-12] MEDS: DULoxetine 30 MG CAPSULE PO SCH ×2 (08:32→22:01)
[2018-06-12] MEDS: METOPROLOL SUCCINATE 25 MG TABLET PO SCH (08:32)
[2018-06-12] MEDS: FAMOTIDINE 20 MG TABLET PO SCH (08:32)
[2018-06-12] MEDS: CHOLECALCIFEROL 1,000 UNIT TABLET PO SCH (08:32)
[2018-06-12] MEDS: SACCHAROMYCES BOULARDII 250 MG CAPSULE PO SCH ×2 (08:32→17:24)
[2018-06-12] MEDS: POLYETHYLENE GLYCOL 3350 17 GM PACKET PO SCH (08:34)
[2018-06-12] MEDS: INSULIN ASPART 300 UNIT/3 ML PEN SUBQ SCH ×4 (08:36→22:02)
[2018-06-12] MEDS: LINEZOLID 600 MG/300 ML 600 MG/300 ML BAG IV SCH ×2 (11:23→22:01)
--- NOTE | 2018-06-12 17:58 | PROVIDER PROGRESS NOTE ---
Assessment/Plan - Problem List (1) Diarrhea Assessment/Plan: Presumably from iv antibiotics. Will add Imodium prn. (2) Paroxysmal A-fib Assessment/Plan: No further episodes since the first night and Dig was restarted then. Continue telemetry until [facility]. (3) Pleural effusion, right Assessment/Plan: Patient reports that she was told it is a recurrent effusion from liver cirrhosis and that it may need future drainage intermittently. She is comfortable and no longer SOB. All lab results on fluid are pending. (4) Cellulitis of left leg without foot Assessment/Plan: She has had good results with these antibiotics. Will plan [facility] tomorrow. 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 (6) Severe sepsis Assessment/Plan: Resolved (7) Thrombocytopenia Assessment/Plan: Chronic and stable. - Current Meds Current Meds: Current Medications Generic Name Dose Route Start Last Admin Trade Name Freq PRN Reason Stop Dose Admin Acetaminophen 650 mg 06/10/18 16:24 06/11/18 04:08 Tylenol PO 650 mg Q4HR PRN Administration Pain or Fever > 38C (100.4F) Albuterol 2.5 mg 06/10/18 16:30 06/11/18 20:58 INH 2.5 mg Q4HR PRN Administration Shortness of Air/Wheezing Calcium Carbonate/Glycine 500 mg 06/11/18 09:00 06/12/18 08:32 Oysco-500 PO 500 mg DAILY JASWANT Administration Cholecalciferol 2,000 unit 06/11/18 09:00 06/12/18 08:32 Vitamin D3 PO 2,000 unit DAILY JASWANT Administration Digoxin 125 mcg 06/11/18 12:00 06/12/18 08:32 Lanoxin PO 125 mcg DAILY JASWANT Administration Duloxetine HCl 30 mg 06/11/18 09:00 06/12/18 08:32 Cymbalta PO 30 mg DAILY JASWANT Administration Duloxetine HCl 60 mg 06/10/18 21:00 06/11/18 20:50 Cymbalta PO 60 mg QPM JASWANT Administration Enoxaparin Sodium 40 mg 06/11/18 09:00 06/12/18 06:18 Lovenox SUBQ Not Given DAILY JASWANT Famotidine 20 mg 06/11/18 09:00 06/12/18 08:32 Pepcid PO 20 mg DAILY JASWANT Administration Sodium Chloride 1,000 mls @ 125 mls/hr 06/10/18 17:00 06/12/18 16:13 Normal Saline 0.9% IV 125 mls/hr .Q8H JASWANT Administration Piperacillin Sod/Tazobactam 100 mls @ 200 mls/hr 06/10/18 20:00 06/12/18 15: 58 Sod 3.375 gm/ Sodium Chloride IV Infused Q6H JASWANT Infusion Linezolid 600 mg in 300 mls @ 300 mls/hr 06/10/18 23:00 06/12/18 12:23 Zyvox 600 Mg/300 Ml IV Infused Q12H JASWANT Infusion Insulin Aspart 2 - 10 unit 06/10/18 21:00 06/12/18 17:24 Novolog SUBQ 6 unit 0800,1200,1700,2100 JASWANT Administration Protocol Metoprolol Succinate 25 mg 06/11/18 09:00 06/12/18 08:32 Toprol Xl PO 25 mg DAILY JASWANT Administration Non-Formulary Medication 3 mg 06/10/18 21:00 06/11/18 20:51 Melatonin [Melatonin] PO Not Given QPM JASWANT Non-Formulary Medication 1 each 06/11/18 09:00 06/12/18 08:20 Vitamin B Complex [Vitamin B Complex] PO Not Given DAILY JASWANT Pantoprazole Sodium 40 mg 06/11/18 07:00 06/12/18 06:14 Protonix PO 40 mg QDAC JASWANT Administration Polyethylene Glycol 17 gm 06/11/18 09:00 06/12/18 08:34 Miralax PO Not Given DAILY JASWANT Ropinirole HCl 0.25 mg 06/10/18 21:00 06/11/18 20:49 Requip PO 0.25 mg QPM JASWANT Administration Saccharomyces Boulardii 250 mg 06/10/18 17:00 06/12/18 17:24 Florastor PO 250 mg BIDWM JASWANT Administration Sodium Chloride 10 ml 06/10/18 17:00 06/12/18 16:14 Normal Saline Flush 0.9% IVP Not Given 0100,0900,1700 JASWANT - Lab Result Fish Bone Diagrams: 06/12/18 04:25 06/12/18 04:25 - Additional Planning My Orders: My Active Orders 06/11/18 17:19 Zinc Oxide 20% Oint [Zinc Oxide] 1 applic TOP PRN PRN 06/13/18 05:00 CBC - COMP BLD CT W/AUTO DIFF [HEME] DAILYLAB CMP [COMPREHENSIVE METABOLIC PANEL] [CHEM] DAILYLAB MAGNESIUM [CHEM] DAILYLAB Subjective - Subjective Patient Reports: Feeling Better, No Complaints, Other (Had 1 bout of diarrhea this am, no abd pain or cramps.) Objective Vital Signs: Vital Signs - 24 hr 06/11/18 06/11/18 06/12/18 20:56 20:59 00:15 Temperature 36.7 C 37.2 C Heart Rate 75 Heart Rate [ 94 94 Brachial] Respiratory 20 20 19 Rate Blood Pressure 134/69 H [Right Brachial artery] Blood Pressure 113/54 L [Right Radial artery] O2 Saturation 96 96 06/12/18 06/12/18 06/12/18 04:49 07:50 13:00 Temperature 36.7 C 36.8 C 36.5 C Heart Rate Heart Rate [ 93 119 H 87 Brachial] Respiratory 18 20 19 Rate Blood Pressure [Right Brachial artery] Blood Pressure 131/49 H 115/54 L 127/66 [Right Radial artery] O2 Saturation 93 92 92 06/12/18 15:26 Temperature 36.6 C Heart Rate Heart Rate [ 92 Brachial] Respiratory 20 Rate Blood Pressure [Right Brachial artery] Blood Pressure 138/60 H [Right Radial artery] O2 Saturation 98 Oxygen O2 Source Nasal cannula I&O (Last 24 Hrs): Intake and Output Totals x24h 06/10/18 06/11/18 06/12/18 23:59 23:59 23:59 Intake Total 7291.618 2819.583 4430.000 Output Total 630 350 600 Balance 395.359 8048.583 3830.000 General: Alert, Oriented x3 HEENT: Mucous membr. moist/pink, Other (Poor dentition) Neck: Supple, No JVD Neuro: Non Focal Cardiovascular: Regular rate, No murmurs Respiratory: No respiratory distress, Other (Diminished at R base, no whzzes or rhonchi) Abdomen: Soft, No tenderness Extremities: Other (L leg cellulitis area appears only dark pink and not warm or swollen) - Results Results: Laboratory Results WBC 5.9 x10^3/uL (4.8-10.8) 06/12/18 04:25 RBC 3.29 10^6/uL (4.20-5.40) L 06/12/18 04:25 Hgb 11.2 g/dL (12.0-16.0) L 06/12/18 04:25 Hct 33.0 % (37.0-47.0) L 06/12/18 04:25 MCV 100.1 fL (81.0-99.0) H 06/12/18 04:25 MCH 33.9 pg (27.0-31.0) H 06/12/18 04:25 MCHC 33.9 g/dL (32.0-36.0) 06/12/18 04:25 RDW 14.6 % (12.0-15.0) 06/12/18 04:25 Plt Count 60 10^3/uL (130-450) L 06/12/18 04:25 MPV 9.4 fL (7.9-10.8) 06/12/18 04:25 Neut # (Auto) 3.6 10^3/uL (1.5-6.6) 06/12/18 04:25 Lymph # (Auto) 1.6 10^3/uL (1.5-3.5) 06/12/18 04:25 [place] # (Auto) 0.6 10^3/uL (0.0-1.0) 06/12/18 04:25 Eos # (Auto) 0.2 10^3/uL (0.0-0.7) 06/12/18 04:25 Baso # (Auto) 0.0 10^3/uL (0.0-0.1) 06/12/18 04:25 Absolute Nucleated RBC 0.00 x10^3/uL 06/12/18 04:25 Nucleated RBC % 0.1 /100WBC 06/12/18 04:25 PT 15.5 secs (9.9-12.6) H 06/10/18 16:45 INR 1.4 (0.8-1.2) H 06/10/18 16:45 Sodium 137 mmol/L (135-145) 06/12/18 04:25 Potassium 3.6 mmol/L (3.5-5.0) 06/12/18 04:25 Chloride 110 mmol/L (101-111) 06/12/18 04:25 Carbon Dioxide 23 mmol/L (21-32) 06/12/18 04:25 Anion Gap 4.0 (6-13) L 06/12/18 04:25 BUN 11 mg/dL (6-20) 06/12/18 04:25 Creatinine 0.6 mg/dL (0.4-1.0) 06/12/18 04:25 Estimated GFR (MDRD) 100 (>89) 06/12/18 04:25 Glucose 269 mg/dL (70-100) H 06/12/18 04:25 Glycated Hemoglobin 9.0 % (4.6-6.2) H 06/10/18 12:15 Estim Average Glucose 212 (70-100) H 06/10/18 12:15 Lactic Acid 1.3 mmol/L (0.5-2.2) 06/11/18 12:49 Calcium 8.3 mg/dL (8.5-10.3) L 06/12/18 04:25 Magnesium 1.6 mg/dL (1.7-2.8) L 06/12/18 04:25 Total Bilirubin 1.7 mg/dL (0.2-1.0) H 06/12/18 04:25 AST 39 IU/L (10-42) 06/12/18 04:25 ALT 22 IU/L (10-60) 06/12/18 04:25 Alkaline Phosphatase 91 IU/L (42-121) 06/12/18 04:25 Troponin I 0.04 ng/mL (<0.49) 06/10/18 12:15 Total Protein 6.2 g/dL (6.7-8.2) L 06/12/18 04:25 Albumin 2.4 g/dL (3.2-5.5) L 06/12/18 04:25 Globulin 3.8 g/dL (2.1-4.2) 06/12/18 04:25 Albumin/Globulin Ratio 0.6 (1.0-2.2) L 06/12/18 04:25 Lipase 43 U/L (22-51) 06/10/18 12:15 Urine Color DARK YELLOW 06/10/18 12:41 Urine Clarity HAZY (CLEAR) 06/10/18 12:41 Urine pH 6.0 PH (5.0-7.5) 06/10/18 12:41 Ur Specific [place] 1.025 (1.002-1.030) 06/10/18 12:41 Urine Protein TRACE mg/dL (NEGATIVE) 06/10/18 12:41 Urine Glucose (UA) >=1000 mg/dL (NEGATIVE) H 06/10/18 12:41 Urine Ketones TRACE mg/dL (NEGATIVE) 06/10/18 12:41 Urine Occult Blood NEGATIVE (NEGATIVE) 06/10/18 12:41 Urine Nitrite NEGATIVE (NEGATIVE) 06/10/18 12:41 Urine Bilirubin SMALL (NEGATIVE) H 06/10/18 12:41 Urine Urobilinogen 2 E.U./dL (NORMAL) H 06/10/18 12:41 Ur Leukocyte Esterase NEGATIVE (NEGATIVE) 06/10/18 12:41 Urine RBC 0-5 /HPF (0-5) 06/10/18 12:41 Urine WBC 0-3 /HPF (0-5) 06/10/18 12:41 Ur Squamous Epith Cells FEW Squamous (<= Few) 06/10/18 12:41 Urine Bacteria Few /HPF (None Seen) 06/10/18 12:41 Ur Microscopic Review INDICATED 06/10/18 12:41 Urine Culture Comments NOT INDICATED 06/10/18 12:41 Last Dose Date UNKNOWN 06/11/18 04:25 Last Dose Time UNKNOWN 06/11/18 04:25 Digoxin < 0.2 ng/mL 06/11/18 04:25 Serum Ketones NEGATIVE (NEGATIVE) 06/10/18 12:15 - Procedures Procedures: Procedures DRAINAGE OF RIGHT PLEURAL CAVITY, PERCUTANEOUS APPROACH (02/24/18) TRANSFUSE NONAUT FROZEN PLASMA IN PERIPH VEIN, PERC (02/24/18)
[2018-06-12] MEDS ORDERED: LOPERAMIDE 2 MG CAPSULE PO PRN (18:47)
[2018-06-12] MEDS: ALBUTEROL NEB 2.5 MG/3 ML INH PRN (21:07)
[2018-06-12] MEDS: rOPINIRole 0.25 MG TABLET PO SCH (22:01)
[2018-06-12] MEDS: NON FORMULARY MED (Melatonin [Melatonin] 3 MG) PO SCH (22:02)
[2018-06-13] MEDS: SODIUM CHLORIDE FLUSH 0.9% 10 ML SYRINGE IVP SCH ×2 (00:02→08:06)
[2018-06-13] MEDS: PIPERACILLIN/TAZOBACTAM 3.375 GM in SODIUM CHLORIDE 0.9% MINIBAG 100 ML IV SCH ×2 (01:39→08:05)
[2018-06-13] MEDS: SODIUM CHLORIDE 0.9% 1,000 ML IV SCH (01:39)
[2018-06-13 05:28] LABS: BASOPHILS % (AUTO) 0.7 %; EOSINOPHILS # (AUTO) 0.2 10^3/uL (0.0-0.7); EOSINOPHILS % (AUTO) 3.8 %; HGB - HEMOGLOBIN 11.3 g/dL (12.0-16.0); LYMPHOCYTES # (AUTO) 1.4 10^3/uL (1.5-3.5); LYMPHOCYTES % (AUTO) 29.9 %; MEAN CORPUSCULAR HEMOGLOBIN 34.1 pg (27.0-31.0); MEAN CORPUSCULAR HGB CONC 34.1 g/dL (32.0-36.0); MEAN CORPUSCULAR VOLUME 100.2 fL (81.0-99.0); MEAN PLATELET VOLUME 9.5 fL (7.9-10.8); MONOCYTES # (AUTO) 0.4 10^3/uL (0.0-1.0); MONOCYTES % (AUTO) 7.4 %; NEUTROPHILS # (AUTO) 2.8 10^3/uL (1.5-6.6); NEUTROPHILS % (AUTO) 58.2 %; PLT - PLATELET COUNT 59 10^3/uL (130-450); RED BLOOD COUNT 3.32 10^6/uL (4.20-5.40); RED CELL DISTRIBUTION WIDTH 14.8 % (12.0-15.0); WHITE BLOOD COUNT 4.8 x10^3/uL (4.8-10.8)
[2018-06-13 05:31] LABS: ALBUMIN 2.3 g/dL (3.2-5.5); ALBUMIN/GLOBULIN RATIO 0.6 (1.0-2.2); BILIRUBIN,TOTAL 1.6 mg/dL (0.2-1.0); CALCIUM 8.2 mg/dL (8.5-10.3); CREATININE 0.6 mg/dL (0.4-1.0); MAGNESIUM 1.6 mg/dL (1.7-2.8); TOTAL PROTEIN 6.3 g/dL (6.7-8.2)
[2018-06-13] MEDS: PANTOPRAZOLE 40 MG TABLET PO SCH (06:47)
[2018-06-13] MEDS: ALBUTEROL NEB 2.5 MG/3 ML INH PRN (07:03)
[2018-06-13] MEDS: FAMOTIDINE 20 MG TABLET PO SCH (08:05)
[2018-06-13] MEDS: CALCIUM CARB (OYSTER SHELL) 500 MG TABLET PO SCH (08:05)
[2018-06-13] MEDS: SACCHAROMYCES BOULARDII 250 MG CAPSULE PO SCH (08:05)
[2018-06-13] MEDS: METOPROLOL SUCCINATE 25 MG TABLET PO SCH (08:05)
[2018-06-13] MEDS: CHOLECALCIFEROL 1,000 UNIT TABLET PO SCH (08:05)
[2018-06-13] MEDS: DULoxetine 30 MG CAPSULE PO SCH (08:05)
[2018-06-13] MEDS: DIGOXIN 125 MCG TABLET PO SCH (08:05)
[2018-06-13] MEDS: ENOXAPARIN 40 MG/0.4 ML SYRINGE SUBQ SCH (08:06)
[2018-06-13] MEDS: POLYETHYLENE GLYCOL 3350 17 GM PACKET PO SCH (08:07)
[2018-06-13] MEDS: INSULIN ASPART 300 UNIT/3 ML PEN SUBQ SCH (08:11)
[2018-06-13] MEDS: NON FORMULARY MED (Vitamin B Complex [Vitamin B Complex] 1 EACH) PO SCH (08:14)
[2018-06-13 08:26] VITALS: BP 137/61
[2018-06-13] MEDS ORDERED: DIGOXIN 125 MCG TABLET PO SCH (09:07)
--- NOTE | 2018-06-13 09:23 | Discharge Plan ---
Discharge Plan Disposition: 01 Home, Self Care Condition: Stable Prescriptions: Linezolid 600 mg PO BID #20 tablet Diet: Diabetic Activity Restrictions: Activity as Tolerated Shower Restrictions: No Weight Bearing: Full Weight Additional Instructions or Follow Up instructions: Resume all your pre-hospital medications. Take the antibiotic twice a day for 10 more days. Go to the Infectious Disease doctor's office visit at [facility] as scheduled this month. No Smoking: If you smoke, Please STOP! Call for help. Follow-up with: Skye Randolph PA-C [Primary Care Provider] -
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
== END 2018-06-13 10:47 | disposition home or self-care (01) | DRG 872 ==
LOC: EDUNIT# → ED 11:30 → MS3 16:24
PROVIDERS: ADMIT Internal Medicine; ATTEND Internal Medicine
PROC: 0W993ZX Drainage of Right Pleural Cavity, Percutaneous Approach, Diagnostic (ICD-10-PCS; principal; 2018-06-11)
DX: A41.9 Sepsis, unspecified organism (principal); L03.116 Cellulitis of left lower limb; J90 Pleural effusion, not elsewhere classified; R65.20 Severe sepsis without septic shock; Z66 Do not resuscitate; E11.9 Type 2 diabetes mellitus without complications; E86.0 Dehydration; E11.65 Type 2 diabetes mellitus with hyperglycemia; E80.6 Other disorders of bilirubin metabolism; D69.6 Thrombocytopenia, unspecified; I48.0 Paroxysmal atrial fibrillation; R19.7 Diarrhea, unspecified
CPT/HCPCS: 32555; 36415; 51702; 71046; 76705; 80053; 80162; 81001; 81003; 81599; 82009; 83036; 83605; 83690; 83735; 84484; 85025; 85610; 87040; 87070; 87086; 87205; 87640; 93005; 94640; 94761; 96361; 96365; 96366; 99284; 99285

== ENCOUNTER 2018-06-14 18:03 | Outpatient (CLI) | payer SELFPAY | END 2018-06-14 18:04 | disposition critical access hospital (66) | LOC: EMS 18:03 | PROVIDERS: ATTEND Surgery | DX: R06.02 Shortness of breath (principal) | CPT/HCPCS: A0425; A0427; A0999 ==

== ENCOUNTER 2018-06-14 18:24 | Inpatient (IN) | payer MEDICARE ==
[2018-06-14 19:37] LABS: BASOPHILS % (AUTO) 0.6 %; EOSINOPHILS # (AUTO) 0.1 10^3/uL (0.0-0.7); EOSINOPHILS % (AUTO) 1.7 %; HGB - HEMOGLOBIN 12.2 g/dL (12.0-16.0); LYMPHOCYTES # (AUTO) 2.3 10^3/uL (1.5-3.5); MEAN CORPUSCULAR HEMOGLOBIN 33.5 pg (27.0-31.0); MEAN CORPUSCULAR HGB CONC 33.2 g/dL (32.0-36.0); MEAN CORPUSCULAR VOLUME 100.8 fL (81.0-99.0); MEAN PLATELET VOLUME 9.7 fL (7.9-10.8); MONOCYTES # (AUTO) 0.5 10^3/uL (0.0-1.0); MONOCYTES % (AUTO) 7.7 %; PLT - PLATELET COUNT 62 10^3/uL (130-450); RED BLOOD COUNT 3.64 10^6/uL (4.20-5.40); RED CELL DISTRIBUTION WIDTH 14.8 % (12.0-15.0)
[2018-06-14 19:49] LABS: ALBUMIN 2.9 g/dL (3.2-5.5); ALBUMIN/GLOBULIN RATIO 0.6 (1.0-2.2); BILIRUBIN,TOTAL 2.4 mg/dL (0.2-1.0); CALCIUM 8.9 mg/dL (8.5-10.3); CREATININE 0.6 mg/dL (0.4-1.0); TOTAL PROTEIN 7.4 g/dL (6.7-8.2)
--- NOTE | 2018-06-14 20:10 | XRAY Report ---
Procedure Date: 06/14/2018 Accession Number: [id number] / [id number] Procedure: XR - Chest 2 View X-Ray CPT Code: 13986 FULL RESULT: EXAM: CHEST RADIOGRAPHY EXAM DATE: 06/14/2018 07:54 PM. CLINICAL HISTORY: Dyspnea. COMPARISON: CHEST 2 VIEW 06/10/2018 CHEST ANGIO 12/05/2017 11:48 AM. TECHNIQUE: 2 views. FINDINGS: Lungs/Pleura: Large right pleural effusion, increased since the comparison exam. The left lung remains clear. No pneumothorax. Calcified right lower lobe granuloma again noted. Mediastinum: Normal heart size. There are calcified right hilar lymph nodes. Other: None. IMPRESSION: 1. Large right pleural effusion, increased since the 06/10/2018 exam. RADIA
[2018-06-14] MEDS ORDERED: INSULIN REGULAR HUMAN 100 UNIT/1 ML 10 ML MDV IVP STA (21:17)
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
[2018-06-14] MEDS ORDERED: SODIUM CHLORIDE FLUSH 0.9% 10 ML SYRINGE IVP PRN (22:17)
[2018-06-14] MEDS: SODIUM CHLORIDE FLUSH 0.9% 10 ML SYRINGE IVP SCH (23:42)
[2018-06-14] MEDS ORDERED: ZINC OXIDE 20% OINT 28.35 GM TUBE TOP PRN (23:56)
--- NOTE | 2018-06-15 00:47 | HISTORY & PHYSICAL EXAMINATION ---
Chief Complaint - Chief Complaint Chief Complaint: Shortness of breath History of Present Illness - Admitted From Admitted From:: Home - History Obtained From History obtained from: Patient, daughter, ED physician - History of Present Illness HPI Comment/Other: Mrs. Barbi guzmán 67-year-old female well-known to our service because of multiple recent admissions including one earlier this week for which she was discharged yesterday. She has a history significant for histoplasmosis, nonalcoholic cirrhosis, heart murmur, exposure to accident in her 20s, gastroesophageal reflux disease, urinary incontinence, depression, and she has been having recurrent bouts of cellulitis in her lower extremities. She was hospitalized for the cellulitis last week and responded well to the IV antibiotics. She was sent home yesterday but has been having shortness of breath since her discharge. During her admission last week the patient also was found to have a large pleural effusion which has been recurrent and for which we first started treating her in October of this year. She had 1.2 L drained but on reexamination in the emergency department today was found to have required the pleural effusion. We will admit her to the hospital with intentions of once again draining the pleural effusion and will also look into possible pleurodesis. History - Past Medical History Cardiovascular: reports: Atrial fibrillation, Murmur, Other (Recurrent pleural effusion) Respiratory: reports: Asthma, Pneumonia, Shortness of breath, Other (Recurrent pleural effusion) Neuro: reports: Tremors Endocrine/Autoimmune: reports: Type 2 diabetes GI: reports: GERD, Cirrhosis PHYSICIAN'S ASSISTANT: reports: None : reports: Incontinence, Frequency HEENT: reports: Chronic sinusitis Psych: reports: Depression Musculoskeletal: reports: Osteoarthritis, Fibromyalgia, Rheumatoid arthritis, Chronic back pain Derm: reports: Rosacea, Other MRSA Hx?: No Other Past Medical History: nasal polyps - Past Surgical History General: reports: Cholecystectomy Ortho: reports: Other /PHYSICIAN'S ASSISTANT: reports: Hysterectomy, Oophrectomy HEENT: reports: Other - Family & Social History Family History: Mother: , Hyperlipidemia, Hypertension, Mental Illness, [place], Father: , Hyperlipidemia, Hypertension, [place], Sister: Alive and Well, Brother: , Hyperlipidemia, Hypertension, [place] Family History Comment/Other: No known history of cancer or diabetes in the family. Patient's mother was bipolar. Living arrangement: At home Living Situation: With friend(s) Social History Notes: Patient lives with a roommate - Substance History Use: Uses substance without health or social issues: NONE Abuse: Recurrent use of substance despite neg consequences: NONE Dependence: Experiences withdrawal or developed tolerances: NONE - POLST Patient has POLST: Yes POLST Status: DNR Meds/Allgy - Home Medications Home Medications: Ambulatory Orders Medication Instructions Recorded Confirmed Albuterol Sulf [Ventolin Hfa 2 puffs INH Q4HR PRN 03/21/17 06/10/18 Inhaler] Calcium Carbonate [Calcium] 600 mg PO DAILY 03/21/17 06/10/18 DULoxetine [Cymbalta] 30 mg PO DAILY 03/21/17 06/10/18 Lactobacillus Acidophilus/Fos 1 each PO DAILY 03/21/17 06/10/18 [Acidophilus Probiotic Tablet] Lysine HCl 500 mg PO BID 03/21/17 06/10/18 Melatonin 3 mg PO QPM 03/21/17 06/10/18 Omeprazole 20 mg PO QDAC 03/21/17 06/10/18 Potassium Chloride 10 meq PO DAILYWM 03/21/17 06/10/18 Spironolactone 50 mg PO BID 03/21/17 06/10/18 Vitamin B Complex 1 each PO DAILY 03/21/17 06/10/18 Cholecalciferol (Vitamin D3) 2,000 unit PO DAILY 04/22/17 06/10/18 [Vitamin D3] DULoxetine [Cymbalta] 60 mg PO QPM 11/15/17 06/10/18 Ropinirole HCl 0.25 mg PO QPM 11/15/17 06/10/18 Furosemide [Lasix] 40 mg PO DAILY 12/05/17 06/10/18 Glipizide 5 mg PO DAILYWM 02/24/18 06/10/18 Insulin NPH Hum/Reg Insulin Hm 15 units SUBQ QDBREAKFAST 02/24/18 06/10/18 [Humulin 70/30 Kwikpen] Metoprolol Succinate [Toprol Xl] 25 mg PO DAILY #30 tablet 03/03/18 06/10/18 Digoxin [Lanoxin] 125 mcg PO DAILY 06/10/18 06/10/18 Metformin HCl 1,000 mg PO BID 06/10/18 06/10/18 Linezolid 600 mg PO BID #20 tablet 06/13/18 - Allergies Allergies/Adverse Reactions: Allergies Allergy/AdvReac Type Severity Reaction Status Date / Time cimetidine [From Tagamet] Allergy Unknown Verified 06/10/18 11:39 cimetidine HCl * Allergy Unknown Verified 06/10/18 11:39 [From Tagamet] erythromycin lactobionate * Allergy Unknown Verified 06/10/18 11:39 [From Erythrocin] fluticasone propionate * Allergy Unknown Verified 06/10/18 11:39 [From Flonase] levofloxacin [From Levaquin] Allergy Unknown Verified 06/10/18 11:39 piroxicam [From Feldene] Allergy Unknown Verified 06/10/18 11:39 Sulfa (Sulfonamide Allergy Unknown Verified 06/10/18 11:39 Antibiotics) egg AdvReac Nausea Verified 06/10/18 11:39 ibuprofen [From Motrin] AdvReac Unknown Verified 06/10/18 11:39 Review of Systems - Constitutional Constitutional: reports: Fatigue. denies: Fever, Chills, Malaise, Night sweats - Eyes Eyes: denies: Pain, Irritation, Amaurosis, Blurred vision - Ears, Nose & Throat Ears, Nose & Throat: denies: Ear pain, Hearing loss, Hearing aids, Tinnitus, Vertigo, Nasal pain, Nasal discharge, Nosebleeds - Cardiovascular Cariovascular: denies: Irregular heart rate, Palpitations, Chest pain, Edema, Syncope - Respiratory Respiratory: reports: Orthopnea, SOB at rest, SOB with exertion. denies: Cough , Wheezing, Hemoptysis, Apnea - Gastrointestinal Gastrointestinal: denies: Abdominal pain, Abdominal distention, Constipation, Diarrhea, Change in bowel habits, Rectal bleeding, Bloody stools, Nausea, Vomiting - Genitourinary Genitourinary: denies: Dysuria, Frequency, Urgency, Hematuria - Musculoskeletal Musculoskeletal: denies: Muscle pain, Back pain, Muscle aches, Stiffness - Integumentary Integumentary: denies: Rash, Pruritis, Lesions, Dryness - Neurological Neurological: denies: General weakness, Focal weakness, Headache, Dizziness - Psychiatric Psychiatric: denies: Depression, Anxiety, Suicidal, Hallucinations - Endocrine Endocrine: denies: Polyuria, Polydypsia, Polyphagia - Hematologic/Lymphatic Hematologic/Lymphatic: denies: Anemia, Bruising, Petechiae, Lymphadenopathy - All Other Systems All Other Systems: reports: Reviewed and negative Exam - Vital Signs Reviewed Vital Signs: Yes Vital Signs: Vital Signs x48h Temp Pulse Pulse Resp BP BP Pulse Ox 06/14/18 23:30 36.8 C 94 18 142/90 H 94 06/14/18 22:19 124 H 25 H 147/105 H 97 - Physical Exam General Appearance: positive: No acute distress, Alert Eyes Bilateral: positive: Normal inspection, PERRL, EOMI, No lid inflammation, Conjunctivae nml, No scleral icterus ENT: positive: ENT inspection nml, Pharynx nml, No signs of dehydration Neck: positive: Nml inspection, Thyroid nml, No JVD, Trachea midline. negative : Thyromegaly Respiratory: positive: Chest non-tender, No respiratory distress, Other (Lung sounds diminished right upper and lower lobes). negative: Wheezes, Rales, Rhonchi Cardiovascular: positive: Regular rate & rhythm, No murmur, No gallop Peripheral Pulses: positive: 1+ Abdomen: positive: Non-tender, No organomegaly, Nml bowel sounds, No distention. negative: Guarding, Rebound Back: positive: Nml inspection. negative: CVA tenderness (R), CVA tenderness (L ) Skin: positive: Color nml, No rash, Warm, Dry. negative: Cyanosis Extremities: positive: Non-tender, Full ROM, Nml appearance, No pedal edema Neurologic/Psychiatric: positive: Oriented x3, CN's nml (2-12), Motor nml, Sensation nml, Mood/affect nml Conclusion/Plan - Problem List (1) Recurrent pleural effusion on right Conclusion/Plan: The patient's pleural effusion on the right side has recurred; the interval is narrowing between thoracenteses, The last one was just 4 days ago. We may need to consider pleurodesis procedure. At the last thoracentesis fluid was sent off and was negative for any malignancy but did show inflammatory cells. We will consult interventional radiology. (2) Anxiety and depression Conclusion/Plan: The patient has a history of anxiety and depression and takes Cymbalta. We will continue this while she is inpatient. (3) Hypertension Conclusion/Plan: Patient has a history of hypertension and takes furosemide, metoprolol, and spironolactone at home. We will continue these while she is inpatient. She also takes digoxin for history of atrial fibrillation; we will check her digoxin level. (4) Recurrent cellulitis of lower extremity Conclusion/Plan: The patient has had recurrent cellulitis of her lower extremity. She was discharged home on oral Zyvox. We will continue this while she is inpatient. (5) DM2 (diabetes mellitus, type 2) Conclusion/Plan: Patient has a history of type 2 diabetes mellitus. We will continue her on Lantus insulin and sliding scale for coverage. Qualifiers: Diabetes mellitus skilled nursing insulin use: unspecified skilled nursing insulin use status - Lab Results Lab results reviewed: Yes Fish Bones: 06/14/18 19:28 06/14/18 19:28 - Diagnostic Imaging Results Diagnostic Imaging Results: positive: Final report reviewed Diagnostic Imaging Results Comments: EXAM: CHEST RADIOGRAPHY EXAM DATE: 06/10/2018 01:00 PM. CLINICAL HISTORY: Dyspnea. COMPARISON: CHEST 1 VIEW 03/02/2018 9:48 AM. TECHNIQUE: 2 views. FINDINGS: Persistent opacification of the right hemithorax due to a combination of consolidation and pleural effusion, somewhat decreased in volume compared to prior. Visualized portions of the cardiomediastinal silhouette are suggestive of borderline cardiomegaly. There is no pneumothorax. IMPRESSION: Persistent opacification of the right hemithorax. EXAM: CHEST RADIOGRAPHY EXAM DATE: 06/14/2018 07:54 PM. CLINICAL HISTORY: Dyspnea. COMPARISON: CHEST 2 VIEW 06/10/2018 CHEST ANGIO 12/05/2017 11:48 AM. TECHNIQUE: 2 views. FINDINGS: Lungs/Pleura: Large right pleural effusion, increased since the comparison exam. The left lung remains clear. No pneumothorax. Calcified right lower lobe granuloma again noted. Mediastinum: Normal heart size. There are calcified right hilar lymph nodes. Other: None. IMPRESSION: 1. Large right pleural effusion, increased since the 06/10/2018 exam. Core Measures - Anticipated LOS I expect patient to be DC'd or transferred within 96 hours.: Yes - DVT/VTE - Prophylaxis VTE/DVT Device ordered at admit?: Yes
[2018-06-15 06:22] LABS: DIGOXIN < 0.2 ng/mL
[2018-06-15 06:38] LABS: HB2 TOTAL 11.9 g/dL; HEMOGLOBIN A1C 0.87 g/dL; HEMOGLOBIN A1C % 8.8 % (4.6-6.2)
[2018-06-15] MEDS ORDERED: NON FORMULARY MED (Omeprazole [Omeprazole] 20 MG) PO SCH ×2 (07:00)
[2018-06-15] MEDS ORDERED: PANTOPRAZOLE 40 MG TABLET PO SCH (07:00)
[2018-06-15] MEDS ORDERED: IPRATROPIUM/ALBUTEROL 3 ML NEB INH SCH (08:00)
[2018-06-15] MEDS ORDERED: POTASSIUM CHLORIDE 10 MEQ CAPSULE PO SCH (08:00)
[2018-06-15] MEDS ORDERED: FUROSEMIDE 40 MG TABLET PO SCH (09:00)
[2018-06-15] MEDS ORDERED: SPIRONOLACTONE 50 MG PO SCH (09:00)
[2018-06-15] MEDS ORDERED: LINEZOLID 600 MG TABLET PO SCH (09:00)
[2018-06-15] MEDS ORDERED: SPIRONOLACTONE 25 MG TABLET PO SCH (09:00)
[2018-06-15] MEDS ORDERED: POLYETHYLENE GLYCOL 3350 17 GM PACKET PO SCH (09:00)
[2018-06-15] MEDS ORDERED: METOPROLOL SUCCINATE 25 MG TABLET PO SCH (09:00)
[2018-06-15] MEDS: INSULIN ASPART 300 UNIT/3 ML PEN SUBQ SCH ×2 (09:02→11:43)
[2018-06-15] MEDS ORDERED: ASPIRIN EC 81 MG TABLET PO SCH (10:19)
[2018-06-15] MEDS ORDERED: CHOLECALCIFEROL 1,000 UNIT TABLET PO SCH (10:30)
[2018-06-15] MEDS: SODIUM CHLORIDE FLUSH 0.9% 10 ML SYRINGE IVP SCH (10:53)
[2018-06-15] MEDS ORDERED: CALCIUM CARB (OYSTER SHELL) 500 MG TABLET PO SCH (11:00)
[2018-06-15] MEDS ORDERED: DIGOXIN 125 MCG TABLET PO SCH (11:00)
[2018-06-15] MEDS ORDERED: DULoxetine 30 MG CAPSULE PO SCH ×2 (11:00→21:00)
[2018-06-15 11:39] VITALS: BP 135/53
--- NOTE | 2018-06-15 11:51 | Discharge Plan ---
Discharge Plan Disposition: 02 Transfer Acute Care Hosp Condition: Stable No Smoking: If you smoke, Please STOP! Call for help.
[2018-06-15] MEDS ORDERED: NON FORMULARY MED (Melatonin [Melatonin] 3 MG) PO SCH (21:00)
[2018-06-15] MEDS ORDERED: MELATONIN 3 MG PO SCH (21:00)
[2018-06-15] MEDS ORDERED: rOPINIRole 0.25 MG TABLET PO SCH (21:00)
[2018-06-15] MEDS ORDERED: INSULIN GLARGINE 300 UNIT/3 ML PEN SUBQ SCH (21:00)
[2018-06-16] MEDS ORDERED: VITAMIN B COMPLEX PO SCH (09:00)
--- NOTE | 2018-06-18 17:42 | DISCHARGE SUMMARY ---
Physician: Roslyn Wells MD DATE OF ADMISSION: 06/14/2018 DATE OF DISCHARGE: 06/15/2018 HISTORY OF PRESENT ILLNESS: This is a 67-year-old white female with a history of diabetes, recurrent cellulitis of the left leg, 4 admissions to this hospital since October 2017; in Oct 2017 for pneumonia and a right-sided pleural effusion was tapped, November 2017 with cellulitis of the left leg, January 2018 with septic shock from strep bacteremia due to cellulitis of the left leg and requiring thoracentesis of her recurrent right pleural effusion, and just 4 days ago another admission with severe sepsis and recurrent leg cellulitis on the left and again requiring thoracentesis of the recurrent right pleural effusion. Patient was sent home to complete a course of antibiotics for the cellulitis, but developed shortness of breath in just 48 hours and presented to the emergency room and was found to have a similar sized recurrence of the pleural effusion on the right. HOSPITAL COURSE AND DISCHARGE DIAGNOSES 1. Recurrent pleural effusion on right. The patient was placed on her Lasix, but because of recurrence, it was deemed she would need pleurodesis and management at a different facility. She was accepted in transfer by the Hospitalist service with [facility] and plan for [facility] at [facility] and was transferred on 06/15/2018. 2. Recurrent cellulitis, left leg. This is as described in the HPI. She was still completing her course of oral Linezolid at this time of readmission. The patient already has an appointment set up at [facility] with an infectious disease specialist on 06/18/2018, and this was communicated to her accepting Hospitalist in transfer. 3. Paroxysmal atrial fibrillation. The patient has asymptomatic paroxysmal atrial fibrillation with rapid ventricular response. This seen on several past admissions and also while here. She is managed on digoxin and beta blockers. She is on aspirin, but no anticoagulation because of the need for recurrent thoracenteses up until now. 4. Type 2 diabetes. Patient has had diabetic ketoacidosis (DKA) in the past. At this time, her lab values were stable. She was kept on a sliding scale insulin and carbohydrate controlled diet while here. 5. Anxiety and depression. The patient was maintained on her medications while here. 6. Cirrhosis of the liver. This diagnosis resulted after an ultrasound that was done during her November 2017 hospital course when the liver parenchyma was read as being consistent with cirrhosis. She was told that her recurrent pleural effusion on the right side is related to that diagnosis. In the past, all of her pleural effusions have had no evidence of malignancy, no bacterial growth, and have been consistent with a transudate. ALLERGIES 1. CIMETIDINE. 2. ERYTHROMYCIN. 3. FLONASE. 4. LEVAQUIN. 5. FELDENE. 6. SULFA. 7. EGGS. 8. MOTRIN. MEDICATIONS AT THE TIME OF TRANSFER 1. Albuterol inhaler q. 4 h p.r.n. 2. Calcium carbonate 600 mg daily. 3. Vitamin D3 2000 units daily. 4. Digoxin 125 mcg daily. 5. Cymbalta 30 mg daily and 60 mg every night. 6. Lasix 40 mg daily. 7. Glipizide 5 mg daily. 8. NPH and regular insulin as per her protocol. 9. Lactobacillus tablet daily. 10. Linezolid 600 mg b.i.d. for an additional 3 days. 11. Lysine 500 mg b.i.d. 12. Melatonin 3 mg every night. 13. Metformin 1000 mg b.i.d. 14. Toprol-XL 25 mg daily. 15. Omeprazole 20 mg daily. 16. Potassium chloride 10 mEq daily. 17. Ropinirole 0.25 mg every p.m. 18. Spironolactone 50 mg b.i.d. 19. Vitamin B complex daily. PHYSICAL EXAMINATION AT DISCHARGE GENERAL: Stable. VITAL SIGNS: Blood pressure 135/53, pulse of 95, afebrile, at room air saturation 88%, increases to 95% on 3 liters nasal cannula. HEENT: Unremarkable, except for very poor condition of her teeth with many broken and many missing teeth. NECK: Without JVD or carotid bruits. CHEST: Right side is diminished up 3/4, left side is clear. HEART: Heart sounds normal. ABDOMEN: Obese, nontender. Cannot rule out ascites. No palpable organomegaly. EXTREMITIES: 2+ edema to the mid shins, left greater than right. The left leg has a deformity of the skin and muscles in the anterior and lateral schroeder where she had her original trauma 8 years ago and where her cellulitis recurs. That area is dark pink. NEUROLOGIC: Intact. CODE STATUS: FULL CODE. FOLLOWUP: This is to be determined after her stay at [facility]. Time required to complete this entire discharge, dictation, discussion with accepting hospitalist and surgical nurse at [facility]: 45 minutes. cc: Skye Randolph PA-C TD: 06/18/2018 17:13 [email or web address]
== END 2018-06-15 12:00 | disposition short-term general hospital (02) | DRG 187 ==
LOC: EDUNIT# → ED 18:24 → MS2 22:17 → UNDODISIN 23:04
PROVIDERS: ADMIT Hospitalist; ATTEND Internal Medicine
DX: R09.02 Hypoxemia (principal); J90 Pleural effusion, not elsewhere classified; L03.116 Cellulitis of left lower limb; R00.0 Tachycardia, unspecified; I48.0 Paroxysmal atrial fibrillation; J45.909 Unspecified asthma, uncomplicated; E11.9 Type 2 diabetes mellitus without complications; K74.60 Unspecified cirrhosis of liver; I10 Essential (primary) hypertension
CPT/HCPCS: 36415; 71046; 80053; 80162; 83036; 83690; 83880; 84484; 85025; 93005; 94640; 99284; 99285

== ENCOUNTER 2018-06-15 11:50 | Outpatient (CLI) | payer SELFPAY | END 2018-06-15 11:51 | disposition short-term general hospital (02) | LOC: EMS 11:50 | PROVIDERS: ATTEND Surgery | DX: J90 Pleural effusion, not elsewhere classified (principal) | CPT/HCPCS: A0425; A0426; A0999 ==

== ENCOUNTER 2018-06-27 09:50 | Outpatient (CLI) | payer SELFPAY ==
[2018-06-27 12:29] LABS: BASOPHILS % (AUTO) 0.8 %; EOSINOPHILS # (AUTO) 0.1 10^3/uL (0.0-0.7); EOSINOPHILS % (AUTO) 2.2 %; LYMPHOCYTES # (AUTO) 1.5 10^3/uL (1.5-3.5); LYMPHOCYTES % (AUTO) 27.6 %; MEAN CORPUSCULAR HEMOGLOBIN 34.3 pg (27.0-31.0); MEAN CORPUSCULAR HGB CONC 34.3 g/dL (32.0-36.0); MEAN CORPUSCULAR VOLUME 100.1 fL (81.0-99.0); MEAN PLATELET VOLUME 10.1 fL (7.9-10.8); MONOCYTES # (AUTO) 0.4 10^3/uL (0.0-1.0); NEUTROPHILS # (AUTO) 3.4 10^3/uL (1.5-6.6); NEUTROPHILS % (AUTO) 61.4 %; PLT - PLATELET COUNT 73 10^3/uL (130-450); RED CELL DISTRIBUTION WIDTH 15.9 % (12.0-15.0); WHITE BLOOD COUNT 5.6 x10^3/uL (4.8-10.8)
[2018-06-27 12:31] LABS: ALBUMIN 3.1 g/dL (3.2-5.5); ALBUMIN/GLOBULIN RATIO 0.7 (1.0-2.2); BILIRUBIN,TOTAL 2.6 mg/dL (0.2-1.0); CALCIUM 9.3 mg/dL (8.5-10.3); CREATININE 0.6 mg/dL (0.4-1.0); TOTAL PROTEIN 7.6 g/dL (6.7-8.2)
== END 2018-06-27 09:51 | disposition home or self-care (01) ==
LOC: LAB.WCP 09:50
PROVIDERS: ATTEND Physician Assistant Medical
DX: A41.9 Sepsis, unspecified organism (principal); L03.116 Cellulitis of left lower limb
CPT/HCPCS: 36415; 80053; 85025

== ENCOUNTER 2018-06-29 15:11 | Outpatient (CLI) | payer SELFPAY | END 2018-06-29 15:12 | disposition home or self-care (01) | LOC: LAB 15:11 | PROVIDERS: ATTEND Physician Assistant Medical | DX: A41.9 Sepsis, unspecified organism (principal) | CPT/HCPCS: 87040 ==

== ENCOUNTER 2018-07-10 16:38 | Outpatient (CLI) | payer SELFPAY | END 2018-07-10 16:39 | disposition critical access hospital (66) | LOC: EMS 16:38 | PROVIDERS: ATTEND Surgery | DX: R73.09 Other abnormal glucose (principal) | CPT/HCPCS: A0425; A0429 ==

== ENCOUNTER 2018-07-10 17:03 | Inpatient (IN) | payer MEDICARE ==
--- NOTE | 2018-07-10 17:22 | ED Physician Documentation ---
History of Present Illness - Stated complaint Stated Complaint: HIGH BLOOD SUGAR - Chief complaint Chief Complaint: General - History obtained from History obtained from: Patient - History of Present Illness Timing: Other (This is a 67-year-old woman with history of nonalcoholic cirrhosis causing recurrent pleural effusions on the right with recurrence thoracenteses. She also has paroxysmal atrial fibrillation. She was started on oxygen a week ago. She feels more short of breath over the last day. She also has had increased blood sugars over the last day up in the 500s. She says she has been taking her insulin but vacillates on whether she has been compliant with her other medications. She denies chest pain. She has a minimal cough and had a fever to 102 at home.) Review of Systems Ten Systems: 10 systems reviewed and negative Constitutional: reports: Fever, Chills Cardiac: denies: Chest pain / pressure, Palpitations, Pedal edema, Calf pain Respiratory: reports: Dyspnea, Cough PD PAST MEDICAL HISTORY - Past Medical History Cardiovascular: Atrial fibrillation, Murmur, Other Respiratory: Asthma, Pneumonia, Shortness of breath, Other Neuro: Tremors Endocrine/Autoimmune: Type 2 diabetes GI: GERD, Cirrhosis EXPEDITER: None : Incontinence, Frequency HEENT: Chronic sinusitis Psych: Depression Musculoskeletal: Osteoarthritis, Fibromyalgia, Rheumatoid arthritis, Chronic back pain Derm: Rosacea, Other - Past Surgical History Past Surgical History: Yes General: Cholecystectomy Ortho: Other /EXPEDITER: Hysterectomy, Oophrectomy HEENT: Other - Present Medications Home Medications: Ambulatory Orders Medication Instructions Recorded Confirmed RX: Albuterol Sulf [Ventolin Hfa 2 puffs INH Q4HR PRN 03/21/17 06/15/18 Inhaler] RX: Calcium Carbonate [Calcium] 600 mg PO DAILY 03/21/17 06/15/18 RX: DULoxetine [Cymbalta] 30 mg PO DAILY 03/21/17 06/15/18 RX: Lactobacillus Acidophilus/Fos 1 each PO DAILY 03/21/17 06/15/18 [Acidophilus Probiotic Tablet] RX: Lysine HCl 500 mg PO BID 03/21/17 06/15/18 RX: Melatonin 3 mg PO QPM 03/21/17 06/15/18 RX: Omeprazole 20 mg PO QDAC 03/21/17 06/15/18 RX: Potassium Chloride 10 meq PO DAILYWM 03/21/17 06/15/18 RX: Spironolactone 50 mg PO BID 03/21/17 06/15/18 RX: Vitamin B Complex 1 each PO DAILY 03/21/17 06/15/18 RX: Cholecalciferol (Vitamin D3) 2,000 unit PO DAILY 04/22/17 06/15/18 [Vitamin D3] RX: DULoxetine [Cymbalta] 60 mg PO QPM 11/15/17 06/15/18 RX: Ropinirole HCl 0.25 mg PO QPM 11/15/17 06/15/18 RX: Furosemide [Lasix] 40 mg PO DAILY 12/05/17 06/15/18 RX: Glipizide 5 mg PO 0730 02/24/18 06/15/18 RX: Insulin NPH Hum/Reg Insulin Hm 15 units SUBQ QDBREAKFAST 02/24/18 06/15/18 [Humulin 70/30 Kwikpen] RX: Metoprolol Succinate [Toprol 25 mg PO DAILY #30 tablet 03/03/18 06/15/18 Xl] RX: Digoxin [Lanoxin] 125 mcg PO DAILY 06/10/18 06/15/18 RX: Metformin HCl 1,000 mg PO BIDWM 06/10/18 06/15/18 RX: Linezolid 600 mg PO BID #20 tablet 06/13/18 06/15/18 - Allergies Allergies/Adverse Reactions: Allergies Allergy/AdvReac Type Severity Reaction Status Date / Time cefixime [From Suprax] Allergy Unknown Verified 07/10/18 17:13 cimetidine [From Tagamet] Allergy Unknown Verified 07/10/18 17:13 cimetidine HCl * Allergy Unknown Verified 07/10/18 17:13 [From Tagamet] erythromycin lactobionate * Allergy Unknown Verified 07/10/18 17:13 [From Erythrocin] fluticasone propionate * Allergy Unknown Verified 07/10/18 17:13 [From Flonase] levofloxacin [From Levaquin] Allergy Unknown Verified 07/10/18 17:13 piroxicam [From Feldene] Allergy Unknown Verified 07/10/18 17:13 Sulfa (Sulfonamide Allergy Unknown Verified 07/10/18 17:13 Antibiotics) egg AdvReac Nausea Verified 07/10/18 17:13 ibuprofen [From Motrin] AdvReac Unknown Verified 07/10/18 17:13 - Social History Does the pt smoke?: No Smoking Status: Never smoker Does the pt drink ETOH?: No Does the pt have substance abuse?: No - Family History Family history: reports: Non contributory - Immunizations Immunizations are current?: Yes - POLST Patient has POLST: Yes POLST Status: DNR PD ED PE NORMAL - Vitals Vital signs reviewed: Yes - General General: Alert and oriented X 3, Other (She appears breathless, speaking in full albeit short sentences.) - HEENT HEENT: PERRL, EOMI - Neck Neck: Supple, no meningeal sign, No bony TTP - Cardiac Cardiac: Other (Rapid and regular without murmur) - Respiratory Respiratory: Other (Very diminished at the right base, somewhat tachypneic) - Abdomen Abdomen: Non tender - Back Back: No CVA TTP, No spinal TTP - Derm Derm: Normal color, Warm and dry - Extremities Extremities: Other (Moderate bilateral pitting pedal edema with chronic cellulitis of the left legs which she says has been the same appearance for the last 8 years.) - Neuro Neuro: Alert and oriented X 3, Normal speech - Psych Psych: Normal mood, Normal affect Results - Vitals Vitals: Vital Signs - 24 hr 07/10/18 07/10/18 07/10/18 17:05 17:55 18:55 Temperature 36.9 C Heart Rate 141 H 140 H 139 H Respiratory 24 33 H 18 Rate Blood Pressure 131/61 H 123/67 136/97 H O2 Saturation 87 L 93 92 07/10/18 07/10/18 07/10/18 19:01 19:04 19:11 Temperature Heart Rate 118 H 118 H 126 H Respiratory 20 22 22 Rate Blood Pressure 136/97 H 136/97 H 122/64 O2 Saturation 90 L 89 L 95 07/10/18 07/10/18 07/10/18 19:49 20:21 21:19 Temperature 36.9 C Heart Rate 120 H 117 H 123 H Respiratory 25 H 28 H 18 Rate Blood Pressure 95/63 106/51 L 108/71 O2 Saturation 97 98 07/10/18 21:22 Temperature Heart Rate 117 H Respiratory 28 H Rate Blood Pressure 98/71 O2 Saturation 96 Oxygen O2 Source Nasal cannula Oxygen Flow Rate 3 - EKG (time done) 1732 Rate: Rate (enter#) (140) Rhythm: Atrial flutter [place]: RAD Ischemia: Non specific changes Computer interpretation: Agree with computer - Labs Labs: Laboratory Tests 07/10/18 07/10/18 07/10/18 17:40 17:40 17:40 WBC 17.1 H RBC 3.06 L Hgb 10.1 L Hct 30.7 L MCV 100.3 H MCH 33.1 H MCHC 33.0 RDW 18.8 H Plt Count 90 L MPV 9.9 Neut # (Auto) 15.6 H Lymph # (Auto) 0.6 L Ogle # (Auto) 0.7 Eos # (Auto) 0.0 Baso # (Auto) 0.1 Absolute Nucleated RBC 0.00 Nucleated RBC % 0.0 PT 18.1 H INR 1.6 H VBG pH VBG pCO2 VBG pO2 VBG HCO3 VBG Total CO2 VBG O2 Saturation VBG Base Excess Sodium 127 L Potassium 3.6 Chloride 92 L Carbon Dioxide 25 Anion Gap 10.0 BUN 16 Creatinine 1.0 Estimated GFR (MDRD) 55 L Glucose 595 H* Lactic Acid Calcium 9.1 Magnesium 1.6 L Total Bilirubin 5.1 H AST 39 ALT 19 Alkaline Phosphatase 142 H B-Natriuretic Peptide Total Protein 7.4 Albumin 2.6 L Globulin 4.8 H Albumin/Globulin Ratio 0.5 L Lipase 39 Urine Color Urine Clarity Urine pH Ur Specific [place] Urine Protein Urine Glucose (UA) Urine Ketones Urine Occult Blood Urine Nitrite Urine Bilirubin Urine Urobilinogen Ur Leukocyte Esterase Urine RBC Urine WBC Urine WBC Clumps Ur Squamous Epith Cells Urine Bacteria Ur Microscopic Review Urine Culture Comments Last Dose Date Last Dose Time Digoxin Serum Ketones NEGATIVE 07/10/18 07/10/18 07/10/18 17:40 17:40 17:40 WBC RBC Hgb Hct MCV MCH MCHC RDW Plt Count MPV Neut # (Auto) Lymph # (Auto) Ogle # (Auto) Eos # (Auto) Baso # (Auto) Absolute Nucleated RBC Nucleated RBC % PT INR VBG pH 7.442 H VBG pCO2 37.1 L VBG pO2 53.4 H VBG HCO3 24.7 VBG Total CO2 25.9 VBG O2 Saturation 87.4 H VBG Base Excess 0.8 Sodium Potassium Chloride Carbon Dioxide Anion Gap BUN Creatinine Estimated GFR (MDRD) Glucose Lactic Acid 3.5 H* Calcium Magnesium Total Bilirubin AST ALT Alkaline Phosphatase B-Natriuretic Peptide 395 H Total Protein Albumin Globulin Albumin/Globulin Ratio Lipase Urine Color Urine Clarity Urine pH Ur Specific [place] Urine Protein Urine Glucose (UA) Urine Ketones Urine Occult Blood Urine Nitrite Urine Bilirubin Urine Urobilinogen Ur Leukocyte Esterase Urine RBC Urine WBC Urine WBC Clumps Ur Squamous Epith Cells Urine Bacteria Ur Microscopic Review Urine Culture Comments Last Dose Date Last Dose Time Digoxin Serum Ketones 07/10/18 07/10/18 07/10/18 17:40 18:50 21:10 WBC RBC Hgb Hct MCV MCH MCHC RDW Plt Count MPV Neut # (Auto) Lymph # (Auto) Ogle # (Auto) Eos # (Auto) Baso # (Auto) Absolute Nucleated RBC Nucleated RBC % PT INR VBG pH VBG pCO2 VBG pO2 VBG HCO3 VBG Total CO2 VBG O2 Saturation VBG Base Excess Sodium Potassium Chloride Carbon Dioxide Anion Gap BUN Creatinine Estimated GFR (MDRD) Glucose Lactic Acid 3.8 H* Calcium Magnesium Total Bilirubin AST ALT Alkaline Phosphatase B-Natriuretic Peptide Total Protein Albumin Globulin Albumin/Globulin Ratio Lipase Urine Color YELLOW Urine Clarity HAZY Urine pH 6.0 Ur Specific [place] 1.010 Urine Protein 30 H Urine Glucose (UA) >=1000 H Urine Ketones NEGATIVE Urine Occult Blood LARGE H Urine Nitrite NEGATIVE Urine Bilirubin NEGATIVE Urine Urobilinogen 1 (NORMAL) Ur Leukocyte Esterase TRACE H Urine RBC TNTC H Urine WBC >25 H Urine WBC Clumps PRESENT Ur Squamous Epith Cells FEW Squamous Urine Bacteria Many H Ur Microscopic Review INDICATED Urine Culture Comments INDICATED Last Dose Date unknown Last Dose Time unknown Digoxin < 0.2 Serum Ketones PD MEDICAL DECISION MAKING - ED course ED course: This is a 67-year-old woman who presents with fever at home and dyspnea related to an ongoing right pleural effusion from nonalcoholic steatohepatitis. She is in rapid atrial flutter and is administered 5 mg of metoprolol for same with rate improvement down into the 1 teens. She has an elevated lactate and white count and the source is found to be UTI. She was LR for elevated lactate. Spoke with Dr. Mando iniguez for admission at 9 PM. - Critical Care Time(min): 42 Time Includes: Direct patient care, Review records, Reassess patient, Document care, Coordinate care, Medical consult, Family consult for tx sep Data interpretation: Labs, CXR Procedures included in critical care time: Peripheral IV Procedures excluded from critical care time: EKG - Sepsis Event Vital Signs: Vital Signs - 24 hr 07/10/18 07/10/18 07/10/18 17:05 17:55 18:55 Temperature 36.9 C Heart Rate 141 H 140 H 139 H Respiratory 24 33 H 18 Rate Blood Pressure 131/61 H 123/67 136/97 H O2 Saturation 87 L 93 92 07/10/18 07/10/18 07/10/18 19:01 19:04 19:11 Temperature Heart Rate 118 H 118 H 126 H Respiratory 20 22 22 Rate Blood Pressure 136/97 H 136/97 H 122/64 O2 Saturation 90 L 89 L 95 07/10/18 07/10/18 07/10/18 19:49 20:21 21:19 Temperature 36.9 C Heart Rate 120 H 117 H 123 H Respiratory 25 H 28 H 18 Rate Blood Pressure 95/63 106/51 L 108/71 O2 Saturation 97 98 07/10/18 21:22 Temperature Heart Rate 117 H Respiratory 28 H Rate Blood Pressure 98/71 O2 Saturation 96 Oxygen O2 Source Nasal cannula Oxygen Flow Rate 3 Departure - Departure Disposition: 67 [facility] DC/Xfer Clinical Impression: DM2 (diabetes mellitus, type 2), Sepsis, UTI (urinary tract infection), Pleural effusion, right, Recurrent pleural effusion on right, Rapid atrial fibrillation Condition: Serious
[2018-07-10 17:52] LABS: BASOPHILS # (AUTO) 0.1 10^3/uL (0.0-0.1); BASOPHILS % (AUTO) 0.8 %; EOSINOPHILS % (AUTO) 0.1 %; HGB - HEMOGLOBIN 10.1 g/dL (12.0-16.0); LYMPHOCYTES # (AUTO) 0.6 10^3/uL (1.5-3.5); LYMPHOCYTES % (AUTO) 3.7 %; MEAN CORPUSCULAR HEMOGLOBIN 33.1 pg (27.0-31.0); MEAN CORPUSCULAR VOLUME 100.3 fL (81.0-99.0); MEAN PLATELET VOLUME 9.9 fL (7.9-10.8); MONOCYTES # (AUTO) 0.7 10^3/uL (0.0-1.0); MONOCYTES % (AUTO) 4.1 %; NEUTROPHILS # (AUTO) 15.6 10^3/uL (1.5-6.6); NEUTROPHILS % (AUTO) 91.3 %; PLT - PLATELET COUNT 90 10^3/uL (130-450); RED BLOOD COUNT 3.06 10^6/uL (4.20-5.40); RED CELL DISTRIBUTION WIDTH 18.8 % (12.0-15.0); WHITE BLOOD COUNT 17.1 x10^3/uL (4.8-10.8)
[2018-07-10 17:57] LABS: VBG BASE EXCESS 0.8 mmol/L (-2 - +2); VBG PCO2 37.1 mmHg (41-51); VBG PH 7.442 (7.31-7.41); VBG PO2 53.4 mmHg (25-47); VBG TOTAL CO2 25.9 mmol/L (24-29)
[2018-07-10 17:58] LABS: INR 1.6 (0.8-1.2); PT - PROTHROMBIN TIME 18.1 secs (9.9-12.6)
[2018-07-10] MEDS ORDERED: METOPROLOL 5 MG/5 ML VIAL IVP STA (18:05)
[2018-07-10 18:07] LABS: ALBUMIN 2.6 g/dL (3.2-5.5); ALBUMIN/GLOBULIN RATIO 0.5 (1.0-2.2); ALKALINE PHOSPHATASE 142 IU/L (42-121); ALT ALANINE AMINOTRANSFERASE 19 IU/L (10-60); AST ASPARTATE AMINOTRANSFERASE 39 IU/L (10-42); BILIRUBIN,TOTAL 5.1 mg/dL (0.2-1.0); BUN - BLOOD UREA NITROGEN 16 mg/dL (6-20); CALCIUM 9.1 mg/dL (8.5-10.3); CARBON DIOXIDE - CO2 25 mmol/L (21-32); CHLORIDE 92 mmol/L (101-111); GFR - MDRD 55 (>89); LIPASE 39 U/L (22-51); MAGNESIUM 1.6 mg/dL (1.7-2.8); SODIUM 127 mmol/L (135-145); TOTAL PROTEIN 7.4 g/dL (6.7-8.2)
[2018-07-10] MEDS ORDERED: INSULIN REGULAR HUMAN 100 UNIT/1 ML 10 ML MDV IVP STA (18:07)
[2018-07-10 18:08] LABS: GLUCOSE 595 mg/dL (70-100)
[2018-07-10 18:18] LABS: KETONES, SERUM (ACETEST) NEGATIVE (NEGATIVE)
[2018-07-10] MEDS ORDERED: VANCOMYCIN INJ 2 GM in SODIUM CHLORIDE 0.9% 500 ML IV STA (18:19)
[2018-07-10] MEDS ORDERED: PIPERACILLIN/TAZOBACTAM 4.5 GM in SODIUM CHLORIDE 0.9% MINIBAG 100 ML IV STA (18:19)
[2018-07-10] MEDS ORDERED: LACTATED RINGERS 3,500 ML IV STA (18:20)
--- NOTE | 2018-07-10 18:26 | XRAY Report ---
Reason: dyspnea pleural effusion Procedure Date: 07/10/2018 Accession Number: [id number] / [id number] Procedure: XR - Chest 1 View X-Ray CPT Code: 21977 FULL RESULT: EXAM: CHEST RADIOGRAPHY EXAM DATE: 07/10/2018 05:53 PM. CLINICAL HISTORY: Dyspnea pleural effusion. COMPARISON: CHEST 2 VIEW 06/14/2018. TECHNIQUE: 1 view. FINDINGS: Lungs/Pleura: Moderate to large right pleural effusion. Left lung remains clear. No pneumothorax. Mediastinum: Probable cardiomegaly. Other: None. IMPRESSION: Moderate to large right pleural effusion. RADIA
[2018-07-10 19:02] LABS: BILIRUBIN,URINE NEGATIVE (NEGATIVE); GLUCOSE, URINE (UA) >=1000 mg/dL (NEGATIVE); KETONES,URINE (UA) NEGATIVE (NEGATIVE); LEUKOCYTE ESTERASE, URINE TRACE (NEGATIVE); NITRITE,URINE NEGATIVE (NEGATIVE); OCCULT BLOOD,URINE LARGE (NEGATIVE); PROTEIN,URINE 30 mg/dL (NEGATIVE); UROBILINOGEN,URINE 1 (NORMAL) E.U./dL (NORMAL)
[2018-07-10 19:47] LABS: DIGOXIN < 0.2 ng/mL
[2018-07-10 19:47] LABS: CLARITY,URINE HAZY (CLEAR)
[2018-07-10 19:49] LABS: BACTERIA,URINE Many /HPF (None Seen); RBC,URINE TNTC /HPF (0-5); SQUAMOUS EPITHELIAL CELL,UR FEW Squamous (<= Few); WBC CLUMPS,URINE PRESENT
[2018-07-10] MEDS ORDERED: VANCOMYCIN 1 GM VIAL ONE (20:18)
[2018-07-10] MEDS ORDERED: INSULIN REGULAR HUMAN 100 UNIT in SODIUM CHLORIDE 0.9% 100ML 99 ML IV ONE (22:10)
[2018-07-10] MEDS ORDERED: diltiaZEM INJ 5 MG/ML VIAL IVP STA (22:17)
[2018-07-10] MEDS ORDERED: NON FORMULARY MED (Albuterol Sulf [Ventolin Hfa Inhaler] 2 PUFFS) INH PRN (22:18)
[2018-07-10] MEDS ORDERED: ALBUTEROL 6.7 GM INHALER INH PRN (23:06)
[2018-07-11] MEDS: SODIUM CHLORIDE 0.9% 1,000 ML IV SCH ×3 (00:37→18:01)
[2018-07-11] MEDS: SODIUM CHLORIDE FLUSH 0.9% 10 ML SYRINGE IVP SCH ×3 (01:13→16:35)
[2018-07-11] MEDS: PIPERACILLIN/TAZOBACTAM 3.375 GM in SODIUM CHLORIDE 0.9% MINIBAG 100 ML IV SCH ×4 (02:02→19:41)
--- NOTE | 2018-07-11 02:40 | HISTORY & PHYSICAL EXAMINATION ---
Chief Complaint - Chief Complaint Chief Complaint: dyspnea History of Present Illness - History of Present Illness HPI Comment/Other: Patient is a 67 y/o female with medical history significant for atrial fibrillation not on anticoag, HUERTAS, recurrent pleural effusions, poorly controlled diabetes mellitus on insulin and oral meds, GERD and restless leg syndrome, who presented to the ED via EMS with complain of dyspnea for the past 2 days. She reports a dry non-roductive cough. She denies chest pain put reports a constant abdominal pain/pressure. She has been experiencing increased urinary frequency but denied burning on uriation. Her blood glucose at home was 595. She was found to be a pulse of 140 with an irregularly irregular heart rate Lab work included a UA which was suggestive of a UTI. She was found to a have a WBC of 17. In light of all these findings, she was admitted for further treatment History - Past Medical History Cardiovascular: reports: Atrial fibrillation, Murmur, Other Respiratory: reports: Asthma, Pneumonia, Shortness of breath, Other Neuro: reports: Tremors Endocrine/Autoimmune: reports: Type 2 diabetes GI: reports: GERD, Cirrhosis LAST TRIMMER: reports: None : reports: Incontinence, Frequency HEENT: reports: Chronic sinusitis Psych: reports: Depression Musculoskeletal: reports: Osteoarthritis, Fibromyalgia, Rheumatoid arthritis, Chronic back pain Derm: reports: Rosacea, Other MRSA Hx?: No - Past Surgical History General: reports: Cholecystectomy Ortho: reports: Other /LAST TRIMMER: reports: Hysterectomy, Oophrectomy HEENT: reports: Other - Family & Social History Family History: Mother: , Hyperlipidemia, Hypertension, Mental Illness, [place], Father: , Hyperlipidemia, Hypertension, [place], Sister: Alive and Well, Brother: , Hyperlipidemia, Hypertension, [place] Family History Comment/Other: No known history of cancer or diabetes in the family. Patient's mother was bipolar. Social History Notes: Patient lives with a roommate - Substance History Use: Uses substance without health or social issues: NONE - POLST Patient has POLST: Yes POLST Status: DNR Meds/Allgy - Home Medications Home Medications: Ambulatory Orders Medication Instructions Recorded Confirmed Albuterol Sulf [Ventolin Hfa 2 puffs INH Q4HR PRN 03/21/17 06/15/18 Inhaler] Calcium Carbonate [Calcium] 600 mg PO DAILY 03/21/17 06/15/18 DULoxetine [Cymbalta] 30 mg PO DAILY 03/21/17 06/15/18 Lactobacillus Acidophilus/Fos 1 each PO DAILY 03/21/17 06/15/18 [Acidophilus Probiotic Tablet] Lysine HCl 500 mg PO BID 03/21/17 06/15/18 Melatonin 3 mg PO QPM 03/21/17 06/15/18 Omeprazole 20 mg PO QDAC 03/21/17 06/15/18 Potassium Chloride 10 meq PO DAILYWM 03/21/17 06/15/18 Spironolactone 50 mg PO BID 03/21/17 06/15/18 Vitamin B Complex 1 each PO DAILY 03/21/17 06/15/18 Cholecalciferol (Vitamin D3) 2,000 unit PO DAILY 04/22/17 06/15/18 [Vitamin D3] DULoxetine [Cymbalta] 60 mg PO QPM 11/15/17 06/15/18 Ropinirole HCl 0.25 mg PO QPM 11/15/17 06/15/18 Furosemide [Lasix] 40 mg PO DAILY 12/05/17 06/15/18 Glipizide 5 mg PO 0730 02/24/18 06/15/18 Insulin NPH Hum/Reg Insulin Hm 15 units SUBQ QDBREAKFAST 02/24/18 06/15/18 [Humulin 70/30 Kwikpen] Metoprolol Succinate [Toprol Xl] 25 mg PO DAILY #30 tablet 03/03/18 06/15/18 Digoxin [Lanoxin] 125 mcg PO DAILY 06/10/18 06/15/18 Metformin HCl 1,000 mg PO BIDWM 06/10/18 06/15/18 Linezolid 600 mg PO BID #20 tablet 06/13/18 06/15/18 - Allergies Allergies/Adverse Reactions: Allergies Allergy/AdvReac Type Severity Reaction Status Date / Time cefixime [From Suprax] Allergy Unknown Verified 07/10/18 17:13 cimetidine [From Tagamet] Allergy Unknown Verified 07/10/18 17:13 cimetidine HCl * Allergy Unknown Verified 07/10/18 17:13 [From Tagamet] erythromycin lactobionate * Allergy Unknown Verified 07/10/18 17:13 [From Erythrocin] fluticasone propionate * Allergy Unknown Verified 07/10/18 17:13 [From Flonase] levofloxacin [From Levaquin] Allergy Unknown Verified 07/10/18 17:13 piroxicam [From Feldene] Allergy Unknown Verified 07/10/18 17:13 Sulfa (Sulfonamide Allergy Unknown Verified 07/10/18 17:13 Antibiotics) egg AdvReac Nausea Verified 07/10/18 17:13 ibuprofen [From Motrin] AdvReac Unknown Verified 07/10/18 17:13 Review of Systems - Constitutional Constitutional: reports: Fever. denies: Poor appetite, Diaphoresis - Eyes Eyes: denies: Pain, Amaurosis, Blurred vision, Spots in vision, Field loss, Vision loss, Dipolpia - Ears, Nose & Throat Ears, Nose & Throat: denies: Hearing loss, Tinnitus, Vertigo - Cardiovascular Cariovascular: reports: Irregular heart rate, Edema. denies: Chest pain - Respiratory Respiratory: reports: Cough, Wheezing. denies: Sputum production - Gastrointestinal Gastrointestinal: denies: Abdominal pain, Abdominal distention, Constipation, Diarrhea, Nausea, Vomiting - Genitourinary Genitourinary: reports: Frequency. denies: Dysuria, Urgency, Hematuria, Flank pain - Musculoskeletal Musculoskeletal: denies: Muscle pain, Back pain, Muscle aches, Stiffness - Integumentary Integumentary: reports: Other (chronic rudiness to left lower extremity) - Neurological Neurological: denies: Focal weakness, Headache, Dizziness - Psychiatric Psychiatric: reports: Depression. denies: Anxiety, Suicidal - Hematologic/Lymphatic Hematologic/Lymphatic: denies: Anemia, Bruising, Petechiae Exam - Vital Signs Reviewed Vital Signs: Yes Vital Signs: Vital Signs x48h Temp Pulse Pulse Resp BP BP Pulse Ox 07/11/18 00:40 111/74 07/10/18 23:30 36.7 C 116 H 27 H 115/69 97 07/10/18 23:09 110 H 20 107/80 97 07/10/18 22:10 125 H 29 H 104/64 94 07/10/18 21:22 117 H 28 H 98/71 96 07/10/18 21:19 123 H 18 108/71 07/10/18 20:21 117 H 28 H 106/51 L 98 07/10/18 19:49 36.9 C 120 H 25 H 95/63 97 07/10/18 19:11 126 H 22 122/64 95 07/10/18 19:04 118 H 22 136/97 H 89 L 07/10/18 19:01 118 H 20 136/97 H 90 L 07/10/18 18:55 139 H 18 136/97 H 92 - Physical Exam General Appearance: positive: Mild distress Eyes Bilateral: positive: Normal inspection, PERRL, EOMI, No scleral icterus ENT: positive: ENT inspection nml, Pharynx nml, No signs of dehydration Neck: positive: Nml inspection, No JVD, Trachea midline Respiratory: positive: Chest non-tender, Wheezes. negative: Rales, Rhonchi Cardiovascular: positive: Irregularly irregular. negative: Regular rate & rhythm Abdomen: positive: No organomegaly, Nml bowel sounds, No distention, Tenderness Back: positive: Nml inspection Skin: positive: Color nml, Warm Extremities: positive: Non-tender, Pedal edema. negative: Calf tenderness Neurologic/Psychiatric: positive: Oriented x3, CN's nml (2-12) Conclusion/Plan - Problem List (1) Sepsis Conclusion/Plan: Likely 2/2 UTI Patient given vancomycin and zosyn in the ED MRSA screen, blood and urine cultures ordered Patient received 2L NS in the ED Will continue at 125 ml/hr Hold lasix and spironolactone Qualifiers: Sepsis type: sepsis due to unspecified organism Qualified Code(s): A41.9 - Sepsis, unspecified organism (2) UTI (urinary tract infection) Conclusion/Plan: Will continue zosyn Qualifiers: Urinary tract infection type: acute pyelonephritis Qualified Code(s): N10 - Acute pyelonephritis (3) Atrial fibrillation with rapid ventricular response Conclusion/Plan: ?Triggered by sepsis Patient given metoprolol 5mg IV in the ED. Heart rate improved to 110's Diltiazem 10mg IV ordered Continue home metoprolol succinate 25 mg and digoxin 125 mcg daily (4) DM2 (diabetes mellitus, type 2) Conclusion/Plan: Very poor control. Check HgA1c Currently very hyperglycemic It is possible this escalation was triggered by infection Patient given 10 units insulin IV and 2L NS in the ED This improved blood glucose from [address] on insulin drip per hyperglycemia protocol When blood glucose improves, please resume patient's Insulin 70/30 15 units subq qhs and 12 units qam Metformin and glipizide currently held Continue daily potassium supplement Qualifiers: Diabetes mellitus care home insulin use: with middle or intermediate school principal use Diabetes mellitus complication status: with hyperglycemia Qualified Code(s): E11.65 - Type 2 diabetes mellitus with hyperglycemia; Z79.4 - jail (current) use of insulin (5) Restless leg syndrome Conclusion/Plan: On requip (6) Depression Conclusion/Plan: On cymbalta - Lab Results Fish Bones: 07/10/18 17:40 07/10/18 17:40
[2018-07-11] MEDS ORDERED: ALBUTEROL 6.7 GM INHALER INH PRN (03:06)
[2018-07-11] MEDS: ACETAMINOPHEN 325 MG TABLET PO PRN (03:40)
[2018-07-11 04:44] LABS: BASOPHILS % (AUTO) 0.2 %; EOSINOPHILS # (AUTO) 0.2 10^3/uL (0.0-0.7); EOSINOPHILS % (AUTO) 1.1 %; HGB - HEMOGLOBIN 10.6 g/dL (12.0-16.0); LYMPHOCYTES # (AUTO) 1.4 10^3/uL (1.5-3.5); LYMPHOCYTES % (AUTO) 7.6 %; MEAN CORPUSCULAR HGB CONC 33.1 g/dL (32.0-36.0); MEAN CORPUSCULAR VOLUME 99.6 fL (81.0-99.0); MEAN PLATELET VOLUME 9.6 fL (7.9-10.8); MONOCYTES # (AUTO) 0.5 10^3/uL (0.0-1.0); MONOCYTES % (AUTO) 2.7 %; NEUTROPHILS # (AUTO) 15.9 10^3/uL (1.5-6.6); NEUTROPHILS % (AUTO) 88.4 %; PLT - PLATELET COUNT 99 10^3/uL (130-450); RED BLOOD COUNT 3.21 10^6/uL (4.20-5.40); RED CELL DISTRIBUTION WIDTH 18.6 % (12.0-15.0)
[2018-07-11 04:52] LABS: CALCIUM 9.2 mg/dL (8.5-10.3)
[2018-07-11 06:57] LABS: HEMOGLOBIN A1C 0.92 g/dL; HEMOGLOBIN A1C % 9.8 % (4.6-6.2)
[2018-07-11] MEDS ORDERED: NON FORMULARY MED (Omeprazole [Omeprazole] 20 MG) PO SCH (07:00)
[2018-07-11] MEDS ORDERED: ALBUTEROL NEB 2.5 MG/3 ML INH PRN (07:04)
[2018-07-11] MEDS: PANTOPRAZOLE 40 MG TABLET PO SCH (07:30)
[2018-07-11] MEDS ORDERED: POTASSIUM CHLORIDE 20 MEQ TABLET PO SCH (08:00)
[2018-07-11] MEDS: INSULIN 70/30 HUMAN 100 UNIT/1 ML 10 ML MDV SUBQ SCH (08:26)
[2018-07-11] MEDS: POTASSIUM CHLORIDE 10 MEQ CAPSULE PO SCH (08:27)
[2018-07-11] MEDS ORDERED: DIGOXIN 125 MCG TABLET PO SCH (09:00)
[2018-07-11] MEDS ORDERED: FOS PO SCH (09:00)
[2018-07-11] MEDS ORDERED: METOPROLOL SUCCINATE 25 MG TABLET PO SCH (09:00)
[2018-07-11] MEDS ORDERED: LACTOBACILLUS ACIDOPHILUS PO SCH (09:00)
[2018-07-11] MEDS ORDERED: NON FORMULARY MED (Calcium Carbonate [Calcium] 600 MG) PO SCH (09:00)
[2018-07-11] MEDS ORDERED: NON FORMULARY MED (Cholecalciferol (Vitamin D3) [Vitamin D3] 2,000 UNIT) PO SCH (09:00)
[2018-07-11] MEDS: DULoxetine 30 MG CAPSULE PO SCH (09:21)
[2018-07-11] MEDS ORDERED: LEVALBUTEROL 1.25 MG/3 ML NEB INH PRN (09:22)
[2018-07-11] MEDS: CALCIUM CARB (OYSTER SHELL) 500 MG TABLET PO SCH (09:22)
[2018-07-11] MEDS: CHOLECALCIFEROL 1,000 UNIT TABLET PO SCH (09:22)
[2018-07-11] MEDS ORDERED: POTASSIUM CHLOR 10 MEQ/100 ML 10 MEQ/100 ML BAG IV SCH (10:00)
[2018-07-11] MEDS: MAGNESIUM OXIDE 400 MG TABLET PO SCH ×2 (10:49→20:45)
[2018-07-11] MEDS: INSULIN ASPART 300 UNIT/3 ML PEN SUBQ SCH ×3 (12:22→20:47)
[2018-07-11] MEDS ORDERED: DIGOXIN 500 MCG/2 ML AMP IVP SCH (14:00)
[2018-07-11] MEDS ORDERED: ASPIRIN EC 81 MG TABLET PO SCH (17:17)
--- NOTE | 2018-07-11 17:21 | PROVIDER PROGRESS NOTE ---
Assessment/Plan - Problem List (1) Sepsis Qualifiers: Sepsis type: sepsis due to unspecified organism Qualified Code(s): A41.9 - Sepsis, unspecified organism Assessment/Plan: Lactic acid has normalized. Source appears to be urine, therefore treat UTI. (2) UTI (urinary tract infection) Assessment/Plan: Urine and blood cultures pending. Continue empiric iv antibiotics. Follow WBC. (3) Pleural effusion, right Assessment/Plan: This is a recurrent problem, she has needed thoracentecis 3 times here and was sent to [facility] after the last admission 1 mo ago, for pleurodesis. The patient tells me that pleurodesis was not done and cannot remember why, but 2 taps were done there and then she was D[facility] on Lasix. Will request [facility] summary from [facility] from 1 mo ago. Will request for US guided thoracentesis here. No diuresis possible currently, due to low BP. (4) Atrial fibrillation with rapid ventricular response Assessment/Plan: HR slowing not achieved with bouses of iv meds and her Dig and po B-neelima. Will start iv fluids gently and Cardizem drip. Check Dig level in am, since an extra dose of Dig was given iv. (5) Hypotension Assessment/Plan: She does not appear to be in septic shock as she is warm and dry, mentating. This is likely due to rapid HR. Will start iv fluids, gingerly, since she already has pleural effusion and leg edema. (6) DM2 (diabetes mellitus, type 2) Qualifiers: Diabetes mellitus terminal operations manager insulin use: with terminal operations manager use Diabetes mellitus complication status: with hyperglycemia Qualified Code(s): E11.65 - Type 2 diabetes mellitus with hyperglycemia; Z79.4 - FDC (current) use of insulin Assessment/Plan: Her presenting glu was >500 and she was on an Insulin drip briefly. Will now start ss Insulin for pt eating carb-controlled diet, fingerstick checks. (7) Hx of cirrhosis Assessment/Plan: Leg edema and possible ascites present. Cannot start diuretics currently due to low BP. Keep legs elevated when OOB in chair. - Current Meds Current Meds: Current Medications Generic Name Dose Route Start Last Admin Trade Name Freq PRN Reason Stop Dose Admin Acetaminophen 650 mg 07/11/18 00:51 07/11/18 03:40 Tylenol PO 650 mg Q4HR PRN Administration Pain or Fever > 38C (100.4F) Calcium Carbonate/Glycine 500 mg 07/11/18 09:00 07/11/18 09:22 Oysco-500 PO 500 mg DAILY JASWANT Administration Cholecalciferol 2,000 unit 07/11/18 09:00 07/11/18 09:22 Vitamin D3 PO 2,000 unit DAILY JASWANT Administration Duloxetine HCl 30 mg 07/11/18 09:00 07/11/18 09:21 Cymbalta PO 30 mg DAILY JASWANT Administration Sodium Chloride 1,000 mls @ 100 mls/hr 07/10/18 22:00 07/11/18 14:00 Normal Saline 0.9% IV 100 mls/hr .Q10H JASWANT Infusion Piperacillin Sod/Tazobactam 100 mls @ 200 mls/hr 07/11/18 02:00 07/11/18 16:37 Sod 3.375 gm/ Sodium Chloride IV Infused Q6H JASWANT Infusion Insulin Aspart 1 - 5 unit 07/11/18 12:00 07/11/18 16:35 Novolog SUBQ 3 unit 0800,1200,1700,2100 JASWANT Administration Protocol Insulin Human Isoph/Insulin Regular 15 unit 07/11/18 08:00 07/11/18 08:26 Novolin SUBQ 15 unit QDBREAKFAST JASWANT Administration Magnesium Oxide 400 mg 07/11/18 10:00 07/11/18 10:49 Mag Ox PO 400 mg BID JASWANT Administration Pantoprazole Sodium 40 mg 07/11/18 07:00 07/11/18 07:30 Protonix PO 40 mg QDAC JASWANT Administration Potassium Chloride 10 meq 07/11/18 08:00 07/11/18 08:27 Micro-K PO Not Given DAILYWM JASWANT Sodium Chloride 10 ml 07/11/18 01:00 07/11/18 16:35 Normal Saline Flush 0.9% IVP 10 ml 0100,0900,1700 JASWANT Administration - Lab Result Lab results reviewed: Yes Fish Bone Diagrams: 07/11/18 04:10 07/11/18 04:10 - Additional Planning My Orders: My Active Orders 07/11/18 09:22 Levalbuterol [Xopenex] 1.25 mg INH Q4H PRN 07/11/18 09:23 Nebulizer/MDI Tx. [RC] .Q4 PRN Resp Teach Nebulizer/MDI [RC] .ONCE 07/11/18 10:00 Magnesium Oxide [Mag Ox] 400 mg PO BID 07/11/18 10:28 Blood Glucose Checks - Eating [] 0800,1200,1700,2100 Initiate Hypoglycemia Protocol [RC] .protocol 07/11/18 12:00 Insulin Aspart [NovoLOG] 1 - 5 unit SUBQ 0800,1200,1700,2100 07/11/18 17:11 IS [Incentive Spirometry - RT] [RC] PRN Sodium Chloride 0.65% [[place]] 2 sprays JAZMÍN Q4HR PRN 07/11/18 17:12 Thoracentesis Puncture [US] Routine 07/11/18 17:17 Aspirin EC [Ecotrin] 81 mg PO DAILY 07/11/18 21:00 Levalbuterol [Xopenex] 1.25 mg INH QID Metoprolol Succinate [Toprol Xl] 25 mg PO BID 07/12/18 05:00 A1C [CHEM] Routine 07/12/18 09:00 Digoxin [Lanoxin] 250 mcg PO DAILY Subjective - Subjective Patient Reports: Shortness of Breath Nursing Reports: Other (HR 140's, BP 90) Objective Vital Signs: Vital Signs - 24 hr 07/10/18 07/10/18 07/10/18 17:55 18:55 19:01 Temperature Heart Rate 140 H 139 H 118 H Heart Rate [ Monitoring electrodes] Respiratory 33 H 18 20 Rate Blood Pressure 123/67 136/97 H 136/97 H Blood Pressure [Right Brachial artery] O2 Saturation 93 92 90 L 07/10/18 07/10/18 07/10/18 19:04 19:11 19:49 Temperature 36.9 C Heart Rate 118 H 126 H 120 H Heart Rate [ Monitoring electrodes] Respiratory 22 22 25 H Rate Blood Pressure 136/97 H 122/64 95/63 Blood Pressure [Right Brachial artery] O2 Saturation 89 L 95 97 07/10/18 07/10/18 07/10/18 20:21 21:19 21:22 Temperature Heart Rate 117 H 123 H 117 H Heart Rate [ Monitoring electrodes] Respiratory 28 H 18 28 H Rate Blood Pressure 106/51 L 108/71 98/71 Blood Pressure [Right Brachial artery] O2 Saturation 98 96 07/10/18 07/10/18 07/10/18 22:10 23:09 23:30 Temperature 36.7 C Heart Rate 125 H 110 H Heart Rate [ 116 H Monitoring electrodes] Respiratory 29 H 20 27 H Rate Blood Pressure 104/64 107/80 Blood Pressure 115/69 [Right Brachial artery] O2 Saturation 94 97 97 07/11/18 07/11/18 07/11/18 00:00 00:40 01:00 Temperature Heart Rate Heart Rate [ 109 H 116 H Monitoring electrodes] Respiratory 27 H 29 H Rate Blood Pressure 111/74 Blood Pressure 111/74 132/62 H [Right Brachial artery] O2 Saturation 91 L 92 07/11/18 07/11/18 07/11/18 02:00 03:00 04:00 Temperature 36.4 C L 36.2 C L Heart Rate Heart Rate [ 115 H 116 H 126 H Monitoring electrodes] Respiratory 28 H 21 32 H Rate Blood Pressure Blood Pressure 120/64 126/67 127/69 [Right Brachial artery] O2 Saturation 95 96 95 07/11/18 07/11/18 07/11/18 04:15 05:00 06:00 Temperature Heart Rate 130 H Heart Rate [ 135 H 124 H Monitoring electrodes] Respiratory 37 H 26 H 31 H Rate Blood Pressure Blood Pressure 115/87 H 112/63 [Right Brachial artery] O2 Saturation 92 100 07/11/18 07/11/18 07/11/18 07:00 08:00 08:10 Temperature 36.6 C Heart Rate 135 H Heart Rate [ 125 H 130 H Monitoring electrodes] Respiratory 29 H 34 H 22 Rate Blood Pressure Blood Pressure 120/60 [Right Brachial artery] O2 Saturation 100 94 07/11/18 07/11/18 07/11/18 08:26 09:00 10:00 Temperature 36.2 C L Heart Rate 135 H Heart Rate [ 144 H 143 H Monitoring electrodes] Respiratory 22 27 H 29 H Rate Blood Pressure Blood Pressure 98/57 L 105/89 H [Right Brachial artery] O2 Saturation 100 93 93 07/11/18 07/11/18 07/11/18 11:00 12:00 13:00 Temperature 36.9 C Heart Rate Heart Rate [ 142 H 142 H 141 H Monitoring electrodes] Respiratory 32 H 19 32 H Rate Blood Pressure Blood Pressure 106/47 L 96/55 L 101/63 [Right Brachial artery] O2 Saturation 97 97 97 07/11/18 07/11/18 07/11/18 14:00 14:25 15:00 Temperature Heart Rate 141 H Heart Rate [ 140 H 140 H Monitoring electrodes] Respiratory 18 37 H Rate Blood Pressure Blood Pressure 105/57 L 131/63 H [Right Brachial artery] O2 Saturation 93 94 07/11/18 07/11/18 16:00 17:00 Temperature Heart Rate Heart Rate [ 140 H 139 H Monitoring electrodes] Respiratory 26 H 28 H Rate Blood Pressure Blood Pressure 82/68 L 107/66 [Right Brachial artery] O2 Saturation 95 95 Oxygen O2 Source Nasal cannula Oxygen Flow Rate 3 I&O (Last 24 Hrs): Intake and Output Totals x24h 07/09/18 07/10/18 07/11/18 23:59 23:59 23:59 Intake Total 4100 2626.7 Output Total 280 Balance 4100 2346.7 General: Alert, Oriented x3 HEENT: Other (Oral mucosa dry) Neck: Supple, No JVD Cardiovascular: Other (Tachy, no murmur) Respiratory: Other (Diminished R side) Abdomen: Soft Extremities: Other (2+ edema tp knees) - Results Results: Laboratory Results WBC 18.0 x10^3/uL (4.8-10.8) H 07/11/18 04:10 RBC 3.21 10^6/uL (4.20-5.40) L 07/11/18 04:10 Hgb 10.6 g/dL (12.0-16.0) L 07/11/18 04:10 Hct 31.9 % (37.0-47.0) L 07/11/18 04:10 MCV 99.6 fL (81.0-99.0) H 07/11/18 04:10 MCH 33.0 pg (27.0-31.0) H 07/11/18 04:10 MCHC 33.1 g/dL (32.0-36.0) 07/11/18 04:10 RDW 18.6 % (12.0-15.0) H 07/11/18 04:10 Plt Count 99 10^3/uL (130-450) L 07/11/18 04:10 MPV 9.6 fL (7.9-10.8) 07/11/18 04:10 Neut # (Auto) 15.9 10^3/uL (1.5-6.6) H 07/11/18 04:10 Lymph # (Auto) 1.4 10^3/uL (1.5-3.5) L 07/11/18 04:10 [place] # (Auto) 0.5 10^3/uL (0.0-1.0) 07/11/18 04:10 Eos # (Auto) 0.2 10^3/uL (0.0-0.7) 07/11/18 04:10 Baso # (Auto) 0.0 10^3/uL (0.0-0.1) 07/11/18 04:10 Absolute Nucleated RBC 0.01 x10^3/uL 07/11/18 04:10 Nucleated RBC % 0.1 /100WBC 07/11/18 04:10 PT 18.1 secs (9.9-12.6) H 07/10/18 17:40 INR 1.6 (0.8-1.2) H 07/10/18 17:40 VBG pH 7.442 (7.31-7.41) H 07/10/18 17:40 VBG pCO2 37.1 mmHg (41-51) L 07/10/18 17:40 VBG pO2 53.4 mmHg (25-47) H 07/10/18 17:40 VBG HCO3 24.7 mmol/L (23-28) 07/10/18 17:40 VBG Total CO2 25.9 mmol/L (24-29) 07/10/18 17:40 VBG O2 Saturation 87.4 % (60-80) H 07/10/18 17:40 VBG Base Excess 0.8 mmol/L (-2 - +2) 07/10/18 17:40 Sodium 131 mmol/L (135-145) L 07/11/18 04:10 Potassium 2.9 mmol/L (3.5-5.0) L 07/11/18 04:10 Chloride 95 mmol/L (101-111) L 07/11/18 04:10 Carbon Dioxide 26 mmol/L (21-32) 07/11/18 04:10 Anion Gap 10.0 (6-13) 07/11/18 04:10 BUN 18 mg/dL (6-20) 07/11/18 04:10 Creatinine 1.0 mg/dL (0.4-1.0) 07/11/18 04:10 Estimated GFR (MDRD) 55 (>89) L 07/11/18 04:10 Glucose 218 mg/dL (70-100) H 07/11/18 04:10 Glycated Hemoglobin 9.8 % (4.6-6.2) H 07/11/18 04:10 Estim Average Glucose 235 (70-100) H 07/11/18 04:10 Lactic Acid 1.9 mmol/L (0.5-2.2) 07/11/18 06:32 Calcium 9.2 mg/dL (8.5-10.3) 07/11/18 04:10 Magnesium 1.6 mg/dL (1.7-2.8) L 07/10/18 17:40 Total Bilirubin 5.1 mg/dL (0.2-1.0) H 07/10/18 17:40 AST 39 IU/L (10-42) 07/10/18 17:40 ALT 19 IU/L (10-60) 07/10/18 17:40 Alkaline Phosphatase 142 IU/L (42-121) H 07/10/18 17:40 B-Natriuretic Peptide 395 pg/mL (5-100) H 07/10/18 17:40 Total Protein 7.4 g/dL (6.7-8.2) 07/10/18 17:40 Albumin 2.6 g/dL (3.2-5.5) L 07/10/18 17:40 Globulin 4.8 g/dL (2.1-4.2) H 07/10/18 17:40 Albumin/Globulin Ratio 0.5 (1.0-2.2) L 07/10/18 17:40 Lipase 39 U/L (22-51) 07/10/18 17:40 Urine Color YELLOW 07/10/18 18:50 Urine Clarity HAZY (CLEAR) 07/10/18 18:50 Urine pH 6.0 PH (5.0-7.5) 07/10/18 18:50 Ur Specific [place] 1.010 (1.002-1.030) 07/10/18 18:50 Urine Protein 30 mg/dL (NEGATIVE) H 07/10/18 18:50 Urine Glucose (UA) >=1000 mg/dL (NEGATIVE) H 07/10/18 18:50 Urine Ketones NEGATIVE mg/dL (NEGATIVE) 07/10/18 18:50 Urine Occult Blood LARGE (NEGATIVE) H 07/10/18 18:50 Urine Nitrite NEGATIVE (NEGATIVE) 07/10/18 18:50 Urine Bilirubin NEGATIVE (NEGATIVE) 07/10/18 18:50 Urine Urobilinogen 1 (NORMAL) E.U./dL (NORMAL) 07/10/18 18:50 Ur Leukocyte Esterase TRACE (NEGATIVE) H 07/10/18 18:50 Urine RBC TNTC /HPF (0-5) H 07/10/18 18:50 Urine WBC >25 /HPF (0-5) H 07/10/18 18:50 Urine WBC Clumps PRESENT 07/10/18 18:50 Ur Squamous Epith Cells FEW Squamous (<= Few) 07/10/18 18:50 Urine Bacteria Many /HPF (None Seen) H 07/10/18 18:50 Ur Microscopic Review INDICATED 07/10/18 18:50 Urine Culture Comments INDICATED 07/10/18 18:50 Last Dose Date unknown 07/10/18 17:40 Last Dose Time unknown 07/10/18 17:40 Digoxin < 0.2 ng/mL 07/10/18 17:40 Serum Ketones NEGATIVE (NEGATIVE) 07/10/18 17:40 - Procedures Procedures: Procedures DRAINAGE OF RIGHT PLEURAL CAVITY, PERC APPROACH, DIAGN (06/10/18) DRAINAGE OF RIGHT PLEURAL CAVITY, PERCUTANEOUS APPROACH (02/24/18) TRANSFUSE NONAUT FROZEN PLASMA IN PERIPH VEIN, PERC (02/24/18)
[2018-07-11] MEDS: NS W/20 MEQ KCL 1,000 ML IV SCH (17:44)
[2018-07-11] MEDS: diltiaZEM INJ 125 MG in DEXTROSE 5% 100 ML IV SCH (18:08)
[2018-07-11] MEDS: LEVALBUTEROL 1.25 MG/3 ML NEB INH SCH (19:12)
[2018-07-11] MEDS: SODIUM CHLORIDE 0.65% NASAL SPRAY NAS PRN (20:45)
[2018-07-11] MEDS: rOPINIRole 0.25 MG TABLET PO SCH (20:45)
[2018-07-11] MEDS: METOPROLOL SUCCINATE 25 MG TABLET PO SCH (20:46)
[2018-07-12] MEDS: NS W/20 MEQ KCL 1,000 ML IV SCH ×3 (02:21→19:46)
[2018-07-12] MEDS: PIPERACILLIN/TAZOBACTAM 3.375 GM in SODIUM CHLORIDE 0.9% MINIBAG 100 ML IV SCH ×4 (02:21→19:46)
[2018-07-12] MEDS ORDERED: LEVALBUTEROL 1.25 MG/3 ML NEB INH PRN (02:52)
[2018-07-12] MEDS: SODIUM CHLORIDE FLUSH 0.9% 10 ML SYRINGE IVP SCH ×3 (02:52→17:20)
[2018-07-12] MEDS: SODIUM CHLORIDE 0.9% 1,000 ML IV SCH (05:19)
[2018-07-12 05:49] LABS: BASOPHILS % (AUTO) 0.2 %; EOSINOPHILS # (AUTO) 0.3 10^3/uL (0.0-0.7); EOSINOPHILS % (AUTO) 1.7 %; LYMPHOCYTES # (AUTO) 1.4 10^3/uL (1.5-3.5); MEAN CORPUSCULAR HEMOGLOBIN 33.5 pg (27.0-31.0); MEAN CORPUSCULAR HGB CONC 33.8 g/dL (32.0-36.0); MEAN CORPUSCULAR VOLUME 99.3 fL (81.0-99.0); MEAN PLATELET VOLUME 9.8 fL (7.9-10.8); MONOCYTES # (AUTO) 1.2 10^3/uL (0.0-1.0); NEUTROPHILS % (AUTO) 83.1 %; PLT - PLATELET COUNT 90 10^3/uL (130-450); RED BLOOD COUNT 2.99 10^6/uL (4.20-5.40); RED CELL DISTRIBUTION WIDTH 18.7 % (12.0-15.0); WHITE BLOOD COUNT 16.8 x10^3/uL (4.8-10.8)
[2018-07-12 06:07] LABS: CALCIUM 8.5 mg/dL (8.5-10.3); CREATININE 1.1 mg/dL (0.4-1.0); MAGNESIUM 1.7 mg/dL (1.7-2.8)
[2018-07-12 06:09] LABS: DIGOXIN 0.4 ng/mL
[2018-07-12] MEDS: PANTOPRAZOLE 40 MG TABLET PO SCH (06:34)
[2018-07-12 06:42] LABS: HB2 TOTAL 10.2 g/dL; HEMOGLOBIN A1C 0.82 g/dL; HEMOGLOBIN A1C % 9.5 % (4.6-6.2)
[2018-07-12] MEDS: SODIUM CHLORIDE 0.65% NASAL SPRAY NAS PRN (07:26)
[2018-07-12] MEDS: LEVALBUTEROL 1.25 MG/3 ML NEB INH SCH ×4 (07:42→17:41)
[2018-07-12] MEDS: ENOXAPARIN 40 MG/0.4 ML SYRINGE SUBQ SCH (07:45)
[2018-07-12] MEDS: INSULIN ASPART 300 UNIT/3 ML PEN SUBQ SCH ×4 (08:11→20:58)
[2018-07-12] MEDS: (Vitamin B Complex [Vitamin B Complex] 1 TAB) PO SCH ×2 (08:14→11:59)
[2018-07-12] MEDS: diltiaZEM INJ 125 MG in DEXTROSE 5% 100 ML IV SCH (08:36)
[2018-07-12] MEDS: INSULIN 70/30 HUMAN 100 UNIT/1 ML 10 ML MDV SUBQ SCH (08:38)
[2018-07-12] MEDS: ASPIRIN EC 81 MG TABLET PO SCH (08:44)
[2018-07-12] MEDS: CALCIUM CARB (OYSTER SHELL) 500 MG TABLET PO SCH (08:44)
[2018-07-12] MEDS: POTASSIUM CHLORIDE 10 MEQ CAPSULE PO SCH (08:44)
[2018-07-12] MEDS: CHOLECALCIFEROL 1,000 UNIT TABLET PO SCH (08:45)
[2018-07-12] MEDS: DIGOXIN 125 MCG TABLET PO SCH (08:45)
[2018-07-12] MEDS: DULoxetine 30 MG CAPSULE PO SCH ×2 (08:46→20:57)
[2018-07-12] MEDS: METOPROLOL SUCCINATE 25 MG TABLET PO SCH ×2 (08:46→20:54)
[2018-07-12] MEDS: MAGNESIUM OXIDE 400 MG TABLET PO SCH ×2 (08:46→20:52)
[2018-07-12] MEDS ORDERED: POLYETHYLENE GLYCOL 3350 17 GM PACKET PO SCH (12:00)
--- NOTE | 2018-07-12 12:56 | CONSULTATION NOTE ---
Referring Provider Name of Referring Provider:: Dr. Wells Consult Date: 07/12/18 Chief Complaint - Chief Complaint Chief Complaint: Recurrent symptomatic RIGHT non-malignant pleural effusion History of Present Illness - Admitted From Admitted From:: [facility] - History Obtained From Records Reviewed: Yes History obtained from: Patient and chart Exam Limitations: None - History of Present Illness HPI Comment/Other: 67 year old morbidly obese partially compliant female with recurrent right pleural effusion who was sent to [facility] to have a pleurodesis done and for reasons that are unclear to me and to the patient the pleurodesis was not done. The patient has multiple other comorbidities including not very well- controlled diabetes. My current understanding is that her recurrent pleural effusion is due to cardiac disease. Please note that the entire examination and discussion was held in front of her son and daughter. 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: reports: None : reports: Incontinence, Frequency HEENT: reports: Chronic sinusitis Psych: reports: Depression Musculoskeletal: reports: Osteoarthritis, Fibromyalgia, Rheumatoid arthritis, Chronic back pain Derm: reports: Rosacea, Other MRSA Hx?: No - Past Surgical History General: reports: Cholecystectomy Ortho: reports: Other /PROGRAMMABLE LOGIC CONTROLLER ASSEMBLER: reports: Hysterectomy, Oophrectomy HEENT: reports: Other - Family & Social History Family History: Mother: , Hyperlipidemia, Hypertension, Mental Illness, [place], Father: , Hyperlipidemia, Hypertension, [place], Sister: Alive and Well, Brother: , Hyperlipidemia, Hypertension, [place] Family History Comment/Other: No known history of cancer or diabetes in the family. Patient's mother was bipolar. Social History Notes: Patient lives with a roommate - Substance History Use: Uses substance without health or social issues: NONE - POLST Patient has POLST: Yes POLST Status: DNR Meds/Allgy - Home Medications Home Medications: Ambulatory Orders Medication Instructions Recorded Confirmed Albuterol Sulf [Ventolin Hfa 2 puffs INH Q4HR PRN 03/21/17 07/11/18 Inhaler] Calcium Carbonate [Calcium] 600 mg PO DAILY 03/21/17 07/11/18 DULoxetine [Cymbalta] 30 mg PO DAILY 03/21/17 07/11/18 Lactobacillus Acidophilus/Fos 1 each PO DAILY 03/21/17 07/11/18 [Acidophilus Probiotic Tablet] Lysine HCl 500 mg PO BID 03/21/17 07/11/18 Melatonin 3 mg PO QPM 03/21/17 07/11/18 Omeprazole 20 mg PO QDAC 03/21/17 07/11/18 Potassium Chloride 10 meq PO DAILYWM 03/21/17 07/11/18 Spironolactone 50 mg PO BID 03/21/17 07/11/18 Vitamin B Complex 1 each PO DAILY 03/21/17 07/11/18 Cholecalciferol (Vitamin D3) 2,000 unit PO DAILY 04/22/17 07/11/18 [Vitamin D3] DULoxetine [Cymbalta] 60 mg PO QPM 11/15/17 07/11/18 Ropinirole HCl 0.25 mg PO QPM 11/15/17 07/11/18 Furosemide [Lasix] 40 mg PO DAILY 12/05/17 07/11/18 Glipizide 5 mg PO 0730 02/24/18 07/11/18 Insulin NPH Hum/Reg Insulin Hm 15 units SUBQ QDBREAKFAST 02/24/18 07/11/18 [Humulin 70/30 Kwikpen] Metoprolol Succinate [Toprol Xl] 25 mg PO DAILY #30 tablet 03/03/18 07/11/18 Digoxin [Lanoxin] 125 mcg PO DAILY 06/10/18 07/11/18 Metformin HCl 1,000 mg PO BIDWM 06/10/18 07/11/18 - Allergies Allergies/Adverse Reactions: Allergies Allergy/AdvReac Type Severity Reaction Status Date / Time cefixime [From Suprax] Allergy Unknown Verified 07/10/18 17:13 cimetidine [From Tagamet] Allergy Unknown Verified 07/10/18 17:13 erythromycin lactobionate * Allergy Unknown Verified 07/10/18 17:13 [From Erythrocin] fluticasone propionate * Allergy Unknown Verified 07/10/18 17:13 [From Flonase] levofloxacin [From Levaquin] Allergy Unknown Verified 07/10/18 17:13 piroxicam [From Feldene] Allergy Unknown Verified 07/10/18 17:13 Sulfa (Sulfonamide Allergy Unknown Verified 07/10/18 17:13 Antibiotics) egg AdvReac Nausea Verified 07/10/18 17:13 ibuprofen [From Motrin] AdvReac Unknown Verified 07/10/18 17:13 Review of Systems - Constitutional Constitutional: reports: Fatigue, Malaise, Weakness - Respiratory Respiratory: reports: Cough, Sputum production, SOB at rest - Neurological Neurological: reports: General weakness Exam - Vital Signs Reviewed Vital Signs: Yes Vital Signs: Vital Signs x48h Temp Pulse Pulse Resp BP Pulse Ox 07/12/18 12:00 36.7 C 78 27 H 136/52 H 96 07/12/18 11:46 74 22 07/12/18 11:00 74 23 114/52 L 99 07/12/18 10:00 75 16 125/47 L 100 07/12/18 09:00 93 21 122/60 100 07/12/18 08:00 36.7 C 90 22 115/57 L 92 07/12/18 07:42 94 22 07/12/18 07:30 92 20 116/53 L 97 07/12/18 07:15 92 30 H 129/61 99 07/12/18 07:00 93 22 136/60 H 93 07/12/18 06:00 93 24 121/45 L 97 07/12/18 05:49 88 20 109/41 L 97 07/12/18 05:30 93 22 111/42 L 98 07/12/18 05:16 93 26 H 104/54 L 97 07/12/18 05:00 93 23 120/41 L 98 - Physical Exam General Appearance: positive: Mild distress Eyes Bilateral: positive: No lid inflammation, Conjunctivae nml, No scleral icterus ENT: positive: No signs of dehydration Neck: positive: Trachea midline Respiratory: positive: Chest non-tender (Decreased breath sounds on right about 2[address] Cardiovascular: positive: Regular rate & rhythm Abdomen: positive: Non-tender, Nml bowel sounds Skin: positive: Color nml Neurologic/Psychiatric: positive: Oriented x3 Conclusion/Plan - Diagnosis Diagnosis: Recurrent RIGHT non-malignant pleural effusion. - Plan Plan: RIGHT thoracoscopy, pleurodesis and tube thoracostomy but review of her previous taps reveals an exudative process with histiocytes seen. Calcified granulomas b ilaterally in the chest. I am concerned about the possibility an infectious process and will review all the charts in preparation for the surgery. 60 minutes of [id number] time was spent with the patient and her family, coordination of her care, and in completion of the requisite paperwork - Lab Results Lab results reviewed: Yes Fish Bones: 07/13/18 05:00 07/13/18 05:00 - Diagnostic Imaging Results Diagnostic Imaging Results: positive: Final report reviewed, Read independently - EKG Results EKG Interpreted Independently: No
--- NOTE | 2018-07-12 16:55 | PROVIDER PROGRESS NOTE ---
Assessment/Plan - Problem List (1) Sepsis Qualifiers: Sepsis type: sepsis due to unspecified organism Assessment/Plan: Blood culture has grown Klebsiella. Current iv antibiotics are appropriate but final PAULY and sensitiviies are pending. Continue iv antibiotics. (2) UTI (urinary tract infection) Assessment/Plan: Urine culture has growm E.coli. Current antibiotics are appropriate but PAULY and sensitivities are still pending. Patient has no dysuria, urgency or urinary frequency complaints. Continue iv antibiotics. (3) Pleural effusion, right Assessment/Plan: Surgical consult requested for thoracentesis, since interventional radiology is not here on weekends. Dr Zabala is considering surgical management with chest tube. Patient was considering and is agreeable to this. Will review old pleural fluid pathology reports regarding Histiocytes seen and proper meds for that. (4) Atrial fibrillation with rapid ventricular response Assessment/Plan: HR dropped to 80's in aflutter with 3:1 block, on iv Diltiazem at 5 mg/hr. Will change to po Cardizem, spread out dosing. Continue her B-neelima dose. Continue ASA for stroke prophylaxis. Her CHADS score = 2 (HTN and DM), but due to repeat need for thoracenteses, no anticoagulant is being used. (5) Hypotension Assessment/Plan: Improved with gentle iv fluids and HR control. There was no lactic acid level elvation to consider septic shock. (6) DM2 (diabetes mellitus, type 2) Qualifiers: Diabetes mellitus long-term insulin use: with terminal supervisor use Diabetes mellitus complication status: with hyperglycemia Qualified Code(s): E11.65 - Type 2 diabetes mellitus with hyperglycemia; Z79.4 - residential (current) use of insulin Assessment/Plan: Continue carb-controlled diet, glu checks, ss Insulin. (7) Hx of cirrhosis Assessment/Plan: Currently the diuretic is on hold, due to BP borderline. She will eventually need Spironolactone restart. - Current Meds Current Meds: Current Medications Generic Name Dose Route Start Last Admin Trade Name Freq PRN Reason Stop Dose Admin Acetaminophen 650 mg 07/11/18 00:51 07/11/18 03:40 Tylenol PO 650 mg Q4HR PRN Administration Pain or Fever > 38C (100.4F) Aspirin 81 mg 07/12/18 09:00 07/12/18 08:44 Ecotrin PO Not Given DAILY JASWANT Calcium Carbonate/Glycine 500 mg 07/11/18 09:00 07/12/18 08:44 Oysco-500 PO 500 mg DAILY JASWANT Administration Cholecalciferol 2,000 unit 07/11/18 09:00 07/12/18 08:45 Vitamin D3 PO 2,000 unit DAILY JASWANT Administration Digoxin 250 mcg 07/12/18 09:00 07/12/18 08:45 Lanoxin PO 250 mcg DAILY JASWANT Administration Diltiazem HCl 60 mg 07/12/18 14:00 07/12/18 14:27 Cardizem PO 60 mg TID JASWANT Administration Duloxetine HCl 30 mg 07/11/18 09:00 07/12/18 08:46 Cymbalta PO 30 mg DAILY [facility] Administration Enoxaparin Sodium 40 mg 07/12/18 09:00 07/12/18 07:45 Lovenox SUBQ Not Given DAILY [facility] Piperacillin Sod/Tazobactam 100 mls @ 200 mls/hr 07/11/18 02:00 07/12/18 14:58 Sod 3.375 gm/ Sodium Chloride IV Infused Q6H JASWANT Infusion Potassium Chloride/Sodium Chloride 1,000 mls @ 60 mls/hr 07/12/18 09:10 07/12/18 14:58 Normal Saline 0.9% W/20 Meq Kcl IV 60 mls/hr .[id number] JASWANT Infusion Insulin Aspart 1 - 5 unit 07/11/18 12:00 07/12/18 11:58 Novolog SUBQ 4 unit 0800,1200,1700,2100 [facility] Administration Protocol Insulin Human Isoph/Insulin Regular 15 unit 07/11/18 08:00 07/12/18 08:38 Novolin SUBQ 15 unit [id number] JASWANT Administration Levalbuterol HCl 1.25 mg 07/11/18 19:00 07/12/18 15:43 Xopenex INH Not Given RTQID JASWANT Levalbuterol HCl 1.25 mg 07/12/18 02:52 07/12/18 02:54 Xopenex INH 1.25 mg Q4H PRN Administration Shortness of Air/Wheezing Magnesium Oxide 400 mg 07/11/18 10:00 07/12/18 08:46 Mag Ox PO 400 mg BID [facility] Administration Metoprolol Succinate 25 mg 07/11/18 21:00 07/12/18 08:46 Toprol Xl PO 25 mg BID JASWANT Administration Pantoprazole Sodium 40 mg 07/11/18 07:00 07/12/18 06:34 Protonix PO 40 mg QDAC JASWANT Administration (Vitamin B Complex [ 1 each 07/12/18 09:00 07/12/18 11:59 Vitamin B Complex] 1 PO 1 each Tab) DAILY JASWANT Administration Potassium Chloride 10 meq 07/11/18 08:00 07/12/18 08:44 Micro-K PO 10 meq DAILYWM JASWANT Administration Ropinirole HCl 0.25 mg 07/11/18 21:00 07/11/18 20:45 Requip PO 0.25 mg QPM JASWANT Administration Sodium Chloride 10 ml 07/11/18 01:00 07/12/18 08:14 Normal Saline Flush 0.9% IVP Not Given 0100,0900,1700 JASWANT Sodium Chloride 2 sprays 07/11/18 17:11 07/12/18 07:26 [place] JAZMÍN 2 sprays Q4HR PRN Administration Nasal Congestion - Lab Result Fish Bone Diagrams: 07/12/18 05:11 07/12/18 05:11 - Additional Planning My Orders: My Active Orders 07/11/18 17:11 IS [Incentive Spirometry - RT] [RC] PRN Sodium Chloride 0.65% [[place]] 2 sprays JAZMÍN Q4HR PRN 07/11/18 17:12 Thoracentesis Puncture [US] Routine 07/11/18 19:00 Levalbuterol [Xopenex] 1.25 mg INH RTQID 07/11/18 21:00 Metoprolol Succinate [Toprol Xl] 25 mg PO BID 07/12/18 Consult [General Surgery Consult] [CONS] Routine 07/12/18 09:00 Aspirin EC [Ecotrin] 81 mg PO DAILY Digoxin [Lanoxin] 250 mcg PO DAILY 07/12/18 09:10 Ns W/20 Meq KCl [Normal Saline 0.9% W/20 Meq KCl] 1,000 ml IV 60 mls/hr 07/12/18 14:00 diltiaZEM [Cardizem] 60 mg PO TID 07/12/18 21:00 DULoxetine [Cymbalta] 60 mg PO QPM Subjective - Subjective Patient Reports: Feeling Better, Other (Still orthopneic) Objective Vital Signs: Vital Signs - 24 hr 07/11/18 07/11/18 07/11/18 17:00 18:00 18:08 Temperature Heart Rate Heart Rate [ 139 H 140 H Monitoring electrodes] Respiratory 28 H 28 H Rate Blood Pressure 123/54 L Blood Pressure 107/66 123/54 L [Right Brachial artery] O2 Saturation 95 95 07/11/18 07/11/18 07/11/18 18:17 18:33 18:54 Temperature Heart Rate Heart Rate [ 140 H 140 H 141 H Monitoring electrodes] Respiratory 28 H 30 H 30 H Rate Blood Pressure Blood Pressure 125/54 L 136/61 H 120/51 L [Right Brachial artery] O2 Saturation 95 28 L 3 L 07/11/18 07/11/18 07/11/18 19:00 19:13 19:15 Temperature Heart Rate 140 H Heart Rate [ 141 H 140 H Monitoring electrodes] Respiratory 28 H 22 26 H Rate Blood Pressure Blood Pressure 127/53 L 135/79 H [Right Brachial artery] O2 Saturation 93 99 07/11/18 07/11/18 07/11/18 19:30 19:45 20:00 Temperature Heart Rate Heart Rate [ 140 H 141 H 140 H Monitoring electrodes] Respiratory 20 35 H 27 H Rate Blood Pressure Blood Pressure 85/57 L 110/60 115/54 L [Right Brachial artery] O2 Saturation 95 95 95 07/11/18 07/11/18 07/11/18 20:15 20:30 20:45 Temperature 37.1 C Heart Rate Heart Rate [ 130 H 135 H 141 H Monitoring electrodes] Respiratory 29 H 30 H 28 H Rate Blood Pressure Blood Pressure 111/59 L 115/58 L 125/62 [Right Brachial artery] O2 Saturation 96 94 91 L 07/11/18 07/11/18 07/11/18 21:00 21:15 21:30 Temperature Heart Rate Heart Rate [ 128 H 117 H 104 H Monitoring electrodes] Respiratory 28 H 31 H 29 H Rate Blood Pressure Blood Pressure 131/64 H 117/52 L 121/56 L [Right Brachial artery] O2 Saturation 94 99 96 07/11/18 07/11/18 07/11/18 21:45 22:00 22:15 Temperature Heart Rate Heart Rate [ 104 H 102 H 97 Monitoring electrodes] Respiratory 25 H 23 25 H Rate Blood Pressure Blood Pressure 123/60 117/52 L 115/64 [Right Brachial artery] O2 Saturation 98 96 97 07/11/18 07/11/18 07/11/18 22:30 22:45 23:00 Temperature Heart Rate Heart Rate [ 92 96 92 Monitoring electrodes] Respiratory 23 23 25 H Rate Blood Pressure Blood Pressure 117/49 L 124/52 L 122/58 L [Right Brachial artery] O2 Saturation 96 96 95 07/11/18 07/11/18 07/12/18 23:15 23:45 00:00 Temperature 37.1 C Heart Rate Heart Rate [ 92 92 92 Monitoring electrodes] Respiratory 22 22 27 H Rate Blood Pressure Blood Pressure 123/51 L 128/55 L 125/55 L [Right Brachial artery] O2 Saturation 96 96 95 07/12/18 07/12/18 07/12/18 00:15 00:30 00:45 Temperature Heart Rate Heart Rate [ 92 92 92 Monitoring electrodes] Respiratory 25 H 27 H 29 H Rate Blood Pressure Blood Pressure 121/52 L 119/53 L 116/56 L [Right Brachial artery] O2 Saturation 96 96 98 07/12/18 07/12/18 07/12/18 01:00 01:15 01:30 Temperature Heart Rate Heart Rate [ 92 92 92 Monitoring electrodes] Respiratory 22 27 H 26 H Rate Blood Pressure Blood Pressure 117/50 L 115/55 L 102/85 H [Right Brachial artery] O2 Saturation 98 98 95 07/12/18 07/12/18 07/12/18 01:45 02:00 02:15 Temperature Heart Rate Heart Rate [ 105 H 93 92 Monitoring electrodes] Respiratory 25 H 27 H 22 Rate Blood Pressure Blood Pressure 106/93 H 118/58 L 117/54 L [Right Brachial artery] O2 Saturation 96 99 97 07/12/18 07/12/18 07/12/18 02:30 02:45 02:57 Temperature Heart Rate 88 Heart Rate [ 92 92 Monitoring electrodes] Respiratory 22 28 H 20 Rate Blood Pressure Blood Pressure 106/71 126/70 [Right Brachial artery] O2 Saturation 98 97 07/12/18 07/12/18 07/12/18 03:00 03:15 03:30 Temperature Heart Rate Heart Rate [ 92 92 93 Monitoring electrodes] Respiratory 27 H 27 H 24 Rate Blood Pressure Blood Pressure 121/71 127/50 L 118/52 L [Right Brachial artery] O2 Saturation 98 96 96 07/12/18 07/12/18 07/12/18 03:45 04:15 04:30 Temperature 37 C Heart Rate Heart Rate [ 93 93 93 Monitoring electrodes] Respiratory 24 25 H 25 H Rate Blood Pressure Blood Pressure 115/50 L 88/50 L 96/42 L [Right Brachial artery] O2 Saturation 100 97 98 07/12/18 07/12/18 07/12/18 04:45 05:00 05:16 Temperature Heart Rate Heart Rate [ 93 93 93 Monitoring electrodes] Respiratory 26 H 23 26 H Rate Blood Pressure Blood Pressure 100/48 L 120/41 L 104/54 L [Right Brachial artery] O2 Saturation 99 98 97 07/12/18 07/12/18 07/12/18 05:30 05:49 06:00 Temperature Heart Rate Heart Rate [ 93 88 93 Monitoring electrodes] Respiratory 22 20 24 Rate Blood Pressure Blood Pressure 111/42 L 109/41 L 121/45 L [Right Brachial artery] O2 Saturation 98 97 97 07/12/18 07/12/18 07/12/18 07:00 07:15 07:30 Temperature Heart Rate Heart Rate [ 93 92 92 Monitoring electrodes] Respiratory 22 30 H 20 Rate Blood Pressure Blood Pressure 136/60 H 129/61 116/53 L [Right Brachial artery] O2 Saturation 93 99 97 07/12/18 07/12/18 07/12/18 07:42 08:00 09:00 Temperature 36.7 C Heart Rate 94 Heart Rate [ 90 93 Monitoring electrodes] Respiratory 22 22 21 Rate Blood Pressure Blood Pressure 115/57 L 122/60 [Right Brachial artery] O2 Saturation 92 100 07/12/18 07/12/18 07/12/18 10:00 11:00 11:46 Temperature Heart Rate 74 Heart Rate [ 75 74 Monitoring electrodes] Respiratory 16 23 22 Rate Blood Pressure Blood Pressure 125/47 L 114/52 L [Right Brachial artery] O2 Saturation 100 99 07/12/18 07/12/18 07/12/18 12:00 12:50 13:00 Temperature 36.7 C Heart Rate Heart Rate [ 78 87 87 Monitoring electrodes] Respiratory 27 H 19 26 H Rate Blood Pressure Blood Pressure 136/52 H 138/57 H [Right Brachial artery] O2 Saturation 96 87 L 96 07/12/18 07/12/18 07/12/18 14:00 14:27 15:00 Temperature Heart Rate Heart Rate [ 88 77 Monitoring electrodes] Respiratory 82 H 29 H Rate Blood Pressure 154/58 H Blood Pressure 154/58 H 133/58 H [Right Brachial artery] O2 Saturation 96 99 07/12/18 16:00 Temperature Heart Rate Heart Rate [ 86 Monitoring electrodes] Respiratory 24 Rate Blood Pressure Blood Pressure 139/51 H [Right Brachial artery] O2 Saturation 93 Oxygen O2 Source Nasal cannula Oxygen Flow Rate 3 I&O (Last 24 Hrs): Intake and Output Totals x24h 07/10/18 07/11/18 07/12/18 23:59 23:59 23:59 Intake Total 4100 3490.616 3847.520 Output Total 380 575 Balance 4100 3110.616 3272.520 General: Alert, Oriented x3 Neck: Supple Neuro: Non Focal Cardiovascular: No murmurs Abdomen: Soft, Other (Obese) Extremities: Other (1-2+ edema) - Results Results: Laboratory Results WBC 16.8 x10^3/uL (4.8-10.8) H 07/12/18 05:11 RBC 2.99 10^6/uL (4.20-5.40) L 07/12/18 05:11 Hgb 10.0 g/dL (12.0-16.0) L 07/12/18 05:11 Hct 29.7 % (37.0-47.0) L 07/12/18 05:11 MCV 99.3 fL (81.0-99.0) H 07/12/18 05:11 MCH 33.5 pg (27.0-31.0) H 07/12/18 05:11 MCHC 33.8 g/dL (32.0-36.0) 07/12/18 05:11 RDW 18.7 % (12.0-15.0) H 07/12/18 05:11 Plt Count 90 10^3/uL (130-450) L 07/12/18 05:11 MPV 9.8 fL (7.9-10.8) 07/12/18 05:11 Neut # (Auto) 14.0 10^3/uL (1.5-6.6) H 07/12/18 05:11 Lymph # (Auto) 1.4 10^3/uL (1.5-3.5) L 07/12/18 05:11 [place] # (Auto) 1.2 10^3/uL (0.0-1.0) H 07/12/18 05:11 Eos # (Auto) 0.3 10^3/uL (0.0-0.7) 07/12/18 05:11 Baso # (Auto) 0.0 10^3/uL (0.0-0.1) 07/12/18 05:11 Absolute Nucleated RBC 0.01 x10^3/uL 07/12/18 05:11 Nucleated RBC % 0.1 /100WBC 07/12/18 05:11 PT 18.1 secs (9.9-12.6) H 07/10/18 17:40 INR 1.6 (0.8-1.2) H 07/10/18 17:40 VBG pH 7.442 (7.31-7.41) H 07/10/18 17:40 VBG pCO2 37.1 mmHg (41-51) L 07/10/18 17:40 VBG pO2 53.4 mmHg (25-47) H 07/10/18 17:40 VBG HCO3 24.7 mmol/L (23-28) 07/10/18 17:40 VBG Total CO2 25.9 mmol/L (24-29) 07/10/18 17:40 VBG O2 Saturation 87.4 % (60-80) H 07/10/18 17:40 VBG Base Excess 0.8 mmol/L (-2 - +2) 07/10/18 17:40 Sodium 129 mmol/L (135-145) L 07/12/18 05:11 Potassium 3.6 mmol/L (3.5-5.0) 07/12/18 05:11 Chloride 97 mmol/L (101-111) L 07/12/18 05:11 Carbon Dioxide 23 mmol/L (21-32) 07/12/18 05:11 Anion Gap 9.0 (6-13) 07/12/18 05:11 BUN 26 mg/dL (6-20) H 07/12/18 05:11 Creatinine 1.1 mg/dL (0.4-1.0) H 07/12/18 05:11 Estimated GFR (MDRD) 50 (>89) L 07/12/18 05:11 Glucose 288 mg/dL (70-100) H 07/12/18 05:11 Glycated Hemoglobin 9.5 % (4.6-6.2) H 07/12/18 05:11 Estim Average Glucose 226 (70-100) H 07/12/18 05:11 Lactic Acid 1.9 mmol/L (0.5-2.2) 07/11/18 06:32 Calcium 8.5 mg/dL (8.5-10.3) 07/12/18 05:11 Magnesium 1.7 mg/dL (1.7-2.8) 07/12/18 05:11 Total Bilirubin 5.1 mg/dL (0.2-1.0) H 07/10/18 17:40 AST 39 IU/L (10-42) 07/10/18 17:40 ALT 19 IU/L (10-60) 07/10/18 17:40 Alkaline Phosphatase 142 IU/L (42-121) H 07/10/18 17:40 B-Natriuretic Peptide 395 pg/mL (5-100) H 07/10/18 17:40 Total Protein 7.4 g/dL (6.7-8.2) 07/10/18 17:40 Albumin 2.6 g/dL (3.2-5.5) L 07/10/18 17:40 Globulin 4.8 g/dL (2.1-4.2) H 07/10/18 17:40 Albumin/Globulin Ratio 0.5 (1.0-2.2) L 07/10/18 17:40 Lipase 39 U/L (22-51) 07/10/18 17:40 Urine Color YELLOW 07/10/18 18:50 Urine Clarity HAZY (CLEAR) 07/10/18 18:50 Urine pH 6.0 PH (5.0-7.5) 07/10/18 18:50 Ur Specific Secor 1.010 (1.002-1.030) 07/10/18 18:50 Urine Protein 30 mg/dL (NEGATIVE) H 07/10/18 18:50 Urine Glucose (UA) >=1000 mg/dL (NEGATIVE) H 07/10/18 18:50 Urine Ketones NEGATIVE mg/dL (NEGATIVE) 07/10/18 18:50 Urine Occult Blood LARGE (NEGATIVE) H 07/10/18 18:50 Urine Nitrite NEGATIVE (NEGATIVE) 07/10/18 18:50 Urine Bilirubin NEGATIVE (NEGATIVE) 07/10/18 18:50 Urine Urobilinogen 1 (NORMAL) E.U./dL (NORMAL) 07/10/18 18:50 Ur Leukocyte Esterase TRACE (NEGATIVE) H 07/10/18 18:50 Urine RBC TNTC /HPF (0-5) H 07/10/18 18:50 Urine WBC >25 /HPF (0-5) H 07/10/18 18:50 Urine WBC Clumps PRESENT 07/10/18 18:50 Ur Squamous Epith Cells FEW Squamous (<= Few) 07/10/18 18:50 Urine Bacteria Many /HPF (None Seen) H 07/10/18 18:50 Ur Microscopic Review INDICATED 07/10/18 18:50 Urine Culture Comments INDICATED 07/10/18 18:50 Last Dose Date 07-11-18 07/12/18 05:11 Last Dose Time 1430 07/12/18 05:11 Digoxin 0.4 ng/mL 07/12/18 05:11 Serum Ketones NEGATIVE (NEGATIVE) 07/10/18 17:40 - Procedures Procedures: Procedures DRAINAGE OF RIGHT PLEURAL CAVITY, PERC APPROACH, DIAGN (06/10/18) DRAINAGE OF RIGHT PLEURAL CAVITY, PERCUTANEOUS APPROACH (02/24/18) TRANSFUSE NONAUT FROZEN PLASMA IN PERIPH VEIN, PERC (02/24/18)
[2018-07-12] MEDS: rOPINIRole 0.25 MG TABLET PO SCH (20:53)
[2018-07-13] MEDS: PIPERACILLIN/TAZOBACTAM 3.375 GM in SODIUM CHLORIDE 0.9% MINIBAG 100 ML IV SCH ×4 (02:35→20:42)
[2018-07-13] MEDS: SODIUM CHLORIDE FLUSH 0.9% 10 ML SYRINGE IVP SCH ×3 (05:18→19:07)
[2018-07-13 05:26] LABS: BASOPHILS % (AUTO) 0.3 %; EOSINOPHILS # (AUTO) 0.3 10^3/uL (0.0-0.7); EOSINOPHILS % (AUTO) 2.1 %; HGB - HEMOGLOBIN 10.3 g/dL (12.0-16.0); LYMPHOCYTES # (AUTO) 1.4 10^3/uL (1.5-3.5); LYMPHOCYTES % (AUTO) 11.2 %; MEAN CORPUSCULAR HEMOGLOBIN 33.4 pg (27.0-31.0); MEAN CORPUSCULAR HGB CONC 33.4 g/dL (32.0-36.0); MEAN PLATELET VOLUME 9.8 fL (7.9-10.8); MONOCYTES # (AUTO) 0.9 10^3/uL (0.0-1.0); MONOCYTES % (AUTO) 7.3 %; NEUTROPHILS # (AUTO) 9.9 10^3/uL (1.5-6.6); NEUTROPHILS % (AUTO) 79.1 %; PLT - PLATELET COUNT 114 10^3/uL (130-450); RED BLOOD COUNT 3.08 10^6/uL (4.20-5.40); RED CELL DISTRIBUTION WIDTH 18.7 % (12.0-15.0); WHITE BLOOD COUNT 12.5 x10^3/uL (4.8-10.8)
[2018-07-13 05:29] LABS: CALCIUM 8.5 mg/dL (8.5-10.3)
[2018-07-13] MEDS: PANTOPRAZOLE 40 MG TABLET PO SCH (06:20)
[2018-07-13] MEDS: INSULIN ASPART 300 UNIT/3 ML PEN SUBQ SCH ×4 (08:09→20:53)
[2018-07-13] MEDS: INSULIN 70/30 HUMAN 100 UNIT/1 ML 10 ML MDV SUBQ SCH (08:10)
[2018-07-13] MEDS: LEVALBUTEROL 1.25 MG/3 ML NEB INH SCH ×4 (08:59→22:16)
[2018-07-13] MEDS: ASPIRIN EC 81 MG TABLET PO SCH (09:25)
[2018-07-13] MEDS: CALCIUM CARB (OYSTER SHELL) 500 MG TABLET PO SCH (09:25)
[2018-07-13] MEDS: POTASSIUM CHLORIDE 10 MEQ CAPSULE PO SCH (09:25)
[2018-07-13] MEDS: DULoxetine 30 MG CAPSULE PO SCH ×2 (09:26→20:43)
[2018-07-13] MEDS: DIGOXIN 125 MCG TABLET PO SCH (09:26)
[2018-07-13] MEDS: CHOLECALCIFEROL 1,000 UNIT TABLET PO SCH (09:26)
[2018-07-13] MEDS: MAGNESIUM OXIDE 400 MG TABLET PO SCH ×2 (09:27→20:42)
[2018-07-13] MEDS: (Vitamin B Complex [Vitamin B Complex] 1 TAB) PO SCH (09:27)
[2018-07-13] MEDS: METOPROLOL SUCCINATE 25 MG TABLET PO SCH ×2 (09:27→20:42)
[2018-07-13] MEDS: ENOXAPARIN 40 MG/0.4 ML SYRINGE SUBQ SCH (09:27)
[2018-07-13] MEDS: SODIUM CHLORIDE FLUSH 0.9% 10 ML SYRINGE IVP PRN (11:00)
[2018-07-13] MEDS ORDERED: POLYETHYLENE GLYCOL 3350 17 GM PACKET PO SCH (11:00)
[2018-07-13] MEDS ORDERED: ZINC OXIDE 20% OINT 28.35 GM TUBE TOP PRN (13:27)
--- NOTE | 2018-07-13 15:17 | PROVIDER PROGRESS NOTE ---
Assessment/Plan - Problem List (1) UTI (urinary tract infection) Assessment/Plan: Urine culture grew Klebs pneumoniae Continue iv antibiotic Total 7 day course (2) Pleural effusion, right Assessment/Plan: nursing consultant, Dr Zabala, has requested a W/U with help from ID before he takes her for chest tube drainage, probably tomorrow. The patient also mentioned that a highway landscape architect in [place] told her she had [facility] Histoplasmosis. I called and spoke to Dr El Garcias, who advised evaluation for TB, Histoplasmosis, bacterial and fungal causes of the recurrent R pleural fluid. Will plan to obtain: -blood test for latent TB called Quantifiron Gold test. No PPD needed as she may be neg, not from no exposure but from being anergic. -urine for Histoplasma antigen -3 consecutive morning sputum samples for AFB -pleural fluid to be sent for: gram stain, cell count, pH, glu, LDH, bacterial culture, AFB culture, fungal culture, Histoplasmosis culture, bacterial PCR, fungal PCR (since she is already on antibiotics and may have a partially treated microbe). All of the above have been ordered, and Lab updated that the peural fluid will be obtained tomorrow. Pt made NPO after midnight. Pt to be moved to a Respiratory Isolation Room. (3) Atrial fibrillation with rapid ventricular response Assessment/Plan: HR is controlled, pt in aflutter with 3:1 block. continue meds for HR: Cardizem and B-neelima and Dig. Continue daily baby ASA, no anticoagulant due to need for thoracenteses (4) DM2 (diabetes mellitus, type 2) Qualifiers: Diabetes mellitus shelter insulin use: with shelter use Diabetes mellitus complication status: with hyperglycemia Qualified Code(s): E11.65 - Type 2 diabetes mellitus with hyperglycemia; Z79.4 - long term care social worker (current) use of insulin Assessment/Plan: Continue management with carb-control diet, glu checks and eating or NPO ss Insulin coverage. (5) Hx of cirrhosis Assessment/Plan: This Dx was made from CT imaging of the appearance of the liver, many mos ago. LFTs are normal. (6) Hyponatremia Assessment/Plan: Patient has been off her diuretic since admission, due to low BP. Will resume diuretic, avoid free water. Monitor BMP daily. (7) Sepsis Qualifiers: Sepsis type: sepsis due to unspecified organism Qualified Code(s): A41.9 - Sepsis, unspecified organism Assessment/Plan: Resolved with normal lactic acid level and improving WBC, no fever - Current Meds Current Meds: Current Medications Generic Name Dose Route Start Last Admin Trade Name Freq PRN Reason Stop Dose Admin Acetaminophen 650 mg 07/11/18 00:51 07/11/18 03:40 Tylenol PO 650 mg Q4HR PRN Administration Pain or Fever > 38C (100.4F) Aspirin 81 mg 07/12/18 09:00 07/13/18 09:25 Ecotrin PO 81 mg DAILY JASWANT Administration Calcium Carbonate/Glycine 500 mg 07/11/18 09:00 07/13/18 09:25 Oysco-500 PO 500 mg DAILY JASWANT Administration Cholecalciferol 2,000 unit 07/11/18 09:00 07/13/18 09:26 Vitamin D3 PO 2,000 unit DAILY JASWANT Administration Digoxin 250 mcg 07/12/18 09:00 07/13/18 09:26 Lanoxin PO 250 mcg DAILY JASWANT Administration Diltiazem HCl 60 mg 07/12/18 14:00 07/13/18 14:49 Cardizem PO 60 mg TID JASWANT Administration Duloxetine HCl 30 mg 07/11/18 09:00 07/13/18 09:26 Cymbalta PO 30 mg DAILY JASWANT Administration Duloxetine HCl 60 mg 07/12/18 21:00 07/12/18 20:57 Cymbalta PO 60 mg QPM JASWANT Administration Enoxaparin Sodium 40 mg 07/12/18 09:00 07/13/18 09:27 Lovenox SUBQ 40 mg DAILY JASWANT Administration Piperacillin Sod/Tazobactam 100 mls @ 200 mls/hr 07/11/18 02:00 07/13/18 14:48 Sod 3.375 gm/ Sodium Chloride IV 200 mls/hr Q6H JASWANT Administration Potassium Chloride/Sodium Chloride 1,000 mls @ 60 mls/hr 07/12/18 09:10 07/13/18 08:00 Normal Saline 0.9% W/20 Meq Kcl IV 60 mls/hr .[id number] JASWANT Infusion Insulin Human Isoph/Insulin Regular 15 unit 07/11/18 08:00 07/13/18 08:10 Novolin SUBQ 15 unit QDBREAKFAST JASWANT Administration Levalbuterol HCl 1.25 mg 07/11/18 19:00 07/13/18 15:10 Xopenex INH Not Given RTQID JASWANT Levalbuterol HCl 1.25 mg 07/12/18 02:52 07/12/18 02:54 Xopenex INH 1.25 mg Q4H PRN Administration Shortness of Air/Wheezing Magnesium Oxide 400 mg 07/11/18 10:00 07/13/18 09:27 Mag Ox PO 400 mg BID JASWANT Administration Metoprolol Succinate 25 mg 07/11/18 21:00 07/13/18 09:27 Toprol Xl PO 25 mg BID JASWANT Administration Pantoprazole Sodium 40 mg 07/11/18 07:00 07/13/18 06:20 Protonix PO 40 mg QDAC JASWANT Administration (Vitamin B Complex [ 1 each 07/12/18 09:00 07/13/18 09:27 Vitamin B Complex] 1 PO 1 each Tab) DAILY JASWANT Administration Potassium Chloride 10 meq 07/11/18 08:00 07/13/18 09:25 Micro-K PO 10 meq DAILYWM JASWANT Administration Ropinirole HCl 0.25 mg 07/11/18 21:00 07/12/18 20:53 Requip PO 0.25 mg QPM JASWANT Administration Sodium Chloride 10 ml 07/11/18 01:00 07/13/18 08:02 Normal Saline Flush 0.9% IVP Not Given 0100,0900,1700 JASWANT Sodium Chloride 10 ml 07/10/18 21:54 07/13/18 11:00 Normal Saline Flush 0.9% IVP 10 ml PRN PRN Administration NEEDED PER PROVIDER ORDERS Sodium Chloride 2 sprays 07/11/18 17:11 07/12/18 07:26 [place] JAZMÍN 2 sprays Q4HR PRN Administration Nasal Congestion - Lab Result Fish Bone Diagrams: 07/13/18 05:00 07/13/18 05:00 - Additional Planning My Orders: My Active Orders 07/12/18 21:00 DULoxetine [Cymbalta] 60 mg PO QPM 07/13/18 13:27 Zinc Oxide 20% Oint [Zinc Oxide] 1 applic TOP PRN PRN 07/13/18 13:36 ED TB/Airborne Resp Precaution ONCE 07/13/18 15:07 Miscellaneous Laboratory Order [LAB] Urgent 07/13/18 15:12 Miscellaneous Laboratory Order [LAB] Urgent 07/13/18 17:00 Insulin Aspart [NovoLOG] 2 - 10 unit SUBQ 0800,1200,1700,2100 07/13/18 21:00 Nystatin [Nystop] 1 applic TOP BID 07/14/18 CUL, AFB MYCOBACTERIA (QUEST) [REFLAB] Routine 07/14/18 00:01 DIET [NPO except Meds at Midnight] [DIET] 07/14/18 05:00 CBC - COMP BLD CT W/AUTO DIFF [HEME] DAILYLAB CMP [COMPREHENSIVE METABOLIC PANEL] [CHEM] DAILYLAB 07/14/18 08:00 CELL COUNT, BF [BF] Routine CUL,BODY FLUID(AEROBIC) [RM] Routine Miscellaneous Laboratory Order [LAB] Urgent 07/14/18 09:00 AFB & NAAT TB #1 (WSDOHL) DAILY AFB & NAAT TB #2 (WSDOHL) DAILY AFB CUL & SMEAR #3 (WSDOHL) DAILY 07/15/18 05:00 CBC - COMP BLD CT W/AUTO DIFF [HEME] DAILYLAB CMP [COMPREHENSIVE METABOLIC PANEL] [CHEM] DAILYLAB 07/16/18 05:00 CBC - COMP BLD CT W/AUTO DIFF [HEME] DAILYLAB CMP [COMPREHENSIVE METABOLIC PANEL] [CHEM] DAILYLAB 07/17/18 05:00 CBC - COMP BLD CT W/AUTO DIFF [HEME] DAILYLAB CMP [COMPREHENSIVE METABOLIC PANEL] [CHEM] DAILYLAB Subjective - Subjective Patient Reports: Feeling Better, Resting Comfortably Nursing Reports: Other (Had am sputum hich was blood tinged) Objective Vital Signs: Vital Signs - 24 hr 07/12/18 07/12/18 07/12/18 16:00 17:00 17:23 Temperature 36.9 C Heart Rate Heart Rate [ 86 75 Monitoring electrodes] Respiratory 24 23 33 H Rate Blood Pressure Blood Pressure 139/51 H 135/59 H [Right Brachial artery] O2 Saturation 93 97 87 L 07/12/18 07/12/18 07/12/18 17:35 17:42 18:00 Temperature Heart Rate 73 Heart Rate [ 71 Monitoring electrodes] Respiratory 22 24 Rate Blood Pressure Blood Pressure 141/62 H [Right Brachial artery] O2 Saturation 100 98 07/12/18 07/12/18 07/12/18 18:58 20:00 21:00 Temperature 37 C Heart Rate Heart Rate [ 71 72 78 Monitoring electrodes] Respiratory 25 H 28 H 18 Rate Blood Pressure Blood Pressure 142/58 H 144/58 H 158/59 H [Right Brachial artery] O2 Saturation 99 99 93 07/12/18 07/12/18 07/12/18 21:06 22:00 23:00 Temperature Heart Rate Heart Rate [ 71 67 Monitoring electrodes] Respiratory 16 24 Rate Blood Pressure 158/59 H Blood Pressure 134/57 H 130/66 [Right Brachial artery] O2 Saturation 95 100 07/13/18 07/13/18 07/13/18 00:00 01:00 02:00 Temperature Heart Rate Heart Rate [ 69 69 69 Monitoring electrodes] Respiratory 23 27 H 21 Rate Blood Pressure Blood Pressure 137/69 H 129/58 L 100/85 H [Right Brachial artery] O2 Saturation 97 99 98 07/13/18 07/13/18 07/13/18 03:00 04:00 05:00 Temperature Heart Rate Heart Rate [ 74 72 76 Monitoring electrodes] Respiratory 22 27 H 21 Rate Blood Pressure Blood Pressure 168/73 H 162/64 H 166/65 H [Right Brachial artery] O2 Saturation 94 99 99 07/13/18 07/13/18 07/13/18 06:00 06:20 07:00 Temperature Heart Rate Heart Rate [ 79 72 Monitoring electrodes] Respiratory 24 24 Rate Blood Pressure 150/61 H Blood Pressure 150/61 H 136/58 H [Right Brachial artery] O2 Saturation 100 99 07/13/18 07/13/18 07/13/18 08:00 09:00 10:00 Temperature Heart Rate 69 Heart Rate [ 75 69 72 Monitoring electrodes] Respiratory 24 27 H 18 Rate Blood Pressure Blood Pressure 153/66 H 138/53 H 116/65 [Right Brachial artery] O2 Saturation 98 100 97 07/13/18 07/13/18 07/13/18 11:00 12:00 13:00 Temperature 36.6 C Heart Rate Heart Rate [ 65 78 89 Monitoring electrodes] Respiratory 24 20 35 H Rate Blood Pressure Blood Pressure 133/60 H 141/68 H 150/90 H [Right Brachial artery] O2 Saturation 97 98 100 07/13/18 14:49 Temperature Heart Rate Heart Rate [ Monitoring electrodes] Respiratory Rate Blood Pressure 140/64 H Blood Pressure [Right Brachial artery] O2 Saturation Oxygen O2 Source Nasal cannula Oxygen Flow Rate 3 I&O (Last 24 Hrs): Intake and Output Totals x24h 07/11/18 07/12/18 07/13/18 23:59 23:59 23:59 Intake Total 3490.616 5441.020 2144 Output Total 380 825 750 Balance 3110.616 4616.020 1394 - Results Results: Laboratory Results WBC 12.5 x10^3/uL (4.8-10.8) H 07/13/18 05:00 RBC 3.08 10^6/uL (4.20-5.40) L 07/13/18 05:00 Hgb 10.3 g/dL (12.0-16.0) L 07/13/18 05:00 Hct 30.8 % (37.0-47.0) L 07/13/18 05:00 MCV 100.0 fL (81.0-99.0) H 07/13/18 05:00 MCH 33.4 pg (27.0-31.0) H 07/13/18 05:00 MCHC 33.4 g/dL (32.0-36.0) 07/13/18 05:00 RDW 18.7 % (12.0-15.0) H 07/13/18 05:00 Plt Count 114 10^3/uL (130-450) L 07/13/18 05:00 MPV 9.8 fL (7.9-10.8) 07/13/18 05:00 Neut # (Auto) 9.9 10^3/uL (1.5-6.6) H 07/13/18 05:00 Lymph # (Auto) 1.4 10^3/uL (1.5-3.5) L 07/13/18 05:00 [place] # (Auto) 0.9 10^3/uL (0.0-1.0) 07/13/18 05:00 Eos # (Auto) 0.3 10^3/uL (0.0-0.7) 07/13/18 05:00 Baso # (Auto) 0.0 10^3/uL (0.0-0.1) 07/13/18 05:00 Absolute Nucleated RBC 0.00 x10^3/uL 07/13/18 05:00 Nucleated RBC % 0.0 /100WBC 07/13/18 05:00 PT 18.1 secs (9.9-12.6) H 07/10/18 17:40 INR 1.6 (0.8-1.2) H 07/10/18 17:40 VBG pH 7.442 (7.31-7.41) H 07/10/18 17:40 VBG pCO2 37.1 mmHg (41-51) L 07/10/18 17:40 VBG pO2 53.4 mmHg (25-47) H 07/10/18 17:40 VBG HCO3 24.7 mmol/L (23-28) 07/10/18 17:40 VBG Total CO2 25.9 mmol/L (24-29) 07/10/18 17:40 VBG O2 Saturation 87.4 % (60-80) H 07/10/18 17:40 VBG Base Excess 0.8 mmol/L (-2 - +2) 07/10/18 17:40 Sodium 129 mmol/L (135-145) L 07/13/18 05:00 Potassium 3.9 mmol/L (3.5-5.0) 07/13/18 05:00 Chloride 98 mmol/L (101-111) L 07/13/18 05:00 Carbon Dioxide 24 mmol/L (21-32) 07/13/18 05:00 Anion Gap 7.0 (6-13) 07/13/18 05:00 BUN 25 mg/dL (6-20) H 07/13/18 05:00 Creatinine 1.0 mg/dL (0.4-1.0) 07/13/18 05:00 Estimated GFR (MDRD) 55 (>89) L 07/13/18 05:00 Glucose 350 mg/dL (70-100) H 07/13/18 05:00 Glycated Hemoglobin 9.5 % (4.6-6.2) H 07/12/18 05:11 Estim Average Glucose 226 (70-100) H 07/12/18 05:11 Lactic Acid 1.9 mmol/L (0.5-2.2) 07/11/18 06:32 Calcium 8.5 mg/dL (8.5-10.3) 07/13/18 05:00 Magnesium 2.0 mg/dL (1.7-2.8) 07/13/18 05:00 Total Bilirubin 5.1 mg/dL (0.2-1.0) H 07/10/18 17:40 AST 39 IU/L (10-42) 07/10/18 17:40 ALT 19 IU/L (10-60) 07/10/18 17:40 Alkaline Phosphatase 142 IU/L (42-121) H 07/10/18 17:40 B-Natriuretic Peptide 395 pg/mL (5-100) H 07/10/18 17:40 Total Protein 7.4 g/dL (6.7-8.2) 07/10/18 17:40 Albumin 2.6 g/dL (3.2-5.5) L 07/10/18 17:40 Globulin 4.8 g/dL (2.1-4.2) H 07/10/18 17:40 Albumin/Globulin Ratio 0.5 (1.0-2.2) L 07/10/18 17:40 Lipase 39 U/L (22-51) 07/10/18 17:40 Urine Color YELLOW 07/10/18 18:50 Urine Clarity HAZY (CLEAR) 07/10/18 18:50 Urine pH 6.0 PH (5.0-7.5) 07/10/18 18:50 Ur Specific [place] 1.010 (1.002-1.030) 07/10/18 18:50 Urine Protein 30 mg/dL (NEGATIVE) H 07/10/18 18:50 Urine Glucose (UA) >=1000 mg/dL (NEGATIVE) H 07/10/18 18:50 Urine Ketones NEGATIVE mg/dL (NEGATIVE) 07/10/18 18:50 Urine Occult Blood LARGE (NEGATIVE) H 07/10/18 18:50 Urine Nitrite NEGATIVE (NEGATIVE) 07/10/18 18:50 Urine Bilirubin NEGATIVE (NEGATIVE) 07/10/18 18:50 Urine Urobilinogen 1 (NORMAL) E.U./dL (NORMAL) 07/10/18 18:50 Ur Leukocyte Esterase TRACE (NEGATIVE) H 07/10/18 18:50 Urine RBC TNTC /HPF (0-5) H 07/10/18 18:50 Urine WBC >25 /HPF (0-5) H 07/10/18 18:50 Urine WBC Clumps PRESENT 07/10/18 18:50 Ur Squamous Epith Cells FEW Squamous (<= Few) 07/10/18 18:50 Urine Bacteria Many /HPF (None Seen) H 07/10/18 18:50 Ur Microscopic Review INDICATED 07/10/18 18:50 Urine Culture Comments INDICATED 07/10/18 18:50 Last Dose Date 07-11-18 07/12/18 05:11 Last Dose Time 1430 07/12/18 05:11 Digoxin 0.4 ng/mL 07/12/18 05:11 Serum Ketones NEGATIVE (NEGATIVE) 07/10/18 17:40 - Procedures Procedures: Procedures DRAINAGE OF RIGHT PLEURAL CAVITY, PERC APPROACH, DIAGN (06/10/18) DRAINAGE OF RIGHT PLEURAL CAVITY, PERCUTANEOUS APPROACH (02/24/18) TRANSFUSE NONAUT FROZEN PLASMA IN PERIPH VEIN, PERC (02/24/18)
[2018-07-13] MEDS: NS W/20 MEQ KCL 1,000 ML IV SCH (19:27)
--- NOTE | 2018-07-13 19:33 | PROVIDER PROGRESS NOTE ---
Subjective - General Admit Date: 07/10/18 Procedure Date: 07/14/18 Post Op Days: 1 Procedure Performed: Not yet - Review of Systems General: positive: Other (Increased shortness of breath and tired.) HEENT: positive: No symptoms Pulmonary: positive: Shortness of breath Cardiovascular: positive: No symptoms Gastrointestinal: positive: No symptoms Musculoskeletal: positive: No symptoms Skin: positive: No symptoms Objective - Patient Data Reviewed Vital Signs: Yes Vital Signs: Vital Signs x48h Temp Pulse Pulse Resp BP BP Pulse Ox 07/13/18 17:22 81 20 07/13/18 15:10 68 20 07/13/18 14:49 140/64 H 07/13/18 13:00 89 35 H 150/90 H 100 07/13/18 12:00 36.6 C 78 20 141/68 H 98 Weight: Weight 07/11/18 07/12/18 07/13/18 23:59 23:59 23:59 Weight (kg) 115.5 kg 118 kg 125.5 kg Intake & Output: Intake and Output Totals x24h 07/11/18 07/12/18 07/13/18 23:59 23:59 23:59 Intake Total 3490.616 5441.020 2760 Output Total 380 825 950 Balance 3110.616 4616.020 1810 - Lab Results Lab Results: 07/13/18 05:00 07/13/18 05:00 Other Lab Results: Lab Results x24hrs 07/13/18 07/13/18 Range/Units 05:00 05:00 WBC 12.5 H (4.8-10.8) x10^3/uL RBC 3.08 L (4.20-5.40) 10^6/uL Hgb 10.3 L (12.0-16.0) g/dL Hct 30.8 L (37.0-47.0) % MCV 100.0 H (81.0-99.0) fL MCH 33.4 H (27.0-31.0) pg MCHC 33.4 (32.0-36.0) g/dL RDW 18.7 H (12.0-15.0) % Plt Count 114 L (130-450) 10^3/uL MPV 9.8 (7.9-10.8) fL Neut # (Auto) 9.9 H (1.5-6.6) 10^3/uL Lymph # (Auto) 1.4 L (1.5-3.5) 10^3/uL [place] # (Auto) 0.9 (0.0-1.0) 10^3/uL Eos # (Auto) 0.3 (0.0-0.7) 10^3/uL Baso # (Auto) 0.0 (0.0-0.1) 10^3/uL Absolute Nucleated RBC 0.00 x10^3/uL Nucleated RBC % 0.0 /100WBC Sodium 129 L (135-145) mmol/L Potassium 3.9 (3.5-5.0) mmol/L Chloride 98 L (101-111) mmol/L Carbon Dioxide 24 (21-32) mmol/L Anion Gap 7.0 (6-13) BUN 25 H (6-20) mg/dL Creatinine 1.0 (0.4-1.0) mg/dL Estimated GFR (MDRD) 55 L (>89) Glucose 350 H (70-100) mg/dL Calcium 8.5 (8.5-10.3) mg/dL Magnesium 2.0 (1.7-2.8) mg/dL - Imaging Results Radiology Imaging: positive: Final report received - Current Medications Current Medications: Current Medications Generic Name Dose Route Start Last Admin Trade Name Freq PRN Reason Stop Dose Admin Acetaminophen 650 mg 07/11/18 00:51 07/11/18 03:40 Tylenol PO 650 mg Q4HR PRN Administration Pain or Fever > 38C (100.4F) Aspirin 81 mg 07/12/18 09:00 07/13/18 09:25 Ecotrin PO 81 mg DAILY JASWANT Administration Calcium Carbonate/Glycine 500 mg 07/11/18 09:00 07/13/18 09:25 Oysco-500 PO 500 mg DAILY JASWANT Administration Cholecalciferol 2,000 unit 07/11/18 09:00 07/13/18 09:26 Vitamin D3 PO 2,000 unit DAILY JASWANT Administration Digoxin 250 mcg 07/12/18 09:00 07/13/18 09:26 Lanoxin PO 250 mcg DAILY JASWANT Administration Diltiazem HCl 60 mg 07/12/18 14:00 07/13/18 14:49 Cardizem PO 60 mg TID JASWANT Administration Duloxetine HCl 30 mg 07/11/18 09:00 07/13/18 09:26 Cymbalta PO 30 mg DAILY JASWANT Administration Duloxetine HCl 60 mg 07/12/18 21:00 07/12/18 20:57 Cymbalta PO 60 mg QPM JASWANT Administration Enoxaparin Sodium 40 mg 07/12/18 09:00 07/13/18 09:27 Lovenox SUBQ 40 mg DAILY JASWANT Administration Piperacillin Sod/Tazobactam 100 mls @ 200 mls/hr 07/11/18 02:00 07/13/18 15:18 Sod 3.375 gm/ Sodium Chloride IV Infused Q6H JASWANT Infusion Potassium Chloride/Sodium Chloride 1,000 mls @ 60 mls/hr 07/12/18 09:10 07/13/18 19:27 Normal Saline 0.9% W/20 Meq Kcl IV 60 mls/hr .[id number] JASWANT Administration Insulin Aspart 2 - 10 unit 07/13/18 17:00 07/13/18 17:28 Novolog SUBQ 8 unit 0800,1200,1700,2100 JASWANT Administration Protocol Insulin Human Isoph/Insulin Regular 15 unit 07/11/18 08:00 07/13/18 08:10 Novolin SUBQ 15 unit QDBREAKFAST JASWANT Administration Levalbuterol HCl 1.25 mg 07/11/18 19:00 07/13/18 17:22 Xopenex INH Not Given RTQID JASWANT Levalbuterol HCl 1.25 mg 07/12/18 02:52 07/12/18 02:54 Xopenex INH 1.25 mg Q4H PRN Administration Shortness of Air/Wheezing Magnesium Oxide 400 mg 07/11/18 10:00 07/13/18 09:27 Mag Ox PO 400 mg BID JASWANT Administration Metoprolol Succinate 25 mg 07/11/18 21:00 07/13/18 09:27 Toprol Xl PO 25 mg BID JASWANT Administration Pantoprazole Sodium 40 mg 07/11/18 07:00 07/13/18 06:20 Protonix PO 40 mg QDAC JASWANT Administration (Vitamin B Complex [ 1 each 07/12/18 09:00 07/13/18 09:27 Vitamin B Complex] 1 PO 1 each Tab) DAILY JASWANT Administration Potassium Chloride 10 meq 07/11/18 08:00 07/13/18 09:25 Micro-K PO 10 meq DAILYWM JASWANT Administration Ropinirole HCl 0.25 mg 07/11/18 21:00 07/12/18 20:53 Requip PO 0.25 mg QPM JASWANT Administration Sodium Chloride 10 ml 07/11/18 01:00 07/13/18 19:07 Normal Saline Flush 0.9% IVP Not Given 0100,0900,1700 JASWANT Sodium Chloride 10 ml 07/10/18 21:54 07/13/18 11:00 Normal Saline Flush 0.9% IVP 10 ml PRN PRN Administration NEEDED PER PROVIDER ORDERS Sodium Chloride 2 sprays 07/11/18 17:11 07/12/18 07:26 [place] JAZMÍN 2 sprays Q4HR PRN Administration Nasal Congestion - Physical Exam General Appearance: positive: Mild distress (Somnolent and more short of breath than yesterday.) Eyes Bilateral: positive: No lid inflammation, Conjunctivae nml, No scleral icterus ENT: positive: No signs of dehydration Neck: positive: Trachea midline Respiratory: positive: Other (Decreased breath sounds on the right) Cardiovascular: positive: Regular rate & rhythm Abdomen: positive: Non-tender (Obese.) Skin: positive: Color nml Neurologic/Psychiatric: positive: Oriented x3 ABX Reporting Has patient been on IV antibiotics over the past 48 hours?: Yes Impression/Plan - Problem List Problem List: Patient has a history of histoplasmosis and a recurrent right sided pleural effusion that has been tapped 3 times now. Patient had been sent to [facility] for definitive drainage but this was not done. When I was initially consulted for the pleural effusion the impression that I had was that it was simple congestive heart failure. Some train director work on my part revealed the histoplasmosis and the possibility of tuberculosis. As such the thoracoscopy, tube thoracotomy and pleurodesis was delayed until we got some definitive answers regarding infectious disease issues. Much appreciation to Dr. Wells for discussing this case with an Infectious Disease specialist. Due to the patient's diabetes we will check for tuberculosis through blood work and the pleural fluid will need to be sent for "everything" but in particular the possibility of Histoplasmosis and Tu berculosis. The family (and son Rolan in particular) is a bit annoyed about how long this has taken but I explained that there was a process in finding all this information. In fact during today's discussion we found out that the patient had her abdomen tapped twice in the past - that was news to the son. The plan will be for a thoracoscopy, tube thoracostomy and pleurodesis tomorrow. I explained that the expected postoperative course would be 72 hours in order to get the chest tube out. We discussed the risks and benefits. The patient and family wish to proceed. I then explained that the single greatest risk to her life is her continued incompletely controlled blood sugar. Her posted blood sugar was over 350 and was written on the white board. I explained that AT HOME there is no excuse for this and she MUST keep it under 200 at all times. She vocalized an understanding and her son stated that he has been telling her this "for years." Over 60 minutes of [id number] time was spent with the patient and her family with the vast majority of it spent in discussion, coordination of her care and completion of the paperwork.
[2018-07-13] MEDS: NYSTATIN POWDER 15 GM TOP SCH (20:43)
[2018-07-13] MEDS: rOPINIRole 0.25 MG TABLET PO SCH (20:43)
[2018-07-14] MEDS: SODIUM CHLORIDE FLUSH 0.9% 10 ML SYRINGE IVP SCH ×3 (00:18→18:17)
[2018-07-14] MEDS: PIPERACILLIN/TAZOBACTAM 3.375 GM in SODIUM CHLORIDE 0.9% MINIBAG 100 ML IV SCH ×4 (01:41→20:12)
[2018-07-14 06:07] LABS: BASOPHILS % (AUTO) 0.3 %; EOSINOPHILS # (AUTO) 0.2 10^3/uL (0.0-0.7); EOSINOPHILS % (AUTO) 1.9 %; HGB - HEMOGLOBIN 10.7 g/dL (12.0-16.0); LYMPHOCYTES # (AUTO) 1.6 10^3/uL (1.5-3.5); LYMPHOCYTES % (AUTO) 13.3 %; MEAN CORPUSCULAR HEMOGLOBIN 33.3 pg (27.0-31.0); MEAN CORPUSCULAR HGB CONC 33.6 g/dL (32.0-36.0); MEAN PLATELET VOLUME 9.3 fL (7.9-10.8); MONOCYTES # (AUTO) 0.8 10^3/uL (0.0-1.0); MONOCYTES % (AUTO) 6.9 %; NEUTROPHILS # (AUTO) 9.5 10^3/uL (1.5-6.6); NEUTROPHILS % (AUTO) 77.6 %; PLT - PLATELET COUNT 151 10^3/uL (130-450); RED BLOOD COUNT 3.21 10^6/uL (4.20-5.40); RED CELL DISTRIBUTION WIDTH 18.8 % (12.0-15.0); WHITE BLOOD COUNT 12.3 x10^3/uL (4.8-10.8)
[2018-07-14] MEDS: PANTOPRAZOLE 40 MG TABLET PO SCH (06:14)
[2018-07-14] MEDS: SODIUM CHLORIDE FLUSH 0.9% 10 ML SYRINGE IVP PRN (06:14)
[2018-07-14 06:21] LABS: ALBUMIN 2.6 g/dL (3.2-5.5); ALBUMIN/GLOBULIN RATIO 0.5 (1.0-2.2); BILIRUBIN,TOTAL 3.3 mg/dL (0.2-1.0); CALCIUM 8.8 mg/dL (8.5-10.3); CREATININE 0.9 mg/dL (0.4-1.0); MAGNESIUM 2.2 mg/dL (1.7-2.8); TOTAL PROTEIN 8.3 g/dL (6.7-8.2)
[2018-07-14] MEDS: INSULIN ASPART 300 UNIT/3 ML PEN SUBQ SCH (08:25)
[2018-07-14] MEDS: INSULIN 70/30 HUMAN 100 UNIT/1 ML 10 ML MDV SUBQ SCH (08:26)
[2018-07-14] MEDS: LEVALBUTEROL 1.25 MG/3 ML NEB INH SCH ×4 (09:11→20:45)
[2018-07-14] MEDS: POTASSIUM CHLORIDE 10 MEQ CAPSULE PO SCH (10:15)
[2018-07-14] MEDS: D5NS W/20 MEQ KCL 1,000 ML IV SCH (10:16)
[2018-07-14] MEDS: CALCIUM CARB (OYSTER SHELL) 500 MG TABLET PO SCH (10:17)
[2018-07-14] MEDS: CHOLECALCIFEROL 1,000 UNIT TABLET PO SCH (10:17)
[2018-07-14] MEDS: MAGNESIUM OXIDE 400 MG TABLET PO SCH ×2 (10:18→21:28)
[2018-07-14] MEDS: DIGOXIN 125 MCG TABLET PO SCH (10:18)
[2018-07-14] MEDS: DULoxetine 30 MG CAPSULE PO SCH ×2 (10:19→21:27)
[2018-07-14] MEDS: ENOXAPARIN 40 MG/0.4 ML SYRINGE SUBQ SCH (10:19)
[2018-07-14] MEDS: ASPIRIN EC 81 MG TABLET PO SCH (10:19)
[2018-07-14] MEDS: METOPROLOL SUCCINATE 25 MG TABLET PO SCH ×2 (10:19→21:28)
[2018-07-14] MEDS: (Vitamin B Complex [Vitamin B Complex] 1 TAB) PO SCH (10:20)
[2018-07-14] MEDS: NYSTATIN POWDER 15 GM TOP SCH ×2 (10:20→21:27)
--- NOTE | 2018-07-14 10:56 | ANESTHESIA ---
Pre-Anesthesia VS, & Labs - Diagnosis Diagnosis Recurrent RIGHT non-malignant pleural effusion. Chronic right pleural effusion - Procedure Right thoracoscopy, pleural biopsy, right chest tube placement Vital Signs: Temp Pulse Resp BP Pulse Ox 36.9 C 66 20 156/70 H 97 07/14/18 09:41 07/14/18 09:41 07/14/18 09:41 07/14/18 08:00 07/14/18 09:41 Height 5 ft 4 in Weight (kg) 125.5 kg Body Mass Index 43.7 - NPO >8 hours Last Fluid Intake: apple juice, water - Is Patient ?: No - Lab Results Lab results reviewed: Yes Fish Bones: 07/14/18 05:10 07/14/18 05:10 Home Medications and Allergies Home Medications: Ambulatory Orders Medication Instructions Recorded Confirmed Albuterol Sulf [Ventolin Hfa 2 puffs INH Q4HR PRN 03/21/17 07/11/18 Inhaler] Calcium Carbonate [Calcium] 600 mg PO DAILY 03/21/17 07/11/18 DULoxetine [Cymbalta] 30 mg PO DAILY 03/21/17 07/11/18 Lactobacillus Acidophilus/Fos 1 each PO DAILY 03/21/17 07/11/18 [Acidophilus Probiotic Tablet] Lysine HCl 500 mg PO BID 03/21/17 07/11/18 Melatonin 3 mg PO QPM 03/21/17 07/11/18 Omeprazole 20 mg PO QDAC 03/21/17 07/11/18 Potassium Chloride 10 meq PO DAILYWM 03/21/17 07/11/18 Spironolactone 50 mg PO BID 03/21/17 07/11/18 Vitamin B Complex 1 each PO DAILY 03/21/17 07/11/18 Cholecalciferol (Vitamin D3) 2,000 unit PO DAILY 04/22/17 07/11/18 [Vitamin D3] DULoxetine [Cymbalta] 60 mg PO QPM 11/15/17 07/11/18 Ropinirole HCl 0.25 mg PO QPM 11/15/17 07/11/18 Furosemide [Lasix] 40 mg PO DAILY 12/05/17 07/11/18 Glipizide 5 mg PO 0730 02/24/18 07/11/18 Insulin NPH Hum/Reg Insulin Hm 15 units SUBQ QDBREAKFAST 02/24/18 07/11/18 [Humulin 70/30 Kwikpen] Metoprolol Succinate [Toprol Xl] 25 mg PO DAILY #30 tablet 03/03/18 07/11/18 Digoxin [Lanoxin] 125 mcg PO DAILY 06/10/18 07/11/18 Metformin HCl 1,000 mg PO BIDWM 06/10/18 07/11/18 Allergies/Adverse Reactions: Allergies Allergy/AdvReac Type Severity Reaction Status Date / Time cefixime [From Suprax] Allergy Unknown Verified 07/10/18 17:13 cimetidine [From Tagamet] Allergy Unknown Verified 07/10/18 17:13 erythromycin lactobionate * Allergy Unknown Verified 07/10/18 17:13 [From Erythrocin] fluticasone propionate * Allergy Unknown Verified 07/10/18 17:13 [From Flonase] levofloxacin [From Levaquin] Allergy Unknown Verified 07/10/18 17:13 piroxicam [From Feldene] Allergy Unknown Verified 07/10/18 17:13 Sulfa (Sulfonamide Allergy Unknown Verified 07/10/18 17:13 Antibiotics) egg AdvReac Nausea Verified 07/10/18 17:13 ibuprofen [From Motrin] AdvReac Unknown Verified 07/10/18 17:13 Anes History & Medical History - Anesthetic History Anesthesia Complications: reports: No previous complications Family history of Anesthesia Complications: Denies Family history of Malignant Hyperthermia: Denies - Medical History Cardiovascular: reports: Hypertension, Atrial fibrillation, Murmur, Other Pulmonary: reports: Asthma, Pneumonia, Shortness of breath, Other Gastrointestinal: reports: GERD, Cirrhosis Urinary: reports: Incontinence, Frequency Neuro: reports: Tremors Musculoskeletal: reports: Osteoarthritis, Fibromyalgia, Rheumatoid arthritis, Chronic back pain Endocrine/Autoimmune: reports: Type 2 diabetes Blood Disorders: reports: None Skin: reports: Rosacea, Other Smoking Status: Never smoker Psychosocial: reports: No issues indicated - Surgical History General: Cholecystectomy Eyes Ears Nose Throat (EENT): Other Gynecologic: Hysterectomy, Oophrectomy Orthopedic: Other Exam General: Oriented x3 Dental: Loose/Frag, Poor dentition Mouth Opening: Greater than 4 Fingerbreadths Neck Mobility: Normal Mallampati classification: II Thyromental Distance: greater than 6 cm Respiratory: Rhonchi, Other (labored breathing) Cardiovascular: Regular rate Neurological: Normal speech Mental/Cognitive Status: Normal for patient Cognitive Status: Other (describe below) (Falls asleep midconversatiin) Plan Anesthesia Type: General, Other (Surgeon requests one lung anesthesia) Consent for Procedure(s) Verified and Reviewed: Yes Code Status: Attempt Resuscitation ASA classification: 3-Severe systemic disease Is this case an emergency?: No
[2018-07-14] MEDS: INSULIN REGULAR HUMAN 100 UNIT/1 ML 10 ML MDV SUBQ SCH ×2 (13:10→18:17)
--- NOTE | 2018-07-14 17:00 | XRAY Report ---
Reason: Pleural Effusion Procedure Date: 07/14/2018 Accession Number: [id number] / [id number] Procedure: XR - Chest 2 View X-Ray CPT Code: 45243 FULL RESULT: EXAM: CHEST RADIOGRAPHY EXAM DATE: 07/14/2018 04:39 PM. CLINICAL HISTORY: Pleural Effusion. COMPARISON: Chest x-ray 07/10/2018. CT 12/05/2017. TECHNIQUE: 2 views. FINDINGS: Lungs/Pleura: New large right pleural effusion with right lung base atelectasis/consolidation occupying approximately 75% thoracic volume. 1.4 cm calcified granuloma in right lower lobe is seen superimposed on the spine consistent with previously seen calcified right lower lobe mass. Interval increase in vascular and interstitial prominence is seen in the left lung and remaining aerated right lung, without dense focal consolidation on the left or discrete mass. No pneumothorax. No gross left pleural effusion. Mediastinum: Mediastinal margin obscured on the right by consolidation and effusion. Heart size upper limits normal. Hilar vascular prominence on the left. [place] partially obscured on the right. Other: None. IMPRESSION: 1. New large right pleural effusion and atelectasis/ consolidation at right lung base not significantly changed compared to 07/10/2018. 2. Interval increase in vascular and interstitial prominence in both lungs. Congestive changes a consideration for this appearance. 3. Exam otherwise as above. RADIA
[2018-07-14] MEDS ORDERED: BACITRACIN OINT TOP ONE (17:09)
[2018-07-14] MEDS ORDERED: INSULIN ASPART 300 UNIT/3 ML PEN SUBQ ONE (17:56)
--- NOTE | 2018-07-14 18:20 | PROVIDER PROGRESS NOTE ---
Assessment/Plan - Problem List (1) UTI (urinary tract infection) Assessment/Plan: Continue iv antibiotics (2) Pleural effusion, right Assessment/Plan: Pt was on schedule for OR today. Apparently the equipment for respiratory isolation was not available and the procedure was changed by the surgeon to have Interventional Radiology do a diagnostic thoracentesis. All orders for testing the fluid were entered yesterday and were sent, per her RNGinny. Plan for surgery will depend on surgeon and administration. (3) Atrial fibrillation with rapid ventricular response Assessment/Plan: Rate controlled. Will decrease Cardizem dose. No anticoagulant due to need for interventions: taps and/or surgery. (4) DM2 (diabetes mellitus, type 2) Qualifiers: Diabetes mellitus termite helper insulin use: with termite helper use Diabetes mellitus complication status: with hyperglycemia Qualified Code(s): E11.65 - Type 2 diabetes mellitus with hyperglycemia; Z79.4 - FDC (current) use of insulin Assessment/Plan: Continue glu checks, ss Insulin. (5) Hyponatremia Assessment/Plan: Improving with NS in her iv fluids. Monitor BMP daily. (6) Sepsis Qualifiers: Sepsis type: sepsis due to unspecified organism Qualified Code(s): A41.9 - Sepsis, unspecified organism Assessment/Plan: Resolved. - Current Meds Current Meds: Current Medications Generic Name Dose Route Start Last Admin Trade Name Freq PRN Reason Stop Dose Admin Acetaminophen 650 mg 07/11/18 00:51 07/11/18 03:40 Tylenol PO 650 mg Q4HR PRN Administration Pain or Fever > 38C (100.4F) Aspirin 81 mg 07/12/18 09:00 07/14/18 10:19 Ecotrin PO 81 mg DAILY JASWANT Administration Calcium Carbonate/Glycine 500 mg 07/11/18 09:00 07/14/18 10:17 Oysco-500 PO 500 mg DAILY JASWANT Administration Cholecalciferol 2,000 unit 07/11/18 09:00 07/14/18 10:17 Vitamin D3 PO 2,000 unit DAILY JASWANT Administration Digoxin 250 mcg 07/12/18 09:00 07/14/18 10:18 Lanoxin PO 250 mcg DAILY JASWANT Administration Duloxetine HCl 30 mg 07/11/18 09:00 07/14/18 10:19 Cymbalta PO 30 mg DAILY JASWANT Administration Duloxetine HCl 60 mg 07/12/18 21:00 07/13/18 20:43 Cymbalta PO 60 mg QPM JASWANT Administration Enoxaparin Sodium 40 mg 07/12/18 09:00 07/14/18 10:19 Lovenox SUBQ 40 mg DAILY JASWANT Administration Piperacillin Sod/Tazobactam 100 mls @ 200 mls/hr 07/11/18 02:00 07/14/18 15:47 Sod 3.375 gm/ Sodium Chloride IV Infused Q6H JASWANT Infusion Potassium Chloride/Dextrose/Sod Cl 1,000 mls @ 60 mls/hr 07/14/18 10:00 07/14/18 10:16 IV 60 mls/hr .[id number] JASWANT Administration Insulin Human Isoph/Insulin Regular 15 unit 07/11/18 08:00 07/14/18 08:26 Novolin SUBQ 15 unit QDBREAKFAST JASWANT Administration Insulin Human Regular 3 - 11 unit 07/14/18 12:47 07/14/18 18:17 Novolin R SUBQ Not Given Q6HR JASWANT Protocol Levalbuterol HCl 1.25 mg 07/11/18 19:00 07/14/18 15:39 Xopenex INH 1.25 mg RTQID JASWANT Administration Levalbuterol HCl 1.25 mg 07/12/18 02:52 07/12/18 02:54 Xopenex INH 1.25 mg Q4H PRN Administration Shortness of Air/Wheezing Magnesium Oxide 400 mg 07/11/18 10:00 07/14/18 10:18 Mag Ox PO 400 mg BID JASWANT Administration Metoprolol Succinate 25 mg 07/11/18 21:00 07/14/18 10:19 Toprol Xl PO 25 mg BID JASWANT Administration Nystatin 1 applic 07/13/18 21:00 07/14/18 10:20 Nystop TOP 1 applic BID JASWANT Administration Pantoprazole Sodium 40 mg 07/11/18 07:00 07/14/18 06:14 Protonix PO 40 mg QDAC JASWANT Administration (Vitamin B Complex [ 1 each 07/12/18 09:00 07/14/18 10:20 Vitamin B Complex] 1 PO 1 each Tab) DAILY JASWANT Administration Potassium Chloride 10 meq 07/11/18 08:00 07/14/18 10:15 Micro-K PO 10 meq DAILYWM JASWANT Administration Ropinirole HCl 0.25 mg 07/11/18 21:00 07/13/18 20:43 Requip PO 0.25 mg QPM JASWANT Administration Sodium Chloride 10 ml 07/11/18 01:00 07/14/18 18:17 Normal Saline Flush 0.9% IVP Not Given 0100,0900,1700 JASWANT Sodium Chloride 10 ml 07/10/18 21:54 07/14/18 06:14 Normal Saline Flush 0.9% IVP 10 ml PRN PRN Administration NEEDED PER PROVIDER ORDERS Sodium Chloride 2 sprays 07/11/18 17:11 07/12/18 07:26 [place] JAZMÍN 2 sprays Q4HR PRN Administration Nasal Congestion - Lab Result Fish Bone Diagrams: 07/14/18 05:10 07/14/18 05:10 - Additional Planning My Orders: My Active Orders 07/13/18 21:00 Nystatin [Nystop] 1 applic TOP BID 07/14/18 CUL, AFB MYCOBACTERIA ([facility]) [REFLAB] Routine 07/14/18 00:01 DIET [NPO except Meds at Midnight] [DIET] 07/14/18 08:00 Miscellaneous Laboratory Order [LAB] Urgent 07/14/18 09:00 AFB & NAAT TB #2 ([facility]) AFB CUL & SMEAR #3 ([facility]) 07/14/18 09:16 Blood Glucose POC [RC] 0000,0600,1200,1800 07/14/18 10:00 D5ns W/20 Meq KCl 1,000 ml IV 60 mls/hr 07/14/18 10:32 AFB & NAAT TB #1 (DO) 07/14/18 12:47 Insulin Regular Human [NovoLIN R] 3 - 11 unit SUBQ Q6HR 07/14/18 17:10 CUL, AFB MYCOBACTERIA ([facility]) [REFLAB] Routine CUL, FUNGUS ([facility]) [REFLAB] Routine MISC TEST QUEST FROZEN [REFLAB] Routine MISC TEST [facility] FROZEN [REFLAB] Routine MISC TEST [place] REFRIG [REFLAB] Routine MISC TEST [place] REFRIG [REFLAB] Routine MISC TEST [place] REFRIG [REFLAB] Routine MISC TEST [place] REFRIG [REFLAB] Routine MISC TEST [place] REFRIG [REFLAB] Routine MISC TEST QUEST REFRIG [REFLAB] Routine 07/14/18 17:57 Miscellaenous Nursing Order [RC] QSHIFT 07/15/18 05:00 CBC - COMP BLD CT W/AUTO DIFF [HEME] DAILYLAB CMP [COMPREHENSIVE METABOLIC PANEL] [CHEM] DAILYLAB DIGOXIN [CHEM] Routine MAGNESIUM [CHEM] Routine 07/16/18 05:00 CBC - COMP BLD CT W/AUTO DIFF [HEME] DAILYLAB CMP [COMPREHENSIVE METABOLIC PANEL] [CHEM] DAILYLAB 07/17/18 05:00 CBC - COMP BLD CT W/AUTO DIFF [HEME] DAILYLAB CMP [COMPREHENSIVE METABOLIC PANEL] [CHEM] DAILYLAB Subjective - Subjective Patient Reports: Other (was nervous about procedures to be done and NPO all day.) Nursing Reports: Other Objective Vital Signs: Vital Signs - 24 hr 07/13/18 07/13/18 07/13/18 19:38 20:15 22:17 Temperature 36.8 C 36.7 C Heart Rate 65 Heart Rate [ 75 66 Monitoring electrodes] Respiratory 21 24 20 Rate Blood Pressure Blood Pressure 146/68 H 156/64 H [Right Brachial artery] O2 Saturation 99 97 07/13/18 07/14/18 07/14/18 22:45 00:15 01:45 Temperature 36.5 C Heart Rate Heart Rate [ 64 65 Monitoring electrodes] Respiratory 22 28 H Rate Blood Pressure 141/75 H Blood Pressure 137/59 H [Right Brachial artery] O2 Saturation 99 99 07/14/18 07/14/18 07/14/18 04:39 06:12 06:13 Temperature 36.5 C Heart Rate Heart Rate [ 65 65 Monitoring electrodes] Respiratory 23 27 H Rate Blood Pressure 146/83 H Blood Pressure 146/83 H [Right Brachial artery] O2 Saturation 98 100 07/14/18 07/14/18 07/14/18 08:00 08:50 09:41 Temperature 36.9 C 36.9 C Heart Rate 65 66 Heart Rate [ 63 Monitoring electrodes] Respiratory 20 20 Rate Blood Pressure Blood Pressure 156/70 H [Right Brachial artery] O2 Saturation 97 97 07/14/18 07/14/18 07/14/18 11:34 11:48 12:52 Temperature 36.6 C Heart Rate 64 Heart Rate [ 64 65 Monitoring electrodes] Respiratory 26 H 18 28 H Rate Blood Pressure Blood Pressure 158/110 H 156/59 H [Right Brachial artery] O2 Saturation 97 96 07/14/18 15:40 Temperature Heart Rate 64 Heart Rate [ Monitoring electrodes] Respiratory 16 Rate Blood Pressure Blood Pressure [Right Brachial artery] O2 Saturation Oxygen O2 Source Nasal cannula Oxygen Flow Rate 3 I&O (Last 24 Hrs): Intake and Output Totals x24h 07/12/18 07/13/18 07/14/18 23:59 23:59 23:59 Intake Total 5441.020 3060 1188 Output Total 825 1225 550 Balance 4616.020 1835 638 General: Other (Sleeping) HEENT: Mucous membr. moist/pink Neck: Supple Cardiovascular: Other (Rate controlled) Respiratory: Other (R side was tapped) Abdomen: Other (Obese) Extremities: Other (1+ edema) - Results Results: Laboratory Results WBC 12.3 x10^3/uL (4.8-10.8) H 07/14/18 05:10 RBC 3.21 10^6/uL (4.20-5.40) L 07/14/18 05:10 Hgb 10.7 g/dL (12.0-16.0) L 07/14/18 05:10 Hct 31.8 % (37.0-47.0) L 07/14/18 05:10 MCV 99.0 fL (81.0-99.0) 07/14/18 05:10 MCH 33.3 pg (27.0-31.0) H 07/14/18 05:10 MCHC 33.6 g/dL (32.0-36.0) 07/14/18 05:10 RDW 18.8 % (12.0-15.0) H 07/14/18 05:10 Plt Count 151 10^3/uL (130-450) 07/14/18 05:10 MPV 9.3 fL (7.9-10.8) 07/14/18 05:10 Neut # (Auto) 9.5 10^3/uL (1.5-6.6) H 07/14/18 05:10 Lymph # (Auto) 1.6 10^3/uL (1.5-3.5) 07/14/18 05:10 [place] # (Auto) 0.8 10^3/uL (0.0-1.0) 07/14/18 05:10 Eos # (Auto) 0.2 10^3/uL (0.0-0.7) 07/14/18 05:10 Baso # (Auto) 0.0 10^3/uL (0.0-0.1) 07/14/18 05:10 Absolute Nucleated RBC 0.00 x10^3/uL 07/14/18 05:10 Nucleated RBC % 0.0 /100WBC 07/14/18 05:10 PT 18.1 secs (9.9-12.6) H 07/10/18 17:40 INR 1.6 (0.8-1.2) H 07/10/18 17:40 VBG pH 7.442 (7.31-7.41) H 07/10/18 17:40 VBG pCO2 37.1 mmHg (41-51) L 07/10/18 17:40 VBG pO2 53.4 mmHg (25-47) H 07/10/18 17:40 VBG HCO3 24.7 mmol/L (23-28) 07/10/18 17:40 VBG Total CO2 25.9 mmol/L (24-29) 07/10/18 17:40 VBG O2 Saturation 87.4 % (60-80) H 07/10/18 17:40 VBG Base Excess 0.8 mmol/L (-2 - +2) 07/10/18 17:40 Sodium 132 mmol/L (135-145) L 07/14/18 05:10 Potassium 3.9 mmol/L (3.5-5.0) 07/14/18 05:10 Chloride 99 mmol/L (101-111) L 07/14/18 05:10 Carbon Dioxide 26 mmol/L (21-32) 07/14/18 05:10 Anion Gap 7.0 (6-13) 07/14/18 05:10 BUN 22 mg/dL (6-20) H 07/14/18 05:10 Creatinine 0.9 mg/dL (0.4-1.0) 07/14/18 05:10 Estimated GFR (MDRD) 63 (>89) L 07/14/18 05:10 Glucose 249 mg/dL (70-100) H 07/14/18 05:10 Glycated Hemoglobin 9.5 % (4.6-6.2) H 07/12/18 05:11 Estim Average Glucose 226 (70-100) H 07/12/18 05:11 Lactic Acid 1.9 mmol/L (0.5-2.2) 07/11/18 06:32 Calcium 8.8 mg/dL (8.5-10.3) 07/14/18 05:10 Magnesium 2.2 mg/dL (1.7-2.8) 07/14/18 05:10 Total Bilirubin 3.3 mg/dL (0.2-1.0) H 07/14/18 05:10 AST 43 IU/L (10-42) H 07/14/18 05:10 ALT 20 IU/L (10-60) 07/14/18 05:10 Alkaline Phosphatase 136 IU/L (42-121) H 07/14/18 05:10 B-Natriuretic Peptide 395 pg/mL (5-100) H 07/10/18 17:40 Total Protein 8.3 g/dL (6.7-8.2) H 07/14/18 05:10 Albumin 2.6 g/dL (3.2-5.5) L 07/14/18 05:10 Globulin 5.7 g/dL (2.1-4.2) H 07/14/18 05:10 Albumin/Globulin Ratio 0.5 (1.0-2.2) L 07/14/18 05:10 Lipase 39 U/L (22-51) 07/10/18 17:40 Urine Color YELLOW 07/10/18 18:50 Urine Clarity HAZY (CLEAR) 07/10/18 18:50 Urine pH 6.0 PH (5.0-7.5) 07/10/18 18:50 Ur Specific [place] 1.010 (1.002-1.030) 07/10/18 18:50 Urine Protein 30 mg/dL (NEGATIVE) H 07/10/18 18:50 Urine Glucose (UA) >=1000 mg/dL (NEGATIVE) H 07/10/18 18:50 Urine Ketones NEGATIVE mg/dL (NEGATIVE) 07/10/18 18:50 Urine Occult Blood LARGE (NEGATIVE) H 07/10/18 18:50 Urine Nitrite NEGATIVE (NEGATIVE) 07/10/18 18:50 Urine Bilirubin NEGATIVE (NEGATIVE) 07/10/18 18:50 Urine Urobilinogen 1 (NORMAL) E.U./dL (NORMAL) 07/10/18 18:50 Ur Leukocyte Esterase TRACE (NEGATIVE) H 07/10/18 18:50 Urine RBC TNTC /HPF (0-5) H 07/10/18 18:50 Urine WBC >25 /HPF (0-5) H 07/10/18 18:50 Urine WBC Clumps PRESENT 07/10/18 18:50 Ur Squamous Epith Cells FEW Squamous (<= Few) 07/10/18 18:50 Urine Bacteria Many /HPF (None Seen) H 07/10/18 18:50 Ur Microscopic Review INDICATED 07/10/18 18:50 Urine Culture Comments INDICATED 07/10/18 18:50 Last Dose Date 07-11-18 07/12/18 05:11 Last Dose Time 1430 07/12/18 05:11 Digoxin 0.4 ng/mL 07/12/18 05:11 Serum Ketones NEGATIVE (NEGATIVE) 07/10/18 17:40 - Procedures Procedures: Procedures DRAINAGE OF RIGHT PLEURAL CAVITY, PERC APPROACH, DIAGN (06/10/18) DRAINAGE OF RIGHT PLEURAL CAVITY, PERCUTANEOUS APPROACH (02/24/18) TRANSFUSE NONAUT FROZEN PLASMA IN PERIPH VEIN, PERC (02/24/18)
[2018-07-14] MEDS: ACETAMINOPHEN 325 MG TABLET PO PRN (18:40)
--- NOTE | 2018-07-14 19:42 | XRAY Report ---
Reason: Post thoracentesis chest pain Procedure Date: 07/14/2018 Accession Number: [id number] / [id number] Procedure: XR - Chest 1 View X-Ray CPT Code: 38940 FULL RESULT: EXAM: CHEST RADIOGRAPHY EXAM DATE: 07/14/2018 07:13 PM. CLINICAL HISTORY: Post thoracentesis. Chest pain. COMPARISON: CHEST 2 VIEW PA/LAT 07/14/2018 4:15 PM. TECHNIQUE: 1 view. FINDINGS: Lungs/Pleura: Clear left lung. Enlarging right pleural effusion. No visible pneumothorax. Mediastinum: Large heart. Other: No bony abnormality noted. IMPRESSION: Enlarging right pleural effusion. No pneumothorax visible. RADIA
[2018-07-14] MEDS ORDERED: LORazepam 2 MG/ML VIAL IVP PRN (20:16)
[2018-07-14] MEDS ORDERED: MORPHINE 2 MG/ML CARPUJECT IVP PRN (21:10)
[2018-07-14] MEDS ORDERED: ALPRAZolam 0.25 MG TABLET PO PRN (21:10)
[2018-07-14] MEDS ORDERED: IPRATROPIUM 0.2 MG/ML NEB INH PRN (21:11)
[2018-07-14] MEDS ORDERED: FUROSEMIDE 40 MG/4 ML VIAL IVP SCH (21:12)
[2018-07-14] MEDS: rOPINIRole 0.25 MG TABLET PO SCH (21:28)
--- NOTE | 2018-07-14 21:38 | XRAY Report ---
Reason: Worsening SOB after thoracentesis Procedure Date: 07/14/2018 Accession Number: [id number] / [id number] Procedure: XR - Chest 1 View X-Ray CPT Code: 42495 FULL RESULT: EXAM: CHEST RADIOGRAPHY EXAM DATE: 07/14/2018 09:31 PM. CLINICAL HISTORY: Worsening shortness of breath after thoracentesis. COMPARISON: CHEST 1 VIEW 07/14/2018 7:01 PM. TECHNIQUE: 1 view. FINDINGS: Lungs/Pleura: Enlarging right pleural effusion with mediastinal shift to the left and very little aerated lung at the right apex. On the left, creasing lower lobe and perihilar haziness. No pneumothorax visible. Mediastinum: Heart size obscured. Other: No bony abnormality noted. IMPRESSION: Enlarging right pleural effusion with mediastinal shift to the left and increasing left perihilar and basilar atelectasis/infiltrate. RADIA
[2018-07-14] MEDS ORDERED: INSULIN ASPART 300 UNIT/3 ML PEN SUBQ SCH (21:45)
[2018-07-14] MEDS ORDERED: LIDOCAINE 1% 50 ML MDV ONE (22:03)
--- NOTE | 2018-07-14 22:29 | PROVIDER PROGRESS NOTE ---
Denitrator Note - Denitrator Note Denitrator Note: HAYLEY BUITRAGO was called at approximately 10 PM on 07/14/[address] Sean Zabala was in the room. Dr. Estrada, general surgery had been called as the patient was having acutely worsening respiratory failure with increasing hypoxemia. It was found on a repeat chest x-ray that the patient had an increasing right pleural effusion with mediastinal shift since her thoracentesis earlier in the day. Dr. Estrada had come in to place a chest tube given the worsening pleural effusion. On his arrival to the bedside the patient was found to be obtunded. She had minimal respirations but still had a pulse. HAYLEY BUITRAGO was called, no CPR had to be performed but patient was emergently intubated by anesthesia. Dr. Estrada is now bedside performing a chest tube placement. Chest x-ray has been ordered for the newly placed ET tube. Patient is in critical condition.
[2018-07-14] MEDS ORDERED: SODIUM CHLORIDE FLUSH 0.9% 10 ML SYRINGE IVP PRN (22:55)
[2018-07-14] MEDS ORDERED: PROPOFOL 1000 MG/100 ML 100 ML IV SCH (23:00)
[2018-07-14] MEDS ORDERED: PROCHLORPERAZINE 10 MG/2 ML VIAL IVP PRN (23:08)
[2018-07-14] MEDS ORDERED: PROMETHAZINE 25 MG/1 ML VIAL IM PRN (23:08)
[2018-07-14] MEDS ORDERED: ONDANSETRON 4 MG/2 ML VIAL IVP PRN (23:08)
[2018-07-14 23:18] LABS: BASOPHILS # (AUTO) 0.1 10^3/uL (0.0-0.1); BASOPHILS % (AUTO) 0.6 %; EOSINOPHILS # (AUTO) 0.1 10^3/uL (0.0-0.7); EOSINOPHILS % (AUTO) 0.6 %; LYMPHOCYTES # (AUTO) 1.3 10^3/uL (1.5-3.5); MEAN CORPUSCULAR HEMOGLOBIN 32.6 pg (27.0-31.0); MEAN CORPUSCULAR HGB CONC 31.8 g/dL (32.0-36.0); MEAN CORPUSCULAR VOLUME 102.8 fL (81.0-99.0); MEAN PLATELET VOLUME 9.1 fL (7.9-10.8); MONOCYTES # (AUTO) 0.9 10^3/uL (0.0-1.0); MONOCYTES % (AUTO) 6.7 %; NEUTROPHILS # (AUTO) 10.5 10^3/uL (1.5-6.6); NEUTROPHILS % (AUTO) 82.1 %; PLT - PLATELET COUNT 129 10^3/uL (130-450); RED BLOOD COUNT 1.92 10^6/uL (4.20-5.40); RED CELL DISTRIBUTION WIDTH 19.6 % (12.0-15.0); WHITE BLOOD COUNT 12.8 x10^3/uL (4.8-10.8)
[2018-07-14 23:20] LABS: HGB - HEMOGLOBIN 6.3 g/dL (12.0-16.0)
--- NOTE | 2018-07-14 23:24 | PROVIDER PROGRESS NOTE ---
Subjective - General Admit Date: 07/10/18 Procedure Date: 07/14/18 Post Op Days: 0 Procedure Performed: Emergent RIGHT tube thoracostomy - Review of Systems Wound/Incisions: positive: Drainage Drain Type: 28 Fr straight chest tube Drain Output Description: Serosanguinous with a more sanguinous component Approximate mls Output: >3500 initially General: positive: Other (Now intubated and sedated. I was called by Dr. Martines about the patient having increased shortness of breath. I walked in the building, picked up a consent form on the way to the room and walked in the room to find her "guppy breathing" O2 sats had not been compromised yet. Patient was not responsive to verbal or painful stumuli. I immediately called a claribel nguyen. I had called Jasson Ward while I was on the way to give sedation while I was going to place the tube. He arrived right after the code blue was called and intubated the patient with a 8 ET tube on the first pass. As the patient could not consent the RIGHT side was prepped in a sterile manner and I placed a 28 Fr chest tube in the RIGHT chest with the return of very thin but clearly blood colored fluid. There was a return of over 3500 mL almost immediately. CXR confirmed excellent placement of the ET tube and the chest tube curving down to the diaphragm (in too far but in good position to drain all the fluid). I ordered STAT CBC and CMP and T&S and the T&C when the bloody ouptut became concerning. I called the patient's son who stated that the patient wanted life "saving" but not life "preserving" measures. I explained that I was unaware of this distinction as the patient was described as "attempt resuscitation" in the chart. I explained the course of events and explained that if the intubation becomes prolonged then extubation with her expiration could be performed. I explained that my current expectation is that she will survive this. I do NOT view her current intubation as a permanent or custodial thing.) Objective - Patient Data Reviewed Vital Signs: Yes Vital Signs: Vital Signs x48h Temp Pulse Pulse Resp BP Pulse Ox 07/14/18 20:53 87 19 07/14/18 20:40 36.4 C L 90 23 138/79 H 88 L 07/14/18 17:36 36.6 C 66 28 H 143/53 H 92 07/14/18 15:40 64 16 Weight: Weight 07/12/18 07/13/18 07/14/18 23:59 23:59 23:59 Weight (kg) 118 kg 125.5 kg Intake & Output: Intake and Output Totals x24h 07/12/18 07/13/18 07/14/18 23:59 23:59 23:59 Intake Total 5441.020 3060 1288 Output Total 825 1225 550 Balance 4616.020 1835 738 - Lab Results Lab Results: 07/14/18 23:08 07/14/18 23:08 Other Lab Results: Lab Results x24hrs 07/14/18 07/14/18 Range/Units 05:10 05:10 WBC 12.3 H (4.8-10.8) x10^3/uL RBC 3.21 L (4.20-5.40) 10^6/uL Hgb 10.7 L (12.0-16.0) g/dL Hct 31.8 L (37.0-47.0) % MCV 99.0 (81.0-99.0) fL MCH 33.3 H (27.0-31.0) pg MCHC 33.6 (32.0-36.0) g/dL RDW 18.8 H (12.0-15.0) % Plt Count 151 (130-450) 10^3/uL MPV 9.3 (7.9-10.8) fL Neut # (Auto) 9.5 H (1.5-6.6) 10^3/uL Lymph # (Auto) 1.6 (1.5-3.5) 10^3/uL Gregg # (Auto) 0.8 (0.0-1.0) 10^3/uL Eos # (Auto) 0.2 (0.0-0.7) 10^3/uL Baso # (Auto) 0.0 (0.0-0.1) 10^3/uL Absolute Nucleated RBC 0.00 x10^3/uL Nucleated RBC % 0.0 /100WBC Sodium 132 L (135-145) mmol/L Potassium 3.9 (3.5-5.0) mmol/L Chloride 99 L (101-111) mmol/L Carbon Dioxide 26 (21-32) mmol/L Anion Gap 7.0 (6-13) BUN 22 H (6-20) mg/dL Creatinine 0.9 (0.4-1.0) mg/dL Estimated GFR (MDRD) 63 L (>89) Glucose 249 H (70-100) mg/dL Calcium 8.8 (8.5-10.3) mg/dL Magnesium 2.2 (1.7-2.8) mg/dL Total Bilirubin 3.3 H (0.2-1.0) mg/dL AST 43 H (10-42) IU/L ALT 20 (10-60) IU/L Alkaline Phosphatase 136 H (42-121) IU/L Total Protein 8.3 H (6.7-8.2) g/dL Albumin 2.6 L (3.2-5.5) g/dL Globulin 5.7 H (2.1-4.2) g/dL Albumin/Globulin Ratio 0.5 L (1.0-2.2) - Imaging Results Radiology Imaging: positive: Prelim report reviewed, Final report received, EMP read indepedently, EMP read contemporaneously - Current Medications Current Medications: Current Medications Generic Name Dose Route Start Last Admin Trade Name Freq PRN Reason Stop Dose Admin Acetaminophen 650 mg 07/11/18 00:51 07/14/18 18:40 Tylenol PO 650 mg Q4HR PRN Administration Pain or Fever > 38C (100.4F) Alprazolam 0.5 mg 07/14/18 21:10 07/14/18 21:28 Xanax PO 0.5 mg Q6HR PRN Administration Anxiety Aspirin 81 mg 07/12/18 09:00 07/14/18 10:19 Ecotrin PO 81 mg DAILY JASWANT Administration Calcium Carbonate/Glycine 500 mg 07/11/18 09:00 07/14/18 10:17 Oysco-500 PO 500 mg DAILY JASWANT Administration Cholecalciferol 2,000 unit 07/11/18 09:00 07/14/18 10:17 Vitamin D3 PO 2,000 unit DAILY JASWANT Administration Digoxin 250 mcg 07/12/18 09:00 07/14/18 10:18 Lanoxin PO 250 mcg DAILY JASWANT Administration Duloxetine HCl 30 mg 07/11/18 09:00 07/14/18 10:19 Cymbalta PO 30 mg DAILY JASWANT Administration Duloxetine HCl 60 mg 07/12/18 21:00 07/14/18 21:27 Cymbalta PO 60 mg QPM JASWANT Administration Enoxaparin Sodium 40 mg 07/12/18 09:00 07/14/18 10:19 Lovenox SUBQ 40 mg DAILY JASWANT Administration Furosemide 40 mg 07/14/18 21:12 07/14/18 21:26 Lasix Inj 40 Mg Vial IVP 07/14/18 23:59 40 mg ONCE JASWANT Administration Piperacillin Sod/Tazobactam 100 mls @ 200 mls/hr 07/11/18 02:00 07/14/18 20:45 Sod 3.375 gm/ Sodium Chloride IV Infused Q6H JASWANT Infusion Potassium Chloride/Dextrose/Sod Cl 1,000 mls @ 60 mls/hr 07/14/18 10:00 07/14/18 10:16 IV 60 mls/hr .[id number] JASWANT Administration Insulin Human Isoph/Insulin Regular 15 unit 07/11/18 08:00 07/14/18 08:26 Novolin SUBQ 15 unit [id number] JASWANT Administration Levalbuterol HCl 1.25 mg 07/11/18 19:00 07/14/18 20:45 Xopenex INH 1.25 mg RTQID JASWANT Administration Levalbuterol HCl 1.25 mg 07/12/18 02:52 07/12/18 02:54 Xopenex INH 1.25 mg Q4H PRN Administration Shortness of Air/Wheezing Magnesium Oxide 400 mg 07/11/18 10:00 07/14/18 21:28 Mag Ox PO 400 mg BID JASWANT Administration Metoprolol Succinate 25 mg 07/11/18 21:00 07/14/18 21:28 Toprol Xl PO 25 mg BID JASWANT Administration Morphine Sulfate 2 mg 07/14/18 21:10 07/14/18 21:27 Morphine (Carpuject) IVP 2 mg Q2HR PRN Administration PAIN Nystatin 1 applic 07/13/18 21:00 07/14/18 21:27 Nystop TOP 1 applic BID JASWANT Administration Pantoprazole Sodium 40 mg 07/11/18 07:00 07/14/18 06:14 Protonix PO 40 mg QDAC JASWANT Administration (Vitamin B Complex [ 1 each 07/12/18 09:00 07/14/18 10:20 Vitamin B Complex] 1 PO 1 each Tab) DAILY JASWANT Administration Potassium Chloride 10 meq 07/11/18 08:00 07/14/18 10:15 Micro-K PO 10 meq DAILYWM JASWANT Administration Ropinirole HCl 0.25 mg 07/11/18 21:00 07/14/18 21:28 Requip PO 0.25 mg QPM JASWANT Administration Sodium Chloride 10 ml 07/11/18 01:00 07/14/18 18:17 Normal Saline Flush 0.9% IVP Not Given 0100,0900,1700 JASWANT Sodium Chloride 10 ml 07/10/18 21:54 07/14/18 06:14 Normal Saline Flush 0.9% IVP 10 ml PRN PRN Administration NEEDED PER PROVIDER ORDERS Sodium Chloride 2 sprays 07/11/18 17:11 07/12/18 07:26 [place] JAZMÍN 2 sprays Q4HR PRN Administration Nasal Congestion - Physical Exam Wound/Incisions: positive: Other (Serosanguinous drainage.) General Appearance: positive: Other (Intubated and sedated.) Eyes Bilateral: positive: No lid inflammation, Conjunctivae nml, No scleral icterus, Other (Closed now.) ENT: positive: Dry mucous membranes Neck: positive: Trachea midline Respiratory: positive: Other (Still decreased on RIGHT but improved.) Cardiovascular: positive: Regular rate & rhythm (Converted to sinus with placement of chest tube.) Abdomen: positive: No distention Skin: positive: Pallor Extremities: positive: Pedal edema Neurologic/Psychiatric: positive: Other (Intubated sedated.) Impression/Plan - Problem List Problem List: Recurrent pleural effusion tapped by radiology with return of a small amount of fluid then complicated with progressive difficulty breathing and tension hemothorax. Patient intubated and emergent RIGHT tube thoracostomy with return to more normal physiology (sinus rhythm improved ventilation). transfuse [address] [place] Check INR/PT/PTT. Discussed with son. Expect this is a transient state and that I will still be able to perform pleurodesis prior to discharge. Will continue to follow.
[2018-07-14 23:27] LABS: ALBUMIN 1.5 g/dL (3.2-5.5); ALBUMIN/GLOBULIN RATIO 0.4 (1.0-2.2); BILIRUBIN,TOTAL 2.1 mg/dL (0.2-1.0); CALCIUM 7.5 mg/dL (8.5-10.3); CREATININE 1.3 mg/dL (0.4-1.0)
--- NOTE | 2018-07-14 23:59 | XRAY Report ---
Reason: intubation and RIGHT tube thoracostomy Procedure Date: 07/14/2018 Accession Number: [id number] / [id number] Procedure: XR - Chest 1 View X-Ray CPT Code: 85787 FULL RESULT: EXAM: CHEST RADIOGRAPHY EXAM DATE: 07/14/2018 11:14 PM. CLINICAL HISTORY: Intubation and right tube thoracostomy. COMPARISON: CHEST 1 VIEW 07/14/2018 9:17 PM. TECHNIQUE: 1 view. FINDINGS: Lungs/Pleura: Clear left lung with sharp costophrenic angle. Interval placement of right chest tube extending to the medial base with reduction of right pleural fluid and shift of the mediastinum back to midline. No visible pneumothorax. Mediastinum: Within exam limitations, the cardiomediastinal contour is normal. Other: ET tube is 5 cm from the alejandra. IMPRESSION: 1. ET tube about 5 cm from the alejandra. 2. Interval placement of right chest tube with reduction of large pleural effusion and return of mediastinum to midline. RADIA
[2018-07-15] MEDS ORDERED: SODIUM CHLORIDE 0.9% 1,000 ML IV ONE ×8 (00:03→04:41)
--- NOTE | 2018-07-15 00:07 | OPERATIVE REPORT ---
Operative Report - General Admit Date: 07/10/18 Pre-Op Diagnosis: Recurrent symptomatic RIGHT pleural effusion (tension hemothorax) Procedure Performed: Emergent RIGHT tube thoracostomy Post Op Diagnosis: Same - Procedure Note Primary Surgeon: Sean Zabala MD Anesthesia Technique: Local (10 mL 1% Lidocaine) Complications: None. - Other Other Information/Narrative: OPERATIVE DESCRIPTION/REPORT: I have been called by Dr. Rashad Martines to evaluate her and place a chest tube for worsening pulmonary function and difficulty breathing. I called Jasson Ward to provide anesthesia for the procedure, drove in to the parking lot walking through the front door of the hospital and picked up a consent form on the way to the room expecting to consent her. When I arrived in the room, it was clear that the patient was in respiratory distress and she was not responding to voice, touch, or pain. Her chart clearly documented that she was to be coded. I called the CODE BLUE and Jasson Ward arrived just as I was preparing to intubate her and intubated the patient. The chest x-ray that had been obtained by Dr. Rashad Martines showed increased fluid density on the right chest with some pushing of the mediastinal structures to the left. I determined that this was a tension hemothorax and there was no time to try and obtain formal informed consent. In fact a formal timeout was not done. A transverse incision was made lateral and just below the RIGHT nipple in the midaxillary line and dissection down to the ribs was performed using finger dissection as well as a Leong clamp. I went up over the rib and using the Leong clamp inserted the 28 [place] chest tube into the chest with a return of a significant amount of blood and serous fluid. In fact the initial fluid out was 3500 mL. The chest tube was then secured at the skin using a 2-0 Nylon which was Elder sandaled about the chest tube. The skin was approximated lateral to this using a 2-0 Nylon mattress suture. The chest tube was then secured to the Pleur-evac. The patients condition did improve with the placement of the tube and intubation as she converted into sinus rhythm. Dressings were then applied. A post-procedure chest xray was ordered and showed the endotracheal tube in excellent position whereas the chest tube was a little bit form but it was abutting the diaphragm and I opted to leave it there is a would be able to remove all the fluid in her chest. Note the chest tube was draining fluid and there was no air leak. I called the patient's son as he had requested that I call him and explained what had happened as well as the critical nature of her health. He let me know that she had made the distinction between life-saving measures and life preserving measures. The way he explained it to me is that lifesaving measures were for a short period of time whereas life preserving measures were for a long period of time. I explained to him that that distinction was unclear to me as far as I could tell was unclear in the chart. I explained that I would be transfusing her silver units of blood in over the next 6-8 hours we would be able to tell whether not she was going to improve.
[2018-07-15] MEDS ORDERED: SODIUM CHLORIDE FLUSH 0.9% 10 ML SYRINGE IVP SCH (01:00)
[2018-07-15] MEDS: SODIUM CHLORIDE FLUSH 0.9% 10 ML SYRINGE IVP SCH (01:19)
[2018-07-15] MEDS: PIPERACILLIN/TAZOBACTAM 3.375 GM in SODIUM CHLORIDE 0.9% MINIBAG 100 ML IV SCH (01:42)
[2018-07-15] MEDS ORDERED: INSULIN REGULAR HUMAN 100 UNIT/1 ML 10 ML MDV SUBQ SCH ×2 (02:00)
[2018-07-15] MEDS: D5NS W/20 MEQ KCL 1,000 ML IV SCH (02:33)
[2018-07-15] MEDS ORDERED: SODIUM CHLORIDE 0.9% 500 ML IV ONE (03:18)
[2018-07-15] MEDS ORDERED: TRANEXAMIC ACID 1,000 MG in SODIUM CHLORIDE 0.9% 100ML 100 ML IV ONE (04:41)
[2018-07-15] MEDS ORDERED: MIDAZOLAM 2 MG/2 ML VIAL IVP PRN (04:46)
[2018-07-15] MEDS ORDERED: fentaNYL 100 MCG/2 ML VIAL IVP PRN (04:46)
[2018-07-15] MEDS ORDERED: TRANEXAMIC ACID 1,000 MG/10 ML VIAL ONE (04:50)
--- NOTE | 2018-07-15 05:41 | DISCHARGE SUMMARY ---
Discharge Summary Admit Date: 07/10/18 Discharge Date: 07/15/18 Discharging Provider: Rashad Martines MD Primary Care Provider: Debora LICONA Discharge Disposition: 20 - DIAGNOSES Admission Diagnoses: 1. Sepsis 2. Urinary tract infection 3. Atrial fibrillation with rapid ventricular response 4. Diabetes mellitus, type II 5. Restless leg syndrome 6. Depression Discharge Diagnoses with Status of Each Condition: 1. Hypovolemic shock 2. Tension hemothorax 3. Pleural effusion, right 4. Acute blood loss anemia 5. Sepsis 6. Bacteremia with Klebsiella pneumonia 7. Urinary tract infection 8. Atrial fibrillation with rapid ventricular response 9. Diabetes mellitus, type II 10. Hyponatremia 11. Acute blood loss anemia - HPI History of Present Illness: Patient is a 67 y/o female with medical history significant for atrial fibrillation not on anticoag, HUERTAS, recurrent pleural effusions, poorly controlled diabetes mellitus on insulin and oral meds, GERD and restless leg syndrome, who presented to the ED via EMS with complain of dyspnea for the past 2 days. She reports a dry non-roductive cough. She denies chest pain put reports a constant abdominal pain/pressure. She has been experiencing increased urinary frequency but denied burning on uriation. Her blood glucose at home was 595. She was found to be a pulse of 140 with an irregularly irregular heart rate Lab work included a UA which was suggestive of a UTI. She was found to a have a WBC of 17. In light of all these findings, she was admitted for further treatment - CONSULTS | PROCEDURES Consultations: General Surgery : Sean Zabala Procedures: Emergent RIGHT tube thoracostomy Now intubated and sedated. I was called by Dr. Martines about the patient having increased shortness of breath. I walked in the building, picked up a consent form on the way to the room and walked in the room to find her "guppy breathing" O2 sats had not been compromised yet. Patient was not responsive to verbal or painful stumuli. I immediately called a claribel nguyen. I had called Jasson Ward while I was on the way to give sedation while I was going to place the tube. He arrived right after the claribel nguyen was called and intubated the patient with a 8 ET tube on the first pass. As the patient could not consent the RIGHT side was prepped in a sterile manner and I placed a 28 Fr chest tube in the RIGHT chest with the return of very thin but clearly blood colored fluid. There was a re turn of over 3500 mL almost immediately. CXR confirmed excellent placement of the ET tube and the chest tube curving down to the diaphragm (in too far but in good position to drain all the fluid). I ordered STAT CBC and CMP and T&S and the T&C when the bloody ouptut became concerning. I called the patient's son who stated that the patient wanted life "saving" but not life "preserving" measures. I explained that I was unaware of this distinction as the patient was described as "attempt resuscitation" in the chart. I explained the course of events and explained that if the intubation becomes prolonged then extubation with her expiration could be performed. I explained that my current expectation is that she will survive this. I do NOT view her current intubation as a permanent or alf thing. - HOSPITAL COURSE Hospital Course: Patient was admitted on 07/10/2018 with sepsis secondary to urinary tract infection. The patient underwent blood cultures which grew out Klebsiella pneumonia, urine cultures also grew Klebsiella pneumonia as well as E. coli. The patient was placed on Zosyn and treated for sepsis, bacteremia and urinary tract infection. The patient did appear to be having response to treatment as her white blood cell count improved from 18,000 and was trending down to 12,000. The patient however did begin to develop worsening respiratory status with shortness of breath and was found to have recurrent right pleural effusion. The hospitalist team consulted with infectious disease at the [facility] given the patient's previous cytology showing predominantly histiocytes in the pleural fluid in the past. The patient was also having hemoptysis and increasing hypoxia and shortness of breath. The infectious disease at the [facility] recommended that the patient be ruled out for tuberculosis with AFB sputum cultures. They also recommended a thoracentesis with pleural fluid being sent for cultures. The patient was placed into airborne precautions and a positive pressure room. Over the course of the next day the patient continued to have worsening shortness of breath. Plan was for the patient to undergo pleurodesis with general surgery on 07/14/2018. The patient unfortunately could get a pleurodesis secondary to the OR reverse isolation system being broken. Therefore patient underwent IR guided thoracentesis. The patient had only a diagnostic tap unfortunately after the diagnostic tap the patient began having worsening respiratory distress. The patient became increasingly hypoxic requiring 13 L of oxygen with increasing use of accessory muscles and conversational dyspnea. Chest x-ray was repeated at that time and revealed an enlarging right pleural effusion with mediastinal shift to the left and increasing left perihilar and basilar atelectasis/infiltrate. Given these findings general surgery was called in and Dr. Sean Zabala came in for an emergent thoracotomy and chest tube placement. Unfortunately when he arrived at the scene he found the patient to be obtundent with minimal respirations. Dr. Zabala describes the encounter in his note: I was called by Dr. Martines about the patient having increased shortness of breath. I walked in the building, picked up a consent form on the way to the room and walked in the room to find her "guppy breathing" O2 sats had not been compromised yet. Patient was not responsive to verbal or painful stumuli. I immediately called a claribel nguyen. I had called Jasson Ward while I was on the way to give sedation while I was going to place the tube. He arrived right after the claribel blue was called and intubated the patient with a 8 ET tube on the first pass. As the patient could not consent the RIGHT side was prepped in a sterile manner and I placed a 28 Fr chest tube in the RIGHT chest with the return of very thin but clearly blood colored fluid. There was a return of over 3500 mL almost immediately. CXR confirmed excellent placement of the ET tube and the chest tube curving down to the diaphragm (in too far but in good position to drain all the fluid). I ordered STAT CBC and CMP and T&S and the T&C when the bloody ouptut became concerning. I called the patient's son who stated that the patient wanted life "saving" but not life "preserving" measures. I explained that I was unaware of this distinction as the patient was described as "attempt resuscitation" in the chart. I explained the course of events and explained that if the intubation becomes prolonged then extubation with her expiration could be performed. I explained that my current expectation is that she will survive this. I do NOT view her current intubation as a permanent or alf thing. The patient was intubated and chest tube was successfully placed. The patient had serosanguineous/bloody drainage from the chest tube. Initially the patient had greater than 3.5 L of output from the chest tube. The patient's repeat hemoglobin was 6.3 down from 10.7 earlier in the morning. It was evident that the patient had had a tension hemothorax which had been causing her respiratory failure. Although the tension pneumothorax had resolved with chest tube placement the patient continued to have bleeding from the chest tube. The patient did appear to have improvement on the ventilator regarding her respiratory status however she became hypotensive with hypovolemic shock secondary to acute blood loss. The patient required pressors and was given multiple IV fluid boluses and blood transfusions with 3 units. Unfortunately the patient continued to have bloody output from her chest tube total of 7.5 L was drained through the chest tube. Despite attempts at giving the patient fluid resuscitation, blood and placing her on pressors the patient's blood pressure continued to be extremely low and the patient had decreased level of consciousness. At around 5 AM on 07/15/2018 the patient's family decided to withdraw care as the patient was having very minimal response to aggressive treatment. The family also felt that the patient would not want to be kept alive by artificial means and would never have wanted to be in her current state for any prolonged period of time. The patient was extubated and care was withdrawn. At 5:35 AM on 07/15/2018 with her family at the bedside the patient took her last breath. Nursing staff comforted the patient's son and daughter who were at bedside along with her many grandchildren. The patient appeared comfortable prior to her passing. - ALLERGIES Allergies/Adverse Reactions: Allergies Allergy/AdvReac Type Severity Reaction Status Date / Time cefixime [From Suprax] Allergy Unknown Verified 07/10/18 17:13 cimetidine [From Tagamet] Allergy Unknown Verified 07/10/18 17:13 erythromycin lactobionate * Allergy Unknown Verified 07/10/18 17:13 [From Erythrocin] fluticasone propionate * Allergy Unknown Verified 07/10/18 17:13 [From Flonase] levofloxacin [From Levaquin] Allergy Unknown Verified 07/10/18 17:13 piroxicam [From Feldene] Allergy Unknown Verified 07/10/18 17:13 Sulfa (Sulfonamide Allergy Unknown Verified 07/10/18 17:13 Antibiotics) egg AdvReac Nausea Verified 07/10/18 17:13 ibuprofen [From Motrin] AdvReac Unknown Verified 07/10/18 17:13 - MEDICATIONS Home Medications: Ambulatory Orders Medication Instructions Recorded Confirmed Albuterol Sulf [Ventolin Hfa 2 puffs INH Q4HR PRN 03/21/17 07/11/18 Inhaler] Calcium Carbonate [Calcium] 600 mg PO DAILY 03/21/17 07/11/18 DULoxetine [Cymbalta] 30 mg PO DAILY 03/21/17 07/11/18 Lactobacillus Acidophilus/Fos 1 each PO DAILY 03/21/17 07/11/18 [Acidophilus Probiotic Tablet] Lysine HCl 500 mg PO BID 03/21/17 07/11/18 Melatonin 3 mg PO QPM 03/21/17 07/11/18 Omeprazole 20 mg PO QDAC 03/21/17 07/11/18 Potassium Chloride 10 meq PO DAILYWM 03/21/17 07/11/18 Spironolactone 50 mg PO BID 03/21/17 07/11/18 Vitamin B Complex 1 each PO DAILY 03/21/17 07/11/18 Cholecalciferol (Vitamin D3) 2,000 unit PO DAILY 04/22/17 07/11/18 [Vitamin D3] DULoxetine [Cymbalta] 60 mg PO QPM 11/15/17 07/11/18 Ropinirole HCl 0.25 mg PO QPM 11/15/17 07/11/18 Furosemide [Lasix] 40 mg PO DAILY 12/05/17 07/11/18 Glipizide 5 mg PO 0730 02/24/18 07/11/18 Insulin NPH Hum/Reg Insulin Hm 15 units SUBQ QDBREAKFAST 02/24/18 07/11/18 [Humulin 70/30 Kwikpen] Metoprolol Succinate [Toprol Xl] 25 mg PO DAILY #30 tablet 03/03/18 07/11/18 Digoxin [Lanoxin] 125 mcg PO DAILY 06/10/18 07/11/18 Metformin HCl 1,000 mg PO BIDWM 06/10/18 07/11/18 - PHYSICAL EXAM AT DISCHARGE Physical Exam Other/Comments: Breath sounds are absent, heart sounds are absent, no pulses are felt, patient has no pupillary reflex, there is no chest rise, the patient's extremities are cold, her body appears pale and she has no corneal reflex. The patient is pronounced at 5:35 AM on 07/15/2018 - LABS Result Diagrams: 07/14/18 23:08 07/14/18 23:08 Other Lab Results: Laboratory Results WBC 12.8 x10^3/uL (4.8-10.8) H 07/14/18 23:08 RBC 1.92 10^6/uL (4.20-5.40) L 07/14/18 23:08 Hgb 6.3 g/dL (12.0-16.0) L* 07/14/18 23:08 Hct 19.7 % (37.0-47.0) L* 07/14/18 23:08 MCV 102.8 fL (81.0-99.0) H 07/14/18 23:08 MCH 32.6 pg (27.0-31.0) H 07/14/18 23:08 MCHC 31.8 g/dL (32.0-36.0) L 07/14/18 23:08 RDW 19.6 % (12.0-15.0) H 07/14/18 23:08 Plt Count 129 10^3/uL (130-450) L 07/14/18 23:08 MPV 9.1 fL (7.9-10.8) 07/14/18 23:08 Neut # (Auto) 10.5 10^3/uL (1.5-6.6) H 07/14/18 23:08 Lymph # (Auto) 1.3 10^3/uL (1.5-3.5) L 07/14/18 23:08 Dare # (Auto) 0.9 10^3/uL (0.0-1.0) 07/14/18 23:08 Eos # (Auto) 0.1 10^3/uL (0.0-0.7) 07/14/18 23:08 Baso # (Auto) 0.1 10^3/uL (0.0-0.1) 07/14/18 23:08 Absolute Nucleated RBC 0.05 x10^3/uL 07/14/18 23:08 Nucleated RBC % 0.4 /100WBC 07/14/18 23:08 PT 18.1 secs (9.9-12.6) H 07/10/18 17:40 INR 1.6 (0.8-1.2) H 09/13/18 17:40 VBG pH 7.442 (7.31-7.41) H 07/10/18 17:40 VBG pCO2 37.1 mmHg (41-51) L 07/10/18 17:40 VBG pO2 53.4 mmHg (25-47) H 07/10/18 17:40 VBG HCO3 24.7 mmol/L (23-28) 07/10/18 17:40 VBG Total CO2 25.9 mmol/L (24-29) 07/10/18 17:40 VBG O2 Saturation 87.4 % (60-80) H 07/10/18 17:40 VBG Base Excess 0.8 mmol/L (-2 - +2) 07/10/18 17:40 Sodium 132 mmol/L (135-145) L 07/14/18 23:08 Potassium 5.3 mmol/L (3.5-5.0) H 07/14/18 23:08 Chloride 104 mmol/L (101-111) 07/14/18 23:08 Carbon Dioxide 21 mmol/L (21-32) 07/14/18 23:08 Anion Gap 7.0 (6-13) 07/14/18 23:08 BUN 22 mg/dL (6-20) H 07/14/18 23:08 Creatinine 1.3 mg/dL (0.4-1.0) H 07/14/18 23:08 Estimated GFR (MDRD) 41 (>89) L 07/14/18 23:08 Glucose 319 mg/dL (70-100) H 07/14/18 23:08 Glycated Hemoglobin 9.5 % (4.6-6.2) H 07/12/18 05:11 Estim Average Glucose 226 (70-100) H 07/12/18 05:11 Lactic Acid 1.9 mmol/L (0.5-2.2) 07/11/18 06:32 Calcium 7.5 mg/dL (8.5-10.3) L 07/14/18 23:08 Phosphorus 4.8 mg/dL (2.5-4.6) H 07/14/18 23:07 Magnesium 2.2 mg/dL (1.7-2.8) 07/14/18 05:10 Total Bilirubin 2.1 mg/dL (0.2-1.0) H 07/14/18 23:08 AST 97 IU/L (10-42) H 07/14/18 23:08 ALT 30 IU/L (10-60) 07/14/18 23:08 Alkaline Phosphatase 103 IU/L (42-121) 07/14/18 23:08 Troponin I < 0.04 ng/mL (<0.49) 07/14/18 23:08 B-Natriuretic Peptide 395 pg/mL (5-100) H 07/10/18 17:40 Total Protein 5.0 g/dL (6.7-8.2) L 07/14/18 23:08 Albumin 1.5 g/dL (3.2-5.5) L 07/14/18 23:08 Globulin 3.5 g/dL (2.1-4.2) 07/14/18 23:08 Albumin/Globulin Ratio 0.4 (1.0-2.2) L 07/14/18 23:08 Lipase 39 U/L (22-51) 07/10/18 17:40 Urine Color YELLOW 07/10/18 18:50 Urine Clarity HAZY (CLEAR) 07/10/18 18:50 Urine pH 6.0 PH (5.0-7.5) 07/10/18 18:50 Ur Specific [place] 1.010 (1.002-1.030) 07/10/18 18:50 Urine Protein 30 mg/dL (NEGATIVE) H 07/10/18 18:50 Urine Glucose (UA) >=1000 mg/dL (NEGATIVE) H 07/10/18 18:50 Urine Ketones NEGATIVE mg/dL (NEGATIVE) 07/10/18 18:50 Urine Occult Blood LARGE (NEGATIVE) H 07/10/18 18:50 Urine Nitrite NEGATIVE (NEGATIVE) 07/10/18 18:50 Urine Bilirubin NEGATIVE (NEGATIVE) 07/10/18 18:50 Urine Urobilinogen 1 (NORMAL) E.U./dL (NORMAL) 07/10/18 18:50 Ur Leukocyte Esterase TRACE (NEGATIVE) H 07/10/18 18:50 Urine RBC TNTC /HPF (0-5) H 07/10/18 18:50 Urine WBC >25 /HPF (0-5) H 07/10/18 18:50 Urine WBC Clumps PRESENT 07/10/18 18:50 Ur Squamous Epith Cells FEW Squamous (<= Few) 07/10/18 18:50 Urine Bacteria Many /HPF (None Seen) H 07/10/18 18:50 Ur Microscopic Review INDICATED 07/10/18 18:50 Urine Culture Comments INDICATED 07/10/18 18:50 Last Dose Date 07-11-18 07/12/18 05:11 Last Dose Time 1430 07/12/18 05:11 Digoxin 0.4 ng/mL 07/12/18 05:11 Serum Ketones NEGATIVE (NEGATIVE) 07/10/18 17:40 Blood Type O POSITIVE 07/14/18 23:07 Antibody Screen NEGATIVE 07/14/18 23:07 Crossmatch IS Only See Detail 07/15/18 02:48 - DIAGNOSTIC IMAGING Diagnostic Imaging Results: Final report reviewed Diagnostic Imaging Results Comments: Chest x-ray 07/10/2018 Impression: Moderate to large right pleural effusion Chest x-ray 07/14/2018 Impression: 1. New large right pleural effusion and atelectasis/consolidation at the right lung base not significantly changed compared to 07/10/2018 2. Interval increase in vascular and interstitial prominence in both lungs. Congestive changes a consideration for this appearance. 3. Exam otherwise as above Chest x-ray 07/14/2018 Impression: Enlarging right pleural effusion. No pneumothorax visible Chest x-ray 07/14/2018 Impression: Enlarging right pleural effusion with mediastinal shift to the left and increasing left perihilar and basilar atelectasis/infiltrate Chest x-ray 07/14/2018 Impression: 1. ET tube about 5 cm from the alejandra. 2. Interval placement of right chest tube with reduction of large pleural effusion and return of mediastinum to midline. - FOLLOW UP Follow Up: Patient on 07/15/2018 at 5:35 AM and remains will be released to the home of choice. - TIME SPENT Time Spent in Discharge (Minutes): 55
[2018-07-15 06:51] VITALS: BP 80/62
[2018-07-15] MEDS ORDERED: PANTOPRAZOLE 40 MG VIAL IVP SCH ×2 (07:00)
[2018-07-15] MEDS ORDERED: CHLORHEXIDINE GLUCONATE 15 ML UDC PO SCH ×2 (09:00)
--- NOTE | 2018-07-15 10:34 | Ultrasound Report ---
Reason: pleural effusion Procedure Date: 07/14/2018 Accession Number: [id number] / [id number] Procedure: US - Thoracentesis Puncture CPT Code: FULL RESULT: EXAM: Thoracentesis Puncture DATE: 07/14/2018 5:20 PM CLINICAL HISTORY: pleural effusion COMPARISON: None. TECHNIQUE: The risks, benefits, and alternatives of the procedure were discussed with the patient. All questions were answered. Written and verbal consent were obtained. The increased risk of bleeding in the setting of a background of cirrhosis and ongoing aspirin and Lovenox therapy were discussed in person with the patient as well as in person with the referring surgeon Dr. Zabala. The decision was made to proceed with thoracentesis at this time as the potential benefits of improved respiratory status were felt to be significant in this currently oxygen-dependent patient was clearly laboring to breathe, all were in agreement. The right hemithorax was marked under ultrasound and prepped and draped in a sterile manner. Local anesthesia was performed with 1% lidocaine. A AbleSkyeh sheath/needle was then inserted into the right pleural space under direct ultrasound guidance and visualization. The internal needle was withdrawn. Approximately 100 mL of brownish-yellow slightly turbid fluid were removed through the catheter for the purposes of therapeutic and diagnostic thoracentesis. Postprocedural ultrasound examination did not show any fluid collection or other evidence of complication. A occlusive sterile dressing was applied. The patient appeared to tolerate the procedure well. FINDINGS: Ultrasound demonstrated a large complex appearing right pleural effusion. No postprocedural hematoma was detected. IMPRESSION: Ultrasound-guided right-sided thoracentesis. [facility]
== END 2018-07-15 05:35 | disposition expired | DRG 208 ==
LOC: EDUNIT# → ED 17:03 → ICU 21:54
PROVIDERS: ADMIT Internal Medicine; ATTEND Internal Medicine
PROC: 0W994ZX Drainage of Right Pleural Cavity, Percutaneous Endoscopic Approach, Diagnostic (ICD-10-PCS; principal; 2018-07-14)
PROC: 5A1935Z Respiratory Ventilation, Less than 24 Consecutive Hours (ICD-10-PCS; 2018-07-14)
PROC: 0BH17EZ Insertion of Endotracheal Airway into Trachea, Via Natural or Artificial Opening (ICD-10-PCS; 2018-07-14)
PROC: 0W9900Z Drainage of Right Pleural Cavity with Drainage Device, Open Approach (ICD-10-PCS; 2018-07-14)
PROC: 30233N1 Transfusion of Nonautologous Red Blood Cells into Peripheral Vein, Percutaneous Approach (ICD-10-PCS; 2018-07-15)
DX: A41.9 Sepsis, unspecified organism (principal); J90 Pleural effusion, not elsewhere classified; A41.89 Other specified sepsis; J96.01 Acute respiratory failure with hypoxia; N39.0 Urinary tract infection, site not specified; I48.92 Unspecified atrial flutter; E87.1 Hypo-osmolality and hyponatremia; Z68.41 Body mass index [BMI] 40.0-44.9, adult; R18.8 Other ascites; D62 Acute posthemorrhagic anemia; J94.2 Hemothorax; B96.1 Klebsiella pneumoniae [K. pneumoniae] as the cause of diseases classified elsewhere; K75.81 Nonalcoholic steatohepatitis (NASH); E11.65 Type 2 diabetes mellitus with hyperglycemia; Z79.4 Long term (current) use of insulin; I48.0 Paroxysmal atrial fibrillation; J45.909 Unspecified asthma, uncomplicated; K21.9 Gastro-esophageal reflux disease without esophagitis; M06.9 Rheumatoid arthritis, unspecified; Z66 Do not resuscitate; G25.81 Restless legs syndrome; F32.9 Major depressive disorder, single episode, unspecified; E66.01 Morbid (severe) obesity due to excess calories; I95.9 Hypotension, unspecified; R57.1 Hypovolemic shock; Z99.81 Dependence on supplemental oxygen
CPT/HCPCS: 32555; 36415; 71045; 71046; 80048; 80053; 80061; 80162; 81001; 81003; 81599; 82009; 82803; 83036; 83605; 83690; 83721; 83735; 83880; 84100; 84484; 85025; 85610; 86850; 86900; 86901; 86920; 87040; 87070; 87077; 87086; 87150; 87181; 87205; 89051; 93005; 94640; 96365; 96367; 96375; 99285; 99291